=== PATIENT | female | born 1940 | race Caucasian/White ===

== ENCOUNTER 2020-01-05 00:37 | Day surgery (SDC) | payer MEDICARE, SELFPAY ==
[2020-01-02 14:39] VITALS: BMI 21.7
--- NOTE | 2020-01-05 10:19 | PM.HPGS ---
History of Present Illness History of Present Illness Consent: Risks, benefits, and alternatives have been discussed and questions answered. Patient agrees to proceed with procedure. Chief complaint: dysphagia, vomiting Narrative: Kylee Melendez is a 79 year old female who, for the past several weeks and almost and , would develop severe abdominal cramping followed by vomiting of undigested food. After few hours of this she tends to have a loose stool. Her gallbladder has been removed. Initially she had noted some difficulty with swallowing but this was not persistent. She did have an esophageal stricture that I dilated about 4 years ago. She is taking omeprazole 20 mg per day [facility] Family History Family History Father Family history of tuberculosis Mother Family history of liver disease Sibling Family history of emphysema Other Diabetes mellitus Family history of chronic obstructive pulmonary disease Family history of glaucoma Family history of hepatitis Family history of kidney disease Family history of lung disease Family history of malignant neoplasm of cervix Family history of osteoporosis Social History Social History Smoking status: Never smoker Smoking end date: 11/23/95 Alcohol intake: never Meds Home Medications and Allergies Home Medications Medication Instructions Recorded Confirmed Type albuterol sulfate 2.5 mg INHALATION DAILY 01/02/20 01/02/20 History amlodipine 5 mg PO DAILY 01/02/20 01/02/20 History hydrochlorothiazide 12.5 mg PO DAILY 01/02/20 01/02/20 History levothyroxine 50 mcg PO DAILY 01/02/20 01/02/20 History omeprazole 20 mg PO DAILY 01/02/20 01/02/20 History prednisolone acetate 1 drp OPHTHALMIC (EYE) DAILY 01/02/20 01/02/20 History rosuvastatin 20 mg PO DAILY 01/02/20 01/02/20 History sertraline 25 mg PO DAILY 01/02/20 01/02/20 History timolol maleate 1 drp OPHTHALMIC (EYE) DAILY 01/02/20 01/02/20 History umeclidinium-vilanterol [Anoro 1 inh INHALATION DAILY 01/02/20 01/02/20 History Ellipta] Allergies Allergy/AdvReac Type Severity Reaction Status Date / Time No Known Allergies Allergy Unknown Unverified 01/02/20 14:31 Exam Const: General: alert Orientation/consciousness: patient oriented x3 Resp: Auscultation: clear to auscultation bilaterally Cardio: Rhythm: regular rhythm GI: GI Palp: Yes Soft to palpation and No Tenderness to palpation present (GI) Neuro: General: patient oriented x3 Assessment and Plan Assessment and plan (1) Vomiting: Code(s): R11.10 - Vomiting, unspecified Status: Acute Assessment and Plan: EGD with possible biopsy or dilatation or cautery.
[2020-01-05] MEDS: LACTATED RINGERS 1,000 ML 150 ML IV CONT (10:27)
[2020-01-05 10:28] VITALS: BP 151/69; PULSE 66; RESP 14; TEMP 36.6; O2SAT 100; BMI 21.7
--- NOTE | 2020-01-05 10:34 | WPDANESEPPF ---
Anes - Initial Pre Proc Eval Procedure: Operation Date: 01/05/20 10:30 Proposed Procedures p Esophagogastroduodenoscopy - Janes Grey MD Date/Time: 01/05/20 10:34 Surgeon: Janes Grey MD Pre Op Diagnosis: dysphagia, vomiting Patient Data Age: 79 Gender: F Height: 4 ft 9 in Weight: 45.4 kg Last Vital Signs Temp 97.8 F 01/05/20 10:28 Pulse 66 01/05/20 10:28 Resp 14 01/05/20 10:28 BP 151/69 H 01/05/20 10:28 Pulse Ox 100 01/05/20 10:28 Allergies Allergy/AdvReac Type Severity Reaction Status Date / Time No Known Allergies Allergy Unknown Unverified 01/05/20 10:28 Home Medications Medication Instructions Recorded Confirmed Type albuterol sulfate 2.5 mg INHALATION DAILY 01/02/20 01/02/20 History amlodipine 5 mg PO DAILY 01/02/20 01/02/20 History hydrochlorothiazide 12.5 mg PO DAILY 01/02/20 01/02/20 History levothyroxine 50 mcg PO DAILY 01/02/20 01/02/20 History omeprazole 20 mg PO DAILY 01/02/20 01/02/20 History prednisolone acetate 1 drp OPHTHALMIC (EYE) DAILY 01/02/20 01/02/20 History rosuvastatin 20 mg PO DAILY 01/02/20 01/02/20 History sertraline 25 mg PO DAILY 01/02/20 01/02/20 History timolol maleate 1 drp OPHTHALMIC (EYE) DAILY 01/02/20 01/02/20 History umeclidinium-vilanterol [Anoro 1 inh INHALATION DAILY 01/02/20 01/02/20 History Ellipta] Patient hx anesthesia problems: none Family hx anesthesia problems: none PMFSH Past Medical History Medical History (Updated 01/05/20 @ 10:34 by Xander Barraza MD) COPD (chronic obstructive pulmonary disease) Depression Hyperlipidemia Hypertension Hypothyroid Family History Family History Father Family history of tuberculosis Mother Family history of liver disease Sibling Family history of emphysema Other Diabetes mellitus Family history of chronic obstructive pulmonary disease Family history of glaucoma Family history of hepatitis Family history of kidney disease Family history of lung disease Family history of malignant neoplasm of cervix Family history of osteoporosis Social History Social History Smoking status: Never smoker Smoking end date: 11/23/95 Alcohol intake: never Anes - Eval Final PreProcedure Day of Procedure 01/05/20 10:34 Patient weight: normal Heart: regular rate and rhythm Lungs: clear to auscultation Airway: Mallampati scale class II Neurological: alert and oriented Last oral intake: >/= 8 hours ASA classification: III Emergent: no Anesthetic plan: proceed Anesthesia type and monitoring: general GIVS and standard monitoring Informed Consent: The patient's anesthetic plan and its attendant risks and benefits were discussed with the patient/family/POA. Questions were solicited and answers provided to the satisfaction of the patient/family/POA.
[2020-01-05 10:51] VITALS: BP 100/51; PULSE 71; RESP 22; O2SAT 98
[2020-01-05 11:01] VITALS: BP 107/71; PULSE 67; RESP 18; O2SAT 100
[2020-01-05 11:11] VITALS: BP 126/57; PULSE 68; RESP 14; O2SAT 100
== END 2020-01-05 11:26 | disposition home or self-care (01) ==
PROVIDERS: PCP Internal Medicine; Visit Provider Internal Medicine Gastroenterology
PROC: 0DJ08ZZ Inspection of Upper Intestinal Tract, Via Natural or Artificial Opening Endoscopic (ICD-10-PCS; CPT 43235; principal; 2020-01-05 10:30)
DX: K22.2 Esophageal obstruction (principal); K29.70 Gastritis, unspecified, without bleeding; K25.9 Gastric ulcer, unspecified as acute or chronic, without hemorrhage or perforation; I10 Essential (primary) hypertension; E78.5 Hyperlipidemia, unspecified; E03.9 Hypothyroidism, unspecified; J44.9 Chronic obstructive pulmonary disease, unspecified; F32.9 Major depressive disorder, single episode, unspecified
CPT/HCPCS: 43239; 43249; 87081; C1726; J2704; J7120

== ENCOUNTER 2020-04-26 15:34 | Outpatient (CLI) | payer MEDICARE, SELFPAY ==
[2020-04-26 16:03] LABS: Hematocrit 39.4 % (37.0-47.0); Hemoglobin 12.3 g/dL (12.0-15.0); Immature Granulocyte Percent A 0.2 % (0-0.5); Mean Corpuscular HGB Conc 31.2 g/dl (32-36); Mean Corpuscular Hemoglobin 24.3 pg (26-34); Mean Corpuscular Volume 77.9 fl (80-100); Mean Platelet Volume 9.3 fl (7.4-10.4); Neutrophils Percent Auto 53.8 % (45.5-73.1); Platelet Count Result 222 k/mm3 (150-375); Red Blood Count 5.06 M/mm3 (4.2-5.4); Red Cell Distribution Width 18.4 % (11.5-14.5); White Blood Count 4.7 K/mm3 (4.5-10.0)
[2020-04-26 16:04] LABS: Basophils Percent Auto 0.6 % (0.2-1.2); Eosinophils Absolute Auto 0.2 K/mm3 (0-0.3); Eosinophils Percent Auto 3.6 % (0-4.4); Immature Granulocyte Absolute 0.01 K/mm3 (0.00-0.031); Lymphocytes Absolute Auto 1.53 K/mm3 (0.9-3.2); Lymphocytes Percent Auto 32.6 % (18.3-44.2); Monocytes Absolute Auto 0.4 K/mm3 (0.1-0.6); Monocytes Percent Auto 9.2 % (2.6-8.5); Neutrophils Absolute Auto 2.5 K/mm3 (1.3-6.7)
[2020-04-26 16:05] LABS: Immature Reticulocyte Fraction 18.6 % (3.0-15.9); Reticulocyte Hemoglobin Conten 28.2 pg (28.2-35.7); Reticulocyte Percent 1.66 % (0.7-4.3); Reticulocytes Absolute 0.08 B/L (32.2-175.7)
[2020-04-26 16:41] LABS: Iron 58 ug/dL (37-170)
[2020-04-26 16:44] LABS: Blood Urea Nitrogen 12 mg/dL (7-17); Calcium 9.5 mg/dL (8.4-10.2); Carbon Dioxide 31 mmol/L (22-30); Chloride 101 mmol/L (98-107); Estimated Glomerular Filt Rate 60; Glucose 80 mg/dL (65-105); Potassium 3.6 mmol/L (3.4-5.0); Sodium 137 mmol/L (137-145)
[2020-04-26 16:50] LABS: Percent Iron Saturation 15 % (20-50)
== END 2020-04-26 15:35 | disposition home or self-care (01) ==
PROVIDERS: PCP Internal Medicine; Visit Provider Internal Medicine Hematology & Oncology
DX: D64.9 Anemia, unspecified (principal)
CPT/HCPCS: 36415; 80048; 80500; 81257; 82728; 83021; 83540; 83550; 85014; 85018; 85025; 85041; 85046

== ENCOUNTER 2020-08-09 11:32 | Outpatient (CLI) | payer MEDICARE, SELFPAY ==
[2020-08-09 12:07] LABS: Basophils Percent Auto 0.7 % (0.2-1.2); Eosinophils Absolute Auto 0.2 K/mm3 (0-0.3); Eosinophils Percent Auto 3.5 % (0-4.4); Hematocrit 40.7 % (37.0-47.0); Hemoglobin 12.7 g/dL (12.0-15.0); Immature Granulocyte Absolute 0.02 K/mm3 (0.00-0.031); Immature Granulocyte Percent A 0.3 % (0-0.5); Lymphocytes Absolute Auto 2.01 K/mm3 (0.9-3.2); Lymphocytes Percent Auto 33.9 % (18.3-44.2); Mean Corpuscular HGB Conc 31.2 g/dl (32-36); Mean Corpuscular Hemoglobin 24.3 pg (26-34); Mean Corpuscular Volume 77.8 fl (80-100); Mean Platelet Volume 9.5 fl (7.4-10.4); Monocytes Absolute Auto 0.5 K/mm3 (0.1-0.6); Monocytes Percent Auto 8.8 % (2.6-8.5); Neutrophils Absolute Auto 3.1 K/mm3 (1.3-6.7); Neutrophils Percent Auto 52.8 % (45.5-73.1); Platelet Count Result 215 k/mm3 (150-375); Red Blood Count 5.23 M/mm3 (4.2-5.4); Red Cell Distribution Width 16.6 % (11.5-14.5); White Blood Count 5.9 K/mm3 (4.5-10.0)
[2020-08-09 15:13] LABS: Iron 66 ug/dL (37-170)
[2020-08-09 15:23] LABS: Percent Iron Saturation 18 % (20-50)
== END 2020-08-09 11:33 | disposition home or self-care (01) ==
PROVIDERS: PCP Internal Medicine; Visit Provider Internal Medicine Hematology & Oncology
DX: D64.9 Anemia, unspecified (principal)
CPT/HCPCS: 36415; 82728; 83540; 83550; 85025

== ENCOUNTER → 2020-09-13 16:07 | Outpatient (CLI) | payer MEDICARE, SELFPAY ==
--- NOTE | ~2020-09-13 | MR_ITS ---
EXAMINATION: MR lumbar spine wo con EXAM DATE: 09/13/2020 17:25 INDICATION: Cervalgia, Low Back Pain . TECHNIQUE: Multi-sequential, multiplanar MR images of the lumbar spine were obtained without contrast . Sagittal T1, T2, T2 fat saturation images. Axial T2 weighted images. There is no prior study for comparison. FINDINGS: Posterior and interbody fusion L5-S1 in the grade 1 anterolisthesis position, and laminecto mies. There is mild to moderate disc disease L1-L4. The conus medullaris terminates at the L1/2 level and has normal signal intensity and morphology. There are no suspicious marrow signal abnormalities . Paraspinal soft tissue is unremarkable. Patient has probably had right-sided nephrectomy. No eviden ce of retroperitoneal lymphadenopathy. Level by level evaluation: T12-L1: There is a minimal diffuse disc bulge. Facet arthropathy: None. Neural foraminal stenosis: No stenosis. Central canal stenosis: No stenosis. L1-L2: There is a mild diffuse disc bulge. Facet arthropathy: None. Neural foraminal stenosis: No stenosis. Central canal stenosis: No stenosis. L2-L3: There is a minimal diffuse disc bulge. Facet arthropathy: Mild. Neural foraminal stenosis: No stenosis. Central canal stenosis: No stenosis. L3-L4: There is a mild diffuse disc bulge. Facet arthropathy: Mild to moderate. Neural foraminal stenosis: Minimal right. Central canal stenosis: Minimal. L4-L5: There is a mild diffuse disc bulge. Facet arthropathy: Moderate synovial cyst projecting internally from left facet joint. Neural foraminal stenosis: Probably moderate bilateral. Central canal stenosis: Mild to moderate. L5-S1: This level is fused. Facet arthropathy: Poorly visualized. Neural foraminal stenosis: Mild to moderate right, no left. Central canal stenosis: Posterior decompression. IMPRESSION: 1. L5-S1 fusion, laminectomies. 2. Moderate bilateral L4-5 neural foraminal stenosis. 3. Lesser spondylosis above. Reviewed, dictated and finalized at location A.
--- NOTE | ~2020-09-13 | MR_ITS ---
EXAMINATION: MR cervical spine wo con EXAM DATE: 09/13/2020 17:49 INDICATION: Cervalgia, Low Back Pain. TECHNIQUE: Multi-sequential, multiplanar MR images of the cervical spine were obtained without contra st. Axial T2, axial T2 MERGE sequence. Sagittal T1, T2, T2 fat saturation images also obtained. Th ere is no prior study for comparison. FINDINGS: There is moderate disc disease at C3-4 and C5-6 and C6-7, mild to moderate at C4-5. There is 2 mm anterolisthesis C6 on C7. The spinal cord signal intensity and intrinsic morphology is normal . Cervicomedullary junction is normal in appearance. There are no suspicious marrow signal abnormalit ies. Paraspinal soft tissue is unremarkable. There is evidence of at least moderate mucoperiosteal th ickening within sinuses. Level by level evaluation: Study is limited due to patient motion. C2-C3: Disc does not extend beyond the endplate margin. Uncovertebral joint arthropathy: None. Facet joint arthropathy: Moderate to severe left. Neural foraminal stenosis: Moderate left. Central canal stenosis: No stenosis. C3-C4: There is a mild to moderate diffuse disc bulge. Uncovertebral joint arthropathy: Moderate bilateral. Facet joint arthropathy: Severe right, moderate left. Neural foraminal stenosis: Moderate to severe right, moderate left. Central canal stenosis: Mild to moderate. C4-C5: There is a mild diffuse disc bulge. Uncovertebral joint arthropathy: Moderate left, mild to moderate right. Facet joint arthropathy: Moderate bilateral. Neural foraminal stenosis: Moderate to severe left, mild to moderate right. Central canal stenosis: Mild. C5-C6: There is a mild to moderate diffuse disc bulge. Uncovertebral joint arthropathy: Moderate bilateral. Facet joint arthropathy: Moderate bilateral. Neural foraminal stenosis: Severe left, moderate to severe right. Central canal stenosis: Mild to moderate. C6-C7: There is a mild diffuse disc bulge. Uncovertebral joint arthropathy: Moderate left, mild to moderate right. Facet joint arthropathy: Moderate left, mild right. Neural foraminal stenosis: Moderate left. Central canal stenosis: Mild. C7-T1: Disc does not extend beyond the endplate margin. Uncovertebral joint arthropathy: Mild to moderate left. Facet joint arthropathy: Mild to moderate bilateral. Neural foraminal stenosis: Mild left. Central canal stenosis: No stenosis. IMPRESSION: 1. Advanced cervical spondylosis with the left C5-6 neural foramina severely narrowed. Reviewed, dictated and finalized at location A. IMPRESSION: 1. Advanced cervical spondylosis with the left C5-6 neural foramina severely n arrowed.
== END ==
PROVIDERS: Visit Provider Nurse Practitioner Family
DX: M54.5 Low back pain (principal); Z98.1 Arthrodesis status; M47.892 Other spondylosis, cervical region
CPT/HCPCS: 72141; 72148

== ENCOUNTER 2020-10-29 11:31 | Outpatient (CLI) | payer MEDICARE, SELFPAY ==
[2020-10-29 11:44] LABS: Basophils Percent Auto 0.6 % (0.2-1.2); Eosinophils Absolute Auto 0.2 K/mm3 (0-0.3); Eosinophils Percent Auto 2.8 % (0-4.4); Hematocrit 39.6 % (37.0-47.0); Hemoglobin 12.3 g/dL (12.0-15.0); Immature Granulocyte Absolute 0.03 K/mm3 (0.00-0.031); Immature Granulocyte Percent A 0.4 % (0-0.5); Lymphocytes Absolute Auto 1.63 K/mm3 (0.9-3.2); Lymphocytes Percent Auto 24.1 % (18.3-44.2); Mean Corpuscular HGB Conc 31.1 g/dl (32-36); Mean Corpuscular Hemoglobin 24.4 pg (26-34); Mean Corpuscular Volume 78.4 fl (80-100); Monocytes Absolute Auto 0.7 K/mm3 (0.1-0.6); Monocytes Percent Auto 9.6 % (2.6-8.5); Neutrophils Absolute Auto 4.2 K/mm3 (1.3-6.7); Neutrophils Percent Auto 62.5 % (45.5-73.1); Platelet Count Result 288 k/mm3 (150-375); Red Blood Count 5.05 M/mm3 (4.2-5.4); Red Cell Distribution Width 16.7 % (11.5-14.5); White Blood Count 6.8 K/mm3 (4.5-10.0)
[2020-10-29 16:49] LABS: Alanine Aminotransferase 20 U/L (4-35); Albumin Level 3.5 g/dL (3.5-5.1); Alkaline Phosphatase 112 U/L (38-126); Anion Gap 8 mmol/L (8-16); Aspartate Amino Transferase 25 U/L (14-36); Bilirubin,Total 0.4 mg/dL (0.2-1.3); Blood Urea Nitrogen 15 mg/dL (7-17); Calcium 8.6 mg/dL (8.4-10.2); Carbon Dioxide 29 mmol/L (22-30); Chloride 103 mmol/L (98-107); Estimated Glomerular Filt Rate 60; Glucose 96 mg/dL (65-105); Potassium 3.7 mmol/L (3.4-5.0); Sodium 140 mmol/L (137-145)
[2020-10-29 17:51] LABS: Iron 49 ug/dL (37-170)
[2020-10-29 18:00] LABS: Percent Iron Saturation 15 % (20-50)
== END 2020-10-29 11:32 | disposition home or self-care (01) ==
LOC: ANHLAB 11:32
PROVIDERS: PCP Internal Medicine; Visit Provider Internal Medicine Hematology & Oncology
DX: D56.0 Alpha thalassemia (principal); D50.9 Iron deficiency anemia, unspecified
CPT/HCPCS: 36415; 80053; 82728; 83540; 83550; 85025

== ENCOUNTER 2021-01-23 13:23 | Outpatient (CLI) | payer MEDICARE, SELFPAY ==
[2021-01-23 13:40] LABS: Basophils Percent Auto 0.4 % (0.2-1.2); Eosinophils Absolute Auto 0.2 K/mm3 (0-0.3); Eosinophils Percent Auto 3.2 % (0-4.4); Hematocrit 41.3 % (37.0-47.0); Hemoglobin 12.9 g/dL (12.0-15.0); Immature Granulocyte Absolute 0.02 K/mm3 (0.00-0.031); Immature Granulocyte Percent A 0.4 % (0-0.5); Lymphocytes Absolute Auto 1.74 K/mm3 (0.9-3.2); Lymphocytes Percent Auto 31.2 % (18.3-44.2); Mean Corpuscular HGB Conc 31.2 g/dl (32-36); Mean Corpuscular Volume 76.9 fl (80-100); Mean Platelet Volume 9.4 fl (7.4-10.4); Monocytes Absolute Auto 0.5 K/mm3 (0.1-0.6); Monocytes Percent Auto 8.4 % (2.6-8.5); Neutrophils Absolute Auto 3.2 K/mm3 (1.3-6.7); Neutrophils Percent Auto 56.4 % (45.5-73.1); Platelet Count Result 232 k/mm3 (150-375); Red Blood Count 5.37 M/mm3 (4.2-5.4); Red Cell Distribution Width 16.4 % (11.5-14.5); White Blood Count 5.6 K/mm3 (4.5-10.0)
[2021-01-23 16:04] LABS: Iron 64 ug/dL (37-170)
[2021-01-23 16:05] LABS: Alanine Aminotransferase 22 U/L (4-35); Albumin Level 4.1 g/dL (3.5-5.1); Alkaline Phosphatase 90 U/L (38-126); Anion Gap 6 mmol/L (8-16); Aspartate Amino Transferase 29 U/L (14-36); Bilirubin,Total 0.6 mg/dL (0.2-1.3); Blood Urea Nitrogen 21 mg/dL (7-17); Calcium 9.5 mg/dL (8.4-10.2); Carbon Dioxide 33 mmol/L (22-30); Chloride 99 mmol/L (98-107); Estimated Glomerular Filt Rate 53; Glucose 97 mg/dL (65-105); Potassium 3.7 mmol/L (3.4-5.0); Sodium 138 mmol/L (137-145)
[2021-01-23 16:13] LABS: Percent Iron Saturation 16 % (20-50)
== END 2021-01-23 13:24 | disposition home or self-care (01) ==
LOC: ANHLAB 13:25
PROVIDERS: PCP Internal Medicine; Visit Provider Internal Medicine Hematology & Oncology
DX: D50.9 Iron deficiency anemia, unspecified (principal); D56.3 Thalassemia minor
CPT/HCPCS: 36415; 80053; 82728; 83540; 83550; 85025

== ENCOUNTER → 2021-02-16 02:37 | Outpatient (CLI) | payer MEDICARE, SELFPAY ==
[2021-02-16 20:22] LABS: SARS-CoV-2 RNA PCR Negative
== END ==
PROVIDERS: PCP Internal Medicine; Visit Provider Internal Medicine Gastroenterology
DX: Z01.812 Encounter for preprocedural laboratory examination (principal); Z20.822 Contact with and (suspected) exposure to COVID-19
CPT/HCPCS: C9803; U0003; U0005

== ENCOUNTER 2021-02-20 00:54 | Day surgery (SDC) | payer MEDICARE, SELFPAY ==
[2021-02-07 10:38] VITALS: BMI 22.8
[2021-02-20 08:23] VITALS: BP 158/71; PULSE 80; RESP 18; TEMP 36.6; O2SAT 99; BMI 22.1
[2021-02-20] MEDS: LACTATED RINGERS 1,000 ML 150 ML IV CONT (08:34)
--- NOTE | 2021-02-20 09:07 | WPDANESEPPF ---
Anes - Initial Pre Proc Eval Procedure: Operation Date: 02/20/21 09:30 Proposed Procedures p Esophagogastroduodenoscopy With Dilatation - Janes Grey MD Date/Time: 02/20/21 09:07 Surgeon: Janes Grey MD Pre Op Diagnosis: Dysphagia Patient Data Age: 80 Gender: F Height: 4 ft 9 in Weight: 46.3 kg Last Vital Signs Temp 98 F 02/20/21 08:23 Pulse 80 02/20/21 08:23 Resp 18 02/20/21 08:23 BP 158/71 H 02/20/21 08:23 Pulse Ox 99 02/20/21 08:23 Allergies Allergy/AdvReac Type Severity Reaction Status Date / Time codeine Allergy Itching Verified 02/20/21 08:21 Home Medications Medication Instructions Recorded Confirmed Type Anoro Ellipta 1 inh INHALATION DAILY 01/02/20 02/20/21 History albuterol sulfate 2.5 mg INHALATION DAILY 01/02/20 02/20/21 History amlodipine 5 mg PO DAILY 01/02/20 02/20/21 History hydrochlorothiazide 12.5 mg PO DAILY 01/02/20 02/20/21 History levothyroxine 50 mcg PO DAILY 01/02/20 02/20/21 History omeprazole 20 mg PO DAILY 01/02/20 02/20/21 History prednisolone acetate 1 drp OPHTHALMIC (EYE) DAILY 01/02/20 02/20/21 History rosuvastatin 20 mg PO DAILY 01/02/20 02/20/21 History sertraline 25 mg PO DAILY 01/02/20 02/20/21 History timolol maleate 1 drp OPHTHALMIC (EYE) DAILY 01/02/20 02/20/21 History cholecalciferol (vitamin D3) 25 25 mcg PO DAILY 07/16/20 02/20/21 History mcg (1,000 unit) capsule denosumab 60 mg/mL subcutaneous 60 mg SUB-Q [id number] 07/16/20 02/20/21 History syringe multivitamin 1 cap PO DAILY 07/16/20 02/20/21 History vitamin B12 500 mcg-folic acid 400 1 tablet PO DAILY 07/16/20 02/20/21 History mcg tablet Patient hx anesthesia problems: none Family hx anesthesia problems: none PMFSH Past Medical History Medical History COPD (chronic obstructive pulmonary disease) Depression Dupuytrens contracture Epidermoid carcinoma Cervix Glaucoma Hyperlipidemia Hypertension Hypothyroid Surgical History Surgical History History of cholecystectomy 1972 History of eye surgery bilateral History of hip replacement L-2017 R-2016 History of kidney removal R 2014 History of spinal fusion 2013, Lumbar Family History Family History Father Family history of tuberculosis Mother Family history of liver disease Sibling Family history of emphysema Other Diabetes mellitus Family history of chronic obstructive pulmonary disease Family history of glaucoma Family history of hepatitis Family history of kidney disease Family history of lung disease Family history of malignant neoplasm of cervix Family history of osteoporosis Social History Social History Smoking packs per day: 0.5 Smoking cigarettes per day: 10.0 Years smoked: 40 Smoking pack-years: 20.00 Smoking status: Former smoker Tobacco type: cigarettes Smoking end date: 11/23/95 Alcohol intake: never Substance use: never Living arrangements: alone Gender identity (if verbalized by the patient): Female Spiritual care concerns: No Anes - Eval Final PreProcedure Day of Procedure 02/20/21 09:07 Patient weight: normal Heart: regular rate and rhythm Lungs: clear to auscultation Airway: Mallampati scale class II Neurological: alert and oriented Last oral intake: >/= 8 hours ASA classification: III Emergent: no Anesthetic plan: proceed Anesthesia type and monitoring: general GIVS and standard monitoring Informed Consent: The patient's anesthetic plan and its attendant risks and benefits were discussed with the patient/family/POA. Questions were solicited and answers provided to the satisfaction of the patient/family/POA.
--- NOTE | 2021-02-20 09:12 | PM.HPGS ---
History of Present Illness History of Present Illness Consent: Risks, benefits, and alternatives have been discussed and questions answered. Patient agrees to proceed with procedure. Chief complaint: Dysphagia Narrative: Kylee Melendez is a 80 year old female With dysphagia for solid food. She has done well since her last esophageal dilatation a year ago until just the last couple of weeks. Review of Systems Review of Systems: All systems reviewed & are unremarkable except as noted in HPI and below PMFSH Past Medical History Medical History COPD (chronic obstructive pulmonary disease) Depression Dupuytrens contracture Epidermoid carcinoma Cervix Glaucoma Hyperlipidemia Hypertension Hypothyroid Surgical History Surgical History History of cholecystectomy 1971 History of eye surgery bilateral History of hip replacement L-2016 R-2016 History of kidney removal R 2014 History of spinal fusion 2013, Lumbar Family History Family History Father Family history of tuberculosis Mother Family history of liver disease Sibling Family history of emphysema Other Diabetes mellitus Family history of chronic obstructive pulmonary disease Family history of glaucoma Family history of hepatitis Family history of kidney disease Family history of lung disease Family history of malignant neoplasm of cervix Family history of osteoporosis Social History Social History Smoking packs per day: 0.5 Smoking cigarettes per day: 10.0 Years smoked: 40 Smoking pack-years: 20.00 Smoking status: Former smoker Tobacco type: cigarettes Smoking end date: 11/23/95 Alcohol intake: never Substance use: never Living arrangements: alone Gender identity (if verbalized by the patient): Female Spiritual care concerns: No Meds Home Medications and Allergies Home Medications Medication Instructions Recorded Confirmed Type Anoro Ellipta 1 inh INHALATION DAILY 01/02/20 02/20/21 History albuterol sulfate 2.5 mg INHALATION DAILY 01/02/20 02/20/21 History amlodipine 5 mg PO DAILY 01/02/20 02/20/21 History hydrochlorothiazide 12.5 mg PO DAILY 01/02/20 02/20/21 History levothyroxine 50 mcg PO DAILY 01/02/20 02/20/21 History omeprazole 20 mg PO DAILY 01/02/20 02/20/21 History prednisolone acetate 1 drp OPHTHALMIC (EYE) DAILY 01/02/20 02/20/21 History rosuvastatin 20 mg PO DAILY 01/02/20 02/20/21 History sertraline 25 mg PO DAILY 01/02/20 02/20/21 History timolol maleate 1 drp OPHTHALMIC (EYE) DAILY 01/02/20 02/20/21 History cholecalciferol (vitamin D3) 25 25 mcg PO DAILY 07/16/20 02/20/21 History mcg (1,000 unit) capsule denosumab 60 mg/mL subcutaneous 60 mg SUB-Q [id number] 07/16/20 02/20/21 History syringe multivitamin 1 cap PO DAILY 07/16/20 02/20/21 History vitamin B12 500 mcg-folic acid 400 1 tablet PO DAILY 07/16/20 02/20/21 History mcg tablet Allergies Allergy/AdvReac Type Severity Reaction Status Date / Time codeine Allergy Itching Verified 02/20/21 08:21 Vital Signs Vital Signs - 24 hr 02/20/21 08:23 Temperature 36.6 C Pulse Rate 80 Respiratory Rate 18 Blood Pressure 158/71 H Pulse Oximetry 99 Exam Const: General: alert Orientation/consciousness: patient oriented x3 Resp: Auscultation: clear to auscultation bilaterally Cardio: Rhythm: regular rhythm GI: GI Palp: Yes Soft to palpation and No Tenderness to palpation present (GI) Neuro: General: patient oriented x3 Assessment and Plan Assessment and plan (1) Dysphagia: Code(s): R13.10 - Dysphagia, unspecified Status: Acute Assessment and Plan: EGD with possible biopsy or dilatation or cautery
[2021-02-20] MEDS: BENZOCAINE (*SP) 60 ML SPRAY CAN (HURRICAINE) 1 SPRAY MUCOUS MEM (09:22)
[2021-02-20 09:36] VITALS: BP 101/50; PULSE 71; RESP 26; O2SAT 96
[2021-02-20 09:46] VITALS: BP 104/51; PULSE 71; RESP 20; O2SAT 95
[2021-02-20 09:56] VITALS: BP 122/68; PULSE 74; RESP 19; O2SAT 98
== END 2021-02-20 10:11 | disposition home or self-care (01) ==
PROVIDERS: PCP Internal Medicine; Visit Provider Internal Medicine Gastroenterology
PROC: 0DJ08ZZ Inspection of Upper Intestinal Tract, Via Natural or Artificial Opening Endoscopic (ICD-10-PCS; CPT 43235; principal; 2021-02-20 09:30)
DX: K22.2 Esophageal obstruction (principal); J44.9 Chronic obstructive pulmonary disease, unspecified; I10 Essential (primary) hypertension; E78.5 Hyperlipidemia, unspecified; E03.9 Hypothyroidism, unspecified; H40.9 Unspecified glaucoma; F32.9 Major depressive disorder, single episode, unspecified; Z79.51 Long term (current) use of inhaled steroids; Z98.1 Arthrodesis status; Z87.891 Personal history of nicotine dependence
CPT/HCPCS: 43249; C1726; J2704; J7120

== ENCOUNTER 2021-03-18 13:22 | Inpatient (IN) | payer MEDICARE, SELFPAY ==
[2021-03-18] VITALS (9 sets, daily range): BP systolic 110–145; BP diastolic 52–70; PULSE 73–93; RESP 15–20; TEMP 36.2–37.3; O2SAT 95–100; BMI 22.2
--- NOTE | ~2021-03-18 | XR_ITS ---
XR abdomen obstructive series 03/21/2021 08:57 Indication: Small bowel obstruction Procedure: Upright and supine views of the abdomen Comparison: 03/18/2021 Findings: Bowel gas pattern is nonobstructive. There is residual contrast in the distal colon. There are spinal fusion changes at L5-S1. There are bilateral hip arthroplasties. Lung bases unremarkable. There are cholecystectomy clips. Impression: 1: Nonobstructive bowel gas pattern. Reviewed, dictated and finalized at location B. Impression: 1: Nonobstructive bowel gas pattern.
--- NOTE | ~2021-03-18 | XR_ITS ---
EXAMINATION: XR abdomen NG/feed tube insert DATE: 03/18/2021 17:08 INDICATION: Nasogastric tube placement TECHNIQUE: A supine view of the abdomen and lower chest was obtained for evaluation of feeding tube placement. COMPARISON: CT dated 03/18/2021 FINDINGS: Nasogastric tube tip in proximal side port in the body of the stomach. Calcified nodules in the left and right lungs consistent with old granulomatous disease. No pleural effusion or pneumothorax. Cardi omediastinal silhouette is normal. Right paraspinal surgical clips in the abdomen corresponding to ch anges of prior right nephrectomy. Gas-filled but not frankly dilated loops of small bowel in the cent ral abdomen which could represent an ileus or partial small bowel obstruction. Partially visualized b ilateral vertical gina and pedicle screw fixation for and L5-S1 posterior spinal fusion. IMPRESSION: 1. Nasogastric tube in the stomach. 2. Gas-filled but not frankly dilated loops of small bowel in the abdomen which could represent an il eus or partial small bowel obstruction. Reviewed, dictated and finalized at location A. IMPRESSION: 1. Nasogastric tube in the stomach. 2. Gas-filled but not frankly dilated loops of small bowel in the abdomen which could represent an ileus or partial small bowel obstruction.
--- NOTE | ~2021-03-18 | CT_ITS ---
EXAMINATION: CT abdomen pelvis w con EXAM DATE: 03/18/2021 14:59 INDICATION: Generalized abdominal pain . TECHNIQUE: Spiral CT of the abdomen and pelvis was performed following intravenous injection of 100 m L Omnipaque 350. Axial, coronal and sagittal images of the abdomen and pelvis were reviewed. The do se-length product (DLP) for this examination was 212.56 mGy-cm. The exposure was tailored according to patient size (auto mA exposure control), and iterative reconstruction (ASIR) was used as additiona l dose reduction technique. Comparison is made to prior examination from 02/01/2016. FINDINGS: There is moderate to severely distended jejunum, diameter up to 3.5 cm, with diameter of th e small bowel tapering to the terminal ileum which is suspected to have mild edema, probably terminal ileitis. Mild edema within the mesentery. There are approximately 10 filling defects within the lum en of the ileum just proximal to the terminal ileum, relatively uniform size and appearance at about 11 x 7 mm, could be something ingested (peripherally very low density, not typical appearance for [place] d. Gallstones? Plastic?). Uncertain whether or not these are having difficulty passing the terminal i leum due to its edematous wall, and possibly contributing to dilation. The liver, spleen, adrenal glands and pancreas are unremarkable. There are cholecystectomy clips. 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 No left-sided hydronephrosis. There is a 1.5 cm left renal cyst. The uterus is unremarkable. The bladder is undistended, and po tung visualized due to dense metallic artifact from bilateral hip replacements. There is no retroper itoneal or pelvic lymphadenopathy. There is moderate scattered arteriosclerotic disease. There are no findings to suggest appendicitis. There is small sliding gastroesophageal hiatal hernia . Colonic fluid, and relatively collapsed colon and mild sigmoid diverticulosis without adjacent inf lammation. No free intraperitoneal gas. The heart is normal in size. There are no pericardial or pleural effusions. The lung bases are unremarkable. There are no osteoblastic or osteolytic lesion s identified. IMPRESSION: Moderate to severe jejunal distention with tapering to an abnormal appearing terminal ile um, could be terminal ileitis and resultant ileus or partial obstruction. Intraluminal objects windup just proximal to terminal ileum, could be ingested foreign bodies, no gallbladder to indicate gallst one ileus. Uncertain whether or not these are incidental or contributing to small bowel dilation. Reviewed, dictated and finalized at location A. IMPRESSION: Moderate to severe jejunal distention with tapering to an abnormal appearing terminal ileum, could be terminal ileitis and resultant ileus or part ial obstruction. Intraluminal objects windup just proximal to terminal ileum, c ould be ingested foreign bodies, no gallbladder to indicate gallstone ileus. Un certain whether or not these are incidental or contributing to small bowel dila tion.
--- NOTE | ~2021-03-18 | XR_ITS ---
EXAMINATION: XR sm bowel follow through WS EXAM DATE: 03/19/2021 14:25 INDICATION: Small bowel obstruction, terminal ileum stricture? Distal terminal ileal filling defects. TECHNIQUE: Turret Press Operator radiograph was acquired. Omnipaque water soluble solution small bowel exam was perfo rmed with by radiologist John Pisano M.D. Spot images of the terminal ileum were acquired. Pulsed dose reduction fluoroscopy was used with fluoroscopic time of 0.3. The DAP for this procedure was 27 Gycm2. A total of 56 images obtained for the exam. Correlation is made to CT abdomen pelvis 03/18/20. FINDINGS: Turret Press Operator image confirms adequate position of nasogastric tube. Cholecystectomy clips, lumbar f usion hardware and bilateral hip replacements. Moderately distended jejunum with more normal calibered ileum, progressive opacification during 1.5 h ours of imaging. Contrast was confirmed in the colon on the 1.5 hour post administration, within norm al limits. Could not specifically visualized the terminal ileum well on spot imaging at that time. Di d not identify any filling defects within the small bowel on this examination. I discussed these resu lts with Moraima Lehman. IMPRESSION: 1. Moderately dilated jejunum, normal transit time 1-1.5 hours. Ileus or partial obstruction. 2. Terminal ileum poorly visualized. 3. Please see addendum to CT abdomen pelvis from yesterday. Reviewed, dictated and finalized at location A. IMPRESSION: 1. Moderately dilated jejunum, normal transit time 1-1.5 hours. Ileus or partia l obstruction. 2. Terminal ileum poorly visualized. 3. Please see addendum to CT abdomen pelvis from yesterday.
[2021-03-18 13:54] LABS: Basophils Percent Auto 0.3 % (0.2-1.2); Eosinophils Percent Auto 0.6 % (0-4.4); Hematocrit 40.8 % (37.0-47.0); Immature Granulocyte Absolute 0.01 K/mm3 (0.00-0.031); Immature Granulocyte Percent A 0.2 % (0-0.5); Lymphocytes Absolute Auto 1.33 K/mm3 (0.9-3.2); Lymphocytes Percent Auto 20.8 % (18.3-44.2); Mean Corpuscular HGB Conc 31.9 g/dl (32-36); Mean Corpuscular Volume 75.4 fl (80-100); Mean Platelet Volume 9.2 fl (7.4-10.4); Monocytes Absolute Auto 0.8 K/mm3 (0.1-0.6); Monocytes Percent Auto 12.5 % (2.6-8.5); Neutrophils Absolute Auto 4.2 K/mm3 (1.3-6.7); Neutrophils Percent Auto 65.6 % (45.5-73.1); Platelet Count Result 206 k/mm3 (150-375); Red Blood Count 5.41 M/mm3 (4.2-5.4); Red Cell Distribution Width 16.3 % (11.5-14.5); White Blood Count 6.4 K/mm3 (4.5-10.0)
[2021-03-18 14:05] LABS: Alanine Aminotransferase 23 U/L (4-35); Albumin Level 3.9 g/dL (3.5-5.1); Alkaline Phosphatase 58 U/L (38-126); Anion Gap 8 mmol/L (8-16); Aspartate Amino Transferase 30 U/L (14-36); Bilirubin,Total 0.7 mg/dL (0.2-1.3); Blood Urea Nitrogen 16 mg/dL (7-17); Calcium 9.7 mg/dL (8.4-10.2); Carbon Dioxide 30 mmol/L (22-30); Chloride 97 mmol/L (98-107); Estimated Glomerular Filt Rate 60; Glucose 114 mg/dL (65-105); Lipase 34 U/L (23-300); Potassium 3.6 mmol/L (3.4-5.0); Sodium 135 mmol/L (137-145)
--- NOTE | 2021-03-18 14:22 | PC.NURSE ---
Pt attempted to give urine sample, states she accidentally spilled the sample while in bathroom. Will attempt another sample at a later time.
--- NOTE | 2021-03-18 14:38 | ED.NAVMDI ---
HPI - Nausea/Vomiting/Diarrhea General Chief complaint: Nausea/Vomiting/Diarrhea Stated complaint: abd pain/v/d Time Seen by Provider: 03/18/21 14:06 History of Present Illness HPI Narrative: nausea, vomiting, diarrhea for the past week. Associated with occasional dark stools, increasing abdominal pain for the past few days. The pain is now severe. It feels like cramps. She has never had this pain before. She did recently have an esophageal dilation done. Related Data Home Medications Medication Instructions Recorded Confirmed Anoro Ellipta 1 inh INHALATION DAILY 01/02/20 02/20/21 albuterol sulfate 2.5 mg INHALATION DAILY 01/02/20 02/20/21 amlodipine 5 mg PO DAILY 01/02/20 02/20/21 hydrochlorothiazide 12.5 mg PO DAILY 01/02/20 02/20/21 levothyroxine 50 mcg PO DAILY 01/02/20 02/20/21 omeprazole 20 mg PO DAILY 01/02/20 02/20/21 prednisolone acetate 1 drp OPHTHALMIC (EYE) DAILY 01/02/20 02/20/21 rosuvastatin 20 mg PO DAILY 01/02/20 02/20/21 sertraline 25 mg PO DAILY 01/02/20 02/20/21 timolol maleate 1 drp OPHTHALMIC (EYE) DAILY 01/02/20 02/20/21 cholecalciferol (vitamin D3) 25 25 mcg PO DAILY 07/16/20 02/20/21 mcg (1,000 unit) capsule denosumab 60 mg/mL subcutaneous 60 mg SUB-Q [id number] 07/16/20 02/20/21 syringe multivitamin 1 cap PO DAILY 07/16/20 02/20/21 vitamin B12 500 mcg-folic acid 400 1 tablet PO DAILY 07/16/20 02/20/21 mcg tablet Allergies Allergy/AdvReac Type Severity Reaction Status Date / Time codeine Allergy Itching Verified 03/18/21 14:21 Review of Systems Review of Systems: All systems reviewed & are unremarkable except as noted in HPI and below Constitutional: Constitutional: Reports fatigue, Denies fever(s) and Reports weakness ENT: Reports system reviewed and no additional complaints, except as documented Cardiovascular: Cardiovascular: Denies chest pain Respiratory: Respiratory: Denies dyspnea Gastrointestinal: Gastrointestinal: Reports abdominal pain, Reports diarrhea, Reports nausea and Reports vomiting Genitourinary: Genitourinary: Reports no additional female genitourinary complaints Musculoskeletal: Musculoskeletal: Denies back pain Neurologic: Denies confusion, Reports dizziness, Denies syncope and Reports weakness [facility] Past Medical History Medical History COPD (chronic obstructive pulmonary disease) Depression Dupuytrens contracture Epidermoid carcinoma Cervix Glaucoma Hyperlipidemia Hypertension Hypothyroid Surgical History Surgical History History of cholecystectomy 1972 History of eye surgery bilateral History of hip replacement L-2017 R-2016 History of kidney removal R 2014 History of spinal fusion 2013, Lumbar Family History Family History Father Family history of tuberculosis Mother Family history of liver disease Sibling Family history of emphysema Other Diabetes mellitus Family history of chronic obstructive pulmonary disease Family history of glaucoma Family history of hepatitis Family history of kidney disease Family history of lung disease Family history of malignant neoplasm of cervix Family history of osteoporosis Social History Social History Smoking packs per day: 0.5 Smoking cigarettes per day: 10.0 Years smoked: 40 Smoking pack-years: 20.00 Smoking status: Former smoker Tobacco type: cigarettes Smoking end date: 11/23/95 Alcohol intake: never Substance use: never Gender identity (if verbalized by the patient): Female Spiritual care concerns: No Exam Const: General: healthy appearing, no acute distress and alert Orientation/consciousness: patient oriented x3 HENMT: Head: normal to inspection Resp: Effort & Inspection: normal respiratory effort Auscultation:
[2021-03-18] MEDS: SODIUM CHLORIDE 0.9% IV 500 ML 999 ML IV CONT (15:33)
[2021-03-18] MEDS: fentaNYL CITRATE INJ (*CRX) 100 MCG/2 ML VIAL 50 MCG IV PUSH ×3 (15:33→21:11)
[2021-03-18] MEDS: ONDANSETRON INJ 4 MG/2 ML VIAL IV PUSH (15:33)
[2021-03-18 15:34] LABS: Lactic Acid Reflex 1.9 mmol/L (0.7-2.1)
[2021-03-18 15:46] LABS: Add Urine Microscopic? YES; Appearance Urine Clear (Clear); Bilirubin Urine Negative (Negative); Blood Urine Negative (Negative); Color Urine Yellow (Yellow); Glucose Urine UA Negative (Negative); Ketones Urine Negative (Negative); Leukocyte Esterase Ur Trace LEU/UL (Negative); Mucus Urine Rare /lpf; Nitrate Urine Negative (Negative); Protein Urine Negative (Negative); RBC Urine 0-2 /hpf (0-2); Squamous Epithelial Cell Urine Moderate /hpf (Few); Urobilinogen Urine Negative mg/dL (<2.0); WBC Urine 0-3 /hpf
[2021-03-18 15:57] LABS: Specific Grav Ur 1.035 (1.001-1.035)
[2021-03-18] MEDS: LORazepam INJ (*CRX) 2 MG/ML VIAL 0.5 MG IV PUSH (16:59)
--- NOTE | 2021-03-18 18:31 | ADMGEN ---
This patient, Kylee Melendez, was admitted to 3 Med Surg Room 317-01. Patient/family oriented to hospital policies and general routines including ID bracelet, bed and alarms, visiting hours, pain management, procedures, bathroom and other care routines, personal items, smoking policy, room service/diet, and visiting hours. Information on how to activate the Rapid Response Team has been discussed. Patient/Family are encouraged to report perceived risks to care and to ask questions if they do not understand what they are told or what they should do.
[2021-03-18] MEDS: LACTATED RINGERS 1,000 ML 75 ML IV CONT (18:36)
--- NOTE | 2021-03-18 20:46 | WPDGICN ---
Assessment and Plan Assessment and plan (1) Vomiting: Code(s): R11.10 - Vomiting, unspecified Status: Acute Assessment and Plan: Per CT imaging, it appears she has a narrowed terminal ileum, which clinically I would suspect is rergional enteritis, though unusual to present at her age. (2) Abnormal CT of the abdomen: Code(s): R93.5 - Abnormal findings on diagnostic imaging of other abdominal regions, including retroperitoneum Status: Acute Assessment and Plan: See above--narrowed T.I. impliies ileitis, either IBD or an infectious process,but she recalls having been told by Dr. Milian that there was narrowing about 6 years ago based on a SBS which I cannot find at this institution. I will obtain markers for IBD. Hopefully her ileum wlll open up after decompression. wiill begin steroids as well (3) Dysphagia: Code(s): R13.10 - Dysphagia, unspecified Status: Acute Assessment and Plan: Sha has been swallowing better since haing Dilitation 4 weeks ago. GI Consult Note Consult date/time: 03/18/21 20:46 HPI: Kylee Melendez is a 80 year old female who presents to the ED with a 7 daay story of nausea, vomiting, and diarrhea. She has had lower abdominal pain. No feer or chills. Recently, I dilated her esophageal stricture. Seeral years ago she states her previous doctor did an upper GI showing abnormality of the small bowel. I cannot find that study, but do recollect a conversation about Crohn's, and possibly obtained markers for it, which she states were neg. Now she has an NG in place draining light brown material, non bloody. Her CT scan show dilated proximal small bowel and inflamed (narrowed) erminal leum, roximal to which are filling defects that I suspect are time release wax matrix type tablets, likely potassium. Review of Systems Review of Systems: All systems reviewed & are unremarkable except as noted in HPI and below PMFSH Past Medical History Medical History COPD (chronic obstructive pulmonary disease) Depression Dupuytrens contracture Epidermoid carcinoma Cervix Glaucoma Hyperlipidemia Hypertension Hypothyroid Surgical History Surgical History History of cholecystectomy 1972 History of eye surgery bilateral History of hip replacement L-2017 R-2017 History of kidney removal R 2014 History of spinal fusion 2013, Lumbar Family History Family History Father Family history of tuberculosis Mother Family history of liver disease Sibling Family history of emphysema Daughter Diabetes mellitus Social History Social History Smoking packs per day: 0.5 Smoking cigarettes per day: 10.0 Years smoked: 40 Smoking pack-years: 20.00 Smoking status: Former smoker Tobacco type: cigarettes Smoking end date: 11/23/95 Alcohol intake: never Substance use: never Gender identity (if verbalized by the patient): Female Sexual Orientation (if Verbalized by the Patient): Straight or Heterosexual Spiritual care concerns: No Meds Home Medications and Allergies Home Medications Medication Instructions Recorded Confirmed Type Anoro Ellipta 1 inh INHALATION DAILY 01/02/20 03/18/21 History albuterol sulfate 2.5 mg INHALATION DAILY 01/02/20 03/18/21 History amlodipine 5 mg PO DAILY 01/02/20 03/18/21 History hydrochlorothiazide 12.5 mg PO DAILY 01/02/20 03/18/21 History levothyroxine 50 mcg PO DAILY 01/02/20 03/18/21 History omeprazole 20 mg PO DAILY 01/02/20 03/18/21 History prednisolone acetate 1 drp RIGHT EYE DAILY 01/02/20 03/18/21 History rosuvastatin 40 mg PO DAILY 01/02/20 03/18/21 History sertraline 25 mg PO DAILY 01/02/20 03/18/21 History timolol maleate 1 drp OPHTHALMIC (EYE) BID 01/02/20 03/18/21 History cholecalcife
[2021-03-18] MEDS: methylPREDNISolone SOD SUCC 40 MG VIAL IV PUSH (23:25)
[2021-03-19] MEDS: methylPREDNISolone SOD SUCC 40 MG VIAL IV PUSH ×3 (05:13→17:30)
[2021-03-19 06:00] VITALS: BP 120/56; PULSE 82; RESP 16; TEMP 36.2; O2SAT 95
--- NOTE | 2021-03-19 07:13 | PM.IMHP ---
H&P: HPI History of Present Illness Date/Time: 03/19/21 07:13 Chief Complaint: Abdominal pain Narrative: Patient is an 80-year-old female with a past medical history of COPD, hypertension, hyperlipidemia, torturous colon, and GERD who presented emergency room due to severe abdominal pain. Patient states that this all started about 5 years ago and happens about every 3 months. She states that she usually starts to get abdominal pain which is followed by vomiting and then diarrhea which usually last 24 hours and then goes away. She has never been hospitalized or gone to the ER for this because it usually just goes away on its own. Eight days ago, the patient developed the abdominal pain and vomiting but the vomiting and diarrhea continued past the normal 24 hours. She has been having vomiting every day and has been vomiting up liquids and solids. She has not been able to keep anything down and continued to have dark diarrhea. She says her abdomen was bloated and looked big enough that it looked like she was 9 months . She is unable to have a colonoscopy because apparently a doctor told her in the past that she has a kink in her colon and she would be high risk. She has not tried a pill capsule study. Since being admitted to the hospital she has had mild pain but no more vomiting or diarrhea. Her abdominal distention has resolved. She denies fevers, chest pain, shortness of breath, rashes or wounds. She has slight headache when she was throwing up but is feeling much better. 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 No other sick contacts, no abx, no travel outside the [place]. She completed the covid vaccine in january. Review of Systems Review of Systems: All systems reviewed & are unremarkable except as noted in HPI and below PMFSH Past Medical History Medical History COPD (chronic obstructive pulmonary disease) Depression Dupuytrens contracture Epidermoid carcinoma Cervix Glaucoma Hyperlipidemia Hypertension Hypothyroid Surgical History Surgical History History of cholecystectomy 1972 History of eye surgery bilateral History of hip replacement L-2016 R-2016 History of kidney removal R 2014 History of spinal fusion 2013, Lumbar Family History Family History Father Family history of tuberculosis Mother Family history of liver disease Sibling Family history of emphysema Daughter Diabetes mellitus Social History Social History (Updated 03/19/21 @ 11:14 by Tara Foss PA-C) Social History: Patient is a former smoker but quit 24 years ago. She does not drink alcohol or do drugs. 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 She would like to be a full code and her daughter Camille to be the surrogate decision maker if needed Smoking packs per day: 0.5 Smoking cigarettes per day: 10.0 Years smoked: 40 Smoking pack-years: 20.00 Smoking status: Former smoker Tobacco type: cigarettes Smoking end date: 11/23/95 Alcohol intake: never Substance use: never Gender identity (if verbalized by the patient): Female Sexual Orientation (if Verbalized by the Patient): Straight or Heterosexual Spiritual care concerns: No Meds Home Medications and Allergies Home Medications Medication Instructions Recorded Confirmed Type Anoro Ellipta 1 inh INHALATION DAILY 01/02/20 03/18/21 History albuterol sulfate 2.5 mg INHALATION DAILY 01/02/20 03/18/21 History amlodipine 5 mg PO DAILY 01/02/20 03/18/21 History hydrochlorothiazide 12.5 mg PO DAILY 01/02/20 03/18/21 History levothyroxine 50 mcg PO DAILY 01/02/20 03/18/21 History omeprazole 20 mg PO DAILY 01/02/20 03/18/21 History prednisolone acetate 1 drp RIGHT EYE DAILY 01/02/20 03/18/21 History rosuvastatin 40 mg PO DAILY 01/02/20
[2021-03-19] MEDS: PANTOPRAZOLE SODIUM IV 40 MG VIAL IV PUSH (09:07)
[2021-03-19] MEDS: LEVOTHYROXINE SODIUM INJ 100 MCG/5 ML VIAL 25 MCG IV PUSH (09:08)
[2021-03-19] MEDS: LACTATED RINGERS 1,000 ML 75 ML IV CONT ×2 (09:09→23:48)
[2021-03-19 10:06] VITALS: O2SAT 93
--- NOTE | 2021-03-19 12:03 | PM.CNGS ---
Assessment and Plan Assessment and plan (1) Small bowel obstruction: Code(s): K56.609 - Unspecified intestinal obstruction, unspecified as to partial versus complete obstruction Status: Acute Assessment and Plan: CT scan of the abdomen and pelvis reviewed and discussed with the patient and her daughter. There is evidence of terminal ileitis with a possible partial small bowel obstruction. Findings are concerning for IBD. GI has been consulted and the patient is on IV steroids and antibiotics. NG tube is in place and she is NPO. There is also mention of intraluminal objects just proximal to the terminal ileum, which could be ingested foreign bodies. After thorough questioning, the patient has been taking oral potassium pills twice daily over the past week, with her last dose 2 days ago. They are unsure if these were enteric coated or what type of potassium supplementation she was taking. Nonetheless, you would expect this to dissolve prior to getting to the terminal ileum. The patient cannot recall ingesting anything else that would account for these objects. I reviewed the CT scan with the Radiologist, who felt the appearance of these objects could potentially be partially dissolved potassium tablets based on their appearance. He is unable to decipher if the possible obstruction is caused from the foreign objects or if they were an incidental finding with the cause being the terminal ileitis. If these objects are undissolved tablets, then you would expect that they would eventually dissolve or pass. She is already showing signs of bowel function and overall clinical improvement. I have ordered a Gastrografin small bowel follow through today to further assess the obstruction. This may also help see if there are any filling defects or narrowing in the terminal ileum when contrast reaches that area. Also agree with continuing treatment for the terminal ileitis per GI as mentioned below. We will continue to follow along with you. Thank you for allowing us to see the patient in consultation. (2) Terminal ileitis: Qualifiers: Digestive disease complication type: with intestinal obstruction Qualified Code(s): K50.012 - Crohn's disease of small intestine with intestinal obstruction Code(s): K50.00 - Crohn's disease of small intestine without complications Status: Acute Assessment and Plan: Continue IV steroids and antibiotics per GI recommendations, which they are treating as inflammatory bowel disease. IBD panel ordered and they are in the process of trying to obtain records from previous testing. I was able to find an upper GI with small bowel series at [facility] from July of 2016, which showed a normal small bowel series with no significant stricture or narrowing of the terminal ileum at that time. See plan above. (3) Diarrhea: Code(s): R19.7 - Diarrhea, unspecified Status: Acute Assessment and Plan: Chronic issues with diarrhea. Currently being worked up and treated for IBD. (4) COPD (chronic obstructive pulmonary disease): Code(s): J44.9 - Chronic obstructive pulmonary disease, unspecified Status: Acute (5) Dysphagia: Code(s): R13.10 - Dysphagia, unspecified Status: Acute Assessment and Plan: Esophageal stricture with dysphagia requiring dilation about 4 weeks ago, which has improved since. GI following. Additional Plan I have discussed the patient's case and plan of care with Dr. Nunez. History of Present Illness Consult details Consult date: 03/19/21 Reason for consult: other (Terminal ileitis causing partial small bowel obstruction) Requesting physician: Quintin Lindsey MD Narrative: This is an 80-year-old female with a history of COPD and hypertension, who was evaluated in the ER for complaints of abdominal pain and vomiting. The patient reports having issues over the past 5 years of intermittent cramping abdominal pain and vomiting that
[2021-03-19 12:16] VITALS: BMI 22.2
--- NOTE | 2021-03-19 12:18 | WPDGIPROGNO ---
Progress Note: A&P Assessment and Plan (1) Terminal ileitis: Qualifiers: Digestive disease complication type: with intestinal obstruction Qualified Code(s): K50.012 - Crohn's disease of small intestine with intestinal obstruction Code(s): K50.00 - Crohn's disease of small intestine without complications Status: Acute Assessment and Plan: a compared her current CT to previous studies. There was no abnormality of the terminal ileum on prior exam. She told me last night that she had what sounds like a small bowel series done by her physician several years ago which was when she states I had investigated her for possible Crohn's disease. Radiology does not have a record of a small bowel series. I think she may have been referring to a gastric emptying study . Hoping that this might be inflammatory bowel disease I have started her on IV steroids. (2) Small bowel obstruction: Code(s): K56.609 - Unspecified intestinal obstruction, unspecified as to partial versus complete obstruction Status: Acute Assessment and Plan: NG aspirate volume is decreasing. The hope would be that we could obtain a small-bowel series per NG tube tomorrow. Subjective Date/time seen: 03/19/21 12:18 she denies complaints of pain at the present time. She was having some lower abdominal pain and discomfort earlier. She slept well. She has had a few small bowel movements but does not recall passing any gas yet Exam GI: Inspection: normal to inspection GI Palp: Yes abdominal tenderness ( slightly tender in right lower quadrant), Yes Soft to palpation and Yes No hepatosplenomegaly present Auscultation: normal bowel sounds Objective Data Vital Signs Vital Signs: Vital Signs - 24 hr 03/18/21 13:33 03/18/21 15:33 03/18/21 15:39 Temperature 36.2 C L Pulse Rate 83 74 73 Respiratory Rate 20 17 Blood Pressure 145/70 H 130/64 124/53 L Pulse Oximetry 97 100 03/18/21 15:40 03/18/21 15:41 03/18/21 17:00 Temperature Pulse Rate 75 79 93 Respiratory Rate 15 Blood Pressure 120/58 L 127/59 L 133/58 L Pulse Oximetry 95 03/18/21 18:22 03/18/21 18:25 03/18/21 21:36 Temperature 37.3 C 37.1 C Pulse Rate 77 76 83 Respiratory Rate 16 18 18 Blood Pressure 110/52 L 125/58 L 143/62 H Pulse Oximetry 98 95 97 03/19/21 06:00 03/19/21 10:06 Temperature 36.2 C L Pulse Rate 82 Respiratory Rate 16 Blood Pressure 120/56 L Pulse Oximetry 95 93 Intake/Output Intake/Output: Intake & Output 03/16/21 03/17/21 03/18/21 03/19/21 23:59 23:59 23:59 23:59 Intake Total 600 1150 Output Total 200 700 Balance 400 450 Meds/Results Medications: Active Medications Generic Name Dose Route Start Last Admin Trade Name Freq PRN Reason Stop Dose Admin Fentanyl Citrate 50 mcg 03/18/21 16:35 03/18/21 21:11 Fentanyl Citrate Inj (*Crx) 100 Mcg/2 Ml Vial IV PUSH 50 mcg Q2H PRN Administration Pain Rated 7-10 Hydralazine HCl 10 mg 03/19/21 07:18 Hydralazine Hcl 20 Mg/Ml Vial IV PUSH Q8H PRN systolic >170 Piperacillin Sod/Tazobactam Sod 2.25 gm in 50 mls @ 100 mls/hr 03/19/21 00:00 03/19/21 11:39 Zosyn 2.25 Gm/D5w 50 Ml IVPB 100 mls/hr Q6HR LAURA Administration Lactated Ringer's 1,000 mls @ 75 mls/hr 03/18/21 16:35 03/19/21 09:09 Lr - Lactated Ringers Iv IV CONT 75 mls/hr .[id number] LAURA Administration Acetaminophen 1,000 mg in 100 mls @ 400 mls/hr 03/19/21 07:21 03/19/21 09:47 Ofirmev 1,000 Mg Ivpb IVPB 03/20/21 07:22 Infused Q6H PRN Infusion Pain Rated 1-6 while NPO Levothyroxine Sodium 25 mcg 03/19/21 06:30 03/19/21 09:08 Levothyroxine Sodium Inj 100 Mcg/5 Ml Vial IV PUSH 25 mcg DAILY@0630 LAURA Administration Methylprednisolone Sodium Succinate 40 mg 03/19/21 00:00 03/19/21 11:51 Methylprednisolone Sod Succ 40 Mg Vial IV PUSH 40 mg Q6HR LAURA Administration Ondansetron HCl 4 mg 03/18/21 16:35 Ondansetron
--- NOTE | 2021-03-19 13:11 | PCOTNOTE ---
Attempted OT evaluation, unable to complete as patient is in testing. Will continue to attempt.
[2021-03-19 14:00] VITALS: BP 125/63; PULSE 80; RESP 16; TEMP 36.6; O2SAT 94
[2021-03-19] MEDS: SERTRALINE HCL 25 MG TABLET PO (17:29)
[2021-03-19] MEDS: ONDANSETRON INJ 4 MG/2 ML VIAL IV PUSH (21:31)
[2021-03-19 21:44] VITALS: BP 144/60; PULSE 88; RESP 16; TEMP 36.1; O2SAT 99
[2021-03-19] MEDS: TIMOLOL MALEATE 0.5% OP SOLN 5 ML BOTTLE 1 DROP EACH EYE (23:51)
[2021-03-20] MEDS: methylPREDNISolone SOD SUCC 40 MG VIAL IV PUSH ×4 (00:17→18:18)
[2021-03-20 06:00] VITALS: BP 131/56; PULSE 99; RESP 18; TEMP 35.8; O2SAT 71
[2021-03-20 06:35] LABS: Hematocrit 33.1 % (37.0-47.0); Hemoglobin 10.7 g/dL (12.0-15.0); Mean Corpuscular HGB Conc 32.3 g/dl (32-36); Mean Corpuscular Hemoglobin 24.3 pg (26-34); Mean Corpuscular Volume 75.1 fl (80-100); Mean Platelet Volume 9.5 fl (7.4-10.4); Platelet Count Result 193 k/mm3 (150-375); Red Blood Count 4.41 M/mm3 (4.2-5.4); Red Cell Distribution Width 15.9 % (11.5-14.5); White Blood Count 5.6 K/mm3 (4.5-10.0)
[2021-03-20] MEDS: LEVOTHYROXINE SODIUM INJ 100 MCG/5 ML VIAL 25 MCG IV PUSH (06:43)
[2021-03-20 06:47] LABS: Alanine Aminotransferase 19 U/L (4-35); Albumin Level 3.3 g/dL (3.5-5.1); Alkaline Phosphatase 41 U/L (38-126); Anion Gap 4 mmol/L (8-16); Aspartate Amino Transferase 22 U/L (14-36); Bilirubin,Total 0.3 mg/dL (0.2-1.3); Blood Urea Nitrogen 16 mg/dL (7-17); Calcium 8.3 mg/dL (8.4-10.2); Carbon Dioxide 33 mmol/L (22-30); Chloride 101 mmol/L (98-107); Estimated Glomerular Filt Rate 60; Glucose 154 mg/dL (65-105); Magnesium 1.3 mg/dL (1.6-2.3); Phosphorus 4.2 mg/dL (2.5-4.5); Potassium 2.8 mmol/L (3.4-5.0); Sodium 138 mmol/L (137-145)
[2021-03-20 07:53] LABS: Thyroid Stimulating Hormone Reflex 0.401 uIU/mL (0.465-4.68)
[2021-03-20] MEDS: PANTOPRAZOLE SODIUM IV 40 MG VIAL IV PUSH (08:26)
[2021-03-20] MEDS: TIMOLOL MALEATE 0.5% OP SOLN 5 ML BOTTLE 1 DROP EACH EYE ×2 (08:27→20:49)
[2021-03-20] MEDS: SERTRALINE HCL 25 MG TABLET PO (08:27)
--- NOTE | 2021-03-20 10:04 | PM.PNGS ---
Progress Note: A&P Assessment and Plan (1) Small bowel obstruction: Code(s): K56.609 - Unspecified intestinal obstruction, unspecified as to partial versus complete obstruction Status: Acute Assessment and Plan: Gastrografin SBFT yesterday showed a normal transit time of 1-1.5 hours for contrast to reach the colon. No filling defects noted in the terminal ileum, although this was poorly visualized. She is moving her bowels and clinically improving. Advance to full liquids today. Continue steroids and abx per GI. Encouraged her to increase activity and walk the halls. (2) Terminal ileitis: Qualifiers: Digestive disease complication type: with intestinal obstruction Qualified Code(s): K50.012 - Crohn's disease of small intestine with intestinal obstruction Code(s): K50.00 - Crohn's disease of small intestine without complications Status: Acute Assessment and Plan: IBD panel ordered. Continue IV steroids per GI. Additional Plan I have discussed the plan of care with Dr. Nunez. Subjective Subjective Date/Time Seen: 03/20/21 09:10 Patient reports: no new complaints, feels better, pain is less, tolerating liquids well, flatus, bowel movement and afebrile Interval history: Patient sitting in bed this morning prior to having breakfast. She tolerated clear liquids yesterday evening and is feeling well today. She denies any abdominal pain, nausea, or vomiting. She feels her bloating has improved. She has had multiple bowel movements following the gastrografin study yesterday, with her last BM around 5:00 am. Review of Systems Review of Systems: All systems reviewed & are unremarkable except as noted in HPI and below Exam Const: General: no acute distress, alert and awake GI: Inspection: non-distended GI Palp: Yes Soft to palpation, Yes Tenderness to palpation present (GI) (mild diffuse tenderness, but improved), No Guarding due to palpation present (GI) and No Rebound tenderness present Auscultation: normal bowel sounds Neuro: General: moves all extremities and no focal motor deficits Extrem: General: no clubbing, cyanosis or edema Psych: Mental Status: mental status grossly normal Insight: Good insight present (Psych) Objective Data Vital Signs Vital Signs: Vital Signs - 24 hr 03/19/21 10:06 03/19/21 14:00 03/19/21 21:44 Temperature 97.8 F 96.9 F L Pulse Rate 80 88 Respiratory Rate 16 16 Blood Pressure 125/63 144/60 H Pulse Oximetry 93 94 99 03/20/21 06:00 Temperature 96.5 F L Pulse Rate 99 Respiratory Rate 18 Blood Pressure 131/56 L Pulse Oximetry 71 L Intake/Output Intake/Output: Intake & Output 03/17/21 03/18/21 03/19/21 03/20/21 23:59 23:59 23:59 23:59 Intake Total 600 2690 400 Output Total 200 1100 Balance 400 1590 400 Meds/Results Medications: Active Medications Generic Name Dose Route Start Last Admin Trade Name Freq PRN Reason Stop Dose Admin Fentanyl Citrate 50 mcg 03/18/21 16:35 03/18/21 21:11 Fentanyl Citrate Inj (*Crx) 100 Mcg/2 Ml Vial IV PUSH 50 mcg Q2H PRN Administration Pain Rated 7-10 Hydralazine HCl 10 mg 03/19/21 07:18 Hydralazine Hcl 20 Mg/Ml Vial IV PUSH Q8H PRN systolic >170 Piperacillin Sod/Tazobactam Sod 2.25 gm in 50 mls @ 100 mls/hr 03/19/21 00:00 03/20/21 06:22 Zosyn 2.25 Gm/D5w 50 Ml IVPB 100 mls/hr Q6HR LAURA Administration Lactated Ringer's 1,000 mls @ 50 mls/hr 03/18/21 16:35 03/19/21 23:48 Lr - Lactated Ringers Iv IV CONT 75 mls/hr .Q20H LAURA Administration Potassium Chloride 500 mls @ 125 mls/hr 03/20/21 07:30 03/20/21 08:25 Kcl 40 Meq/D5w 500 Ml Peripheral IVPB 03/20/21 11:29 125 mls/hr ONCE ONE Administration Levothyroxine Sodium 25 mcg 03/19/21 06:30 03/20/21 06:43 Levothyroxine Sodium Inj 100 Mcg/5 Ml Vial IV PUSH 25 mcg DAILY@0630 LAURA Administration Methylprednisolone Sodium Succinate 40 mg 03/19/21 00:00 04
[2021-03-20 10:16] LABS: Free T4 Free Thyroxine Reflex 1.45 ng/dL (0.78-2.19)
--- NOTE | 2021-03-20 10:58 | PM.IMPN ---
Progress Note: A&P Assessment and Plan (1) Hypokalemia: Code(s): E87.6 - Hypokalemia Status: Acute Assessment and Plan: Low this morning 2.8 with a low magnesium 1.3 -supplement with 40 mEq IV and 2g of magnesium now -repeat potassium after the infusion is complete and may need to supplement with liquid potassium thereafter. Will try to avoid oral potassium due to CT findings -per patient, she has a history of chronic hypokalemia which was likely worsened due to NPO status with NG tube -likely d/c tomorrow (2) Terminal ileitis: Qualifiers: Digestive disease complication type: with intestinal obstruction Qualified Code(s): K50.012 - Crohn's disease of small intestine with intestinal obstruction Code(s): K50.00 - Crohn's disease of small intestine without complications Status: Acute Assessment and Plan: CT and symptoms consistent with terminal ileitis with possible partial obstruction -Pain has improved and NG tube is out -continue to advance diet as tolerated -continue steroids and Protonix -IBD panel ordered -patient has been having this every 3 months for the last 5 years. Could be due to adhesions secondary to cholecystectomy and history of radiation. She will need a colonoscopy but has been told in the past she is not able to do so due to torturous colon. Consider capsule study? Consider abdomen MRI. Will see what GI and surgery recommend -would recommend liquid potassium at discharge due to CT findings (3) Hypertension: Code(s): I10 - Essential (primary) hypertension Status: Acute Assessment and Plan: Last bp 131/56 -will continue home amlodipine but hold HCTZ due to hypokalemia (4) Hypothyroid: Code(s): E03.9 - Hypothyroidism, unspecified Status: Acute Assessment and Plan: TSH slightly low, but T4 is normal - Continue with levothyroxine (5) Hyperlipidemia: Code(s): E78.5 - Hyperlipidemia, unspecified Status: Acute Assessment and Plan: Continue atorvastatin at discharge Time Spent With Patient Time with patient: 25 - 35 minutes Subjective Date/time seen: 03/20/21 10:58 Interval history: Pt is a 78-year-old female here for possible partial small-bowel obstruction who was seen today. Patient states she is feeling much better and tolerating a liquid diet. She still has occasional abdominal pain but mostly just on palpation. She has been having many bowel movements and no nausea or vomiting. She denies chest pain, fevers, shortness of breath, leg swelling or headache. Review of Systems Review of Systems: All systems reviewed & are unremarkable except as noted in HPI and below Exam Narrative: Exam Narrative: General:Well developed well nourished patient HEENT: Normocephalic, atraumatic, PERRL, Sclerae anicteric, oral mucosa moist. Neck: Supple Resp: CTA Heart: RRR with no murmurs Abd: Soft, nondistended. Pain to palpation throughout her abdomen. Positive bowel sounds Skin: Warm and dry Extremities: No swelling, erythema or pain to palpation Neuro: Alert and Oriented x4 . CN 2-12 intact. No focal neurological deficits. Objective Data Vital Signs Vital Signs: Vital Signs - 24 hr 03/19/21 14:00 03/19/21 21:44 03/20/21 06:00 Temperature 97.8 F 96.9 F L 96.5 F L Pulse Rate 80 88 99 Respiratory Rate 16 16 18 Blood Pressure 125/63 144/60 H 131/56 L Pulse Oximetry 94 99 71 L Intake/Output Intake/Output: Intake & Output 03/17/21 03/18/21 03/19/21 03/20/21 23:59 23:59 23:59 23:59 Intake Total 600 2690 400 Output Total 200 1100 Balance 400 1590 400 Meds/Results Medications: Active Medications Generic Name Dose Route Start Last Admin Trade Name Freq PRN Reason Stop Dose Admin Fentanyl Citrate 50 mcg 03/18/21 16:35 03/18/21 21:11 Fentanyl Citrate Inj (*Crx) 100 Mcg/2 Ml Vial IV PUSH 50 mcg Q2H PRN Administration Pain Rated 7
[2021-03-20 11:12] LABS: Total Triiodothyronine (T3) 0.65 NG/ML (0.97-1.69)
[2021-03-20] MEDS: amLODIPine BESYLATE 5 MG TABLET PO (12:57)
[2021-03-20] MEDS: MAGNESIUM SULF 2 GM/WATER 50ML 2 GM/50 ML BAG IVPB (13:50)
[2021-03-20 14:00] VITALS: BP 137/56; PULSE 73; RESP 16; TEMP 36.7; O2SAT 98
[2021-03-20 18:54] LABS: Potassium 3.8 mmol/L (3.4-5.0)
[2021-03-20] MEDS: LACTATED RINGERS 1,000 ML 75 ML IV CONT (20:47)
[2021-03-20 22:00] VITALS: BP 139/57; PULSE 67; RESP 18; TEMP 36.2; O2SAT 98
[2021-03-20] MEDS: MELATONIN 5 MG TABLET PO (22:02)
[2021-03-20 23:43] VITALS: O2SAT 94
[2021-03-21] MEDS: methylPREDNISolone SOD SUCC 40 MG VIAL IV PUSH ×2 (01:45→05:46)
[2021-03-21] MEDS: LEVOTHYROXINE SODIUM INJ 100 MCG/5 ML VIAL 25 MCG IV PUSH (05:46)
[2021-03-21 05:51] LABS: Hematocrit 33.8 % (37.0-47.0); Hemoglobin 10.5 g/dL (12.0-15.0)
[2021-03-21 06:00] VITALS: BP 134/53; PULSE 49; RESP 16; TEMP 36.3; O2SAT 100
[2021-03-21 06:16] LABS: Anion Gap 3 mmol/L (8-16); Blood Urea Nitrogen 14 mg/dL (7-17); Calcium 8.3 mg/dL (8.4-10.2); Carbon Dioxide 32 mmol/L (22-30); Chloride 105 mmol/L (98-107); Estimated Glomerular Filt Rate > 60; Glucose 130 mg/dL (65-105); Magnesium 2.1 mg/dL (1.6-2.3); Potassium 3.3 mmol/L (3.4-5.0); Sodium 140 mmol/L (137-145)
--- NOTE | 2021-03-21 10:25 | PM.DS ---
DS: Admitting Diagnosis Admitting Diagnosis Admitting Diagnosis: sbo DS: Discharge Diagnosis Discharge Diagnosis (1) Hypokalemia: Code(s): E87.6 - Hypokalemia Status: Acute Assessment and Plan: Improving, 3.3 at discharge -will order 5 days of liquid potassium and have the patient follow-up with her primary care physician to get a repeat potassium. They have already been monitoring her potassium outpatient prior to this hospitalization (2) Terminal ileitis: Qualifiers: Digestive disease complication type: with intestinal obstruction Qualified Code(s): K50.012 - Crohn's disease of small intestine with intestinal obstruction Code(s): K50.00 - Crohn's disease of small intestine without complications Status: Acute Assessment and Plan: CT and symptoms consistent with terminal ileitis with possible partial obstruction -Pain has improved and is tolerating a regular low-fiber diet -budesonide was started by GI -IBD panel ordered and is pending, follow-up with Dr. Grey for results -patient has been having this every 3 months for the last 5 years. Could be due to adhesions secondary to cholecystectomy and history of radiation. She will need a colonoscopy but has been told in the past she is not able to do so due to torturous colon. Consider capsule study? Plan for outpatient MRI at [facility] (3) Hypertension: Code(s): I10 - Essential (primary) hypertension Status: Acute Assessment and Plan: Last bp 134/53 -continue amlodipine and hydrochlorothiazide (4) Hypothyroid: Code(s): E03.9 - Hypothyroidism, unspecified Status: Acute Assessment and Plan: TSH slightly low, but T4 is normal - Continue with levothyroxine (5) Hyperlipidemia: Code(s): E78.5 - Hyperlipidemia, unspecified Status: Acute Assessment and Plan: Continue atorvastatin at discharge DS: Summary Hospital Course Hospital Course: Patient is an 80-year-old female with a history of radiation due to cervical cancer and cholecystectomy who presented emergency room for abdominal pain, bloating, nausea and vomiting. Temperature 36.2? C, pulse 83, respiratory rate 20, blood pressure 145/70, pulse ox 97 room air. Initial CBC within normal limits. BMP relatively normal. Lactic acid 1.9. UA negative for evidence of infection. CT of the abdomen pelvis showed moderate to severe jejunal distention with tapering with an abnormal appearing terminal ileum could be terminal ileitis with partial obstruction. There also looks like there was intraluminal objects just proximal to the terminal ileum which could be ingested foreign bodies or on digested potassium pills from earlier that day. NG tube was placed and the patient was admitted to hospitalist service. She improved with conservative measures and underwent a small-bowel follow-through. The NG tube was removed and the patient was tolerating a regular diet on discharge. As for the terminal ileitis, GI was consulted and started budesonide and ordered an IBD panel. Unfortunately the patient is unable to have a traditional colonoscopy due to torturous colon. She has a history of surgeries and radiation which could be causing the partial obstruction or IBD could be causing the ileitis causing the obstruction. Nevertheless, the patient states that this happens every 3 months for the last 5 years but she has not been hospitalized for this. The day of discharge she was eating and drinking well without any issue. She is going to follow-up with the GI doctor for her results and continue the budesonide. Is she is also planning to have an MRI of her colon/small[facility]bowel at [facility] for further evaluation. I spoke with the daughter about the plan of care as well. The patient was educated about the worrisome signs and symptoms come back to emergency room for was discharged stable condition. She is going to fo
[2021-03-21] MEDS: BUDESONIDE 3 MG CAP.SR.24H 9 MG PO (10:27)
[2021-03-21] MEDS: TIMOLOL MALEATE 0.5% OP SOLN 5 ML BOTTLE 1 DROP EACH EYE (10:27)
--- NOTE | 2021-03-21 10:27 | PM.PNGS ---
Progress Note: A&P Assessment and Plan (1) Small bowel obstruction: Code(s): K56.609 - Unspecified intestinal obstruction, unspecified as to partial versus complete obstruction Status: Acute Assessment and Plan: Continues to improve with treatment of the ileitis. Tolerating liquids and bowels continue to move. Advance to low fiber diet. Okay from a surgical standpoint to discharge the patient when okay with other services. Follow-up as needed. (2) Terminal ileitis: Qualifiers: Digestive disease complication type: with intestinal obstruction Qualified Code(s): K50.012 - Crohn's disease of small intestine with intestinal obstruction Code(s): K50.00 - Crohn's disease of small intestine without complications Status: Acute Assessment and Plan: Continue steroids and follow-up per GI. Additional Plan I have discussed the plan of care with Dr. Nunez. Subjective Subjective Date/Time Seen: 03/21/21 10:27 Patient reports: no new complaints, tolerating liquids well, flatus, bowel movement and afebrile Interval history: Patient doing well this morning. Tolerating full liquids. Reports BM this morning. No abdominal pain, nausea, or vomiting. Review of Systems Review of Systems: All systems reviewed & are unremarkable except as noted in HPI and below Exam Const: General: comfortable, no acute distress and alert GI: Inspection: non-distended GI Palp: Yes Soft to palpation, Yes Tenderness to palpation present (GI) (diffusely tender, continues to improve), No Guarding due to palpation present (GI) and No Rebound tenderness present Auscultation: normal bowel sounds Extrem: General: no clubbing, cyanosis or edema Psych: Insight: Good insight present (Psych) Judgement: Good judgement present (Psych) Objective Data Vital Signs Vital Signs: Vital Signs - 24 hr 03/20/21 14:00 03/20/21 22:00 03/20/21 23:43 Temperature 98.0 F 97.1 F L Pulse Rate 73 67 Respiratory Rate 16 18 Blood Pressure 137/56 L 139/57 L Pulse Oximetry 98 98 94 03/21/21 06:00 Temperature 97.3 F L Pulse Rate 49 L Respiratory Rate 16 Blood Pressure 134/53 L Pulse Oximetry 100 Intake/Output Intake/Output: Intake & Output 03/18/21 03/19/21 03/20/21 03/21/21 23:59 23:59 23:59 23:59 Intake Total 600 2690 2210 350 Output Total 200 1100 Balance 400 1590 2210 350 Meds/Results Medications: Active Medications Generic Name Dose Route Start Last Admin Trade Name Freq PRN Reason Stop Dose Admin Amlodipine Besylate 5 mg 03/20/21 11:10 03/20/21 12:57 Amlodipine Besylate 5 Mg Tablet PO 5 mg QAM LAURA Administration Budesonide 9 mg 03/21/21 09:00 Budesonide 3 Mg Cap.Sr.24h PO QAM LAURA Fentanyl Citrate 50 mcg 03/18/21 16:35 03/18/21 21:11 Fentanyl Citrate Inj (*Crx) 100 Mcg/2 Ml Vial IV PUSH 50 mcg Q2H PRN Administration Pain Rated 7-10 Hydralazine HCl 10 mg 03/19/21 07:18 Hydralazine Hcl 20 Mg/Ml Vial IV PUSH Q8H PRN systolic >170 Lactated Ringer's 1,000 mls @ 50 mls/hr 03/18/21 16:35 03/20/21 20:47 Lr - Lactated Ringers Iv IV CONT 75 mls/hr .Q20H LAURA Administration Levothyroxine Sodium 25 mcg 03/19/21 06:30 03/21/21 05:46 Levothyroxine Sodium Inj 100 Mcg/5 Ml Vial IV PUSH 25 mcg DAILY@0630 LAURA Administration Melatonin 5 mg 03/20/21 21:00 03/20/21 22:02 Melatonin 5 Mg Tablet PO 5 mg HS LAURA Administration Ondansetron HCl 4 mg 03/18/21 16:35 03/19/21 21:31 Ondansetron Inj 4 Mg/2 Ml Vial IV PUSH 4 mg Q4H PRN Administration Nausea Pantoprazole Sodium 40 mg 03/19/21 09:00 03/20/21 08:26 Pantoprazole Sodium Iv 40 Mg Vial IV PUSH 40 mg QAM LAURA Administration Prednisolone Acetate 1 drop 03/20/21 09:00 03/20/21 08:26 Prednisolone Acetate 1% Op 1 Drop Drop RIGHT EYE 1 drop DAILY LAURA Administration Sertraline HCl 25 mg 03/19/21 17:00 03/20/21 08:27 Sertraline Hcl 25
[2021-03-21] MEDS: PANTOPRAZOLE SODIUM IV 40 MG VIAL IV PUSH (10:28)
[2021-03-21] MEDS: SERTRALINE HCL 25 MG TABLET PO (10:28)
[2021-03-21] MEDS: POTASSIUM CHLORIDE 20 MEQ PACKET (FOR LIQUID) 40 MEQ PO (10:28)
[2021-03-21] MEDS: amLODIPine BESYLATE 5 MG TABLET PO (10:29)
--- NOTE | 2021-03-21 11:00 | PCNFU ---
Nutrition Follow-Up Complete: Altered GI function as related to SBO vs Ileus as evidenced by NPO Goal: Meet estimated nutritional needs Progressing towards goal. We will continue current goal. Pt current nutrition is Low fiber. Last recorded weight is 46.7 kg,no new weight to report. Bowel Motility:+BM reported 03/21 Labs Reviewed: Na 135,Glu 114 Meds Noted: Melatonin,LR,Zofran,Protonix, Zoloft. Additional Notes: Nutrition follow up. Patient seen today, tolerated full liquid. She has advanced to a low fiber diet. She states to being hungry. Plans for discharge today. Monitoring: Will monitor every 7 days.
--- NOTE | 2021-03-21 11:19 | WPDGIPROGNO ---
Progress Note: A&P Assessment and Plan (1) Small bowel obstruction: Code(s): K56.609 - Unspecified intestinal obstruction, unspecified as to partial versus complete obstruction Status: Acute Assessment and Plan: we discussed the fact that the ileitis may be a form of Crohn's disease. It could be all inflammatory in which case it would respond to steroids. On the other hand some of this might be fibrotic, stenotic in which case it is possible surgery may be necessary at some point. . I explained that she would need be on low residue diet, avoiding raw or stiff fruits and vegetables. For now. Read or liquid fruits and vegetables are okay. (2) Terminal ileitis: Qualifiers: Digestive disease complication type: with intestinal obstruction Qualified Code(s): K50.012 - Crohn's disease of small intestine with intestinal obstruction Code(s): K50.00 - Crohn's disease of small intestine without complications Status: Acute Assessment and Plan: We are going to send her home on Enticort 9 mg per day for what I am presuming is inflammatory bowel disease. Will arrange for MR enteroscopy in [place] in the near future. She will see me in the office in a few weeks. Additional Plan Discussed with hospitalist. Time Spent With Patient Time with patient: 25 - 35 minutes Subjective Date/time seen: 03/21/21 11:19 she felt uncomfortable after eating last night but denies vomiting. She has had several bowel movements and is passing gas. Review of Systems Cardiovascular: Cardiovascular: Reports no additional cardiovascular complaints Respiratory: Respiratory: Denies dyspnea Gastrointestinal: Gastrointestinal: Reports no additional gastrointestinal complaints and Reports abdominal pain Comments: Some mild and diffuse pain persists. Exam Const: General: healthy appearing and alert Nutritional Appearance: average body habitus Resp: Effort & Inspection: normal respiratory effort Auscultation: clear to auscultation bilaterally Cardio: Rate: regular rate GI: GI Palp: Yes Soft to palpation, Yes Tenderness to palpation present (GI) ( Mild, diffuse), No Guarding due to palpation present (GI) and Yes No hepatosplenomegaly present Auscultation: normal bowel sounds Objective Data Vital Signs Vital Signs: Vital Signs - 24 hr 03/20/21 14:00 03/20/21 22:00 03/20/21 23:43 Temperature 36.7 C 36.2 C L Pulse Rate 73 67 Respiratory Rate 16 18 Blood Pressure 137/56 L 139/57 L Pulse Oximetry 98 98 94 03/21/21 06:00 Temperature 36.3 C L Pulse Rate 49 L Respiratory Rate 16 Blood Pressure 134/53 L Pulse Oximetry 100 Intake/Output Intake/Output: Intake & Output 03/18/21 03/19/21 03/20/21 03/21/21 23:59 23:59 23:59 23:59 Intake Total 600 2690 2210 470 Output Total 200 1100 Balance 400 1590 2210 470 Meds/Results Medications: Active Medications Generic Name Dose Route Start Last Admin Trade Name Freq PRN Reason Stop Dose Admin Amlodipine Besylate 5 mg 03/20/21 11:10 03/21/21 10:29 Amlodipine Besylate 5 Mg Tablet PO 5 mg QAM LAURA Administration Budesonide 9 mg 03/21/21 09:00 03/21/21 10:27 Budesonide 3 Mg Cap.Sr.24h PO 9 mg QAM LAURA Administration Fentanyl Citrate 50 mcg 03/18/21 16:35 03/18/21 21:11 Fentanyl Citrate Inj (*Crx) 100 Mcg/2 Ml Vial IV PUSH 50 mcg Q2H PRN Administration Pain Rated 7-10 Hydralazine HCl 10 mg 03/19/21 07:18 Hydralazine Hcl 20 Mg/Ml Vial IV PUSH Q8H PRN systolic >170 Lactated Ringer's 1,000 mls @ 50 mls/hr 03/18/21 16:35 03/20/21 20:47 Lr - Lactated Ringers Iv IV CONT 75 mls/hr .Q20H LAURA Administration Levothyroxine Sodium 25 mcg 03/19/21 06:30 03/21/21 05:46 Levothyroxine Sodium Inj 100 Mcg/5 Ml Vial IV PUSH 25 mcg DAILY@0630 LAURA Administration Melatonin 5 mg 03/20/21 21:00 03/20/21 22:02 Melatonin 5 Mg Tablet PO 5 mg HS LAURA Administration Ondanse
[2021-03-29 09:22] LABS: ANCA Screen Negative (Negative); Myeloperoxidase Ab <1.0 AI (<1.0); Proteinase-3 Ab <1.0 AI (<1.0); S cerevisiae Ab (IgA) 3.6 U (<=20.0); S cerevisiae Ab (IgG) 2.5 U (<=20.0)
--- NOTE | 2021-04-01 14:00 | PC.NURSE ---
S, Cerevisial Ab are WNL.
== END 2021-03-21 14:15 | disposition home or self-care (01) | DRG 387 ==
LOC: ANHED 17:22 → ANH3MEDSUR 03-19 00:23
PROVIDERS: Family Medicine; Internal Medicine Gastroenterology; Admitting Provider Family Medicine; Emergency Provider Emergency Medicine; PCP Internal Medicine; Referring Provider Internal Medicine Hematology & Oncology; Visit Provider Physician Assistant
DX: K50.012 Crohn's disease of small intestine with intestinal obstruction (principal); T50.8X5A Adverse effect of diagnostic agents, initial encounter; J44.9 Chronic obstructive pulmonary disease, unspecified; F32.9 Major depressive disorder, single episode, unspecified; H40.9 Unspecified glaucoma; E78.5 Hyperlipidemia, unspecified; I10 Essential (primary) hypertension; E87.6 Hypokalemia; E03.9 Hypothyroidism, unspecified; K21.9 Gastro-esophageal reflux disease without esophagitis; R13.10 Dysphagia, unspecified; Z96.642 Presence of left artificial hip joint; Z87.891 Personal history of nicotine dependence; Z85.41 Personal history of malignant neoplasm of cervix uteri; Z98.1 Arthrodesis status; Z90.5 Acquired absence of kidney; Z90.49 Acquired absence of other specified parts of digestive tract
CPT/HCPCS: 36415; 74019; 74177; 74250; 80048; 80053; 80076; 81001; 83605; 83690; 83735; 84100; 84132; 84439; 84443; 84480; 85014; 85018; 85025; 85027; 86021; 86671; 96361; 96365; 96375; 97116; 97161; 97165; 97535; 99285; A9270; C9113; J0131; J2060; J2405; J2543; J2920; J3010; J3475; J3480; J7040; J7120; Q9967

== ENCOUNTER → 2021-04-27 08:00 | Outpatient (CLI) | payer MEDICARE, SELFPAY ==
--- NOTE | ~2021-04-27 | US_ITS ---
EXAMINATION: US abdomen limited EXAM DATE: 04/27/2021 08:27 INDICATION: Abnormal liver function tests. TECHNIQUE: Multiple grayscale and Doppler images of the abdomen right upper quadrant were obtained (b y a technologist who performed the scan) and subsequently reviewed. There is no prior study for danny mott. FINDINGS: The pancreatic head and body are normal in appearance. The pancreatic tail is not visualized. There is echogenic liver parenchyma, hepatic steatosis. There are no focal liver lesions identified. Th ere is no evidence of intrahepatic biliary duct dilation. Portal venous flow was seen in the hepatop edal, normal direction and has normal Doppler waveform. No right-sided hydronephrosis. Common bile duct measures 9 mm, which is normal. The gallbladder fossa is unremarkable. IMPRESSION: 1. Hepatic steatosis. Reviewed, dictated and finalized at location A. IMPRESSION: 1. Hepatic steatosis.
== END ==
PROVIDERS: PCP Internal Medicine; Visit Provider Internal Medicine
DX: R94.5 Abnormal results of liver function studies (principal); K76.0 Fatty (change of) liver, not elsewhere classified
CPT/HCPCS: 76705

== ENCOUNTER 2021-04-30 11:41 | Outpatient (CLI) | payer MEDICARE, SELFPAY ==
[2021-04-30 11:56] LABS: Basophils Percent Auto 0.2 % (0.2-1.2); Eosinophils Absolute Auto 0.1 K/mm3 (0-0.3); Eosinophils Percent Auto 0.8 % (0-4.4); Hematocrit 42.2 % (37.0-47.0); Hemoglobin 13.2 g/dL (12.0-15.0); Immature Granulocyte Absolute 0.06 K/mm3 (0.00-0.031); Immature Granulocyte Percent A 0.7 % (0-0.5); Lymphocytes Absolute Auto 1.31 K/mm3 (0.9-3.2); Lymphocytes Percent Auto 14.2 % (18.3-44.2); Mean Corpuscular HGB Conc 31.3 g/dl (32-36); Mean Corpuscular Hemoglobin 24.7 pg (26-34); Mean Platelet Volume 8.9 fl (7.4-10.4); Monocytes Absolute Auto 0.7 K/mm3 (0.1-0.6); Neutrophils Percent Auto 76.1 % (45.5-73.1); Platelet Count Result 181 k/mm3 (150-375); Red Blood Count 5.34 M/mm3 (4.2-5.4); Red Cell Distribution Width 19.9 % (11.5-14.5); White Blood Count 9.2 K/mm3 (4.5-10.0)
[2021-04-30 16:59] LABS: Iron 75 ug/dL (37-170)
[2021-04-30 17:08] LABS: Anion Gap 6 mmol/L (8-16); Blood Urea Nitrogen 18 mg/dL (7-17); Carbon Dioxide 32 mmol/L (22-30); Chloride 100 mmol/L (98-107); Estimated Glomerular Filt Rate > 60; Glucose 152 mg/dL (65-105); Potassium 3.1 mmol/L (3.4-5.0); Sodium 138 mmol/L (137-145)
[2021-04-30 17:09] LABS: Percent Iron Saturation 19 % (20-50)
== END 2021-04-30 11:42 | disposition home or self-care (01) ==
LOC: ANHLAB 11:46
PROVIDERS: PCP Internal Medicine; Visit Provider Internal Medicine Hematology & Oncology
DX: D50.9 Iron deficiency anemia, unspecified (principal)
CPT/HCPCS: 36415; 80048; 82728; 83540; 83550; 85025

== ENCOUNTER 2021-06-18 13:35 | Outpatient (CLI) | payer MEDICARE, SELFPAY ==
--- NOTE | ~2021-06-18 | US_ITS ---
EXAMINATION: US venous doppler [facility] DATE: 06/18/2021 14:13 INDICATION: Left lower limb pain TECHNIQUE: Grayscale ultrasound images without and with compression and Doppler ultrasound images of the left lower extremity veins were obtained. COMPARISON: 01/26/2017 FINDINGS: The visualized portions of left common femoral vein, profunda (deep) femoral vein, femoral vein, popl iteal vein, peroneal veins, posterior tibial veins, gastrocnemius vein and greater saphenous vein out flow remain patent. IMPRESSION: 1. No deep venous thrombosis in the left lower limb. Reviewed, dictated and finalized at location A.
== END 2021-06-18 13:36 | disposition home or self-care (01) ==
PROVIDERS: PCP Internal Medicine; Visit Provider Internal Medicine
DX: M79.662 Pain in left lower leg (principal)
CPT/HCPCS: 93971

== ENCOUNTER 2021-11-18 11:12 | Outpatient (CLI) | payer MEDICARE, SELFPAY ==
[2021-11-18 11:36] LABS: Basophils Percent Auto 0.4 % (0.2-1.2); Eosinophils Absolute Auto 0.1 K/mm3 (0-0.3); Eosinophils Percent Auto 1.6 % (0-4.4); Hematocrit 40.4 % (37.0-47.0); Hemoglobin 12.1 g/dL (12.0-15.0); Immature Granulocyte Absolute 0.02 K/mm3 (0.00-0.031); Immature Granulocyte Percent A 0.4 % (0-0.5); Lymphocytes Absolute Auto 1.74 K/mm3 (0.9-3.2); Lymphocytes Percent Auto 31.2 % (18.3-44.2); Mean Corpuscular Hemoglobin 24.4 pg (26-34); Mean Corpuscular Volume 81.6 fl (80-100); Mean Platelet Volume 9.5 fl (7.4-10.4); Monocytes Absolute Auto 0.5 K/mm3 (0.1-0.6); Neutrophils Absolute Auto 3.2 K/mm3 (1.3-6.7); Neutrophils Percent Auto 57.4 % (45.5-73.1); Platelet Count Result 196 k/mm3 (150-375); Red Blood Count 4.95 M/mm3 (4.2-5.4); Red Cell Distribution Width 16.8 % (11.5-14.5); White Blood Count 5.6 K/mm3 (4.5-10.0)
[2021-11-18 12:42] LABS: Alanine Aminotransferase 28 U/L (4-35); Albumin Level 3.9 g/dL (3.5-5.1); Alkaline Phosphatase 79 U/L (38-126); Anion Gap 5 mmol/L (8-16); Aspartate Amino Transferase 30 U/L (14-36); Bilirubin,Total 0.3 mg/dL (0.2-1.3); Blood Urea Nitrogen 12 mg/dL (7-17); Calcium 9.1 mg/dL (8.4-10.2); Carbon Dioxide 31 mmol/L (22-30); Chloride 101 mmol/L (98-107); Estimated Glomerular Filt Rate > 60; Glucose 102 mg/dL (65-110); Lactate Dehydrogenase 489 U/L (313-618); Potassium 3.7 mmol/L (3.4-5.0); Sodium 137 mmol/L (137-145)
== END 2021-11-18 11:13 | disposition home or self-care (01) ==
LOC: ANHLAB 11:14
PROVIDERS: PCP Internal Medicine; Visit Provider Internal Medicine Hematology & Oncology
DX: D50.9 Iron deficiency anemia, unspecified (principal)
CPT/HCPCS: 36415; 80053; 82728; 83615; 85025

== ENCOUNTER 2022-09-25 13:29 | Outpatient (CLI) | payer OTHER, SELFPAY ==
--- NOTE | ~2022-09-25 | DEXA_ITS ---
Bone Density Report Name: KHADRA VO Age: 82 Sex: Female Ethnicity: White Date of : 1940 Indication: osteopenia; monitoring treatment; inflammatory bowel disease; rheumatoid arthritis; postmenopausal Referring Provider: GEORGI, JOSE Study: Bone densitometry was performed. Exam Date: September 25, 2022 Accession number: [id number] Bone Density: Region BMD T-score Z-score Classification AP Spine(L1, L2, L3) 0.888 -1.2 1.6 Osteopenia World Health Organization criteria for BMD impression classify patients as: Normal (T-score at or above -1.0), Osteopenia (T-score between -1.0 and -2.5), or Osteoporosis (T-score at or below -2.5). Previous Exams: Region Exam Age BMD T-score BMD Change BMD Change Date g/cm2 vs Baseline vs Previous AP Spine (L1-L3) 09/25/2022 82 0.888 -1.2 0.181 (25.6%)* 0.077 (9.5%)# 03/02/2017 76 0.811 -1.9 0.104 (14.7%)# 0.104 (14.7%)# 01/02/2014 73 0.707 -2.8 *Denotes significance at 95% confidence level, LSC for AP Spine = 0.022 g/cm2 # Denotes dissimilar scan types or analysis methods Clinical Information Provided by Patient: Has rheumatoid arthritis Is being treated for osteoporosis Has used the following medications: Prolia (i.e. denosumab), Vitamin D Has the following medical conditions: Inflammatory bowel diseases Patient maximum height was 57 Menopause Age: 25 No regular weight bearing exercise Drinks caffeinated beverages Onset of menses at age 7 Number of children 5 Impression: The patient has low bone mass, based on the Total Spine T-score. No significant bone loss was observed. Discussion: PATIENT UNDER TREATMENT WITH NO SIGNIFICANT BMD LOSS SINCE LAST EXAM. In an untreated patient, BMD typically declines with age. A lack of decline or gain is usually a sign that treatment is efficacious and fracture risk is reduced. It is important to ask patients whether they are taking their medications and to encourage continued and appropriate compliance with their osteoporosis therapies to reduce fracture risk. It is also important to review their risk factors and encourage appropriate calcium and vitamin D intakes, exercise, fall prevention and other lifestyle measures. Follow-Up: Consider a repeat BMD and Vertebral Fracture Assessment (VFA) exam in 2 years or sooner if medically necessary, to reassess this patient's status. Reported by: PAULINA on 09/26/2022 1:29:00 PM. Reviewed, dictated and finalized at location AMarcel ROJAS
== END 2022-09-25 13:30 | disposition home or self-care (01) ==
PROVIDERS: PCP Student in an Organized Health Care Education/Training Program; Visit Provider Student in an Organized Health Care Education/Training Program
DX: M81.0 Age-related osteoporosis without current pathological fracture (principal); M85.88 Other specified disorders of bone density and structure, other site
CPT/HCPCS: 77080

== ENCOUNTER 2022-11-18 12:26 | Outpatient (CLI) | payer OTHER, SELFPAY ==
[2022-11-18 12:46] LABS: Hematocrit 35.9 % (37.0-47.0); Mean Corpuscular HGB Conc 30.6 g/dl (32-36); Mean Corpuscular Hemoglobin 23.9 pg (26-34); Mean Platelet Volume 9.3 fl (7.4-10.4); Platelet Count Result 203 k/mm3 (150-375); Red Cell Distribution Width 17.7 % (11.5-14.5); White Blood Count 6.2 K/mm3 (4.5-10.0)
[2022-11-18 13:13] LABS: Alanine Aminotransferase 28 U/L (6-35); Albumin Level 3.8 g/dL (3.5-5.1); Alkaline Phosphatase 63 U/L (38-126); Anion Gap 3 mmol/L (8-16); Aspartate Amino Transferase 30 U/L (14-36); Bilirubin,Total 0.4 mg/dL (0.2-1.3); Blood Urea Nitrogen 15 mg/dL (7-17); Calcium 8.7 mg/dL (8.4-10.2); Carbon Dioxide 33 mmol/L (22-30); Chloride 102 mmol/L (98-107); Estimated Glomerular Filt Rate 60; Glucose 102 mg/dL (65-110); Potassium 3.4 mmol/L (3.4-5.0); Sodium 138 mmol/L (137-145)
[2022-11-18 16:20] LABS: Iron 29 ug/dL (37-170)
[2022-11-18 16:29] LABS: Percent Iron Saturation 9 % (20-50)
== END 2022-11-18 12:27 | disposition home or self-care (01) ==
LOC: ANHLAB 12:28
PROVIDERS: PCP Student in an Organized Health Care Education/Training Program; Visit Provider Internal Medicine Hematology & Oncology
DX: D50.9 Iron deficiency anemia, unspecified (principal)
CPT/HCPCS: 36415; 80053; 82728; 83540; 83550; 85027

== ENCOUNTER → 2023-05-10 13:43 | Outpatient (CLI) | payer OTHER, SELFPAY ==
--- NOTE | ~2023-05-10 | XR_ITS ---
EXAMINATION: XR abdomen obstructive series DATE: 05/10/2023 14:27 INDICATION: Right-sided abdominal pain TECHNIQUE: Supine and upright views of the abdomen. FINDINGS: 03/21/2021 The visualized lung parenchyma is normal.. Moderate colonic fecal loading. There is a nonobstructive bowel gas pattern. Gas and stool are seen throughout the colon to the level of the rectum. There is no free air. There are cholecystectomy clips. There is surgical spinal fusion changes at L5-S1. There are bilateral total hip arthroplasties. Moderate lumbar spondylosis with levoscoliosis. IMPRESSION: 1. No acute abdominal abnormality. Reviewed, dictated and finalized at location A.
--- NOTE | ~2023-05-10 | XR_ITS ---
XR chest 1V 05/10/2023 14:27 Indication: Abdominal cramping Procedure: AP portable chest Comparison: 05/27/2017 Findings: Heart size normal. There are calcified granulomas in the upper thorax bilaterally. No focal air space disease, pulmonary edema, pleural effusion or suspected pneumothorax. No acute osseous abn ormality. Impression: 1: No acute cardiopulmonary disease. Reviewed, dictated and finalized at location A. Impression: 1: No acute cardiopulmonary disease.
== END ==
PROVIDERS: PCP Student in an Organized Health Care Education/Training Program
DX: R11.10 Vomiting, unspecified (principal); R10.9 Unspecified abdominal pain; Z87.19 Personal history of other diseases of the digestive system
CPT/HCPCS: 71045; 74019

== ENCOUNTER 2023-10-14 12:05 | Emergency (ER) | payer OTHER, SELFPAY ==
[2023-10-14 12:11] VITALS: BP 156/59; PULSE 74; RESP 15; TEMP 36.6; O2SAT 98
--- NOTE | 2023-10-14 13:38 | ED.GENADULT ---
HPI - General Adult General Chief complaint: Wound/Laceration Stated complaint: laceration Time Seen by Provider: 10/14/23 13:03 History of Present Illness HPI narrative: 83-year-old female presented to the ED for evaluation of a laceration to her right hand. Patient states she cut her hand on a roasting del rosario this morning. Patient denies any other pain or injury. Patient reports her tetanus is up-to-date. Related Data Home Medications Medication Instructions Recorded Confirmed albuterol sulfate 2.5 mg/3 mL 2.5 mg inhalation DAILY 01/02/20 04/12/21 (0.083 %) solution for nebulization amlodipine 5 mg tablet 5 mg PO DAILY 01/02/20 04/12/21 hydrochlorothiazide 12.5 mg capsule 12.5 mg PO DAILY 01/02/20 04/12/21 levothyroxine 50 mcg tablet 50 mcg PO DAILY 01/02/20 04/12/21 omeprazole 20 mg capsule,delayed 20 mg PO DAILY 01/02/20 04/12/21 release prednisolone acetate 1 % eye 1 drp RIGHT EYE DAILY 01/02/20 04/12/21 drops,suspension rosuvastatin 20 mg tablet 40 mg PO DAILY 01/02/20 04/12/21 sertraline 25 mg tablet 25 mg PO DAILY 01/02/20 04/12/21 timolol maleate 0.5 % eye drops 1 drp ophthalmic (eye) BID 01/02/20 04/12/21 umeclidinium 62.5 mcg-vilanterol 1 inh inhalation DAILY 01/02/20 04/12/21 25 mcg/actuation powdr for inhalation (Anoro Ellipta) cholecalciferol (vitamin D3) 25 25 mcg PO DAILY 07/16/20 04/12/21 mcg (1,000 unit) capsule denosumab 60 mg/mL subcutaneous 60 mg subcut [id number] 07/16/20 04/12/21 syringe (Prolia) vitamin B12 500 mcg-folic acid 400 1 tablet PO DAILY 07/16/20 04/12/21 mcg tablet multivitamin with iron 1 tablet PO DAILY 03/18/21 04/12/21 Allergies Allergy/AdvReac Type Severity Reaction Status Date / Time No Known Allergies Allergy Verified 10/14/23 12:13 Review of Systems Review of Systems: All systems reviewed & are unremarkable except as noted in HPI and below PMFSH Past Medical History Medical History Benign esophageal stricture Requiring endoscopic dilatation at least three times in the past with the most recent about 1 month ago. COPD (chronic obstructive pulmonary disease) Depression Dupuytrens contracture Epidermoid carcinoma Cervix. Treated with Radiation in the s. 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 History of spinal fusion 2012, Lumbar Family History Family History Father Family history of tuberculosis Mother Family history of liver disease Sibling Family history of emphysema Daughter Diabetes mellitus Social History Social History Social History: Patient is a former smoker but quit 24 years ago. She does not drink alcohol or do drugs. 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 She would like to be a full code and her daughter Camille to be the surrogate decision maker if needed Smoking packs per day: 0.5 Smoking cigarettes per day: 10.0 Years smoked: 40 Smoking pack-years: 20.00 Smoking status: Former smoker Tobacco type: cigarettes Smoking end date: 11/23/95 Alcohol intake: never Substance use: never Living arrangements: alone Gender identity (if verbalized by the patient): Female Sexual Orientation (if Verbalized by the Patient): Straight or Heterosexual Spiritual care concerns: No Exam Narrative: APPEARANCE: Well appearing, no pain, no distress, well-nourished. HEAD: normocephalic, atraumatic. EYES: PERRLA/EOMI, conjunctivae clear. NOSE: Normal no drainage EAR
== END 2023-10-14 14:23 | disposition home or self-care (01) ==
PROVIDERS: Emergency Provider Emergency Medicine; PCP Student in an Organized Health Care Education/Training Program
DX: S61.411A Laceration without foreign body of right hand, initial encounter (principal); J44.9 Chronic obstructive pulmonary disease, unspecified; H40.9 Unspecified glaucoma; E78.5 Hyperlipidemia, unspecified; I10 Essential (primary) hypertension; E03.9 Hypothyroidism, unspecified; Z85.41 Personal history of malignant neoplasm of cervix uteri; Z92.3 Personal history of irradiation; Z87.891 Personal history of nicotine dependence; W26.8XXA Contact with other sharp object(s), not elsewhere classified, initial encounter
CPT/HCPCS: 12002; 99282

== ENCOUNTER 2023-11-12 10:06 | Outpatient (CLI) | payer OTHER, SELFPAY ==
[2023-11-12 10:24] LABS: Basophils Percent Auto 0.8 % (0.2-1.2); Eosinophils Absolute Auto 0.3 K/mm3 (0-0.3); Eosinophils Percent Auto 5.7 % (0-4.4); Hematocrit 40.8 % (37.0-47.0); Hemoglobin 12.3 g/dL (12.0-15.0); Immature Granulocyte Absolute 0.01 K/mm3 (0.00-0.031); Immature Granulocyte Percent A 0.2 % (0-0.5); Lymphocytes Absolute Auto 1.62 K/mm3 (0.9-3.2); Lymphocytes Percent Auto 30.7 % (18.3-44.2); Mean Corpuscular HGB Conc 30.1 g/dl (32-36); Mean Corpuscular Volume 79.5 fl (80-100); Mean Platelet Volume 9.8 fl (7.4-10.4); Monocytes Absolute Auto 0.6 K/mm3 (0.1-0.6); Monocytes Percent Auto 10.8 % (2.6-8.5); Neutrophils Absolute Auto 2.7 K/mm3 (1.3-6.7); Neutrophils Percent Auto 51.8 % (45.5-73.1); Platelet Count Result 239 k/mm3 (150-375); Red Blood Count 5.13 M/mm3 (4.2-5.4); Red Cell Distribution Width 18.3 % (11.5-14.5); White Blood Count 5.3 K/mm3 (4.5-10.0)
[2023-11-12 10:28] LABS: Platelet Estimate Adequate (Adequate); Schistocytes None Seen (NORMAL)
[2023-11-12 10:29] LABS: Anisocytosis 1+ (NORMAL); Ovalocytes 1+ (NORMAL); Poikilocytosis 1+ (NORMAL)
[2023-11-12 11:52] LABS: Alanine Aminotransferase 21 U/L (6-35); Albumin Level 3.7 g/dL (3.5-5.1); Alkaline Phosphatase 98 U/L (38-126); Anion Gap 6 mmol/L (8-16); Aspartate Amino Transferase 34 U/L (14-36); Bilirubin,Total 0.5 mg/dL (0.2-1.3); Blood Urea Nitrogen 14 mg/dL (7-17); Calcium 9.2 mg/dL (8.4-10.2); Carbon Dioxide 29 mmol/L (22-30); Chloride 104 mmol/L (98-107); Estimated Glomerular Filt Rate > 60; Glucose 90 mg/dL (65-110); Potassium 3.8 mmol/L (3.4-5.0); Sodium 139 mmol/L (137-145)
[2023-11-12 11:53] LABS: Iron 50 ug/dL (37-170)
[2023-11-12 12:02] LABS: Percent Iron Saturation 15 % (20-50)
== END 2023-11-12 10:07 | disposition home or self-care (01) ==
LOC: ANHLAB 10:08
PROVIDERS: PCP Student in an Organized Health Care Education/Training Program; Visit Provider Internal Medicine Hematology & Oncology
DX: D50.9 Iron deficiency anemia, unspecified (principal)
CPT/HCPCS: 36415; 80053; 82607; 82728; 83540; 83550; 85025

== ENCOUNTER 2024-11-14 13:15 | Outpatient (CLI) | payer OTHER, SELFPAY ==
[2024-11-14 13:32] LABS: Basophils Percent Auto 0.6 % (0.2-1.2); Eosinophils Absolute Auto 0.2 K/mm3 (0-0.3); Eosinophils Percent Auto 3.1 % (0-4.4); Hematocrit 34.8 % (37.0-47.0); Hemoglobin 10.1 g/dL (12.0-15.0); Immature Granulocyte Absolute 0.01 K/mm3 (0.00-0.031); Immature Granulocyte Percent A 0.2 % (0-0.5); Lymphocytes Absolute Auto 1.41 K/mm3 (0.9-3.2); Lymphocytes Percent Auto 29.3 % (18.3-44.2); Mean Corpuscular Hemoglobin 23.8 pg (26-34); Mean Corpuscular Volume 82.1 fl (80-100); Mean Platelet Volume 10.1 fl (7.4-10.4); Monocytes Absolute Auto 0.3 K/mm3 (0.1-0.6); Monocytes Percent Auto 7.1 % (2.6-8.5); Neutrophils Absolute Auto 2.9 K/mm3 (1.3-6.7); Neutrophils Percent Auto 59.7 % (45.5-73.1); Platelet Count Result 194 k/mm3 (150-375); Red Blood Count 4.24 M/mm3 (4.2-5.4); Red Cell Distribution Width 22.2 % (11.5-14.5); White Blood Count 4.8 K/mm3 (4.5-10.0)
[2024-11-14 13:37] LABS: Hypochromasia 1+; Ovalocytes 1+; Platelet Estimate Adequate (Adequate); Poikilocytosis 1+; Schistocytes None Seen
[2024-11-14 14:23] LABS: Iron 68 ug/dL (37-170)
[2024-11-14 14:35] LABS: Percent Iron Saturation 17 % (20-50)
== END 2024-11-14 13:16 | disposition home or self-care (01) ==
LOC: ANHLAB 13:16
PROVIDERS: PCP Student in an Organized Health Care Education/Training Program; Visit Provider Internal Medicine Hematology & Oncology
DX: D50.9 Iron deficiency anemia, unspecified (principal)
CPT/HCPCS: 36415; 82607; 82728; 83540; 83550; 85025

== ENCOUNTER 2025-01-30 15:31 | Outpatient (CLI) | payer OTHER, SELFPAY ==
[2025-01-30 15:49] LABS: Hematocrit 37.3 % (37.0-47.0); Hemoglobin 11.1 g/dL (12.0-15.0); Mean Corpuscular HGB Conc 29.8 g/dl (32-36); Mean Corpuscular Hemoglobin 23.7 pg (26-34); Mean Corpuscular Volume 79.7 fl (80-100); Mean Platelet Volume 8.6 fl (7.4-10.4); Platelet Count Result 243 k/mm3 (150-375); Red Blood Count 4.68 M/mm3 (4.2-5.4); Red Cell Distribution Width 18.4 % (11.5-14.5); White Blood Count 8.1 K/mm3 (4.5-10.0)
[2025-01-30 16:41] LABS: Iron 85 ug/dL (37-170)
[2025-01-30 16:49] LABS: Anion Gap 9 mmol/L (4-12); Blood Urea Nitrogen 27 mg/dL (7-17); Calcium 9.6 mg/dL (8.4-10.2); Carbon Dioxide 24 mmol/L (22-30); Chloride 105 mmol/L (98-107); Estimated Glomerular Filt Rate 53; Glucose 122 mg/dL (65-110); Potassium 4.4 mmol/L (3.4-5.0); Sodium 138 mmol/L (137-145)
[2025-01-30 16:51] LABS: Percent Iron Saturation 21 % (20-50)
[2025-01-30 17:59] LABS: Folic Acid > 20.0 ng/mL (2.76->20)
--- OUTSIDE RECORDS SUMMARY | 2025-01-30 18:12 | XMS_ITS | Continuity of Care Document ---
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 Name Role Phone Dangelo Fuchs PA-C Unavailable Unavailable Allergies, Adverse Reactions, Alerts Substance Reaction Status Criticality NSAIDS (Non-Steroidal Anti-Inflammatory Drug) Active No Information HYDROCODONE BITARTRATE Active No In formation acetaminophen Active No Information Medications Medication Instructions Dosage Effective Dates (start - stop) Status Comments Zocor 80 mg tablet - Active Anoro Ellipta 62.5 mcg-25 mcg/actuation powder for inhalation inhale 1 puff by inhalation route every day at the same time each day 1.00 puff - Active simvastatin 20 mg tablet take 1 tablet by oral route every day in the evening 20 MG - Active omeprazole 10 mg capsule,delayed release take 2 capsule by oral route every day before a meal 20 MG - Active Prolia 60 mg/mL subcutaneous syringe inject 1 milliliter by subcutaneous route every 6 months in the upper arm, upper thigh or abdomen 60 MG - Active COSOPT (unknown strength) Not Available - Active NORVASC (unknown strength) Not Available - Active Cobb 5 mg-325 mg tablet take1 to 2 tablets by oral route every 6 hours as needed for pain - No Longer Active Procedures Procedure Date POSTOP FOLLOW-UP VISIT POSTOP FOLLOW-UP VISIT POSTOP FOLLOW-UP VISIT REPAIR WRIST JOINTS OFFICE/OUTPATIENT VISIT NEW OFFICE/OUTPATIENT VISIT EST POSTOP FOLLOW-UP VISIT POSTOP FOLLOW-UP VISIT OFFICE/OUTPATIENT VISIT EST POSTOP FOLLOW-UP VISIT POSTOP FOLLOW-UP VISIT OFFICE/OUTPATIENT VISIT EST OFFICE/OUTPATIENT VISIT EST POSTOP FOLLOW-UP VISIT POSTOP FOLLOW-UP VISIT OFFICE/OUTPATIENT VISIT EST OFFICE/OUTPATIENT VISIT EST OFFICE/OUTPATIENT VISIT EST OFFICE/OUTPATIENT VISIT NEW Rx certified EHR POSTOP FOLLOW-UP VISIT POSTOP FOLLOW-UP VISIT POSTOP FOLLOW-UP VISIT POSTOP FOLLOW-UP VISIT POSTOP FOLLOW-UP VISIT POSTOP FOLLOW-UP VISIT Advance Directives Directive Yes / No Effective Date File Name No Information Encounters Encounter Description Practice Location Reason(s) For Visit Diagnoses Date Provider Providers Copied on Encounter [facility], [address] [place] [address], [facility], tel:[phone] [facility] 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, [place], [place], [id number], [place]. 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 [address], [place], [place], [id number], [place]. 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, [place], [place], [id number], [place]. tel:[phone] [facility], [address] [place] [address], [place], [address], [place] tel:[phone] [facility] [address] [facility] arthritisTri gger ring finger of left handEncounte r for preprocedura l cardiovascul ar examinationP rimary osteoarthrit is of first carpometacar pal joint of left hand Apr- 9 Jef Pierson. [address], [place], [place], [id number], [place]. tel:[phone] [facility], [address] [place] [address], [address], [place] tel:[phone] [facility] No Information 9 Winter Wren. [address] [place], [place], [id number]. tel:[phone] OFFICE/OUTPA TIENT VISIT [facility], [address] [place] [address], [address], [place] tel:[phone] [facility] Trigger ring finger of left hand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 [address], [place], [place], [id number], [place]. tel:[phone] OFFICE/OUTPA TIENT VISIT [facility], [address] [place] [address], [address], [place] tel:[phone] [facility] History of total right hip arthroplasty Aftercare following bilateral ankle joint replacement surgery 8 Winter Wren. [address] [place], [place], [id number]. tel:[phone] Referring Provider: Edna Beltran, [address], [place], [address]. tel:[phone] [facility], [address] [place] [address], [address], [place] tel:[phone] [facility] Follow Up of REMOVAL HARDWARE LEFT HIP 3\19\18 (chief complaint) Pain due to internal orthopedic prosthetic devices, implants and grafts, subsequent encounter Feb- 8 Winter Wren. [address] [place], [place], [id number]. tel:[phone] Referring Provider: Edna Beltran, [address], [place], [address]. tel:[phone] [facility], [address] [place] [address], [address], [place] tel:[phone] [facility] Follow Up of PO REMOVAL LEFT TROCH CLIP AND BURSECTOMY (chief complaint) Pain due to internal orthopedic prosthetic devices, implants and grafts, subsequent encounter 8 Winter Wren. [address] [place], [place], [id number]. tel:[phone] [facility], [address] [place] [address], [address], [place] tel:[phone] [facility] Painful orthopaedic hardware Dec- 8 Winter Wren. [address] [place] [address], [id number]. tel:[phone] OFFICE/OUTPA TIENT VISIT EST [facility], [address] [place] [address], [place] tel:[phone] [facility] Painful orthopaedic hardwareLumb ago with sciatica, left side Dec- 8 Winter Wren. [address] [place] [address], [id number]. tel:[phone] Referring Provider: Edna Beltran, [address], [place], [address]. tel:[phone] [facility], [address] [place] [address], [address], [place] tel:[phone] [facility] Follow Up of S/P RT TAZ 10/22/17 (chief complaint) History of total right hip arthroplasty Lumbago with sciatica, left sidePainful orthopaedic hardware 8 Winter Wren. [address] [place], [place], [id number]. tel:[phone] [facility], [address], [address], [place] tel:[phone] [facility] Follow Up of R TAZ 10/22/17 (chief complaint) History of total right hip arthroplasty 7 Tianna Del Rosario. [address], [place], [place], [id number]. tel:[phone] [facility], [address] [place] [address], [address], [place] tel:[phone] [facility] [address] Primary osteoarthrit is of right hip 7 Winter Wren. [address] [place], [place], [id number]. tel:[phone] OFFICE/OUTPA TIENT VISIT EST [facility], [address], [address], [place] tel:[phone] [facility] Primary osteoarthrit is of right hipPresence of left artificial hip joint 7 Winter Wren. [address] [place], [place], [id number]. tel:[phone] OFFICE/OUTPA TIENT VISIT [facility], [address] [place] [address], [address], [place] tel:[phone] [facility] Follow Up of LEFT TAZ (chief complaint)R T HIP PAIN (chief complaint) Primary osteoarthrit is of right hipPresence of left artificial hip joint 7 Winter Wren. [address] [place] [address], [id number]. tel:[phone] [facility], [address] [place] [address], [address], [place] tel:[phone] [facility] Follow Up of Left hip (chief complaint) Presence of left artificial hip joint Sep-0 7 Shoe Carin. [address] [facility] [facility] [address], [place], [place], [id number]. tel:[phone] [facility], [address] [address], [place], [address], [place] tel:[phone] [facility] Follow Up of Lt hip (chief complaint) Presence of left artificial hip joint 7 Winter Wren. [address] [place], [place], [id number]. 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 [address] [facility] [address], [place], [place], [id number]. tel:[phone] OFFICE/OUTPA TIENT VISIT [facility], [address] [place] [address], [place], [address], [place] tel:[phone] 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 [address] [place], [place], [id number]. tel:[phone] Referring Provider: Pavel Apple, [address] [place], [address]. tel:[phone] OFFICE/OUTPA TIENT VISIT [facility], [address] [place] [address], [address], [place] tel:[phone] [facility] Lumbago with sciatica, left side 2 7 Gregg Zhao. [address] [place] [address], [id number]. tel:[phone] Referring Provider: Pavel Apple, [address] [facility] [facility], [place], [address]. tel:[phone] OFFICE/OUTPA TIENT VISIT [facility], [address] [place] [address], [place], [address], [place] tel:[phone] [facility] Lumbar post-laminec efren syndromeLumb ago with sciatica, left side May-0 2201 7 Gregg Zhao. [address] [place] [address], [place], [place], [id number]. tel:[phone] Referring Provider: Mary Lucio, [address], [place], [address]. tel:[phone] [facility], [address] [place] [address], [place], [address], [place] tel:[phone] [facility] Hallux rigidus Apr-2 4-201 4 Juno Chambers. [address], [place], [place], [id number]. tel:[phone] [facility], [address] [place] [address], [place], [address], [place] tel:[phone] [facility] Hallux rigidus Mar-2 1-201 4 Lefty Peter. [address] [place] [address], [place], [place], [id number]. tel:[phone] [facility], [address] [place] [address] 200, [place], [address], [place] tel:[phone] [facility] Hallux rigidus Feb-2 8-201 4 Juno Chambers. [address] [facility] [address], [place], [place], [id number]. tel:[phone] [facility], [address] [place] [address], [place], [address], [place] tel:[phone] [facility] Hallux rigidus Feb-0 6-201 4 Lefty Peter. [address] [place] [address], [id number]. tel:[phone] Referring Provider: Pavel Davis, [address] [place] [address], [address]. tel:[phone] [facility], [address] [place] [address], [address], [place] tel:[phone] [facility] Spinal stenosis of lumbar region Dec-1 0-201 3 Curylo Pavel. [address] [place], [place], [id number]. tel:[phone] [facility], [address] [place] [address], [address], [place] tel:[phone] [facility] Kyphosis, postlaminect omySciaticaS nasrin stenosis of lumbar region Oct-0 8-201 3 Curylo Pavel. [address] [place], [place], [id number]. tel:[phone] [facility], [address] [place] [address], [address], [place] tel:[phone] [facility] Acquired spondylolist hesisSpinal stenosis of lumbar regionPain, Low BackSciatica Kyphosis, postlaminect zuleyma Sep-1 0-201 3 Curylo Pavel. [address] [place], [place], [id number]. tel:[phone] [facility], [address] [place] [address], [address], [place] tel:[phone] [facility] No Information Sep-0 6-201 3 Curylo Pavel. [address] [place], [place], [id number]. tel:[phone] [facility], [address] [place] [address], [address], [place] tel:[phone] [facility] Acquired spondylolist hesis 9-201 3 Gregg Zhao. [address] [facility], [place], [place], [address]. tel:[phone] Family History Family Member Type Diagnosis Age At Onset Mother Problem (finding) malignant neop lasm of liver (Cause Of ) Daughter Problem (finding) Alive and well Mother Problem (finding) Brother Problem (finding) Alive and well Immunizations Vaccine Date Status Comments Pneumo (2 yrs or older)(PPV) administered Source: Other Provider Pneumo (2 yrs or older)(PPV) administered Source: Other Provider Payers Payer name Insurance type Covered libertarian ID Authorzariaa timelba(s) Medicare E2 OT [id number] Blue Access PPO E2 OT [id number] Social History Type Description Quantity Date Captured Comments Alcohol Use Details Unknown Caffeine Use Details Unknown Tobacco Use Status No Information Smoking Status Former smoker Sex Female Chief Complaint And Reason For Visit No Information Reason For Referral Reason For Referral No Information Plan Of Treatment Date Type Action Status Referral Ordered: ELECTROCARDIOGRAM COMPLETE ordered Referral Ordered: X-RAY EXAM HIP UNI W PELVIS 2-3 VIEWS RT ordered Referral Ordered: X-RAY EXAM HIP UNI W PELVIS 2-3 VIEWS ordered Referral Ordered: X-RAY EXAM HIP UNI W PELVIS 2-3 VIEWS LT ordered Referral Ordered: MRI SPI CANAL&CNTS LMBR C-MATRL spine, lumbar Appointment date/timeframe: 04/06/2017 ordered Referral Ordered: RADEX SPI LUMBOSAC MINIMUM 4 VIEWS ordered Referral Ordered: RADEX FOOT COMPL MINIMUM 3 VIEWS RT ordered Referral Ordered: RADEX SPI LUMBOSAC 2/3 VIEWS ordered History Of Present Illness Encounter Date Complaint History Of Prese nt Illness Follow Up of REMOVAL HARDWARE LEFT HIP 3\19\18 Follow Up of PO JEAN PAUL SINCERE LEFT TROCH CLIP AND BURSECTOMY Follow Up of S/P RT TAZ 10/22/17 Follow Up of R TAZ 10/22/17 Follow Up of LEFT TAZ 8\7\17 RT HIP PAIN Follow Up of Left hip Follow Up of Lt hip Follow Up of oa left hip LEFT HIP PAIN Functional Status Date Functional Assessmen t No Information Instructions Date Instruction Additional Infor alexandrea Activity as tolerated Related to History of total right hip arthroplasty Watch for signs of infection. Re lated to History of total right hip arthroplasty Ice or heat for comfort Related to Pain due to internal orthopedic prosthetic devices, implants and grafts, subsequent encounter Activity as tolerated. Related t o Pain due to internal orthopedic prosthetic devices, implants and grafts, subsequent encounter Take medication as directed. Rel ated to Pain due to internal orthopedic prosthetic devices, implants and grafts, subsequent encounter Activity as tolerated. Related t o Pain due to internal orthopedic prosthetic devices, implants and grafts, subsequent encounter Avoid prolonged bed rest Related to Pain due to internal orthopedic prosthetic devices, implants and grafts, subsequent encounter Activity as tolerated. Related t o Lumbago with sciatica, left side Avoid prolonged bed rest. Relate d to Lumbago with sciatica, left side Take antibiotics as directed for dental work. Related to History of total right hip arthroplasty Activity as tolerated Related to History of total right hip arthroplasty Take medications as ordered Rela moris to History of total right hip arthroplasty Activity as tolerated. Related t o Lumbago with sciatica, left side Avoid prolonged bed rest. Relate d to Lumbago with sciatica, left side Activity as tolerated Related to History of total right hip arthroplasty Take medications as ordered Rela moris to History of total right hip arthroplasty activity as tolerated Related to Primary osteoarthritis of right hip apply heating pad or ice as tolerated Related to Primary osteoarthritis of right hip activity as tolerated Related to Primary osteoarthritis of right hip apply heating pad or ice as tolerated Related to Primary osteoarthritis of right hip Activity as tolerated Related to Presence of left artificial hip joint Take medications as ordered Rela moris to Presence of left artificial hip joint Activity as tolerated Related to Presence of left artificial hip joint Take medications as ordered Rela moris to Presence of left artificial hip joint Take antibiotics as directed for dental work. Related to Presence of left artificial hip joint activity as tolerated Related to Primary osteoarthritis of left hip apply heating pad or ice as tolerated Related to Primary osteoarthritis of left hip activity as tolerated Related to Primary osteoarthritis of left hip apply heating pad or ice as tolerated Related to Primary osteoarthritis of left hip apply heating pad or ice as tolerated Related to Primary osteoarthritis of left hip activity as tolerated Related to Primary osteoarthritis of left hip Activity as tolerated. Related t o Lumbago with sciatica, left side Avoid prolonged bed rest. Relate d to Lumbago with sciatica, left side Fall risk home exerc ise program handout provided Activity as tolerated. Related t o Lumbar post-laminectomy syndrome Avoid prolonged bed rest. Relate d to Lumbar post-laminectomy syndrome Activity as tolerated. Related t o Lumbago with sciatica, left side Avoid prolonged bed rest. Relate d to Lumbago with sciatica, left side Take medication as prescribed. R elated to Lumbago with sciatica, left side Take medication as prescribed. R elated to Lumbar post-laminectomy syndrome Activity as tolerated Weight bearing statu s: full weight bearing Protective activity Weight bearing statu s: weight bear as tolerated Elevate limb above level of hear t Activity as tolerated Activity as tolerated Protective activity Assessments Type Assessment Date assessment Primary osteoarthritis of left h and Patient Care Teams Name Effective Dates (start - stop) Status Members No Information
--- OUTSIDE RECORDS SUMMARY | 2025-01-30 18:12 | XMS_ITS | Clinical Summary ---
Author Organization [facility] Address [address] [place] [address] Care Team Providers Care Utility Clerk Name Role Phone Jose Laureano Primary Care Provider + Ana Echavarria RN Unavailable Allergies Active Allergy Reactions Criticality Noted Date Comments Hydrocodone Hives High 07/29/2013 Hydrocodone-Acetaminophen Itching Medium 05/05/2012 Lisinopril Cough Low 07/13/2013 Nsaids Hives High 01/15/2018 Other reaction(s): Hives Medications prednisoLONE acetate 1 % ophthalmic suspensionIndicati ons:Glaucoma Place 1 drop into the right eye daily. Indications: Glaucoma 06/04/20 21 Active timolol 0.5 % ophthalmic solutionIndication s:Glaucoma Place 1 drop into both eyes 2 (two) times daily. Indications: Glaucoma 01/02/20 21 Active dorzolamide 2 % ophthalmic solutionIndication s:Glaucoma Place 1 drop into both eyes 2 (two) times a day. Indications: Glaucoma 02/15/20 22 Active denosumab (PROLIA) 60 MG/ML injectionIndicatio ns:Age-related osteoporosis without current pathological fracture Inject 1 mL (60 mg total) into the skin every 6 (six) months. 1.8 mL 4 04/15/20 23 Active magnesium oxide (MAG-OX) 400 MG tabletIndications: Hypomagnesemia Take 1 tablet (400 mg total) by mouth 2 (two) times daily. 60 tablet 2 07/18/20 24 Active vitamin D2, ergocalciferol, (DRISDOL) 1.25 mg capsule Take 1 capsule (1.25 mg total) by mouth every 7 days. Active Albuterol Sulfate (PROAIR RESPICLICK) 108 (90 Base) MCG/ACT AEROSOL POWDER, BREATH ACTIVATEDIndicatio ns:Shortness of breath Inhale 2 puffs into the lungs every 6 (six) hours as needed (SOB). Indications: Shortness of breath 1 each 2 09/16/20 24 Active traMADol (ULTRAM) 50 MG tabletIndications: Acute Pain < 7 Day Supply Take 1-2 tablets (50-100 mg total) by mouth every 12 (twelve) hours. Indications: Acute Pain < 7 Day Supply 28 tablet 09/16/20 24 Active sertraline (ZOLOFT) 25 MG tabletIndications: Depression TAKE 1 TABLET (25 MG TOTAL) BY MOUTH DAILY. 90 tablet 1 09/27/20 24 Active hydrocortisone 2.5 % creamIndications:D iarrhea, unspecified type,Dermatitis APPLY TOPICALLY TWICE A DAY 453.6 g 3 09/27/20 24 Active opium 10 mg/mL Tincture Take 0.6 mLs (6 mg total) by mouth 4 (four) times daily. 10/13/20 24 Active levothyroxine (SYNTHROID) 75 MCG tablet Take 1 tablet (75 mcg total) by mouth. Active ondansetron (ZOFRAN) 4 MG tablet Take 1 tablet (4 mg total) by mouth every 8 (eight) hours as needed. 02/19/20 24 Active NEBULIZER DEVICE, DME,Indications:Ch ronic bronchitis, unspecified chronic bronchitis type (CMS/HCC HHS/HCC) Take 1 Device by nebulization every 6 (six) hours as needed (Wheezing/SOB). 1 Device 11/04/20 24 Active NEBULIZER/ADULT MASK KIT, DME,Indications:Ch ronic bronchitis, unspecified chronic bronchitis type (CMS/HCC HHS/HCC) Apply 1 kit topically every 6 (six) hours as needed (Wheezing/SOB). 1 kit 11/04/20 24 Active ipratropium-albute rol (DUONEB) 0.5-2.5 (3) MG/3ML SolutionIndication s:Other pulmonary embolism without acute cor pulmonale, unspecified chronicity ([facility]) Take 3 mLs by nebulization every 4 (four) hours as needed (Wheezing or SOB). 360 mL 2 11/24/19 25 Active apixaban (ELIQUIS) 5 MG tablet Take 1 tablet (5 mg total) by mouth 2 (two) times daily. 12/05/19 25 Active BREZTRI AEROSPHERE 160-9-4.8 MCG/ACT inhaler TAKE 2 PUFFS BY INHALATION 2 TIMES DAILY. 12/08/19 25 Active omeprazole (PRILOSEC) 40 MG capsuleIndications :Nonerosive Gastroesophagel Reflux Disease Take 1 capsule (40 mg total) by mouth daily as needed (heartburn). Indications: Nonerosive Gastroesophagel Reflux Disease 90 capsule 1 12/13/19 25 Active amLODIPine (NORVASC) 5 MG tabletIndications: Essential hypertension Take 1 tablet (5 mg total) by mouth daily. 90 tablet 1 12/13/19 25 Active sulfamethoxazole-t rimethoprim (BACTRIM DS) 800-160 MG tabletIndications: Urinary frequency Take 1 tablet by mouth 2 (two) times daily for 10 days. 20 tablet 01/26/20 25 2024 Active levoFLOXacin (LEVAQUIN) 750 MG tabletIndications: Infection, Pseudomonas Take 1 tablet (750 mg total) by mouth daily for 7 days. 7 tablet 01/31/20 25 2024 Active Active Problems Problem Noted Date Diagnosed Date Acute pulmonary embolism ([facility]) 10/24 Mild protein-calorie malnutrition ([facility]) 07/0 11/2023 CARINA (acute kidney injury) 04/14/2024 Colitis 04/14/2024 Care Management 03/25/2024 SBO (small bowel obstruction) ([facility]) 02/03/2024 Dupuytrens contracture 10/22/2023 Calcification of abdominal aorta 09/16/2023 Age-related osteoporosis wit hout current pathological fracture 12/04/2021 Esophageal stenosis 12/04/2021 Gastroesophageal reflux dise ase, unspecified whether esophagitis present 12/04/2021 Hypothyroidism, unspecified type 12/04/2021 Current mild episode of bobbi r depressive disorder without prior episode 12/04/2021 Alpha thalassemia trait 08/10/2020 Hx of cervical cancer 10/22/2017 Overview (07/22/2021): S/p radiation therapy, 1960's COPD (chronic obstructive pu lmonary disease) ([facility]) 06/29/2017 Hyperlipidemia 04/08/2014 Overview (07/22/2021): Hyperlipemia Essential hypertension SOB (shortness of breath) Fatigue Resolved Problems Problem Noted Date Diagnosed Date Resolved Date Small bowel obstruction ([facility]) 10/22/2023 10/22/2023 Terminal ileitis ([facility]) 10/22/2023 10/22/2023 Benign hypertension with sta ge 3a chronic kidney disease 09/03/2022 01/25/2025 Stage 3a chronic kidney disease (CKD) 12/04/2021 01/25/2025 Benign hypertension with chr onic kidney disease, stage III 07/01/2017 01/25/2025 Malignant neoplasm of cervix ([facility]) 04/08/2014 09/16/2024 Overview (09/16/2024): Cervical cancer Encounters Date Type Department Care Team Description 01/30/2025 Telephone [facility] Family [facility] Internal Medicine [address] [phone] Jose Laureano, DO Results 01/25/2025 1:40 PM REAL ESTATE LISTING CONSULTANT Office Visit [facility] Family & Internal [address] [phone] Jose Laureano DO Hypertension (6 month follow up. ) 01/25/2025 - 01/25/2025 11:59 PM REAL ESTATE LISTING CONSULTANT Hospital Encounter [facility] [address] [place] [address] Jose Laureano, DO Discharge Disposition: Home or Self Care (Routine Discharge) 01/25/2025 Travel 01/24/2025 Orders Only [facility] Internal [address] [place] [place] [address] Jose Laureano, DO 01/24/2025 Telephone [facility] [address] [phone] Jose Laureano P, DO Other 01/16/2025 Scan [facility] Scanned, [facility] Lab (SCAN) 01/11/2025 Orders Only [facility] [address] [phone] Jose Laureano, DO 01/11/[address] [phone] Jose Laureano P, DO Referral 01/09/2025 Scan [facility] INFO SRVCS Scanned, [facility] (SCAN) 01/03/2025 Scan [facility] INFO SRVCS Scanned, [facility] (SCAN) 12/29/2024 Patient Outreach [address] [phone] Ana Echavarria, RN Care Management (CCM) 12/26/2024 Scan [facility] INFO SRVCS Scanned, Doc Med Group 12/21/2024 3:00 PM REAL ESTATE LISTING CONSULTANT Treatment [facility] [place] [address] [place] [address] Jose Laureano, DO 12/21/2024 1:51 PM REAL ESTATE LISTING CONSULTANT - 12/21/2024 11:59 PM REAL ESTATE LISTING CONSULTANT Hospital Encounter [facility] [place] [address] Jose Laureano, DO Discharge Disposition: Home or Self Care (Routine Discharge) 12/21/2024 Travel 12/19/2024 Scan [facility] INFO SRVCS Scanned, [facility] (SCAN) 12/13/2024 11:40 AM REAL ESTATE LISTING CONSULTANT Office Visit [facility] [address] [phone] Jose Laureano, DO Hypertension 12/13/2024 Orders Only [facility] [address] [facility] [place] [address] Jose Laureano, DO 12/13/2024 Travel 12/12/2024 Scan [facility] INFO SRVCS Scanned, [facility] (SCAN) 12/07/2024 Telephone [facility] [address] [phone] Jose Laureano, DO Prior Authorization (enoxaparin (LOVENOX) 40 MG/0.4ML Solution Prefilled Syringe) 12/05/2024 Scan [facility] SRVCS Scanned, [facility] (SCAN) 12/05/2024 Telephone [facility] [address] [phone] Jose Laureano, DO Referral 12/05/2024 Patient Outreach [address] [phone] Ana Echavarria, RN Care Management (CCM) 11/30/2024 Scan [facility] INFO SRVCS Scanned, [facility] (SCAN) 11/25/2024 Telephone [facility] [address] [phone] Jose Laureano, DO Referral 11/24/2024 Patient Outreach [address] [phone] Ana Echavarria, RN Care Management (CCM) 11/22/2024 Telephone [facility] [address] [phone] Jose Laureano, DO Advice 11/14/2024 Scan HEALTH INFO SRVCS Scanned, [facility] (SCAN) 11/14/2024 Patient Outreach [address] [phone] Ana Echavarria, RN Care Management (CCM) 11/10/2024 Scan [facility] HE[facility] INFO SRVCS Scanned, Doc Med Group 11/10/[address] [phone] Jose Laureano, DO Referral 11/09/[address] [phone] Jose Laureano, DO Medication Request 11/08/2024 2:37 PM REAL ESTATE LISTING CONSULTANT - 11/08/2024 11:59 PM REAL ESTATE LISTING CONSULTANT Hospital Encounter [facility] [place] [address] [place] [address] Jose Laureano, DO Discharge Disposition: Home or Self Care (Routine Discharge) 11/08/2024 Travel 11/08/2024 Patient Outreach [address] [phone] Ana Echavarria, RN Hospital Follow Up (Week #2); Care Management (CCM) 11/04/2024 10:40 AM REAL ESTATE LISTING CONSULTANT Office Visit [address] [phone] Jose Laureano, DO TCM (The patient went to [facility] for PE. ) 11/04/2024 Scan [facility] HEALTH INFO SRVCS Scanned, Doc Med Group 11/04/2024 Travel 11/01/2024 Patient Outreach [address] [phone] Ana Echavarria, RN Hospital Follow Up (Week #1); Care Management (CCM) from Last 3 Months Immunizations Name Administration Dates Next Due Arexvy Respiratory Syncytial Virus (RSV, adjuvanted) 0.5 mL, PF 09/23/2023 COVID-19 Vaccine (Generic) 01/27/2021,01/06/2021 Fluad influenza vaccine, Luis drivalent (aIIV4), Inactivated, adjuvanted, preservative free, 0.5 mL,IM use 08/12/2019 Fluzone High Dose (IIV, triv alent, 0.5mL) 08/30/2024 Fluzone High Dose - >Age 65 (Prefilled Syringe) 09/16/2023,08/26/2022,08/11/2018,2016,07/31/2016,08/05/2014 Influenza (Generic) 08/23/2018, 8,09/12/2017,2016,08/23/2016,09/23/2013,07/24/2012,1 Influenza Adult (Generic) 08/26/2022,,08/09/2020,2019,08/12/2018,08/19/2015,09/08/2013 PFIZER COVID-19 (ORIGINAL FORMULATION, PURPLE CAP) mRNA, LNP-S, PF, 30 MCG/0.3 ML DOSE 08/21/2021,01/27/2021,01/06/2021 PFIZER COVID-19 BIVALENT (12 +) mRNA, LNP-S, PF, 30 MCG/0.3 ML DOSE 08/26/2022 Pneumococcal (Pneumovax 23) 08/12/2019, 7 Pneumococcal (Prevnar 13) 10/05/2015,09/23/2015 Shingrix 02/03/2019,12/09/2018 Tdap (Adacel) 10/22/2023 Tdap (Generic) 07/12/2018,06/23/2018 Family History Medical History Relation Comments Cancer Brother 1 Cancer Brother 2 Tuberculosis Father Liver Disease Mother Relation Status Comments Brother 1 Brother 2 Father Mother Social History Tobacco Use Types Packs/Day Years Used Date Smoking Tobacco: Former Cigarettes 0.5 20 0 11/23/1976 - 11/23/1996 Passive Smoke Exposure: Never Smokeless Tobacco: Never Tobacco Cessation:Counseling Given: Yes Alcohol Use Standard Drinks/Week Comments Not Currently 0 (1 standard drink = 0.6 oz pur e alcohol) OASIS D0700: Social Isolation Answer Da te Recorded Frequency of experiencing loneliness or isolatio n Rarely 05/24/2024 OASIS A1250: Transportation Answer Date Recorded Lack of Transportation (Medical) No 05/24/2024 Lack of Transportation (Non-Medical) No 05/24/2024 Patient Unable or Declines to Respond No 05/24/2024 OASIS B1300: Health Literacy Answer Jackson e Recorded Frequency of needing help to read materials from doctor or pharmacy Rarely 05/24/2024 B1300 Health Literacy Answer Date Recor ded How often do you need to hav e someone help you when you read instructions, pamphlets, or other written material from your doctor or pharmacy? Never 04/15/2024 [facility] Utilities Answer Date Recorded In the past 12 months has [facility] [employer], oil, or water [employer] threatened to shut off services in your home? No 10/24/2024 Humiliation, Afraid, Rape, and Kick questionnair e Answer Date Recorded Within the last year, have y ou been afraid of your partner or ex-partner? No 10/24/2024 Within the last year, have y ou been humiliated or emotionally abused in other ways by your partner or ex-partner? No Within the last year, have y ou been kicked, hit, slapped, or otherwise physically hurt by your partner or ex-partner? No 10/24/2024 Within the last year, have y ou been raped or forced to have any kind of sexual activity by your partner or ex-partner? No 10/24/2024 Social Connection and Isolat ion Panel [NHANES] Answer Date Recorded In a typical week, how many times do you talk on the phone with family, friends, or neighbors? More than three times a week 04/15/2024 How often do you get togethe r with friends or relatives? More than three times a week 04/15/2024 How often do you attend [facility] or sikh services? Never 04/15/2024 Do you belong to any clubs o r organizations such as nondenominational groups, unions, fraternal or athletic groups, or school groups? No 04/15/2024 How often do you attend meet ings of the clubs or organizations you belong to? Never 04/15/2024 Are you , , di vorced, , never , or living with a partner? 04/15/2024 AUDIT-C Answer Date Recorded Q1: How often do you have a drink containing alcohol? Never 04/15/2024 Q2: How many drinks containi ng alcohol do you have on a typical day when you are drinking? Patient does not drink Q3: How often do you have si x or more drinks on one occasion? Never 04/15/2024 Overall Financial Resource Strain (CARDIA) Answe r Date Recorded How hard is it for you to pa y for the very basics like food, housing, medical care, and heating? Not hard at all 10/24/2024 PHQ-2 Answer Date Recorded Patient Health Questionnaire-2 Score 0 12/13/2024 [facility] - Occupational Stress Questionnaire Answer Date Recorded Do you feel stress - tense, restless, nervous, or anxious, or unable to sleep at night because your mind is troubled all the time - these days? Not at all 04/15/2024 Exercise Vital Sign Answer Date Recorde d On average, how many days pe r week do you engage in moderate to strenuous exercise (like a brisk walk)? 0 days 02/09/2024 On average, how many minutes do you engage in exercise at this level? 0 min 02/09/2024 Hunger Vital Sign Answer Date Recorded Within the past 12 months, y ou worried that your food would run out before you got the money to buy more. Never true 10/24/20 24 Within the past 12 months, t he food you bought just didn't last and you didn't have money to get more. Never true 10/24/2024 PRAPARE - Transportation Answer Date Re corded In the past 12 months, has l ack of transportation kept you from medical appointments or from getting medications? No 12/2023 In the past 12 months, has l ack of transportation kept you from meetings, work, or from getting things needed for daily living? No 10/24/2024 Housing Stability Vital Sign Answer Jackson e Recorded In the last 12 months, was t here a time when you were not able to pay the mortgage or rent on time? No 02/09/2024 In the last 12 months, how many places have you lived? 1 02/09/2024 In the last 12 months, was t here a time when you did not have a steady place to sleep or slept in a intermediate (including now)? No 02/09/2024 Housing Stability Vital Sign Answer Jackson e Recorded In the last 12 months, was t here a time when you were not able to pay the mortgage or rent on time? No 10/24/2024 In the past 12 months, how m any times have you moved where you were living? 1 10/24/2024 At any time in the past 12 m [facility], were you homeless or living in a intermediate (including now)? No 10/24/2024 Comments No Sex and Gender Information Value Date Recorded Sex Assigned at Female 06/24/2024 8:15 PM CDT Legal Sex Female 1:59 PM CDT Gender Identity Female 06/24/2024 8:15 PM CDT Sexual Orientation Straight 06/24/2024 8: 15 PM CDT Last Filed Vital Signs Vital Sign Reading Time Taken Comments Blood Pressure 132/74 01/25/2025 1:54 PM REAL ESTATE LISTING CONSULTANT Pulse 83 01/25/2025 1:54 PM REAL ESTATE LISTING CONSULTANT Temperature 36.9 C (98.4 F) 01/25/2025 1:54 PM REAL ESTATE LISTING CONSULTANT Respiratory Rate 16 01/25/2025 1:54 PM REAL ESTATE LISTING CONSULTANT Oxygen Saturation 97% 01/25/2025 1:54 PM REAL ESTATE LISTING CONSULTANT Inhaled Oxygen Concentration - - Weight 43.7 kg (96 lb 6.4 oz) 01/25/2025 1:54 PM REAL ESTATE LISTING CONSULTANT Height 144.8 cm (4' 9 ) 01/25/2025 1:54 PM REAL ESTATE LISTING CONSULTANT Body Mass Index 20.86 01/25/2025 1:54 PM REAL ESTATE LISTING CONSULTANT Plan of Treatment Upcoming Encounters Date Type Department Care Team (Late st Contact Info) Description 02/02/2025 1:[address] [facility] [place] [address] Dean De La Fuente MD [address] [facility] [address] [place] [address] 05/02/2025 1:20 PM CDT Office Visit [facility] - [place] [id number] [place] [address] Jose Laureano, DO [address] [place] [address] 06/21/2025 2:00 PM CDT Treatment [facility] [place] [address] Jose Laureano, DO [address] [place] [address] Health Maintenance Due Date Last Done Comments Annual Medicare Wellness Visit 03/15/2025 03/14/2024 COVID-19 Vaccine ( season) 2025 09/23/2023, 08/26/2022, 08/21/2021, Additional history exists Postponed from 07/24/2024 (Going to Outside Clinic) DTaP, Tdap and Td Vaccines (4 - Td or Tdap) 10/22/2033 10/22/2023, 07/12/2018, 06/23/2018 Zoster Vaccines Completed 02/03/2019, 12/09/2018 Pneumococcal Vaccine: 65+ Years Completed 08/12/2019, 06/30/2017, 10/05/2015, Additional history exists RSV Immunization or 60+ Years Completed 09/23/2023 Influenza Adult Completed 08/30/2024, 08/24, 08/26/2022, Additional history exists PHQ-2 (Physician [place]) Completed 12/13/2024 Meningococcal B Vaccine Aged Out No l onger eligible based on patient's age to complete this topic Meningococcal Vaccine Aged Out No billie jazlyn eligible based on patient's age to complete this topic RSV Immunizations Under 20 Months Aged Out No longer eligible based on patient's age to complete this topic Goals Goal Patient Goal Type Associated Problems Recent Progress Patient-Stated? Author Monitor - wound Lifestyle On track(2024 12:38 PM REAL ESTATE LISTING CONSULTANT) No Ana Echavarria RN Note: Patient to monitor open area to buttock Keep area clean and dry, apply OTC zinc and barrier cream frequently or hydrocortisone cream. Establish Plan for Symptom Monitoring HTN Lifestyle On track(2024 12:38 PM REAL ESTATE LISTING CONSULTANT) No Ana Echavarria RN Note: Hypertension: Patient will recognize symptoms of hypertension and report to provider. Notify your physician for symptoms of: Severe headache Shortness of breath Nosebleed Severe anxiety Feeling of pulsations in the neck or head Take your medications as prescribed. Follow up with your provider as scheduled. Take your blood pressure at least several times a week if able. Don't stop any medications before speaking to your provider. Interventions for HTN include: 1) Patient will recognize symptoms of HTN to report to physician including: headache, sob, nosebleed, severe anxiety, vision changes, feelings of pulsations in neck or head 2) Patient will monitor blood pressure as directed by physician 3) Patient will follow diet low in salt 4) Blood pressure goal of <140/90 5) Patient will take all medications as prescribed Establish Plan for Symptom Monitoring COPD Lifestyle On track(2024 12:38 PM REAL ESTATE LISTING CONSULTANT) No Ana Echavarria RN Note: COPD: Patient will recognize symptoms of COPD exacerbation and report to the physician. If severe, patient will seek emergent treatment at [facility] or ER. Notify your provider if you have any of the following symptoms: Worsening shortness of breath at rest or with activity Frequent coughing, productive or nonproductive Wheezing Noisy breathing Tightness in the chest Tiredness Weight loss. Follow up with your provider as scheduled Take your medications as prescribed Do not stop any of your medications without notifying provider Medical Devices Implanted Type Area Concrete Swimming Pool Installer Device Identifier Shelf Expiration Date Model / Serial / Lot Barrier Seprafilm 3 X 5, Procedure Pack - [id number] Implanted:Qty : 1 on 04/17/2024 by Amarjit David MD at [facility] [place] Barrier N/A: Abdomen [employer] [facility] [employer] [id number] / / Procedures Procedure Name Priority Date/Time Associated Diagnosis Comments URINE BACTERIA CULTURE Routine 01/25/2025 2:41 PM REAL ESTATE LISTING CONSULTANT Urinary frequency URINALYSIS AUTO DIP Routine 01/25/2025 Urinary frequency OUTSIDE LAB (SCAN ORDER) 01/16/2025 OUTSIDE LAB (SCAN ORDER) 01/16/2025 OUTSIDE LAB (SCAN ORDER) 01/09/2025 OUTSIDE LAB (SCAN ORDER) 01/03/2025 COMPREHENSIVE METABOLIC PANEL Routine 12/26/2024 12:00 AM REAL ESTATE LISTING CONSULTANT Hypothyroidism, unspecified type Stage 3a chronic kidney disease (CKD) (CMS/HCC) BONE DENSITY/DEXA Routine 12/21/2024 2:3 2 PM REAL ESTATE LISTING CONSULTANT Age-related osteoporosis without current pathological fracture OUTSIDE LAB (SCAN ORDER) 12/19/2024 OUTSIDE LAB (SCAN ORDER) 12/12/2024 OUTSIDE LAB (SCAN ORDER) 12/05/2024 OUTSIDE LAB (SCAN ORDER) 11/30/2024 OUTSIDE LAB (SCAN ORDER) 11/14/2024 OUTSIDE LAB (SCAN ORDER) 11/14/2024 USV SAMIA DUPLEX LOW EXT LT STAT 11/08/2024 3:10 PM REAL ESTATE LISTING CONSULTANT Swelling of left lower extremity from Last 3 Months Results * URINE BACTERIA CULTURE (01/25/2025 2:41 PM REAL ESTATE LISTING CONSULTANT) SPEC DESCRIPTION URINE CLEAN CATCH 01/25/2025 2:41 PM REAL ESTATE LISTING CONSULTANT [facility] SPECIAL REQUESTS NO SPECIAL REQUEST 01/25/2025 2:41 PM REAL ESTATE LISTING CONSULTANT [facility] CULTURE RESULT >50,000 TO 99,999 CFU/mL PSEUDOMONAS AERUGINOSA 01/28/2025 7:08 AM REAL ESTATE LISTING CONSULTANT [facility] URINE SPECIMEN OBTAINED BY CLEAN CATCH PROCEDURE / Unknown 01/25/2025 2:41 PM REAL ESTATE LISTING CONSULTANT 01/25/2025 8:55 PM REAL ESTATE LISTING CONSULTANT Narrative Organism Antibiotic Method Susceptibility Pseudomonas aeruginosa MEROPENEM YVES (KB) Resistant Pseudomonas aeruginosa AMIKACIN YVES (KB) Sensitive Pseudomonas aeruginosa AZTREONAM YVES (KB) Sensitive Pseudomonas aeruginosa CEFEPIME YVES (KB) Sensitive Pseudomonas aeruginosa CEFTAZIDIME YVES (KB) Sensitive Pseudomonas aeruginosa CIPROFLOXACIN YVES (KB) Sensitive Pseudomonas aeruginosa LEVOFLOXACIN YVES (KB) Sensitive Pseudomonas aeruginosa PIPRACIL/TAZO YVES (KB) Sensitive Pseudomonas aeruginosa TOBRAMYCIN YVES (KB) Sensitive Jose Laureano DO MICROBIOLOGY - GENERAL O RDERABLES Final Result Performing Organization Address [facility]/ZIP Co de Phone Number [facility] [address] [place] [address], [place] [phone] * (ABNORMAL) URINALYSIS AUTO DIP (01/25/2025) COLOR (U) YELLOW YELLOW [facility] TRANSPARENCY CLEAR CLEAR [facility] GLUCOSE (U) NEGATIVE NEGATIVE MG/DL [facility] BILIRUBIN (U) NEGATIVE NEGATIVE [facility] [place] MG/DL (U) NEGATIVE NEGATIVE MG/DL [facility] SPECIFIC GRAVITY (U) 1.015 1.001 - 1.035 [facility] BLOOD (U) NEGATIVE NEGATIVE [facility] U PH 5.5 5.0 - 9.0 [facility] PROTEIN (U) 1+ (30)(A) NEGATIVE mg/dL [facility] UROBILINOGEN 0.2 0.2 - 1.0 EU/dL = mg/dL [facility] NITRITES NEGATIVE NEGATIVE MG/DL [facility] LEUKOCYTES (U) NEGATIVE NEGATIVE [facility] URINE SPECIMEN OBTAINED BY CLEAN CATCH PROCEDURE / Unknown 01/25/2025 Jose Laureano DO URINE ORDERABLES Final R esult Performing Organization Address [facility]/ZIP Co de Phone Number [facility] [address] [place] [address], [place] * OUTSIDE LAB (SCAN ORDER) (01/16/2025) Only the most recent of10 resultswithin the time period is included. 01/16/2025 [facility] Scanned SCANNING Final Resu lt * COMPREHENSIVE METABOLIC PANEL (12/26/2024 12:00 AM REAL ESTATE LISTING CONSULTANT) 12/26/2024 Jose Laureano DO LABORATORY Final Re sult [facility] ON[facility] * BONE DENSITY/DEXA (12/21/2024 2:32 PM REAL ESTATE LISTING CONSULTANT) Anatomical Region Laterality Modality Bone Mammography 12/21/2024 2:45 PM REAL ESTATE LISTING CONSULTANT Impressions 12/21/2024 2:46 PM REAL ESTATE LISTING CONSULTANT IMPRESSION: WHO Classification: Osteoporosis. RECOMMENDATIONS: All patients should ensure an adequate intake of dietary calcium and vitamin D. The NOF recommend adults under the age of 50 need 1000 mg of calcium and 400-800 IU of vitamin D daily. Effective therapy for the prevention and treatment of osteoporosis include bisphosphonates. FOLLOW-UP: People with diagnosed cases of osteoporosis or at high risk for fracture should have regular bone mineral density test. For patients eligible for Medicare, routine testing is allowed once every 2 years. Testing frequency can be increased to one year for patients who have rapidly progressing disease, those who are receiving or discontinuing medical therapy to restore bone mass, or have additional risk factors. Ordered By: JOSE LAUREANO Interpreted By: Scotty Lozano, 12/21/2024 2:45 PM Narrative 12/21/2024 2:46 PM REAL ESTATE LISTING CONSULTANT [facility] [address] [place] [address] EXAMINATION: BONE DENSITY/DEXA INDICATIONS: Age-related osteoporosis without current pathological fracture COMPARISON: None TECHNIQUE: DEXA bone mineral density evaluation was performed in the AP projection over the left forearm and both hips utilizing standard imaging techniques. FINDINGS: L4-L5 fusion hardware. The BMD measured at the AP spine L1-L3 is 0.867 g/cm? with a T-score of -1.4. The BMD measured at the left forearm is 0.509 g/cm? with a T-score of -3.1. Procedure Note Scotty Lozano MD - 12/21/2024 [facility] [address] [place] [address] EXAMINATION: BONE DENSITY/DEXA INDICATIONS: Age-related osteoporosis without current pathologicalfracture COMPARISON: None TECHNIQUE: DEXA bone mineral density evaluation was performed in the APprojection over the left forearm and both hips utilizing standard imagingtechniques. FINDINGS: L4-L5 fusion hardware. The BMD measured at the AP spine L1-L3 is 0.867 g/cm? with a T-score of-1.4. The BMD measured at the left forearm is 0.509 g/cm? with a T-score of-3.1. IMPRESSION: WHO Classification: Osteoporosis. RECOMMENDATIONS: All patients should ensure an adequate intake of dietary calcium andvitamin D. The NOF recommend adults under the age of 50 need 1000 mg ofcalcium and 400-800 IU of vitamin D daily. Effective therapy for theprevention and treatment of osteoporosis include bisphosphonates. FOLLOW-UP: People with diagnosed cases of osteoporosis or at high risk for fractureshould have regular bone mineral density test. For patients eligible forMedicare, routine testing is allowed once every 2 years. Testing frequencycan be increased to one year for patients who have rapidly progressingdisease, those who are receiving or discontinuing medical therapy torestore bone mass, or have additional risk factors. Ordered By: JOSE LAUREANO Interpreted By: Scotty Lozano, 12/21/2024 2:45 PM us Jose Laureano DO DEXA Final Re sult * USV SAMIA DUPLEX LOW EXT LT (11/08/2024 3:10 PM REAL ESTATE LISTING CONSULTANT) Anatomical Region Laterality Modality Vascular Ultraso und 11/08/2024 2:44 PM REAL ESTATE LISTING CONSULTANT Narrative 11/08/2024 11:09 PM REAL ESTATE LISTING CONSULTANT VENOUS DUPLEX IMAGING BILATERAL LOWER EXTREMITY VASCULAR LAB Pat.Name: Kylee Melendez Pat.ID: [id number] St.Date: 11/08/2024 Exam Time: 2:44:00 PM Study Type:UMA VS Venous Duplex Legs NANETTE Height: 57 in Age: 7 1940,84Y Sex: F Sonogrphr: Vanessa Banks T Pat. Stat.:Outpatient History / Clinical:Left leg swelling and pain worsening Prior exam 10/19/24 + left gastroc. Procedures: Rosenthal scale, Color Doppler imaging, Doppler Spectral Analysis Race: W ++++++++++++++++++++++++++++++++++++ SUMMARY: ++++++++++++++++++++++++++++++++++++ Right leg: There are NO apparent, deep or superficial vein, ACUTE character venous filling defects visualized in the femoral, popliteal, deep calf or proximal saphenous veins. Resting venous flow is normal phasic proximally. Left leg: There are chronic defects in the left gastrocnemius veins, no acute venous filling defects visualized in the femoral, popliteal, deep calf or proximal saphenous veins. Resting venous flow is normal phasic proximally. Pulsatile flow noted bilaterally. No significant change from previous exam 10/19/24. Preliminary findings reported to Dr. Laureano . 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 <Electronic Signature> 11/08/2024 11:09 PM Errol Tai M.D. Procedure Note Errol Tai MD - 11/08/2024 VENOUS DUPLEX IMAGING BILATERAL LOWER EXTREMITY VASCULAR LAB Pat.Name: Kylee Melendez Pat.ID: [id number] .Date: 11/08/2024 Exam Time: 2:44:00 PM Study Type:UMA VS Venous Duplex Legs NANETTE Height: 57 in Age: 7 1940,84Y Sex: F Sonogrphr: Vanessa Banks T Pat. Stat.:Outpatient History / Clinical:Left leg swelling and pain worsening Prior exam 10/19/24 + left gastroc. Procedures: Rosenthal scale, Color Doppler imaging, Doppler Spectral Analysis Race: W ++++++++++++++++++++++++++++++++++++ SUMMARY: ++++++++++++++++++++++++++++++++++++ Right leg: There are NO apparent, deep or superficial vein, ACUTE character venous filling defects visualized in the femoral, popliteal, deep calf or proximal saphenous veins. Resting venous flow is normal phasic proximally. Left leg: There are chronic defects in the left gastrocnemius veins, no acute venous filling defects visualized in the femoral, popliteal, deep calf or proximal saphenous veins. Resting venous flow is normal phasic proximally. Pulsatile flow noted bilaterally. No significant change from previous exam 10/19/24. Preliminary findings reported to Dr. Laureano . 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 <Electronic Signature> 11/08/2024 11:09 PM Errol Tai M.D. us Jose Laureano DO US VASC Final Re sult from Last 3 Months Insurance [facility] Advance Directives Documents on File Type Date Recorded Patient Data Center Consultant Expl anation Advance Directives and Living Will 02/17/2024 3:18 PM Advance Directives and Living Will 02/17/2024 3:18 PM Advance Directive (Activated) 02/11/2024 9:06 AM copy in [facility] Power of Presiding Judge 07/04/2024 6:18 AM POA H [facility] * POLST (Latest Code Status on File) Date Activated Date Inactivated Comments 10/25/2024 12:29 AM 10/27/2024 1:15 PM Question Answer Comments Cardiopulmonary Resuscitatio n (CPR) If patient has no pulse and is not breathing: DO NOT Attempt Resuscitation CPR Medical Interventions when N OT in Cardiopulmonary Arrest (If patient is found with a pulse and/or is breathing): Selective Treatment - Do NOT Intubate Artificially administered nu trition - Offer food by mouth, if feasible and desired: Trial - Defined Trial Period * Full Code Date Activated Date Inactivated Comments 10/24/2024 2:10 PM 10/25/2024 12:29 AM * DNR Date Activated Date Inactivated Comments 06/24/2024 6:52 PM 06/27/2024 1:29 PM * POLST Date Activated Date Inactivated Comments 05/23/2024 11:44 AM 06/24/2024 12:43 PM No CPR: Do N ot Attempt Resuscitation. Comfort-Focused Treatment: Primary goal is maximizing comfort through symptom management. Allow natural . Use medication by any route as needed. Use oxygen, suctioning and manual treatment of airway obstruction. Do not use treatmens listed in Full and Selective treatment unless consistentwith comfort goal. Transfer to hospital only if comfort cannot be achieved in current setting. * POLST Date Activated Date Inactivated Comments 05/06/2024 10:23 AM 05/13/2024 1:29 PM No CPR: Do Not Attempt Resuscitation. Comfort-Focused Treatment: Primary goal is maximizing comfort through symptom management. Allow natural . Use medication by any route as needed. Use oxygen, suctioning and manual treatment of airway obstruction. Do not use treatmens listed in Full and Selective treatment unless consistentwith comfort goal. Transfer to hospital only if comfort cannot be achieved in current setting. Care Teams Utility Clerk Relationship Specialty Start Date End Date Jose Laureano DO [address] [place] [address] PCP - General FAMILY PRACTICE 12/04/21 Ana Echavarria RN [address] [place], [place] [address] Land Survey Technician (Ambulatory) REGISTERED NURSE 02/04/24
--- OUTSIDE RECORDS SUMMARY | 2025-01-30 18:12 | XMS_ITS | Encounter Summary ---
Author Organization [facility] Address [facility] [place] [address] Care Team Providers Care Digital Operations Analyst Name Role Phone Jeferson Umanzor DO Primary Care Provider + Ana Echavarria RN Unavailable Encounter Details Date Type Department Care Team (Late st Contact Info) Description 08/12/2022 MyChart Message Enc [facility] Medical Group Family & Internal Medicine [facility] [address] [place] [address] Jeferson Umanzor DO [address] [place] [address] Referral request Social History Tobacco Use Types Packs/Day Years Used Date Smoking Tobacco: Former Cigarettes 0.5 20 1 977 - 1997 Smokeless Tobacco: Never Alcohol Use Standard Drinks/Week Comments Not Currently 0 (1 standard drink = 0.6 oz pur e alcohol) PHQ-2 Answer Date Recorded PHQ-2 Score - If the patient scores above 3, please move on to questions 3-9 0 12/04/2021 Comments No Sex and Gender Information Value Date Recorded Sex Assigned at Female 06/24/2024 8:15 PM CDT Legal Sex Female 1:59 PM CDT Gender Identity Female 06/24/2024 8:15 PM CDT Sexual Orientation Straight 06/24/2024 8: 15 PM CDT documented as of this encounter Plan of Treatment Upcoming Encounters Date Type Department Care Team (Late st Contact Info) Description 02/02/2025 1:00 PM CDT Appointment [facility] [place] [address] Dean De La Fuente MD [address] [facility] [address] [place] [phone] 05/02/2025 1:20 PM CDT Office Visit [facility] Medical Group Family & Internal Medicine - [place] [address] [place] [address] Jefersno Umanzor DO [address] [place] [address] 06/21/2025 2:00 PM CDT Treatment [facility] [place] [address] [place] [address] Jeferson Umanzor DO [address] [place] [address] documented as of this encounter Visit Diagnoses Not on filedocumented in this encounter Additional Health Concerns Assessment Noted Time PHQ-9 Depression Total Score: 0 12/04/19 1:16 PM SURVEILLANCE SUPERVISOR documented as of this encounter Care Teams Digital Operations Analyst Relationship Specialty Start Date End Date Jeferson Umanzor DO [address] [place] [address] PCP - General FAMILY PRACTICE 12/04/21 Ana Echavarria, RN [address] [place], [place] [address] Can Closing Machine Tender (Ambulatory) REGISTERED NURSE 02/04/24 documented as of this encounter
--- OUTSIDE RECORDS SUMMARY | 2025-01-30 18:12 | XMS_ITS | Encounter Summary ---
Author Organization [facility] Address [facility] [place] [address] Care Team Providers Care Dye Room Helper Name Role Phone Jeferson Umanzor Primary Care Provider + Ana Echavarria RN Unavailable Encounter Details Date Type Department Care Team (Late st Contact Info) Description 04/16/2023 Therapy Plan [facility] [place] [address] Sakina Moser RN Social History Tobacco Use Types Packs/Day Years Used Date Smoking Tobacco: Former Cigarettes 0.5 20 0 11/23/1976 - 11/23/1996 Passive Smoke Exposure: Never Smokeless Tobacco: Never Alcohol Use Standard Drinks/Week Comments Not Currently 0 (1 standard drink = 0.6 oz pur e alcohol) PHQ-2 Answer Date Recorded Patient Health Questionnaire-2 Score 0 03/17/2023 Comments No Sex and Gender Information Value Date Recorded Sex Assigned at Female 06/24/2024 8:15 PM CDT Legal Sex Female 1:59 PM CDT Gender Identity Female 06/24/2024 8:15 PM CDT Sexual Orientation Straight 06/24/2024 8: 15 PM CDT COVID-19 Exposure Response Date Recorded In the last 10 days, have yo u been in contact with someone who was confirmed or suspected to have Coronavirus/COVID-19? No / Unsure 03/17/2023 12:55 PM CDT documented as of this encounter Plan of Treatment Upcoming Encounters Date Type Department Care Team (Late st Contact Info) Description 02/02/2025 1:00 PM CDT Appointment [facility] Vascular [place] [address] Dean De La Fuente MD [address] [facility] [address] [place] [phone] 05/02/2025 1:20 PM CDT Office Visit [facility] Medical Group Family & Internal Medicine - [place] [address] [place] [address] Jeferson Umanzor DO [address] [place] [address] 06/21/2025 2:00 PM CDT Treatment [facility] [place] [address] Jeferson Umanzor, [address] [place] [address] documented as of this encounter Visit Diagnoses Diagnosis Age-related osteoporosis without current pathological fracture- Primary Senile osteoporosis documented in this encounter Additional Health Concerns Assessment Noted Time PHQ-9 Depression Total Score: 0 09/03/20 1:40 PM CDT documented as of this encounter Care Teams Dye Room Helper Relationship Specialty Start Date End Date Jeferson Umanzor DO [address] [place] [address] PCP - General FAMILY PRACTICE 12/04/21 Ana Echavarria, RN [address] [place] [address] Homeworker (Ambulatory) REGISTERED NURSE 02/04/24 documented as of this encounter
--- OUTSIDE RECORDS SUMMARY | 2025-01-30 18:12 | XMS_ITS | Clinical Summary ---
Author Organization [facility] Address [address] [place] [address] Care Team Providers Care Development Mgr Name Role Phone Unavailable Primary Care Provider Unavailabl e Social History Tobacco Use Types Packs/Day Years Used Date Smoking Tobacco: Never Assessed Comments Unknown Sex and Gender Information Value Date Recorded Sex Assigned at Not on file Legal Sex Female 3:17 PM COMMUNICATIONS MARKETING INTERN Gender Identity Not on file Sexual Orientation Not on file Plan of Treatment Health Maintenance Due Date Last Done Comments DEXA Bone Density 1940 Hepatitis C Virus (HCV) Screening 1940 Respiratory Syncytial Virus (RSV) Immunization (Adult) (1 - 1-dose 75+ series) 2013 Zoster Immunization (2 of 2) 02/03/2019 12/09/2018 Influenza Immunization (#1) 07/24/202407/24, 08/09/2020, 08/12/2019, Additional history exists SARS-COV-2 Immunization ( season) 2024 08/21/2021, 01/27/2021, 01/06/2021 DTaP/Tdap/Td Immunization Discontinued 07/12/2018, 11/2017 TdaP Immunization Completed 07/12/2018, 06/23/2018 Pneumococcal Immunization (50+ years) Completed 08/12/2019, 07/02/2017, 10/05/2015 Pneumococcal Immunization Combined Discontinued 08/12/2019, 07/02/2017, 10/05/2015 Hepatitis B Immunization Aged Out No longer eligible based on patient's age to complete this topic Meningococcal Immunization (ACWY) Aged Out No longer eligible based on patient's age to complete this topic Rotavirus Immunization Aged Out No lo nger eligible based on patient's age to complete this topic
--- OUTSIDE RECORDS SUMMARY | 2025-01-30 18:12 | XMS_ITS | Continuity of Care Document ---
Author Name Auto Generated, Auto Generated Organization [facility] Support Name Relationship Address Phone Graham Melendez Son Unknown Camille Conroy Daughter Unknown Unavailable Ana Lilia Aguero Daughter Unknown [phone] Kylee Melendez Financial Responsible [employer] [address] [place] [address] Kylee Melendez Self [address] [place] [address] Summary Purpose Consult/Referral Allergies, Adverse Reactions, Alerts Type Description/Agent Code Date Allergy Active Date Allergy Inactivated Date of Last Reaction Adverse Reactions Severity Status Comments Source of Information FDB Medic ation Ingre dient lisinopril Active Patien t History FDB Medic ation Name Vicodin Active Patient History Medications No Known Medications Conditions/Problems Problem/Diagnosis Awareness of Diagnosis Code (ICD-10) Onset Date (Start Date) Resolution Date (End Date) Status Source Comments AFTERCARE FOLLOWING JOINT REPLACEMENT SURGERY Z47.1 07/01/20 17 Active MD Anderson Balderas 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 07/01/20 17 Active MD Anderson Balderas CHRONIC OBSTRUCTIVE PULMONARY DISEASE, UNSPECIFIED J44.9 07/01/20 17 Active MD Anderson Balderas ESSENTIAL (PRIMARY) HYPERTENSION I10 07/01/20 17 Active MD Anderson Balderas UNSPECIFIED GLAUCOMA H40.9 07/01/20 17 Active MD Anderson Balderas GASTRO-ESOPHAGEAL REFLUX DISEASE WITHOUT ESOPHAGITIS K21.9 07/01/20 17 Active MD Anderson Balderas MIXED HYPERLIPIDEMIA E78.2 07/01/20 17 Active MD Anderson Balderas CHRONIC KIDNEY DISEASE, STAGE 2 (MILD) N18.2 07/01/20 17 Active MD Anderson Balderas HYPERTENSIVE CHRONIC KIDNEY DISEASE WITH STAGE 1 THROUGH STAGE 4 CHRONIC KIDNEY DISEASE, OR UNSPECIFIED CHRONIC KIDNEY DISEASE I12.9 07/01/20 17 Active MD Anderson Balderas 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
--- OUTSIDE RECORDS SUMMARY | 2025-01-30 18:12 | XMS_ITS | Encounter Summary ---
Author Organization [facility] Address [facility] [place] [address] Care Team Providers Care Heavy Truck Driver Name Role Phone Jeferson Umanzor DO Primary Care Provider + Ana Echavarria RN Unavailable Encounter Details Date Type Department Care Team (Late st Contact Info) Description 08/12/2022 MyChart Message Enc [facility] Medical Group Family & Internal Medicine [facility] [address] [place] [address] Jeferson Umanzor DO [address] [place] [address] Referral Request Social History Tobacco Use Types Packs/Day Years [...] Info) Description 02/02/2025 1:00 PM CDT Appointment [facility] [place] [address] Dean De La Fuente MD [address] [facility] [address] [place] [phone] 05/02/2025 1:20 PM CDT Office Visit [facility] Medical Group Family & Internal Medicine - [place] [address] [place] [address] Jeferson Umanzor DO [address] [place] [address] 06/21/2025 2:00 PM CDT Treatment [facility] [place] [address] Jeferson Umanzor DO [address] [place] [address] documented as of this encounter Visit Diagnoses Not on filedocumented in this encounter Additional Health Concerns Assessment Noted Time PHQ-9 Depression Total Score: 0 12/04/19 1:16 PM TOP LIFT TRIMMER documented as of this encounter Care Teams Heavy Truck Driver Relationship Specialty Start Date End Date Jeferson Umanzor DO [address] [place] [address] PCP - General FAMILY PRACTICE 12/04/21 Ana Echavarria, RN [address] [place], [place] [phone] Asphalt Paving Supervisor (Ambulatory) REGISTERED NURSE 02/04/24 documented as of this encounter
--- OUTSIDE RECORDS SUMMARY | 2025-01-30 18:12 | XMS_ITS | Encounter Summary ---
Author Organization [facility] Address [facility] [place] [address] Care Team Providers Care Patrol Police Sergeant Name Role Phone Jeferson Umanzor DO Primary Care Provider + Ana Echavarria RN Unavailable Encounter Details Date Type Department Care Team (Late st Contact Info) Description 08/12/2022 MyChart Message Enc [facility] Medical Group Family & Internal Medicine [facility] [address] [place] [address] Jeferson Umanzor DO [address] [place] [address] Referral request Social History Tobacco [...] Info) Description 02/02/2025 1:00 PM CDT Appointment [facility] [place] [address] Dean De La Fuente MD [address] [facility] [address] [place] [phone] 05/02/2025 1:20 PM CDT Office Visit [facility] Medical Group Family & Internal Medicine - [place] [address] [place] [address] Jeferson Umanzor DO [address] [place] [address] 06/21/2025 2:00 PM CDT Treatment [facility] [place] [address] Jeferson Umanzor DO [address] [place] [address] documented as of this encounter Visit Diagnoses Not on filedocumented in this encounter Additional Health Concerns Assessment Noted Time PHQ-9 Depression Total Score: 0 12/04/19 1:16 PM FACULTY MEMBER documented as of this encounter Care Teams Patrol Police Sergeant Relationship Specialty Start Date End Date Jeferson Umanzor DO [address] [place] [address] PCP - General FAMILY PRACTICE 12/04/21 Ana Echavarria, RN [address] [place], [place] [address] Applications Consultant (Ambulatory) REGISTERED NURSE 02/04/24 documented as of this encounter
--- OUTSIDE RECORDS SUMMARY | 2025-01-30 18:12 | XMS_ITS ---
Author Organization [facility] Address [facility] [place] [address] Care Team Providers Care Airline Radio Operator Name Role Phone Jeferson Umanzor Jay COLVIN Primary Care Provider + Ana Echavarria RN Unavailable Active Problems Problem Noted Date Diagnosed Date Acute pulmonary embolism ([facility]) 10/24 Mild protein-calorie malnutrition ([facility]) 07/0 11/2023 CARINA (acute kidney injury) 04/14/2024 Colitis 04/14/2024 Care Management 03/25/2024 SBO (small bowel obstruction) ([facility]) 02/03/2024 Dupuytrens contracture 10/22/2023 Calcification of abdominal [...] 1960's COPD (chronic obstructive pu lmonary disease) ([facility]) 06/29/2017 Hyperlipidemia 04/08/2014 Overview (07/22/2021): Hyperlipemia Essential hypertension SOB (shortness of breath) Fatigue Current Oncology Plans No current plan information found. Other Current Plans denosumab (PROLIA) every 6 months* Plan Start Date:12/13/2024 Plan Provider:Jeferson Umanzor DO Linked Problems Age-related osteoporosis wit hout current pathological fracture Treatment Medications Current Day (Day 1, Cycle 2 - Planned for 06/11/2025) No medications scheduled. No medications schedul ed. Past Plans Radiation Treatments * No radiation treatments are documented for this patient in [facility]. Treatments may have been administered in another system. 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
--- OUTSIDE RECORDS SUMMARY | 2025-01-30 18:12 | XMS_ITS | Encounter Summary ---
Author Organization [facility] Address [facility] [place] [address] Care Team Providers Care Front Office Supervisor Name Role Phone Jeferson Umanzor DO Primary Care Provider + Ana Echavarria RN Unavailable Encounter Details Date Type Department Care Team (Late st Contact Info) Description 09/29/2022 MyChart Message Enc [facility] Family & Internal Medicine [facility] [address] [place] [address] Jeferson Umanzor DO [address] [place] [address] Blood work order Social History Tobacco Use Types Packs/Day Years Used Date Smoking Tobacco: Former Cigarettes 0.5 20 1 977 - 1997 Smokeless Tobacco: Never Alcohol Use Standard Drinks/Week Comments Not Currently 0 (1 standard drink = 0.6 oz pur e alcohol) PHQ-2 Answer Date Recorded PHQ-2 Score - If the patient scores above 3, please move on to questions 3-9 0 09/03/2022 Comments No Sex and Gender Information Value [...] suspected to have Coronavirus/COVID-19? No / Unsure 09/03/2022 1:27 PM CDT documented as of this encounter Plan of Treatment Upcoming Encounters Date Type Department Care Team (Late st Contact Info) Description 02/02/2025 1:00 PM CDT Appointment [facility] [place] [address] Dean De La Fuente MD [address] [facility] [address] [place] [phone] 05/02/2025 1:20 PM CDT Office Visit [facility] Family & Internal Medicine [facility] [address] [place] [phone] Jeferson Umanzor DO [address] [place] [address] 06/21/2025 2:00 PM CDT Treatment [facility] [place] [address] Jeferson Umanzor DO [address] [place] [address] documented as of this encounter Visit Diagnoses Not on filedocumented in this encounter Additional Health Concerns Assessment Noted Time PHQ-9 Depression Total Score: 0 09/03/20 1:40 PM CDT documented as of this encounter Care Teams Front Office Supervisor Relationship Specialty Start Date End Date Jeferson Umanzor DO [address] [place] [address] PCP - General FAMILY PRACTICE 12/04/21 Ana Echavarria RN [address] [place] [address] Natural Fabricator (Ambulatory) REGISTERED NURSE 02/04/24 documented as of this encounter
--- OUTSIDE RECORDS SUMMARY | 2025-01-30 18:13 | XMS_ITS | Encounter Summary ---
Author Organization [facility] Address [address] [place] [address] Care Team Providers Care Open Hearth Furnace Operator Name Role Phone NoéJeferson Jay COLVIN Primary Care Provider + Encounter Details Date Type Department Care Team (Late st Contact Info) Description 07/06/2017 Lab Requisition [facility] General Laboratory Services [address] [place] [address] Anderson Balderas MD [address] [place] [address] Mixed hyperlipidemia; Acquired absence of kidney; Chronic kidney disease, stage II (mild); Glaucoma; Essential (primary) hypertension; Aftercare following joint replacement surgery; Gastro-esophageal reflux disease without esophagitis; Presence of left artificial hip joint; Hypertensive chronic kidney disease with stage 1 through stage 4 chronic kidney disease, or unspecified chronic kidney disease Social History Tobacco Use Types Packs/Day Years Used Date Smoking Tobacco: Former Cigarettes Q uit: 11/23/1992 Smokeless Tobacco: Never Alcohol Use Standard Drinks/Week Comments No 0 (1 standard drink = 0.6 oz pur e alcohol) Comments No Sex and Gender Information Value Date Recorded Sex Assigned at Not on file 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 Gender Identity Not on file Sexual Orientation Not on file Occupation Industry Job Start Date Job End Date Not on file Not on file Not on file Not on file documented as of this encounter Plan of Treatment Upcoming Encounters Date Type Department Care Team (Late st Contact Info) Description 02/03/2025 12:45 PM CDT Office Visit [facility] Oncology and Hematology - [place] [address] [facility] [address] [place] [address] Dean De La Fuente MD [address] [facility] [address] [place] [address] 03/16/2025 2:30 PM CDT Office Visit [facility] Pulmonology [facility] [address] [place] [address] Bhanu Haque MD [address] [place] [address] 05/29/2025 1:30 PM CDT Office Visit [facility] Urology at the [facility] Medicine [address] [place] [phone] Xander Franco MD [address] [facility] [address] [place], [place] [phone] documented as of this encounter Procedures Procedure Name Priority Date/Time Associated Diagnosis Comments D-DIMER Stat 07/06/2017 3:47 PM CDT Aftercare following joint replacement surgery Presence of left artificial hip joint Hypertensive chronic kidney disease with stage 1 through stage 4 chronic kidney disease, or unspecified chronic kidney disease Acquired absence of kidney Glaucoma Gastro-esophageal reflux disease without esophagitis Mixed hyperlipidemia Chronic kidney disease, stage II (mild) Essential (primary) hypertension documented in this encounter Results * (ABNORMAL) D-DIMER (07/06/2017 3:47 PM CDT) D-DIMER QUANT 2.66(H) <0.42 ug/mL FEU 07/06/2017 7:08 PM CDT [facility] Comment: The DIC reference range is not clearly established in uncomplicated pregnancies. Values above the upper limit of the reference range are common from the 31st to 40th week of . High negative predictive values for DVT have been reported with the current methodology, as part of a comprehensive medical examination, including risk stratification. Various clinical studies utilizing this method have shown that a result of <0.5 mcg/ml FEU excludes deep vein thrombosis and pulmonary embolism with high sensitivity when used in conjunction with a non-high clinical pre-test probability assessment. Blood Venipuncture / Unknown 07/06/2017 3:47 PM CDT 07/06/2017 6:33 PM CDT us Anderson Balderas MD HEMATOLOGY ORDERABLES Final Result Performing Organization Address City/State/[facility] Co de Phone Number [facility]# [id number] [address] [facility] [place] [address] documented in this encounter Visit Diagnoses Diagnosis Mixed hyperlipidemia Acquired absence of kidney Chronic kidney disease, stage II (mild) Chronic kidney disease, Stage II (mild) Glaucoma Unspecified glaucoma Essential (primary) hypertension Unspecified essential hypertension Aftercare following joint replacement surgery Aftercare following joint replacement Gastro-esophageal reflux disease without esophagitis Esophageal reflux Presence of left artificial hip joint Hip joint replacement by other means Hypertensive chronic kidney disease with stage 1 through stage 4 chronic kidney disease, or unspecified chronic kidney disease documented in this encounter Care Teams Open Hearth Furnace Operator Relationship Specialty Start Date End Date Jeferson Umanzor DO [address] [place] [phone] PCP - General Family Practice 05/15/22 documented as of this encounter
--- OUTSIDE RECORDS SUMMARY | 2025-01-30 18:13 | XMS_ITS | Encounter Summary ---
Author Organization [facility] Address [address] [place] [address] Care Team Providers Care Senior Living Sales Counselor Name Role Phone NoéJeferson Jay COLVIN Primary Care Provider + Encounter Details Date Type Department Care Team (Late st Contact Info) Description 07/07/2017 Lab Requisition [facility] General Laboratory Services [address] [place] [address] Anderson Balderas MD [address] [place] [address] Mixed hyperlipidemia; Acquired absence of kidney; Chronic kidney disease, stage II (mild); Chronic obstructive pulmonary disease (CMS/HCC); Glaucoma; Essential (primary) hypertension; Aftercare following joint [...] on file Legal Sex Female 4:39 AM [employer] Gender Identity Not on file Sexual Orientation Not on file Occupation Industry Job Start Date Job End Date Not on file Not on file Not on file Not on file documented as of this encounter Plan of Treatment Upcoming Encounters Date Type Department Care Team (Late st Contact Info) Description 02/03/2025 12:45 PM CDT Office Visit [facility] Oncology and Hematology - [address] [facility] [address] [place] [address] Dean De La Fuenet MD [address] [place] [address] 03/16/2025 2:30 PM CDT Office Visit [facility] Pulmonology [facility] [address] [place] [address] Bhanu Haque MD [address] [place] [address] 05/29/2025 1:30 PM CDT Office Visit [facility] Urology at the [facility] Medicine [address] [place] [id number] Xander Franco MD [address] [facility] [facility] [address] [place], [place] [id number] documented as of this encounter Procedures Procedure Name Priority Date/Time Associated Diagnosis Comments CBC WITH DIFFERENTIAL Routine 07/07/2017 6:00 AM CDT Essential (primary) hypertension Aftercare following joint replacement surgery Presence of left artificial hip joint Chronic obstructive pulmonary disease Hypertensive chronic kidney disease with stage 1 through stage 4 chronic kidney disease, or unspecified chronic kidney disease Acquired absence of kidney Glaucoma Gastro-esophageal reflux disease without esophagitis Mixed hyperlipidemia Chronic kidney disease, stage II (mild) TSH Routine 07/07/2017 6:00 AM CDT Essential (primary) hypertension Aftercare following joint replacement surgery Presence of left artificial hip joint Chronic obstructive pulmonary disease Hypertensive chronic kidney disease with stage 1 through stage 4 chronic kidney disease, or unspecified chronic kidney disease Acquired absence of kidney Glaucoma Gastro-esophageal reflux disease without esophagitis Mixed hyperlipidemia Chronic kidney disease, stage II (mild) T4 FREE Routine 07/07/2017 6:00 AM CDT Essential (primary) hypertension Aftercare following joint replacement surgery Presence of left artificial hip joint Chronic obstructive pulmonary disease Hypertensive chronic kidney disease with stage 1 through stage 4 chronic kidney disease, or unspecified chronic kidney disease Acquired absence of kidney Glaucoma Gastro-esophageal reflux disease without esophagitis Mixed hyperlipidemia Chronic kidney disease, stage II (mild) BRAIN NATRIURETIC PEPTIDE, BNP OR PROBNP Routine 07/07/2017 6:00 AM CDT Essential (primary) hypertension Aftercare following joint replacement surgery Presence of left artificial hip joint Chronic obstructive pulmonary disease Hypertensive chronic kidney disease with stage 1 through stage 4 chronic kidney disease, or unspecified chronic kidney disease Acquired absence of kidney Glaucoma Gastro-esophageal reflux disease without esophagitis Mixed hyperlipidemia Chronic kidney disease, stage II (mild) LIPID PANEL Routine 07/07/2017 6:00 AM CDT Essential (primary) hypertension Aftercare following joint replacement surgery Presence of left artificial hip joint Chronic obstructive pulmonary disease Hypertensive chronic kidney disease with stage 1 through stage 4 chronic kidney disease, or unspecified chronic kidney disease Acquired absence of kidney Glaucoma Gastro-esophageal reflux disease without esophagitis Mixed hyperlipidemia Chronic kidney disease, stage II (mild) COMPREHENSIVE METABOLIC PANEL Routine 07/07/2017 6:00 AM CDT Essential (primary) hypertension Aftercare following joint replacement surgery Presence of left artificial hip joint Chronic obstructive pulmonary disease Hypertensive chronic kidney disease with stage 1 through stage 4 chronic kidney disease, or unspecified chronic kidney disease Acquired absence of kidney Glaucoma Gastro-esophageal reflux disease without esophagitis Mixed hyperlipidemia Chronic kidney disease, stage II (mild) documented in this encounter Results * T4 FREE (07/07/2017 6:00 AM CDT) T4 FREE 1.54 0.90 - 1.70 ng/dL 07/07/2017 7:19 PM CDT [facility] LABORATORY SERVICES [facility] Blood Venipuncture / Unknown 07/07/2017 6:00 AM CDT 07/07/2017 11:48 AM CDT Anderson Balderas MD CHEMISTRY ORDERABLES Final R esult [facility]# [id number] [address] [place] [address] * TSH (07/07/2017 6:00 AM CDT) Pathologist [facility] TSH 3.27 0.27 - 4.20 uIU/mL 07/07/2017 7:19 PM CDT [facility] LABORATORY [facility] Blood Venipuncture / Unknown 07/07/2017 6:00 AM CDT 07/07/2017 11:48 AM CDT Anderson Balderas MD CHEMISTRY ORDERABLES Final R esult Performing Organization Address City/[facility] Co de Phone Number [facility] [id number] [address] [place] [address] * (ABNORMAL) LIPID PANEL (07/07/2017 6:00 AM CDT) [facility] CHOLESTEROL 104 <200 mg/dL 07/07/2017 7:04 PM CDT [facility] LABORATORY [facility] TRIGLYCERIDE 120 <150 mg/dL 07/07/2017 7:04 PM T [facility] HDL 39(L) 40 - 59 mg/dL 07/07/2017 7:04 PM CDT [facility] LDL CALCULATED 41 <100 mg/dL 07/07/2017 7:04 PM CDT [facility] NON-HDL CHOLESTEROL 65 <130 mg/dL 07/07/2017 7:04 PM T [facility] LABORATORY [facility] Blood Venipuncture / Unknown 07/07/2017 6:00 AM CDT 07/07/2017 11:48 AM CDT Narrative [facility] LABORATORY SERVICES [facility] - 07/07/2017 7:04 PM CDT TOTAL CHOLESTEROL mg/dL Desirable <200 Borderline high 200-239 High >=240 TRIGLYCERIDES mg/dL Normal <150 Borderline high 150-199 High 200-499 Very high >=500 HDL CHOLESTEROL mg/dL Low <40 Normal 40-59 Desirable >=60 NON HDL CHOLESTEROL mg/dL Optimal <130 Near Optimal 130-159 Borderline High 160-189 Very High >=190 Calculated LDL mg/dL Optimal <100 Near Optimal 100-129 Borderline High 130-159 High 160-189 Very High >=190 ATPIII Guidelines Reference Ranges for Lipid Panels (NCEP/AMA) Anderson Balderas MD CHEMISTRY ORDERABLES Final R esult [facility] SERVICES - [facility]# [id number] [address] [facility] [place] [address] * (ABNORMAL) COMPREHENSIVE METABOLIC PANEL (07/07/2017 6:00 AM CDT) SODIUM 145 136 - 145 mmol/L 07/07/2017 7:04 PM T [facility] LABORATORY SERVICES - . [facility] POTASSIUM 3.6 3.5 - 5.0 mmol/L 07/07/2017 7:04 PM T [facility]ORY [facility] - . [place] CHLORIDE 106 98 - 107 mmol/L 07/07/2017 7:04 PM T [facility] CO2 24 22 - 29 mmol/L 07/07/2017 7:04 PM T [facility] CALCIUM 9.1 8.6 - 10.2 mg/dL 07/07/2017 7:04 PM T [facility] BUN 15 8 - 23 mg/dL 07/07/2017 7:04 PM T [facility] CREATININE 0.87 0.51 - 0.95 mg/dL 07/07/2017 7:04 PM T [facility] - . [place] Comment: The GFR result is not clinically significant on patients <18 or >70 years of age. GLUCOSE 88 74 - 99 mg/dL 07/07/2017 7:04 PM T [facility] LABORATORY SERVICES - . [facility] TOTAL PROTEIN 5.3(L) 6.7 - 8.6 g/dL 07/07/2017 7:04 PM T [facility]ORY [facility] - . [place] ALBUMIN 3.0(L) 3.5 - 5.2 g/dL 07/07/2017 7:04 PM [facility] BILIRUBIN TOTAL 0.4 0.2 - 1.1 mg/dL 07/07/2017 7:04 PM [facility] ALKALINE PHOSPHATASE 44 35 - 104 U/L 07/07/2017 7:04 PM [facility] AST 41(H) <33 U/L 07/07/2017 7:04 PM [facility] ALT 41(H) <34 U/L 07/07/2017 7:04 PM [facility] GFR >60 mL/min/1.7 3 sq meter 07/07/2017 7:04 PM [facility] Comment: eGFR has not been validated for use in the elderly (> 70 years of age), women, patients with serious co-morbid conditions, or persons with extremes of body size or muscle mass and should also be interpreted with caution in patients with acute kidney failure, dialysis dependent patients, patients reporting exceptional dietary intake (e.g. vegetarian diet, high protein diets, creatine supplementation), and patients with severe liver disease. Based on National Kidney Disease Education Program If patient is , please refer to the GFR result. GFR, >60 mL/min/1.7 3 sq meter 07/07/2017 7:04 PM [facility] ANION GAP 15 8 - 16 mmol/L 07/07/2017 7:04 PM [facility] Blood Venipuncture / Unknown 07/07/2017 6:00 AM CDT 07/07/2017 11:48 AM [facility] Narrative [facility] - 07/07/2017 7:04 PM [facility] Samples containing indocyanine green cause interferences on Total and/or Direct Bilirubin and must not be measured. us Anderson Balderas MD CHEMISTRY ORDERABLES Final R esult [id number] [address] [facility] [address] [place] [address] * (ABNORMAL) CBC WITH DIFFERENTIAL (07/07/2017 6:00 AM CDT) [facility] WBC 4.8 4.0 - 9.8 K/uL 07/07/2017 10:33 AM CDT [facility] RBC 3.64(L) 3.90 - 4.90 M/uL 07/07/2017 10:33 AM CDT [facility] HEMOGLOBIN 8.8(L) 11.8 - 14.8 g/dL 07/07/2017 10:33 AM CDT [facility] HEMATOCRIT 28.9(L) 35.5 - 44.0 % 07/07/2017 10:33 AM CDT [facility] MCV 79.4(L) 82.0 - 99.0 fL 07/07/2017 10:33 AM CDT [facility] MCH 24.2(L) 27.2 - 32.6 pg 07/07/2017 10:33 AM CDT [facility] MCHC 30.4(L) 31.5 - 35.5 g/dL 07/07/2017 10:33 AM CDT [facility] RDW 15.8(H) 11.5 - 14.5 % 07/07/2017 10:33 AM CDT [facility] RDW-STDEV 45.2 37.1 - 48.7 fL 07/07/2017 10:33 AM CDT [facility] PLATELETS 339 140 - 350 K/uL 07/07/2017 10:33 AM CDT [facility] MPV 10.0 9.3 - 12.4 fL 07/07/2017 10:33 AM CDT [facility] NEUTROPHILS 62 % 07/07/2017 10:33 AM CDT [facility] LYMPHOCYTES 24 % 07/07/2017 10:33 AM CDT [facility] MONOCYTES 10 % 07/07/2017 10:33 AM CDT [facility] EOSINOPHILS 2 % 07/07/2017 10:33 AM T [facility] LABORATORY [facility] BASOPHILS 1 % 07/07/2017 10:33 AM T [facility] IMMATURE GRANULOCYTES 2 % 07/07/2017 10:33 AM [facility] Comment:IG (Immature Granulo cyte) count includes Metamyelocytes, Myelocytes, and Promyelocytes NEUTROPHIL ABSOLUTE 2.95 1.90 - 7.00 K/uL 07/07/2017 10:33 AM T [facility] LYMPHOCYTE ABSOLUTE 1.13 0.70 - 4.50 K/uL 07/07/2017 10:33 AM T [facility] - . [facility] MONOCYTE ABSOLUTE 0.49 0.10 - 1.30 K/uL 07/07/2017 10:33 AM [facility] - . [facility] EOSINOPHIL ABSOLUTE 0.10 0.00 - 0.70 K/uL 07/07/2017 10:33 AM [facility] - . [facility] BASOPHILS ABSOLUTE 0.03 0.00 - 0.20 K/uL 07/07/2017 10:33 AM [facility] IMMATURE GRANULOCYTES ABSOLUTE 0.07(H) 0.00 - 0.03 K/uL 07/07/2017 10:33 AM [facility] Blood Venipuncture / Unknown 07/07/2017 6:00 AM CDT 07/07/2017 9:15 AM CDT Anderson Balderas MD HEMATOLOGY ORDERABLES Final Result [facility]# [id number] [address] [facility] [place] [address] * BRAIN NATRIURETIC PEPTIDE, BNP OR PROBNP (07/07/2017 6:00 AM CDT) PROBNP, N TERMINAL 320 <449 pg/mL 2016 5:47 PM CDT [facility] Comment: Reference values for screening purposes based on salesperson yard goods's recommendation: Patients less than 75 years: <125 pg/mL Patients 75 years and older: <450 pg/mL Reference values for determination of acute congestive heart failure in dyspneic patients based on PRIDE study (Am J Cardiol 2005;95:948): Patients less than 50 years: <450 pg/mL (Negative predictive value= 99%) Patients 50 years and older: <900 pg/mL (Negative predictive value= 92%) Rule out cutpoint, all ages: <300 pg/mL (Negative predictive value= 99%) Blood Venipuncture / Unknown 07/07/2017 6:00 AM CDT 07/07/2017 11:48 AM CDT us Anderson Balderas MD CHEMISTRY ORDERABLES Final R esult Performing Organization Address City/State/[facility] Co de Phone Number [facility] LABORATORY SERVICES [facility]# [id number] [address] [facility] [place] [address] documented in this encounter Visit Diagnoses Diagnosis Mixed hyperlipidemia Acquired absence of kidney Chronic kidney disease, stage II (mild) Chronic kidney disease, Stage II (mild) Chronic obstructive pulmonary disease (CMS/HCC) Chronic airway obstruction, not elsewhere classified Glaucoma Unspecified glaucoma Essential (primary) hypertension Unspecified essential hypertension Aftercare following joint replacement surgery Aftercare following joint replacement Gastro-esophageal reflux disease without esophagitis Esophageal reflux Presence of left artificial hip joint Hip joint replacement by other means Hypertensive chronic kidney disease with stage 1 through stage 4 chronic kidney disease, or unspecified chronic kidney disease documented in this encounter Care Teams Senior Living Sales Counselor Relationship Specialty Start Date End Date Jeferson Umanzor DO [address] [place] [phone] PCP - General Family Practice 05/15/22 documented as of this encounter
--- OUTSIDE RECORDS SUMMARY | 2025-01-30 18:13 | XMS_ITS | Continuity of Care Document ---
Author Organization [facility] [place] Address [id number] [place] [address] Dr Cabello [address] [place] [id number] Phone Care Team Providers Care Field Auditor Name Role Phone Luis West Unavailable Unavailable Procedures Procedure Date Eye Exam Established Pt Optic Nerve Topography Eye Exam & Treatment Optic Nerve Head Eval IPO Reduced 15% Ophthalmoscopy, Subsequent Optic Nerve Topography Injection Eye Drug Kenalog/Triamcinolone Acetonide Inj Eye Exam Established Pt Optic Nerve Head Eval IPO Reduced 15% Optic Nerve Topography Eye Exam & Treatment Ophthalmoscopy, Subsequent Injection Eye Drug Kenalog/Triamcinolone Acetonide Inj Optic Nerve Head Eval IPO Reduced 15% Eye Exam & Treatment Injection Eye Drug Kenalog/Triamcinolone Acetonide Inj Ophthalmoscopy, Subsequent Optic Nerve Topography Eye Exam & Treatment Ophthalmoscopy, Subsequent Optic Nerve Topography Eye Exam Established Pt Ophthalmoscopy, Subsequent Eye Exam & Treatment Injection Eye Drug Kenalog/Triamcinolone Acetonide Inj Ophthalmoscopy, Subsequent Optic Nerve Topography Eye Exam Established Pt Ophthalmoscopy, Subsequent Eye Exam & Treatment Ophthalmoscopy, Subsequent Eye Exam & Treatment Optic Nerve Head Eval IPO Reduced 15% Ophthalmoscopy, Subsequent Optic Nerve Topography Eye Exam & Treatment Injection Eye Drug Kenalog/Triamcinolone Acetonide Inj Ophthalmoscopy, Subsequent Optic Nerve Topography Eye Exam & Treatment Ophthalmoscopy, Subsequent Optic Nerve Topography Eye Exam & Treatment Optic Nerve Head Eval IPO Reduced 15% Ophthalmoscopy, Subsequent Optic Nerve Topography Injection Eye Drug Kenalog/Triamcinolone Acetonide Inj Eye Exam Established Pt Ophthalmoscopy, Subsequent Eye Exam Established Pt Optic Nerve Head Eval IPO Reduced 15% Eye Exam Established Pt Optic Nerve Head Eval IPO Reduced 15% Optic Nerve Topography Eye Exam Established Pt Optic Nerve Head Eval IPO Reduced 15% Ophthalmoscopy, Subsequent Optic Nerve Topography Eye Exam & Treatment Optic Nerve Head Eval IPO Reduced 15% Ophthalmoscopy, Subsequent Optic Nerve Topography Injection Eye Drug Bevacizumab (Avastin) Eye Exam & Treatment Ophthalmoscopy, Subsequent Optic Nerve Topography Eye Exam & Treatment Injection Eye Drug Kenalog/Triamcinolone Acetonide Inj Ophthalmoscopy, Subsequent Eye Exam Established Pt Optic Nerve Head Eval IOP Red Less Than 15% W Plan Of Care Jan Eye Exam & Treatment Ophthalmoscopy, Subsequent Optic Nerve Topography Eye Exam & Treatment Optic Nerve Head Eval Injection Eye Drug Kenalog/Triamcinolone Acetonide Inj Ophthalmoscopy, Subsequent Optic Nerve Topography IOP Red Less Than 15% W Plan Of Care Dec Eye Exam & Treatment Optic Nerve Head Eval Ophthalmoscopy, Subsequent Optic Nerve Topography Eye Exam Established Pt Optic Nerve Head Eval Ophthalmoscopy, Subsequent Optic Nerve Topography Eye Exam & Treatment Optic Nerve Head Eval Injection Eye Drug Kenalog/Triamcinolone Acetonide Inj Ophthalmoscopy, Subsequent Optic Nerve Topography Post-op Follow-up Visit Post-op Follow-up Visit Post-op Follow-up Visit Post-op Follow-up Visit Post-op Follow-up Visit Implant Eye Shunt Ahmed Valve 8 Reinforce/graft Eye Wall Office/outpatient Visit, Est Optic Nerve Head Eval Fundus Photography W/ Report Eye Exam Established Pt Special Eye Evaluation Optic Nerve Head Eval Eye Exam Established Pt Eye Exam Established Pt Ophthalmoscopy, Subsequent Optic Nerve Topography Office/outpatient Visit, Est Optic Nerve Head Eval Optic Nerve Topography Injection Eye Drug Kenalog/Triamcinolone Acetonide Inj Eye Exam Established Pt Optic Nerve Head Eval Ophthalmoscopy, Subsequent Eye Exam Established Pt Optic Nerve Head Eval Eye Exam Established Pt Ophthalmoscopy, Subsequent Post-op Follow-up Visit Laser Surgery Of Eye Office/outpatient Visit, Est Eye Exam Established Pt Ophthalmoscopy, Subsequent Eye Exam Established Pt Ophthalmoscopy, Subsequent Eye Exam Established Pt Ophthalmoscopy, Subsequent Eye Exam Established Pt Ophthalmoscopy, Subsequent Injection Eye Drug Kenalog/Triamcinolone Acetonide Inj Office/outpatient Visit, Est Optic Nerve Head Eval Eye Exam Established Pt Optic Nerve Head Eval Visual Field Examination-Professional Ct Visual Field Examination(s) Office/outpatient Visit, Est Optic Nerve Head Eval Eye Exam Established Pt Optic Nerve Head Eval Office/outpatient Visit, Est Optic Nerve Head Eval Eye Exam Established Pt Ophthalmoscopy, Subsequent Optic Nerve Head Eval Eye Exam Established Pt Ophthalmoscopy, Subsequent Injection Eye Drug Kenalog/Triamcinolone Acetonide Inj Office/outpatient Visit, Est Fundus Photography W/ Report Eye Exam Established Pt Optic Nerve Head Eval Office/outpatient Visit, Est Optic Nerve Head Eval Eye Exam Established Pt Ophthalmoscopy, Subsequent Eye Exam Established Pt Ophthalmoscopy, Subsequent Injection Eye Drug Kenalog/Triamcinolone Acetonide Inj Optic Nerve Head Eval Eye Exam Established Pt Ophthalmoscopy, Subsequent Ophthalmoscopy, Subsequent Office/outpatient Visit, Est Office/outpatient Visit, Est Ophthalmoscopy, Subsequent Fluorescein Angiography Fundus Photography W/ Report Injection Eye Drug Kenalog/Triamcinolone Acetonide Inj Office/outpatient Visit, Est Ophthalmoscopy, Subsequent Post-op Follow-up Visit Post-op Follow-up Visit Ophthalmoscopy, Subsequent Post-op Follow-up Visit Ophthalmoscopy, Subsequent Fluorescein Angiography Fundus Photography W/ Report Injection Eye Drug Kenalog/Triamcinolone Acetonide Inj Post-op Follow-up Visit Post-op Follow-up Visit Ophthalmoscopy, Subsequent Fluorescein Angiography Fundus Photography W/ Report Injection Eye Drug Kenalog/Triamcinolone Acetonide Inj Advance Directives Directive Yes / No Effective Date File Name No Information Encounters Encounter Description Practice Location Reason(s) For Visit Diagnoses Date Provider Providers Copied on Encounter [facility], [address] [place], [place] [address] [address], [place], [place], [address], [place] tel:[phone] [facility] No Information Oct-1 8-201 0 Jenna Smith. [address] [place], [address], [place]. tel:[phone] Referring Provider: Luis Jacome, [address] [place], [address]. tel:[phone] [facility], [address] [facility] [address], [place], [place], [address], [place] tel:[phone] [facility] No Information Sep-2 0-201 0 Jenna Smith. [address] [place], [address], [place]. tel:[phone] Referring Provider: Luis Jacome, [address] [place], [address]. tel:[phone] [facility], [address] [place], [place], [place], [address], [place] tel:[phone] [facility] No Information Aug-2 3-201 0 Jenna Smith. [address] [place], [address], [place]. tel:[phone] [facility], [address] [place] [place] [address], [place], [place], [address], [place] tel:[phone] [facility] No Information David-2 6-201 0 Jenna Smith. [address] [place], [address], [place]. tel:[phone] Referring Provider: Luis Jacome, [address] [place], [address]. tel:[phone] [facility], [address], [place], [place], [address], [place] tel:[phone] [facility] No Information David-1 2-201 0 West Luis. [address] [place], [address], [place]. tel:[phone] Referring Provider: Luis Jacome, [address] [place], [address]. tel:[phone] [facility], [address], [place], [place], [address], [place] tel:[phone] [facility] No Information Ta-2 1-201 0 Jenna Smith. [address] [place], [address], [place]. tel:[phone] Referring Provider: Luis Jacome, [address] [place], [address]. tel:[phone] [facility], [address] [place] [address], [place], [place], [address], [place] tel:[phone] [facility] No Information 4-201 0 Jenna Smith. [address] [place], [address], [place]. tel:[phone] Referring Provider: Luis Jacome, [address] [place], [address]. tel:[phone] [facility], [address] [address], [place], [place], [address], [place] tel:[phone] [facility] No Information 6-201 0 Jenna Smith. [address] [place], [address], [place]. tel:[phone] Referring Provider: Luis Jacome, [address] [place], [address]. tel:[phone] [facility], [address] [place] [address], [place], [place], [address], [place] tel:[phone] [facility] No Information 2-201 0 Jenna Smith. [address] [place], [address], [place]. tel:[phone] Referring Provider: Luis Jacome, [address] [place], [address]. tel:[phone] [facility], [address] [place] [address], [place], [place], [address], [place] tel:[phone] [facility] No Information 5-201 0 Jenna Smith. [address] [place], [address], [place]. tel:[phone] Referring Provider: Luis Jacome, [address] [place], [address]. tel:[phone] [facility], [address] [place] [address], [place], [place], [address], [place] tel:[phone] [facility] No Information 0 Jenna Smith. [address] [place], [address], [place]. tel:[phone] Referring Provider: Luis Jacome, [address] [place], [address]. tel:[phone] [facility], [address] [place] [address] [address], [place], [place], [address], [place] tel:[phone] [facility] No Information 0 Jenna Smith. [address] [place], [address], [place]. tel:[phone] Referring Provider: Luis Jacome, [address] [place], [address]. tel:[phone] [facility], [address] [place] [address] [address], [place], [place], [address], [place] tel:[phone] [facility] No Information 0 Jenna Smith. [address] [place], [address], [place]. tel:[phone] Referring Provider: Luis Jacome, [address] [place], [address]. tel:[phone] [facility], [address] [place] [address], [place], [place], [address], [place] tel:[phone] [facility] No Information Oct-0 7-200 9 Jenna Smith. [address] [place], [address], [place]. tel:[phone] Referring Provider: Luis Jacmoe, [address] [place], [address]. tel:[phone] [facility], [address] [place] [address] [address], [place], [place], [address], [place] tel:[phone] [facility] No Information 3200 9 Jenna Smith. [address] [place], [address], [place]. tel:[phone] Referring Provider: Luis Jacome, [address] [place], [address]. tel:[phone] [facility], [address] [place] [address], [place], [place], [address], [place] tel:[phone] [facility] No Information Aug- 6-200 9 Jenna Smith. [address] [place], [address], [place]. tel:[phone] Referring Provider: Luis Jacome, [address] [place], [address]. tel:[phone] [facility], [address] [place] [address], [place], [place], [address], [place] tel:[phone] [facility] No Information Jul-2 1200 9 Jenna Smith. [address] [place], [address], [place]. tel:[phone] Referring Provider: Luis Jacome, [address] [place], [address]. tel:[phone] [facility], [address] [place] [address], [place], [place], [address], [place] tel:[phone] [facility] No Information 7200 9 Jenna Smith. [address] [place], [address], [place]. tel:[phone] Referring Provider: Luis Jacome, [address] [place], [address]. tel:[phone] [facility], [address] [place] [address], [place], [place], [address], [place] tel:[phone] [facility] No Information 2 7-200 9 Jenna Smith. [address] [place], [address], [place]. tel:[phone] Referring Provider: Luis Jacome, [address] [place], [address]. tel:[phone] [facility], [address] [place] [address], [place], [place], [address], [place] tel:[phone] [facility] No Information May-1 3-200 9 Jenna Smith. [address] [place], [address], [place]. tel:[phone] Referring Provider: Luis Jacome, [address] [place], [address]. tel:[phone] [facility], [address] [place] [address], [place], [place], [address], [place] tel:[phone] [facility] No Information 1-200 9 Jenna Smith. [address] [place], [address], [place]. tel:[phone] Referring Provider: Luis Jacome, [address] [place], [address]. tel:[phone] [facility], [address] [place] [address], [place], [place], [address], [place] tel:[phone] [facility] No Information 7200 9 Jenna Smith. [address] [place], [address], [place]. tel:[phone] [facility], [address] [place] [address], [place], [place], [address], [place] tel:[phone] [facility] No Information Jan-3 0-200 9 Jenna Smith. [address] [place], [address], [place]. tel:[phone] [facility], [address] [place] [address], [place], [place], [address], [place] tel:[phone] [facility] No Information 3200 9 Jenna Smith. [address] [place], [address], [place]. tel:[phone] Referring Provider: Luis Jacome, [address] [place], [address]. tel:[phone] [facility], [address] [place] [address] [address], [place], [place], [address], [place] tel:[phone] [facility] No Information 0 9-200 9 Jenna Smith. [address] [place], [address], [place]. tel:[phone] Referring Provider: Luis Jacome, [address] [place], [address]. tel:[phone] [facility], [address] [place] [address] [address], [address], [place] tel:[phone] [facility] No Information 9 Jenna Smith. [address] [place], [address], [place]. tel:[phone] Referring Provider: Luis Jacome, [address] [place], [address]. tel:[phone] [facility], [address] [place] [address] [address], [place], [place], [address], [place] tel:[phone] [facility] No Information 2200 8 Jenna Smith. [address] [place], [address], [place]. tel:[phone] Referring Provider: Luis Jacome, [address] [place], [address]. tel:[phone] [facility], [address] [place] [address], [place], [place], [address], [place] tel:[phone] [facility] No Information Dec-1 1-200 8 Jenna Smith. 12 [facility] [place], [facility], [place]. tel:[phone] Referring Provider: Javi Lucio, [facility] [address], [place], [place], [facility]. tel:[phone] [facility], [address] [place] [address] [address], [place], [place], [address], [place] tel:[phone] [facility] No Information Dec-0 8-200 8 Guillermina Caldwell. [facility] , [address], [place], [facility], [place]. tel:[phone] [facility], [address] [place] [address], [place], [place], [address], [place] tel:[phone] [facility] No Information Oct-2 7-200 8 Guillermina Caldwell. [facility] , [address], [place], [facility], [place]. tel:[phone] [facility], [address] [place] [address] [address], [place], [place], [address], [place] tel:[phone] [facility] No Information Oct-1 3-200 8 Guillermina Caldwell. [address] [place], [place] [address] [address] , [address], [place], [facility], [place]. tel:[phone] [facility], [address] [place] [address], [place], [place], [address], [place] tel:[phone] [facility] [place] No Information Sep-2 4-200 8 Kervin Al. [address], [address], [place], [place], [address], [place]. tel:[phone] Referring Provider: Javi Lucio, [facility] [address], [place], [facility]. tel:[phone] [facility], [address] [place] [address], [place], [place], [address], [place] tel:[phone] [facility] [place] No Information Sep-1 7-200 8 Kervin Servando. [address], [address], [place], [place], [address], [place]. tel:[phone] Referring Provider: Amina Dasilva [address], [place], [address]. tel:[phone] [facility], [address] [place] [address], [place], [place], [address], [place] tel:[phone] [facility] No Information Sep-1 6-200 8 Franklin Servando. [address], [address], [place], [place], [address], [place]. tel:[phone] Referring Provider: Amina Dasilva [address], [place], [address]. tel:[phone] Office/outpat ient Visit, Est [facility], [address] [place] [address], [place], [place], [address], [place] tel:[phone] [facility] [place] [facility] Smith No Information Sep-0 9-200 8 Franklin Servando. [address] [facility], [address], [place], [place], [address], [place]. tel:[phone] Referring Provider: Amina Dasil[address], [place], [address]. tel:[phone] [facility], [address] [place] [address], [place], [place], [address], [place] tel:[phone] [facility] No Information Sep-0 5-200 8 Guillermina Caldwell. [address] , [address], [place], [address], [place]. tel:[phone] Referring Provider: Javi Lucio, [address], [place], [address]. tel:[phone] [facility], [address] [place] [address], [place], [place], [address], [place] tel:[phone] [facility] No Information Sep-0 4-200 8 Jenna Smith. [address] [place], [address], [place]. tel:[phone] [facility], [address] [place] [address], [place], [place], [address], [place] tel:[phone] [facility] No Information May-2 4-200 8 Jenna Smith. [address] [place], [facility], [place]. tel:[phone] Referring Provider: Luis Jacome, [address] [place], [facility]. tel:[phone] Office/outpat ient Visit, Est [facility], [address] [place] [address], [place], [place], [address], [place] tel:[phone] [facility] No Information May-2 3-200 8 Guillermina Caldwell. [address] , [address], [place], [address], [place]. tel:[phone] [facility], [address] [place] [address], [place], [place], [address], [place] tel:[phone] [facility] No Information May-1 0-200 8 Jenna Smith. [address] [place], [address], [place]. tel:[phone] Referring Provider: Javi Lucio, [address], [place], [address]. tel:[phone] [facility], [address] [place] [address], [place], [place], [address], [place] tel:[phone] [facility] No Information David-0 7-200 8 Westjeffrey Smith. [address] [place], [address], [place]. tel:[phone] [facility], [address] [place] [address], [place], [place], [address], [place] tel:[phone] [facility] No Information David-0 2-200 8 Doisy Edward. [address] , [address], [place], [facility], [place]. tel:[phone] [facility], [address] [place] [address] [address], [place], [place], [address], [place] tel:[phone] [facility] No Information Ta-2 3-200 8 Jenna Smith. [address] [place], [address], [place]. tel:[phone] [facility], [address] [place] [address] [address], [place], [place], [address], [place] tel:[phone] [facility] No Information Ta-1 8-200 8 Doisy Edward. [address] , [address], [place], [address], [place]. tel:[phone] [facility], [address] [place] [address] [address], [place], [place], [address], [place] tel:[phone] [facility] No Information Ta-1 0-200 8 Doisy Edward. [address] , [address], [place], [address], [place]. tel:[phone] Office/outpat ient Visit, Est [facility], [address] [place] [address], [place], [place], [address], [place] tel:[phone] [facility] No Information March-2 8-200 8 Doisy Edward. [address] , [address], [place], [address], [place]. tel:[phone] Referring Provider: Javi Lucio, [address], [place], [facility]. tel:[phone] [facility], [address] [place] [address], [place], [place], [address], [place] tel:[phone] [facility] No Information May-1 2-200 8 West Luis. [address] [place], [address], [place]. tel:[phone] [facility], [address] [place] [address], [place], [place], [address], [place] tel:[phone] [facility] No Information Apr-1 4-200 8 West Luis. [address] [place], [facility], [place]. tel:[phone] [facility], [address] [place] [address], [place], [place], [address], [place] tel:[phone] [facility] No Information Apr-0 7-200 8 West Luis. [address] [place], [address], [place]. tel:[phone] [facility], [address] [place] [address], [place], [place], [address], [place] tel:[phone] [facility] No Information Apr-0 3-200 [address] [place], [place], [facility], [place]. tel:[phone] Referring Provider: Cornelio rick, [address] [facility] [address], [place], [address]. tel:[phone] Office/outpat ient Visit, [facility], [address], [place], [place], [id number], [place] tel:[phone] [facility] No Information Apr-0 1-200 8 Krishnasamy Cornelio. [address] [facility] [address], [place], [address], [place]. tel:[phone] [facility], [address], [place], [place], [id number], [place] tel:[phone] [facility] [place] No Information Mar-2 5-200 8 Krishnasamy Cornelio. [address] [facility] [address], [place], [address], [place]. tel:[phone] Referring Provider: Javi Lucio, [address] [place], [place] [address]ate [place] [address], [place], [place], [facility]. tel:[phone] [facility], [address], [place], [place], [id number], [place] tel:[phone] [facility] [place] No Information Mar-2 0-200 8 Guillermina Caldwell. [address] [place] [address] , [address], [place], [facility], [place]. tel:[phone] Referring Provider: Javi Lucio, [address] [place], [place] [address]ate [place] [address], [place], [facility]. tel:[phone] Office/outpat ient Visit, [facility], [address], [place], [place], [id number], [place] tel:[phone] [facility] [place] No Information Dec-2 1-200 7 Guillermina Caldwell. [address] [place], [place] [address]ate [place] , [address], [place], [facility], [place]. tel:[phone] [facility], [address], [place], [place], [id number], [place] tel:[phone] [facility] No Information Nov-2 9-200 7 Jenna Smith. [address] [place], [facility], [place]. tel:[phone] Office[facility]outpat ient Visit, [facility], [address], [place], [place], [address], [place] tel:[phone] [facility] [place] No Information Nov-1 6-200 7 Guillermina Caldwell. [address] , [address], [place], [facility], [place]. tel:[phone] [facility], [address] [place] [address] [address], [place], [place], [id number], [place] tel:[phone] [facility] No Information Nov-0 1-200 7 Jenna Smith. [address] [place], [facility], [place]. tel:[phone] [facility], [address] [place] [address] [address], [place], [place], [id number], [place] tel:[phone] [facility] No Information Oct-1 5-200 7 Jenna Smith. [address] [place], [facility], [place]. tel:[phone] Office/outpat ient Visit, [facility], [address] [place] [address] [address], [place], [place], [id number], [place] tel:[phone] [facility] [place] No Information Oct-1 2-200 7 Guillermina Caldwell. [address] [facility] , [address], [place], [facility], [place]. tel:[phone] Referring Provider: Javi Lucio, [address], [place], [facility]. tel:[phone] [facility], [address] [place] [address] [address], [place], [place], [id number], [place] tel:[phone] [facility] No Information Sep-1 0-200 7 Jenna Smith. [address] [place], [address], [place]. tel:[phone] Office/outpat ient Visit, [facility], [address], [place], [place], [address], [place] tel:[phone] [facility] No Information Jun-2 0-200 7 Doisy Edward. [address] , [address], [place], [address], [place]. tel:[phone] [facility], [address], [place], [place], [id number], [place] tel:[phone] [facility] No Information Jun-1 3-200 [address] [place], [facility], [place]. tel:[phone] [facility], [address], [place], [place], [address], [place] tel:[phone] [facility] No Information May-2 6-200 [address] [place], [address], [place]. tel:[phone] [facility], [address], [place], [place], [address], [place] tel:[phone] [facility] No Information Ta-2 8-200 7 Jenna Smith. [address] [place], [address], [place]. tel:[phone] [facility]pat ient [facility], [facility], [address] [place] [address] [address], [place], [place], [address], [place] tel:[phone] [facility] [place] No Information Ta-2 2-200 7 Walls OD Froy. [address] , [address], [place], [address], [place]. tel:[phone] Office/outpat ient Visit, [facility], [address], [place], [place], [address], [place] tel:[phone] [facility] No Information March-3 1-200 7 Jenna Smith. [address] [place], [address], [place]. tel:[phone] [facility], [address], [place], [place], [address], [place] tel:[phone] [facility] No Information May-1 4-200 [address] [place], [address], [place]. tel:[phone] Referring Provider: Luis Jacome, [address] [place], [facility]. tel:[phone] Office/outpat ient Visit, [facility], [address], [place], [place], [id number], [place] tel:[phone] [facility] No Information Mar-1 9-200 7 Jenna Smith. [address] [place], [address], [place]. tel:[phone] [facility], [address], [place], [place], [address], [place] tel:[phone] [facility] No Information Mar-0 5-200 7 Jenna Smith. [address] [place], [address], [place]. tel:[phone] [facility], [address], [place], [place], [id number], [place] tel:[phone] [facility] No Information Feb-2 6-200 7 Jenna Smith. [address] [place], [address], [place]. tel:[phone] Referring Provider: Luis Jacome, [address] [place], [address]. tel:[phone] [facility], [address], [place], [place], [address], [place] tel:[phone] [facility] No Information 200 7 Jenna Smith. [address] [place], [facility], [place]. tel:[phone] Referring Provider: Luis Jacome, [address] [place], [facility]. tel:[phone] [facility], [address], [place], [place], [address], [place] tel:[phone] [facility] No Information 7 Jenna Smith. [address] [place], [facility], [place]. tel:[phone] [facility], [address] [address], [place], [place], [address], [place] tel:[phone] [facility] No Information 7 Jenna Smith. [address] [place], [facility], [place]. tel:[phone] Referring Provider: Luis Jacome, [address] [place], [address]. tel:[phone] Family History Family Member Type Diagnosis Age At Onset No Information Payers Payer name Insurance type Covered constitution party ID Authoriza tion(s) Medicare [facility] [id number] [facility] Commercial [id number] Social History Type Description Quantity Date Captured Comments Sex Female Smoking Status No Information Chief Complaint And Reason For Visit No Information Reason For Referral Reason For Referral No Information History Of Present Illness Encounter Date Complaint History Of Prese nt Illness No Information Functional Status Date Functional Assessmen t No Information Instructions Date Instruction Additional Infor mation No Information Assessments Type Assessment Date No Information Patient Care Teams Name Effective Dates (start - stop) Status Members No Information
--- OUTSIDE RECORDS SUMMARY | 2025-01-30 18:13 | XMS_ITS ---
Author Organization [facility] Address [address] [place] [address] Care Team Providers Care Drop Count Associate Name Role Phone Noé Jeferson Graham COLVIN Primary Care Provide r Active Problems Problem Noted Date Diagnosed Date Severe malnutrition 08/26/2024 Hypothyroid 08/25/2024 Assessment & Plan (08/26/2024 2:21 PM CDT): TSH 2.58 - Continue home synthroid Fall 08/25/2024 Assessment & Plan (08/26/2024 2:20 PM CDT): Reported recent fall with subsequent L hip pain - XR hip negative as above - PT Diarrhea, unspecified type 08/24/2024 Assessment & Plan (09/09/2024 8:30 AM CDT): Reports many-year history of diarrhea c/b hypomagnesemia with workup in the past notable for negative celiac screening, positive for fructose intolerance, and which has not responded to trials of empiric treatment of SIBO. Diagnostic evaluation complicated by significant stricturing of the bowel (?radiation related) but rectal biopsies with histiocytes but otherwise normal without evidence of IBD. Outpatient GI has favored intermittent obstruction episodes. Underwent hemicolectomy and adhesion lysis earlier this year, but feels significantly worsened in diarrheal frequency and urgency since. Notably has had pneumatosis noted on CT in 06/2024 without intervention. - CT A/P with pancolonic pneumatosis as above, lactate 2.4 -> 1.9 -> 1.1 - CT A/P with arterial phase: grossly patent arterial supply, but increasing ascites - CT A/P 08/29 ordered in the setting of worsening abdominal pain, c/w severe gastric and duodenal dilation and pneumatosis - GI consulted and evaluated by surgery, likely benign pneumatosis and no intervention at this time from surgery perspective - OK to resume diet from ACCS perspective - C diff, cryptosporidium, and giardia negative - Denies NSAID use. Is on chronic PPI, but amenable to trial of holding and transitioning to famotidine for now. - EGD with no obstruction and normal small bowel, started on mechanical soft diet - for GI, this is likely overflow diarrhea versus SIBO. Started on rifaximin and scheduled MiraLax. Holding antidiarrheals. - 09/06: Now s/p line placement for TPN for bowel rest - 09/07: TPN has started, will advance to goal; monitor lytes - medically stable for discharge 09/09; we are coordinating. TPN will be given indefinitely - stable for discharge today 09/09 ; TPN supplies will be delivered today at 2pm Gastric outlet obstruction 08/24/2024 Anemia due to vitamin B12 deficiency 12/16/2022 Diarrhea 12/10/2022 Overview (12/10/2022): Added automatically from request for surgery [id number] Back pain 04/02/2020 COPD (chronic obstructive pulmonary disease) 09/2020 Overview (08/26/2024): Continue home Anoro ellipta, and albuterol PRN Assessment & Plan (08/26/2024 2:29 PM CDT): Continue home Anoro ellipta, and albuterol PRN Ureteral stricture 04/02/2020 Hiatus hernia syndrome 04/02/2020 Primary osteoarthritis of right hip 04/02/2020 Primary osteoarthritis of left hip 04/02/2020 Recurrent urinary tract infection 04/02/2020 History of spinal surgery 04/08/2014 Overview (02/25/2017): History of back surgery Hypertension 04/08/2014 Overview (02/25/2017): Hypertension Assessment & Plan (09/01/2024 8:22 AM CDT): - Continue amlodipine, lisinopril and hctz 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 Past Treatment and Therapy Plans No past plan information found. 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 - Renally dose medications
--- OUTSIDE RECORDS SUMMARY | 2025-01-30 18:13 | XMS_ITS | Encounter Summary ---
Author Organization [facility] Address [facility] [place] [address] Care Team Providers Care [employer] P[employer] Supervisor Name Role Phone Jeferson Umanzor DO Primary Care Provider + Ana Echavarria RN Unavailable Reason for Visit * Reason Onset Date Comments Results 01/30/2025 Encounter Details Date Type Department Care Team (Late st Contact Info) Description 01/30/2025 Telephone [facility] Family & Internal Medicine [address] [id number] Jeferson Umanzor DO [address] [place] [address] Results Social History Tobacco Use Types Packs/Day Years [...] from your doctor or pharmacy? Never 04/15/2024 [facility] Utilities Answer Date Recorded In the past 12 months has e [employer], gas, oil, or water [employer] threatened to shut off services in your [...] week 04/15/2024 How often do you attend [facility] or adventist services? Never 04/15/2024 Do you belong to any clubs o r organizations such as presybeterian groups, unions, fraternal or athletic groups, or [...] Recorded Patient Health Questionnaire-2 Score 0 12/13/2024 [facility] - Occupational Stress Questionnaire Answer Date Recorded [...] place to sleep or slept in a snf (including now)? No 02/09/2024 Housing Stability Vital Sign Answer Jackson e Recorded In the last 12 months, was t here a time when you were not able to pay the mortgage or rent on time? No 10/24/2024 In the past 12 months, how m any times have you moved where you were living? 1 10/24/2024 At any time in the past 12 m [facility], were you homeless or living in a snf (including now)? No 10/24/2024 Comments No Sex and Gender Information Value Date Recorded Sex Assigned at Female 06/24/2024 8:15 PM CDT Legal Sex Female 1:59 PM CDT Gender Identity Female 06/24/2024 8:15 PM CDT Sexual Orientation Straight 06/24/2024 8: 15 PM CDT documented as of this encounter Functional Status * Are you deaf or do you have serious difficulty hearing Answer Date of Assessment Author Status No 10/24/2024 2:20 PM Mary Richards RN Active * Are you blind or do you have serious difficulty seeing, even when wearing glasses? Answer Date of Assessment Author Status No 10/24/2024 2:20 PM Mary Richards RN Active * Do you have serious difficulty walking or climbing stairs? Answer Date of Assessment Author Status No 10/24/2024 2:20 PM Mary Richards RN Active * Do you have difficulty dressing or bathing? Answer Date of Assessment Author Status No 10/24/2024 2:20 PM Mary Richards RN Active * Because of a physical, mental, or emotional condition, do you have difficulty doing errands alone such as visiting a doctor's office or shopping? Answer Date of Assessment Author Status No 10/24/2024 2:20 PM Mary Richards RN Active documented as of this encounter Mental Status * Because of a physical, mental, or emotional condition, do you have serious difficulty concentrating, remembering, or making decisions? Answer Entry Date Author Status No 10/24/2024 2:20 PM Mary Richards RN Active documented in this encounter Progress Notes * Joleen Mock MA - 01/30/2025 9:34 AM CDT Spoke with patient and informed her of results and medication changes. Patient v/u and medication sent. Patient will pick medication up when ready and start today. * Joleen Mock MA - 01/30/2025 9:30 AM CDT ----- Message from Dr. Jeferson Umanzor sent at 01/27/2025 10:02 AM POWER LINE LINEMAN ----- Pt appears to have pseudomonas on her urine. While we are waiting for susceptibilities, her antibiotic she is taking would not cover this regardless. Pt needs to stop Bactrim and start Levaquin 750 mg daily for 7 days. Please send back to myself so I can send this out to preferred pharmacy. documented in this encounter Plan of Treatment Upcoming Encounters Date Type Department Care Team (Late st Contact Info) Description 02/02/2025 1:00 PM CDT Appointment [facility] [place] [address] [place] [address] [place] [address] [place] [phone] 05/02/2025 1:20 PM CDT Office Visit [facility] Family & Internal Medicine - [place] [address] [place] [phone] Jeferson Umanzor DO [address] [place] [address] 06/21/2025 2:00 PM CDT Treatment [facility] [place] [address] Jeferson Umanzor DO [address] [place] [address] documented as of this encounter Goals Goal Patient Goal Type Associated Problems Recent Progress Patient-Stated? Author Monitor - wound Lifestyle On track(2024 12:38 PM POWER LINE LINEMAN) No Ana Echavarria, RN Note: Patient to monitor open area to buttock Keep area clean and dry, apply OTC zinc and barrier cream frequently or hydrocortisone cream. Establish Plan for Symptom Monitoring HTN Lifestyle On track(2024 12:38 PM POWER LINE LINEMAN) No Ana Echavarria, RN Note: Hypertension: Patient will recognize symptoms [...] Monitoring COPD Lifestyle On track(2024 12:38 PM POWER LINE LINEMAN) No Ana Echavarria, RN Note: COPD: Patient will recognize symptoms [...] any of your medications without notifying provider documented as of this encounter Visit Diagnoses Diagnosis Infection, Pseudomonas- Primary Pseudomonas infection in conditions classified elsewhere and of unspecified site documented in this encounter Additional Health Concerns Assessment Noted Time PHQ-9 Depression Total Score: 1 03/14/20 24 1:35 PM CDT documented as of this encounter Care Teams Gas Pumping Station Supervisor Relationship Specialty Start Date End Date Jeferson Umanzor DO [address] [place] [id number] PCP - General FAMILY PRACTICE 12/04/21 Ana Echavarria RN [address] [place] [address] Statistical Analyst (Ambulatory) REGISTERED NURSE 02/04/24 documented as of this encounter
--- OUTSIDE RECORDS SUMMARY | 2025-01-30 18:13 | XMS_ITS | Clinical Summary ---
Author Organization [facility], formerly [facility] Address [address] [place] [address] Phone Care Team Providers Care Qa Lead Name Role Phone Jeferson Umanzor DO Primary Care Provider + Allergies Active Allergy Reactions Criticality Noted Date Comments Acetaminophen Fever Low 07/29/2013 Hydrocodone Bitartrate Hives High 07/29/2013 Hydrocodone-Acetaminophen Itching Medium 05/05/2012 Lisinopril Cough Low 07/13/2013 Nsaids (Non-Steroidal Anti-I nflammatory Drug) Hives High 01/15/2018 Medications simvastatin (ZOCOR) 40 mg Oral tablet Take 20 mg by mouth late in the day . Active DENOSUMAB (PROLIA SUBCUT) Inject by subcutaneous injection. Active prednisoLONE acetate (PRED FORTE) 1 % suspension Administer 1 Drop in right eye 3 times daily. Active cephALEXin (KEFLEX) 500 mg capsule Take 1 Capsule (500 mg) by mouth 3 times daily. 6 Capsule 02/09/20 18 Active acetaminophen-co deine (TYLENOL-CODEINE #3) 300-30 mg tablet Take 1 Tablet by mouth every 4 hours as needed for Pain, Moderate. 30 Tablet 02/09/20 18 Active Vitamin H45-Xxcvl Acid 0.5-1 mg Tablet Vitamin B12 1 tab daily 1000 mcg Active rosuvastatin (CRESTOR) 20 mg tablet TK 1 T PO QD 02/22/20 20 Active omeprazole (PriLOSEC) 20 mg Capsule, Delayed Release(E.C.) omeprazole 20 mg capsule,delayed release Active levothyroxine 50 mcg tablet TK 1 T PO QD 03/16/20 20 Active timolol maleate (TIMOPTIC) 0.5% solution INSTILL 1 DROP INTO OU BID 03/06/20 20 Active sertraline (ZOLOFT) 25 mg tablet 04/25/20 20 Active denosumab (Prolia) 60 mg/mL Syringe Prolia Every 6 months Active multivitamin (DAILY-LEVI) tablet Take 1 Tablet by mouth daily. Active ascorbic acid (vitamin C) 100 mg tablet Vitamin C TK 1T PO QD Active budesonide (ENTOCORT EC) 3 mg Enteric Coated 24 hour capsule Take 3 mg by mouth daily. Active losartan (COZAAR) 50 mg tablet every 24 hours. Acti ve potassium chloride (KLOR-CON) 10 mEq Extended Release tablet potassium chloride ER 10 mEq tablet,extended release TAKE 2 TABLETS BY MOUTH DAILY FOR 5 DAYS Active dorzolamide (TRUSOPT) 2 % solution dorzolamide 2 % eye drops Active calcitRIOL (ROCALTROL) 0.5 mcg capsule calcitriol 0.5 mcg capsule Active glycopyrrolate (ROBINUL) 1 mg tablet glycopyrrolate 1 mg tablet TAKE 1 TABLET BY MOUTH EVERY DAY Active predniSONE (DELTASONE) 10 mg tablet Take 4 pills daily for 3 days, take 3 pills daily for 3 days, take 2 pills daily for 3 days, take 1 pills daily for 3 days 30 Tablet 05/15/20 22 Active folic acid (FOLVITE) 1 mg tabletIndication s:Alpha thalassemia Take 1 Tablet (1 mg) by mouth daily. 90 Tablet 2 11/25/19 23 Active Ciclopirox 8 % Solution PAINT ON /UNDER NAIL DAILY, WIPE OFF WEEKLY WITH ALCOHOL WIPE 05/08/20 23 Active dicyclomine (BENTYL) 20 mg tablet Take 1 Tablet by mouth every 6 hours as needed. 02/21/20 23 Active loperamide (IMODIUM) 2 mg capsule TAKE 1 CAPSULE BY MOUTH 4 TIMES A DAY NEEDED FOR DIARRHEA. 12/10/19 23 Active albuterol (PROVENTIL,PANCHO VICKI) 2.5 mg /3 mL (0.083 %) Solution for Nebulization Take 3 mL (2.5 mg) by inhalation 3 times daily. 240 mL 11 05/20/20 23 Active albuterol sulfate (ProAir RespiClick) 90 mcg/actuation metered powder inhaler Take 2 Puffs by inhalation every 6 hours as needed for Shortness of Breath. 1 Each 4 05/20/20 23 Active amLODIPine (NORVASC) 2.5 mg tablet Take 2.5 mg by mouth daily. 11/04/20 24 Active apixaban (ELIQUIS) 5 mg tablet Take 1 Tablet (5 mg) by mouth 2 times daily. 60 Tablet 2 12/05/19 25 Active Breztri Aerosphere 160 mcg-9mcg-4.8mcg/ actuation HFA aerosol inhalerIndicatio ns:RODRIGUEZ (dyspnea on exertion) Take 2 Puffs by inhalation 2 times daily. 10.7 Gram 11 12/08/19 25 Active Active Problems Patient Care Coordination No te Formatting of this note migh t be different from the original. Building Equipment Inspector Oren Jose MD. (MIKE) Problem Noted Date Diagnosed Date Alpha thalassemia trait 08/10/2020 Iron deficiency anemia 08/10/2020 Recurrent UTI 05/04/2018 Painful orthopaedic hardware 02/06/2018 Stage 3 chronic kidney disease 10/22/2017 Hx of cervical cancer 10/22/2017 Overview (10/22/2017): S/p radiation therapy, 1960's Primary osteoarthritis of right hip 10/21/2017 COPD (chronic obstructive pulmonary disease) 05/2017 Primary osteoarthritis of left hip 06/26/2017 Hiatal hernia 03/03/2016 Ureteral stricture 01/26/2014 UTI (urinary tract infection) 07/14/2013 Back pain 07/14/2013 Hydronephrosis, left 03/16/2013 Overview (03/16/2013): Stone r kidney. Retrieval with stent. H/o pelvic xrt for cervical ca HTN (hypertension) Hyperlipidemia Encounters Date Type Department Care Team Description 12/13/2024 External Device Data STL ABSTRACTION Provider, Abstract 12/09/2024 Results Follow-Up [facility] Pulmonology [facility] [address] [place] [id number] Bhanu Haque MD BRAIN NATRIURETIC PEPTIDE, BNP OR PROBNP, CBC WITH DIFFERENTIAL, COMPREHENSIVE METABOLIC PANEL 12/08/2024 3:05 PM APPLICATIONS TRAINER - 12/08/2024 11:59 PM APPLICATIONS TRAINER Hospital Encounter [facility] [place] [facility] [address] [place] [address] Bhanu Haque MD Discharge Disposition: Home or Self Care 12/08/2024 2:30 PM APPLICATIONS TRAINER Office Visit [facility] Pulmonology [address] [place] [address] Bhanu Haque MD RODRIGUEZ (dyspnea on exertion) (Primary Dx); Chronic obstructive pulmonary disease, unspecified COPD type ([facility]/HCC); Other pulmonary embolism without acute cor pulmonale, unspecified chronicity ([facility]/HCC) 12/08/2024 Abstract [facility] Pulmonology [address] [place] [address] Bhanu Haque MD 12/06/2024 External Device Data STL ABSTRACTION Provider, Abstract 12/05/2024 10:00 AM APPLICATIONS TRAINER Office Visit [facility] Oncology and Hematology - [address] [place] [address] Dean De La Fuente MD Acute deep vein thrombosis (DVT) of proximal vein of left lower extremity ([facility]) (Primary Dx); Anemia, chronic disease 11/18/2024 Orders Only [facility] Hematology - [place] [address] [place] [address] Dean De La Fuente MD from Last 3 Months Immunizations Immunization Administration Dates Next Due (PNEUMOVAX 23)(50 YRS UP) PN EUMOCOCCAL POLYSACCHARIDE (PPV23) 0.5 ML, IM 06/30/2017 Influenza Seasonal Unspecifi ed Formulation IM 08/23/2018,09/12/2017,08/23/2016,07/24 PREVNAR (PCV13) pneumococcal 13-valent conjugate Vaccine 09/23/2015 Family History Medical History Relation Name Comments Emphysema Brother Diabetes Daughter 1 Hypertension Daughter 1 Asthma Daughter 2 Diabetes Daughter 2 Emphysema Daughter 2 Hypertension Daughter 2 Other Father Cancer Mother Liver Disease Mother Bronchitis Neg Hx Heart Failure Neg Hx Lung Cancer Neg Hx Mesothelioma Neg Hx Relation Name Status Comments Brother Daughter 1 Daughter 2 Father Mother Social History Tobacco Use Types Packs/Day Years Used Date Smoking Tobacco: Former Cigarettes 1 35 0 11/23/1957 - 11/23/1992 Smokeless Tobacco: Never Tobacco Cessation:Counseling Given: Not Answered Alcohol Use Standard Drinks/Week Comments No 0 (1 standard drink = 0.6 oz pur e alcohol) Comments No Sex and Gender Information Value Date Recorded Sex Assigned at Not on file Legal Sex Female 4:39 AM APPLICATIONS TRAINER Gender Identity Not on file Sexual Orientation Not on file Occupation Industry Job Start Date Job End Date Not on file Not on file Not on file Not on file Last Filed Vital Signs Vital Sign Reading Time Taken Comments Blood Pressure 148/90 12/08/2024 2:28 PM APPLICATIONS TRAINER Pulse 89 12/08/2024 2:28 PM APPLICATIONS TRAINER Temperature 36.9 C (98.4 F) 12/05/2024 10:03 AM APPLICATIONS TRAINER Respiratory Rate 15 12/05/2024 10:03 AM APPLICATIONS TRAINER Oxygen Saturation 96% 12/08/2024 2:28 PM APPLICATIONS TRAINER Inhaled Oxygen Concentration - - Weight 43.1 kg (95 lb) 12/08/2024 2:28 PM APPLICATIONS TRAINER Height 144.8 cm (4' 9 ) 12/08/2024 2:28 PM APPLICATIONS TRAINER Body Mass Index 20.56 12/08/2024 2:28 PM APPLICATIONS TRAINER Plan of Treatment Upcoming Encounters Date Type Department Care Team (Late st Contact Info) Description 02/03/2025 12:45 PM CDT Office Visit [facility] On[facility] and Hematology - [place] [address] [facility] [address] [place] [address] Dean De La Fuente MD [address] [facility] [address] [place] [address] 03/16/2025 2:30 PM CDT Office Visit [facility] Pulmonology [address] [place] [address] Bhanu Haque MD [address] [place] [address] [address] [place] [address] 05/29/2025 1:30 PM CDT Office Visit [facility] Urology at the [facility] Medicine [address] [place] [address] Xander Franco MD [address] [place] [address] Health Maintenance Due Date Last Done Comments RSV VACCINE (60+ or ) (1 - 1-dose 75+ series) 2013 COVID-19 Vaccine (2023-2 5 season) 2024 08/26/2022, 08/21/2021, 01/27/2021, Additional history exists Medicare Advantage ([place]) Preventative Visit/Annual Wellness Visit 11/23/2024 DTAP/TDAP/TD VACCINES (4 - T d or Tdap) 10/22/2033 10/22/2023, 07/12/2018, 06/23/2018 ZOSTER VACCINE Completed 02/03/2019, 12/09/2018 PNEUMOCOCCAL VACCINE 50+ YEARS Completed 0 08/12/2019, 06/30/2017, 10/05/2015, Additional history exists OSTEOPOROSIS SCREENING Completed , 12/16/2019, 03/02/2017, Additional history exists INFLUENZA VACCINE Completed 08/30/2024, , 08/26/2022, Additional history exists Medical Devices Implanted Type Area Loader Magazine Grinder Device Identifier Shelf Expiration Date Model / Serial / Lot Infuse Protein Kit [id number] - [id number] Implanted:Q ty: 1 on 07/13/2013 by Pavel Escobedo MD at [facility] Biological N/A: Spine Lumbar MED[employer]- SOFAMOR DANEK 06/23/2015 [id number] / / [id number] Allgrft Spcr Lmnry T-Plif 8mm 423223 - [id number] Implanted:Q ty: 1 on 07/13/2013 by Pavel Escobedo MD at [facility] Bone N/A: Spine Lumbar MUSCULOSKELETAL TRANSPLANT FOU 01/19/2016 [id number] / [id number] / Bone Chips Canc 30ml [id number] - [id number] Implanted:Q ty: 1 on 07/13/2013 by Pavel Escobedo MD at [facility] Bone N/A: Spine Lumbar ALLOSOURCE 12/23/2017 [id number] / [id number] / Slv Cable Troch [id number] 288928 - [id number] Implanted:Q ty: 2 on 06/29/2017 by Holger Max MD at [facility] Cable Left: Hip BIOMET INC 08/22/2024 [id number] / / [id number] Description:REQUISITION # 72 31300 Liner Arcomxl Rnglc Sz22 Xl-351174 - [id number] Implanted:Q ty: 1 on 06/29/2017 by Holger Max MD at [facility] Hip Left: Hip BIOMET INC [id number] 06/15/2020 XL-181336 / / [id number] Shell Rnglc+ Pc 46mm 16-661295 - [id number] Implanted:Q ty: 1 on 06/29/2017 by Holger Max MD at [facility] Hip Left: Hip BI[employer]ET INC [id number] 05/23/2023 [id number] / / [id number] Head Fem Mod Cocr 28mm -3mm 729958 - [id number] Implanted:Q ty: 1 on 06/29/2017 by Holger Max MD at [facility] Hip Left: Hip BI[employer] INC [id number] 03/14/2027 [id number] / / [id number] Stem Fem Echo Bmtrc [place] 856307 - [id number] Implanted:Q ty: 1 on 06/29/2017 by Holger Max MD at [facility] Hip Left: Hip BI[employer] INC [id number] 12/10/2026 391946 / / [id number] Shell Rnglc+ Pc 48mm 16-857060 - [id number] Implanted:Q ty: 1 on 10/22/2017 by Holger Max MD at [facility] Hip Right: Acetabulum BOB BIOMET [id number] 07/30/2026 [id number] / / [id number] Liner Arcomxl Rnglc Sz22 Xl-962360 - [id number] Implanted:Q ty: 1 on 10/22/2017 by Holger Max MD at [facility] Hip Right: Acetabulum BOB BIOMET [id number] 02/12/2022 XL-577826 / / [id number] Stem Fem Echo Bmtr[place] 481652 - [id number] Implanted:Q ty: 1 on 10/22/2017 by Holger Max MD at [facility] Hip Right: Acetabulum BOB BIOMET [id number] 12/04/2026 833373 / / [id number] Head Fem Mod Cocr 28mm -6mm 073852 - [id number] Implanted:Q ty: 1 on 10/22/2017 by Holger Max MD at [facility] Hip Right: Acetabulum BOB BIOMET [id number] 03/21/2027 609076 / / [id number] Expedium Iain Implanted:Q ty: 2 on 07/13/2013 by Pavel Escobedo MD at [facility] Iain N/A: Spine Lumbar J&J- DEPUY SPINE INC 179-0 40 / / Description:autoclave #9 daylin d # [id number] Screw Set Inner 179-22-000 - [id number] Implanted:Q ty: 4 on 07/13/2013 at [facility] Screw N/A: Spine Lumbar J&J- DEPUY SPINE INC 00 / / Description:Autoclave # 9 lo ad # [id number] Screw Xpdm Fa 7.0x40mm -740 - [id number] Implanted:Q ty: 2 on 07/13/2013 at [facility] Screw N/A: Spine Lumbar J&J- DEPUY SPINE INC -7 40 / / Description:Autoclave # 9 lo ad # [id number] Screw Xpdm Fa 7.0x45mm 99-745 - [id number] Implanted:Q ty: 2 on 07/13/2013 at [facility] Screw N/A: Spine Lumbar J&J- DEPUY SPINE INC 1797-99-7 45 / / Description:Autoclave # 9 lo ad # [id number] Screw Canc Lp 6.5x30mm 631163 - [id number] Implanted:Q ty: 1 on 10/22/2017 by Holger Max MD at [facility] Screw Right: Acetabulum BOB BIOMET [id number] 04/28/2027 769742 / / [id number] Sealant Floseal W/ Adptr 10ml 3334013 - [id number] Implanted:Q ty: 2 on 07/13/2013 by Pavel Escobedo MD at [facility] Sealant N/A: Spine Lumbar VELAZCO- BIOSCIENCE 09/22/2014 [id number] / / [id number] Sealant Floseal W/ Apdtr 5ml [id number] - [id number] Implanted:Q ty: 1 on 03/08/2015 by Gui Moreno MD at [facility] Sealant Right: Kidney VELAZCO- BIOSCIENCE 02/21/2016 [id number] / / [id number] Stent Prcflx Plus [id number] 175-261 - [id number] Implanted:Q ty: 1 on 10/11/2013 by Gui Moreno MD at [facility] Stent Right: Ureter [employer] UROLOGY/TRAVELING NURSE 06/22/2016 175-261 / / [id number] Stent Prcflx Plus 4.3dc01rr 175252 - [id number] Implanted:Q ty: 1 on 04/13/2014 by Gui Moreno MD at [facility] Stent Right: Ureter [employer]- UROLOGY/TRAVELING NURSE 01/14/2016 175-252 / / [id number] Eye Valve Right(Almhe d) Explanted Type Area Loader Magazine Grinder Device Identifier Shelf Expiration Date Model / Serial / Lot Slv [facility] [id number] - [id number] Implanted:Qty: 1 on 06/29/2017 by Holger Max MD at [facility] Explanted:Qty: 1 on 02/08/2018 by Holger Max MD at [facility] Hip Left: Hip BIOMET INC 08/22/2020 [id number] / / [id number] Description:REQUISITION # 72 34963. Log [id number] - Stents Urological - 1 - Stent Contour [id number] 180-221 Implanted:Qty: 1 on 03/29/2013 at [facility] Explanted:Qty: 1 on 08/29/2014 by Gui Moreno MD at [facility] Stent Right: Ureter [employer] UROLOGY/TRAVELING NURSE 01/21/2016 180-221 / / [id number] Stent Contour [id number] 180-221 - [id number] Explanted:Qty: 1 on 08/29/2014 at [facility] Stent Right: Ureter [employer] UROLOGY/TRAVELING NURSE 02/17/2017 180-221 / / [id number] Description:curled inside, s tricture noted per MD Stent Cntr Vl 4.2cy07-51ar 180-155 - [id number] Implanted:Qty: 1 on 08/29/2014 by Gui Moreno MD at [facility] Explanted:Qty: 1 on 12/19/2014 by Gui Morneo MD at [facility] Stent Right: Ureter [employer] UROLOGY/TRAVELING NURSE 04/21/2017 [id number] / / [id number] Procedures Procedure Name Priority Date/Time Associated Diagnosis Comments COMPREHENSIVE METABOLIC PANEL Routine 12/08/2024 3:27 PM APPLICATIONS TRAINER RODRIGUEZ (dyspnea on exertion) CBC WITH DIFFERENTIAL Routine 12/08/2024 3:27 PM APPLICATIONS TRAINER RODRIGUEZ (dyspnea on exertion) BRAIN NATRIURETIC PEPTIDE, BNP OR PROBNP Routine 12/08/2024 3:27 PM APPLICATIONS TRAINER RODRIGUEZ (dyspnea on exertion) XR CHEST PA AND LATERAL 2 VW Routine 12/08/2024 3:12 PM APPLICATIONS TRAINER RODRIGUEZ (dyspnea on exertion) IRON LEVEL Routine 11/14/2024 11:18 AM APPLICATIONS TRAINER IRON PANEL Routine 11/14/2024 11:11 AM APPLICATIONS TRAINER from Last 3 Months Results * (ABNORMAL) CBC WITH DIFFERENTIAL (12/08/2024 3:27 PM APPLICATIONS TRAINER) WBC 5.2 3.8 - 10.8 Thousand/ uL [facility] RBC 4.42 3.80 - 5.10 Million/u L [facility] HEMOGLOBIN 10.6(L) 11.7 - 15.5 g/dL [facility] HEMATOCRIT 36.0 35.0 - 45.0 % [facility] MCV 81.4 80.0 - 100.0 fL [facility] MCH 24.0(L) 27.0 - 33.0 pg [facility] MCHC 29.4(L) 32.0 - 36.0 g/dL [facility] Comment: For adults, a slight decrease in the calculated MCHC value (in the range of 30 to 32 g/dL) is most likely not clinically significant; however, it should be interpreted with caution in correlation with other red cell parameters and the patient's clinical condition. RDW 18.5(H) 11.0 - 15.0 % [facility] PLATELETS 200 140 - 400 Thousand/ uL [facility] MPV 11.7 7.5 - 12.5 fL [facility] NEUTROPHIL ABSOLUTE 3,006 1,500 - 7,800 cells/uL [facility] LYMPHOCYTE ABSOLUTE 1,638 850 - 3,900 cells/uL [facility] MONOCYTE ABSOLUTE 447 200 - 950 cells/uL [facility] EOSINOPHIL ABSOLUTE 88 15 - 500 cells/uL [facility] BASOPHILS ABSOLUTE 21 0 - 200 cells/uL [facility] NEUTROPHIL 57.8 % [facility] LYMPHOCYTES 31.5 % [facility] MONOCYTE 8.6 % [facility] EOSINOPHILS 1.7 % [facility] BASOPHILS 0.4 % [facility] Comment: Test Performed at: [facility] [address] [place] [address] Mamadou Oh Blood 12/08/2024 3:27 PM APPLICATIONS TRAINER 12/08/2024 3:28 PM APPLICATIONS TRAINER us Bhanu Haque MD HEMATOLOGY ORDERABLES Final Res ult [facility] [phone] [facility] [address] [place] [address] * (ABNORMAL) BRAIN NATRIURETIC PEPTIDE, BNP OR PROBNP (12/08/2024 3:27 PM APPLICATIONS TRAINER) PROBNP, N TERMINAL 802(H) <450 pg/mL [facility] Comment: Test Performed at: [facility] [address] [place] [address] Mamadou Oh MD Blood 12/08/2024 3:27 PM APPLICATIONS TRAINER 12/08/2024 3:28 PM APPLICATIONS TRAINER us Bhanu Haque MD CHEMISTRY ORDERABLES Final Resu lt [facility] [phone] [facility] [id number] [place] [address] * (ABNORMAL) COMPREHENSIVE METABOLIC PANEL (12/08/2024 3:27 PM APPLICATIONS TRAINER) Pathologist [facility] GLUCOSE 84 65 - 99 mg/dL [facility] Comment: Fasting reference interval BUN 32(H) 7 - 25 mg/dL [facility] CREATININE 0.76 0.60 - 0.95 mg/dL [facility] GFR 76 > OR = 60 mL/min/1. 73m2 [facility] BUN/CREAT RATIO 42(H) 6 - 22 (calc) [facility] SODIUM 138 135 - 146 mmol/L [facility] POTASSIUM 4.4 3.5 - 5.3 mmol/L [facility] CHLORIDE 103 98 - 110 mmol/L [facility] CO2 29 20 - 32 mmol/L [facility] CALCIUM 10.9(H) 8.6 - 10.4 mg/dL [facility] TOTAL PROTEIN 6.1 6.1 - 8.1 g/dL [facility] ALBUMIN 3.9 3.6 - 5.1 g/dL [facility] GLOBULIN 2.2 1.9 - 3.7 g/dL (calc) [facility] ALBUMIN/GLOBULIN RATIO 1.8 1.0 - 2.5 (calc) [facility] BILIRUBIN TOTAL 0.5 0.2 - 1.2 mg/dL [facility] ALKALINE PHOSPHATASE 56 37 - 153 U/L [facility] AST 22 10 - 35 U/L [facility] ALT 22 6 - 29 U/L [facility] Comment: Test Performed at: [place] [address] [address] Jennifer-Annabel Guzman Vo Blood 12/08/2024 3:27 PM APPLICATIONS TRAINER 12/08/2024 3:28 PM APPLICATIONS TRAINER us Bhanu Haque MD CHEMISTRY ORDERABLES Final Resu lt [facility] [phone] [place] [address] [address] * XR CHEST PA AND LATERAL 2 VW (12/08/2024 3:12 PM APPLICATIONS TRAINER) Anatomical Region Laterality Modality Chest Computed Radiogr aphy 12/08/2024 3:12 PM APPLICATIONS TRAINER Impressions 12/10/2024 11:43 AM APPLICATIONS TRAINER IMPRESSION: No active disease. DICTATION LOCATION: Location 1 - [facility] Narrative 12/10/2024 11:43 AM APPLICATIONS TRAINER XR CHEST PA AND LATERAL 2 VW DATE: 12/08/2024 3:12 PM HISTORY: See Diagnosis. RODRIGUEZ (dyspnea on exertion) COMPARISON: 09/23/2016 FINDINGS: There are calcified pulmonary nodules in both upper lobes. There is no consolidation congestion effusion or pneumothorax. The heart and mediastinal silhouette are unremarkable. Central venous catheters noted in the area the superior vena cava. Bony structures are intact. There is no change from the prior study. INCIDENTAL FINDINGS: None. Procedure Note Terence John MD - 12/10/2024 XR CHEST PA AND LATERAL 2 VW DATE: 12/08/2024 3:12 PM HISTORY: See Diagnosis. RODRIGUEZ (dyspnea on exertion) COMPARISON: 09/23/2016 FINDINGS: There are calcified pulmonary nodules in both upper lobes. There is no consolidation congestion effusion or pneumothorax. The heart and mediastinal silhouette are unremarkable. Central venous catheters noted in the area the superior vena cava. Bony structures are intact. There is no change from the prior study. INCIDENTAL FINDINGS: None. IMPRESSION: No active disease. DICTATION LOCATION: Location 1 [facility] Bhanu Haque MD DIAGNOSTIC IMAGING ORDERABLES F inal Result * IRON LEVEL (11/14/2024 11:18 AM APPLICATIONS TRAINER) Blood Dean De La Fuente MD CHEMISTRY ORDERABLES Final Resu lt * IRON PANEL (11/14/2024 11:11 AM APPLICATIONS TRAINER) Blood Dean De La Fuente MD CHEMISTRY ORDERABLES Final Resu lt from Last 3 Months Insurance RX [employer] RX Member Subscriber Plan / Payer (Ef fective 2010-Present) Name:Kylee Melendez Relation to Subscriber:Self Name:Kylee Melendez Payer ID:Not on file Group ID:[id number] Type:RX Medicare Part D Address: [address] [facility] HMO MCR [facility] M[facility] Advance Directives For more information, please contact: [phone] * Full Code (Latest Code Status on File) Date Activated Date Inactivated Comments 02/08/2018 8:36 AM 02/08/2018 5:35 PM * Full Code Date Activated Date Inactivated Comments 02/08/2018 8:28 AM 02/08/2018 8:36 AM * Full Code Date Activated Date Inactivated Comments 10/22/2017 9:46 AM 10/24/2017 12:28 PM * Full Code Date Activated Date Inactivated Comments 10/22/2017 6:48 AM 10/22/2017 9:46 AM * Full Code Date Activated Date Inactivated Comments 10/22/2017 5:18 AM 10/22/2017 6:48 AM Care Teams Qa Lead Relationship Specialty Start Date End Date Jeferson Umanzor DO [address] [place] [id number] PCP - General Family Practice 05/15/22
--- OUTSIDE RECORDS SUMMARY | 2025-01-30 18:13 | XMS_ITS | Referral Summary ---
Author Organization [facility] Address [address] [place] [address] Care Team Providers Care Electrophysiologist Name Role Phone Jeferson Umanzor Primary Care Provide r Encounters Date Type Department Care Team Description 01/24/2025 Orders Only [facility] Scanning, Provider 01/16/2025 Orders Only [facility] Scanning, Provider 01/09/2025 Orders Only [facility] Scanning, Provider 01/04/2025 Telephone [facility] [address] [place] [address] [address] [place] [address] Shefali Cotton, COATING MIXER SUPERVISOR [employer] 01/03/2025 Orders Only [facility] Scanning, Provider 12/30/2024 Telephone [facility] [address] [place] [address] Office [address] [place] [address] Shefali Cotton, COATING MIXER SUPERVISOR Update 12/27/2024 Telephone [facility] [address] [place] [address] Office [address] [place] [address] Shefali Cotton, COATING MIXER SUPERVISOR Med Management 12/26/2024 Orders Only [facility] Scanning, Provider 12/19/2024 Orders Only [facility] Scanning, Provider 12/12/2024 Orders Only [facility] Scanning, Provider 12/07/2024 Documentation [facility] [address] [facility] 12th [place] [address] [place] [address] Gayla Muro MD 12/05/2024 Orders Only [facility] Scanning, Provider 12/02/2024 Telephone [facility] [address] [place] [address] Medical Office Building [address] [place] [phone] Shefali Cotton, COATING MIXER SUPERVISOR Med Refill 11/21/2024 Orders Only [facility] Scanning, Provider 11/21/2024 Telephone [facility] [address] [place] [address] Medical Office Building [address] [place] [phone] Shefali Cotton, COATING MIXER SUPERVISOR 11/14/2024 Orders Only [facility] Scanning, Provider 11/07/2024 Orders Only [facility] Scanning, Provider 11/01/2024 Telephone [facility] [address] [place] [address] 12th [place] [address] [place] [address] Imani Cummings, COATING MIXER SUPERVISOR Med Management (Venofer) 11/01/2024 10:30 AM GEOCHEMIST Office Visit [facility] [address] [place] [address] Medical Office Building [address] [place] [phone] Gayla Muro MD Diarrhea, unspecified type (Primary Dx); Moderate protein malnutrition; History of small bowel obstruction; Abnormal weight loss; Iron deficiency anemia due to chronic blood loss; Rectal bleeding from Last 3 Months Allergies Active Allergy Reactions Criticality Noted Date Comments Hydrocodone-Acetaminophen Itching Medium 05/05/2012 Lisinopril Cough Low 07/13/2013 Nsaids (Non-Steroidal Anti-I nflammatory Drug) Hives High 01/15/2018 Medications umeclidinium-vi lanterol (ANORO ELLIPTA) 62.5-25 mcg/actuation blister with device inhale 1 puff by inhalation route every day at the same time each day 0 Blister 0 7 Active albuterol sulfate (PROAIR RESPICLICK) 90 mcg/actuation aerosol powdr breath activated inhale 2 puff by inhalation route every 4 - 6 hours as needed 0 Inhaler 0 7 Active dorzolamide-chandler olol (COSOPT) 22.3-6.8 mg/mL ophthalmic solution instill 1 drop by ophthalmic route 2 times every day into affected eye(s) 0 2 Active sertraline (ZOLOFT) 25 mg tabletIndicatio ns:Anxiety with Depression Take 1 tablet (25 mg total) by mouth daily 0 Active levothyroxine (SYNTHROID) 75 mcg tablet Take 1 tablet (75 mcg total) by mouth Thursday, Thursday, Thursday and take 2 75mg tablet Thursday, Thursday and Thursday take 1 75mg tablet Active timoloL (BETIMOL) 0.5 % ophthalmic solution 1 drop 2 (two) times a day Active albuterol 0.63 mg/3 mL nebulizer solution Take 3 mL (0.63 mg total) by nebulization every 6 (six) hours as needed for wheezing Active denosumab (PROLIA) 60 mg/mL syringe Inject under the skin every 6 (six) months Active omeprazole (PriLOSEC) 40 mg capsule Take 1 capsule (40 mg total) by mouth daily 90 capsule 3 3 Active opium 10 mg/mL (morphine equiv) tinctureIndicat ions: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 - Renally dose medications Immunizations Immunization Administration Dates Next Due Influenza, Trivalent, High D ose, Split, Preservative Free, Intramuscular 08/30/2024 Influenza, Trivalent, IM (MDV) 09/23/2013,2010 Social History Tobacco Use Types Packs/Day Years Used Date Smoking Tobacco: Former Cigarettes 1 25 1 972 - 1996 Smokeless Tobacco: Never Tobacco Cessation:Counseling Given: Not Answered Alcohol Use Standard Drinks/Week Comments No 0 (1 standard drink = 0.6 oz pur e alcohol) Social Connection and Isolat ion Panel [NHANES] Answer Date Recorded In a typical week, how many times do you talk on the phone with family, friends, or neighbors? More than three times a week 08/26/2024 How often do you get togethe r with friends or relatives? More than three times a week 08/26/2024 How often do you attend [facility] or congregational services? Never 08/26/2024 Do you belong to any clubs o r organizations such as nondenominational groups, unions, fraternal or athletic groups, or school groups? No 08/26/2024 How often do you attend meet ings of the clubs or organizations you belong to? Never 08/26/2024 Are you , , di vorced, , never , or living with a partner? 08/26/2024 AUDIT-C Answer Date Recorded Q1: How often do you have a drink containing alcohol? Never 09/27/2024 Q2: How many drinks containi ng alcohol do you have on a typical day when you are drinking? Patient does not drink Q3: How often do you have si x or more drinks on one occasion? Never 09/27/2024 Overall Financial Resource Strain (CARDIA) Answe r Date Recorded How hard is it for you to pa y for the very basics like food, housing, medical care, and heating? Not very hard 08/26/2024 PHQ-2 Answer Date Recorded PHQ-2 Total Score 0 08/26/2024 Hunger Vital Sign Answer Date Recorded Within the past 12 months, y ou worried that your food would run out before you got the money to buy more. Never true 08/26/20 24 Within the past 12 months, t he food you bought just didn't last and you didn't have money to get more. Never true 08/26/2024 PRAPARE - Transportation Answer Date Re corded In the past 12 months, has l ack of transportation kept you from medical appointments or from getting medications? No 02/2024 In the past 12 months, has l ack of transportation kept you from meetings, work, or from getting things needed for daily living? No 08/26/2024 Housing Stability Vital Sign Answer Jackson e Recorded In the last 12 months, was t here a time when you were not able to pay the mortgage or rent on time? No 08/26/2024 In the past 12 months, how m any times have you moved where you were living? 0 08/26/2024 At any time in the past 12 m [facility], were you homeless or living in a senior living (including now)? No 08/26/2024 Personal Safety Answer Date Recorded Have you ever been in or are you currently in a harmful physical or emotional relationship or is someone making you feel afraid or unsafe? Denies 08/24/2024 Comments No Sex and Gender Information Value Date Recorded Sex Assigned at Not on file Legal Sex Female 10:24 AM GEOCHEMIST Gender Identity Not on file Sexual Orientation Not on file Last Filed Vital Signs Vital Sign Reading Time Taken Comments Blood Pressure 179/63 11/01/2024 10:37 AM GEOCHEMIST Pulse 93 11/01/2024 10:37 AM GEOCHEMIST Temperature 37.2 C (99 F) 11/01/2024 10:35 AM GEOCHEMIST Respiratory Rate 17 09/09/2024 6:05 AM CDT Oxygen Saturation 98% 11/01/2024 10:35 AM GEOCHEMIST Inhaled Oxygen Concentration - - Weight 41.7 kg (92 lb) 11/01/2024 10:35 AM GEOCHEMIST Height 144.8 cm (4' 9 ) 11/01/2024 10:35 AM GEOCHEMIST Body Mass Index 19.91 11/01/2024 10:35 AM GEOCHEMIST Plan of Treatment Not on file Medical Devices Implanted Type Area Custom Wood Stair Builder Device Identifier Shelf Expiration Date Model / Serial / Lot Hardware N/A: Back Ahmed Shunt-08/08/2008 Implanted:08/08 (Quantity not on file) Right: 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 Implanted:07/01 (Quantity not on file) Left: Hip Rt Hip Replacement- Implanted:09/21 (Quantity not on file) Right: Hip Procedures Procedure Name Priority Date/Time Associated Diagnosis Comments SCAN - LABS 01/24/2025 SCAN - LABS 01/16/2025 SCAN - LABS 01/09/2025 SCAN - LABS 01/03/2025 SCAN - LABS 12/26/2024 SCAN - LABS 12/19/2024 SCAN - LABS 12/12/2024 SCAN - LABS 12/05/2024 SCAN - LABS 11/21/2024 SCAN - LABS 11/14/2024 SCAN - LABS 11/07/2024 from Last 3 Months Results * SCAN - LABS (01/24/2025) us Provider Scanning Edited Result - Final * SCAN - LABS (01/16/2025) us Provider Scanning Edited Result - Final * SCAN - LABS (01/09/2025) us Provider Scanning Edited Result - Final * SCAN - LABS (01/03/2025) us Provider Scanning Edited Result - Final * SCAN - LABS (12/26/2024) us Provider Scanning Final Result * SCAN - LABS (12/19/2024) us Provider Scanning Edited Result - Final * SCAN - LABS (12/12/2024) us Provider Scanning Edited Result - Final * SCAN - LABS (12/05/2024) us Provider Scanning Edited Result - Final * SCAN - LABS (11/21/2024) us Provider Scanning Final Result * SCAN - LABS (11/14/2024) us Provider Scanning Edited Result - Final * SCAN - LABS (11/07/2024) us Provider Scanning Edited Result - Final from Last 3 Months 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 08/25/2024 Insurance [facility] [place] [address] Advance Directives For more information, please contact: [phone] * Full Code (Latest Code Status on File) Date Activated Date Inactivated Comments 08/25/2024 7:27 PM 09/09/2024 4:32 PM * Full Code Date Activated Date Inactivated Comments 01/01/2023 10:41 AM 01/01/2023 5:13 PM Care Teams Electrophysiologist Relationship Specialty Start Date End Date Jeferson Umanzor DO [address] [place] [address] PCP - General Family Medicine 07/30/22
--- OUTSIDE RECORDS SUMMARY | 2025-01-30 18:13 | XMS_ITS | Encounter Summary ---
Author Organization [facility] Address [facility] [address] [place] [address] Care Team Providers Care Dietitian Assistant Name Role Phone Jeferson Umanzor DO Primary Care Provider + Ana Echavarria RN Unavailable Encounter Details Date Type Department Care Team (Late st Contact Info) Description 05/16/2024 MyChart Message Enc [facility] Medical Group Family & Internal Medicine [facility] [address] [place] [address] Jeferson Umanzor DO [address] [place] [address] referral to see urologist Social History Tobacco Use Types Packs/Day Years Used Date Smoking Tobacco: Former Cigarettes 0.5 20 0 11/23/1976 - 11/23/1996 Passive Smoke Exposure: Never Smokeless Tobacco: Never Alcohol Use Standard Drinks/Week Comments Not Currently 0 (1 standard drink = 0.6 oz pur e alcohol) OASIS D0700: Social Isolation Answer Da te Recorded Frequency of experiencing loneliness or isolatio n Rarely 05/06/2024 OASIS A1250: Transportation Answer Date Recorded Lack of Transportation (Medical) No 05/06/2024 Lack of Transportation (Non-Medical) No 05/06/2024 Patient Unable or Declines to Respond No 05/06/2024 OASIS B1300: Health Literacy Answer Jackson e Recorded Frequency of needing help to read materials from doctor or pharmacy Rarely 05/06/2024 B1300 Health Literacy Answer Date Recor ded How often do you need to hav e someone help you when you read instructions, pamphlets, or other written material from your doctor or pharmacy? Never 04/15/2024 [facility] Utilities Answer Date Recorded In the past 12 months has th e [employer], gas, oil, or water company threatened to shut off services in your home? No 04/15/2024 Humiliation, Afraid, Rape, and Kick questionnair e Answer Date Recorded Within the last year, have y ou been afraid of your partner or ex-partner? No 04/15/2024 Within the last year, have y ou been humiliated or emotionally abused in other ways by your partner or ex-partner? No Within the last year, have y ou been kicked, hit, slapped, or otherwise physically hurt by your partner or ex-partner? No 04/15/2024 Within the last year, have y ou been raped or forced to have any kind of sexual activity by your partner or ex-partner? No 04/15/2024 Social Connection and Isolat ion Panel [NHANES] Answer Date Recorded In a typical week, how many times do you talk on the phone with family, friends, or neighbors? More than three times a week 04/15/2024 How often do you get togethe r with friends or relatives? More than three times a week 04/15/2024 How often do you attend [facility] or mormonism services? Never 04/15/2024 Do you belong to [...] care, and heating? Not hard at all 04/15/2024 PHQ-2 Answer Date Recorded Patient Health Questionnaire-2 Score 0 03/14/2024 [facility] - Occupational Stress Questionnaire Answer Date [...] the money to buy more. Never true 04/15/20 Within the past 12 months, t he food you bought just didn't last and you didn't have money to get more. Never true 04/15/2024 PRAPARE - Transportation Answer Date Re corded In the past 12 months, has l ack of transportation kept you from medical appointments or from getting medications? No 03/24 In the past 12 months, has l ack of transportation kept you from meetings, work, or from getting things needed for daily living? No 04/15/2024 Housing Stability Vital Sign Answer Jackson e [...] place to sleep or slept in a half-way (including now)? No 02/09/2024 Housing Stability Vital Sign Answer Jackson e Recorded In the last 12 months, was t here a time when you were not able to pay the mortgage or rent on time? No 04/15/2024 In the past 12 months, how m any times have you moved where you were living? 1 04/15/2024 At any time in the past 12 m [facility], were you homeless or living in a half-way (including now)? No 04/15/2024 Comments No Sex and Gender Information Value Date Recorded Sex Assigned at Female 06/24/2024 8:15 PM CDT Legal Sex Female 1:59 PM CDT Gender Identity Female 06/24/2024 8:15 PM CDT Sexual Orientation Straight 06/24/2024 8: 15 PM CDT documented as of this encounter Functional Status * Are you deaf or do you have serious difficulty hearing Answer Date of Assessment Author Status No 04/15/2024 2:00 PM CDT Kristin Mendosa RN Active * Are you blind or do you have serious difficulty seeing, even when wearing glasses? Answer Date of Assessment Author Status No 04/15/2024 2:00 PM CDT Kristin Mendosa RN Active * Do you have serious difficulty walking or climbing stairs? Answer Date of Assessment Author Status No 04/15/2024 2:00 PM CDT Kristin Mendosa RN Active * Do you have difficulty dressing or bathing? Answer Date of Assessment Author Status No 04/15/2024 2:00 PM CDT Kristin Mendosa RN Active * Because of a physical, mental, or emotional condition, do you have difficulty doing errands alone such as visiting a doctor's office or shopping? Answer Date of Assessment Author Status No 04/15/2024 2:00 PM CDT Kristin Mendosa RN Active documented as of this encounter Mental Status * Because of a physical, mental, or emotional condition, do you have serious difficulty concentrating, remembering, or making decisions? Answer Entry Date Author Status No 04/15/2024 2:00 PM JOHNNYT Kristin Mendosa RN Active documented in this encounter Plan of Treatment Upcoming Encounters Date Type Department Care Team (Late st Contact Info) Description 02/02/2025 1:[address] [facility] [place] [address] Dean De La Fuente MD [address] [facility] [address] [place] [address] 05/02/2025 1:20 PM CDT Office Visit [facility] Medical Group Family & Internal Medicine - [place] [address] [place] [address] Jeferson Umanzor, DO [address] [place] [address] 06/21/2025 2:00 PM CDT Treatment [facility] [place] [address] Jeferson Umanzor, DO [address] [place] [address] documented as of this encounter Goals Goal Patient Goal Type Associated Problems Recent Progress Patient-Stated? Author Monitor - wound Lifestyle On track(2024 12:38 PM PAINT STRIPPER) No Ana Echavarria, RN Note: Patient to monitor open area to buttock Keep area clean and dry, apply OTC zinc and barrier cream frequently or hydrocortisone cream. Establish Plan for Symptom Monitoring HTN Lifestyle On track(2024 12:38 PM PAINT STRIPPER) No Ana Echavarria, RN Note: Hypertension: Patient [...] Monitoring COPD Lifestyle On track(2024 12:38 PM PAINT STRIPPER) No Ana Echavarria, RN Note: COPD: Patient [...] documented as of this encounter Care Teams Dietitian Assistant Relationship Specialty Start Date End Date Jeferson Umanzor DO [address] [place] [address] PCP - General FAMILY PRACTICE 12/04/21 Ana Echavarria, RN [address] [place] [address] Promotions Executive (Ambulatory) REGISTERED NURSE 02/04/24 documented as of this encounter
--- OUTSIDE RECORDS SUMMARY | 2025-01-30 18:13 | XMS_ITS | CONTINUITY OF CARE DOCUMENT ---
Author Name shakeel beckford Address Unknown Organization [facility] Address [address] [place] [address] Phone [phone] Care Team Providers Care Lead Care Manager Name Role Phone Pj SIFUENTES, Mag Unavailable SHALA OCHOA MD Unavailable SHALA OCHOA MD Unavailable ENCOUNTERS Date Type Provider Location Encounter Diagnosis - In-person encounter Office Visit [facility] - In-person encounter Office Visit [facility] INSURANCE PROVIDERS Payer name Policy type / Coverage type Clarissa red green party ID [facility] [id number] [place] [employer] Medicare [id number]
--- OUTSIDE RECORDS SUMMARY | 2025-01-30 18:13 | XMS_ITS | Encounter Summary ---
Author Organization [facility] Address [address] [place] [address] Care Team Providers Care Overhead Crane Operator Name Role Phone Jeferson Umanzor Jay COLVIN Primary Care Provider + Encounter Details Date Type Department Care Team (Late Contact Info) Description 07/07/2017 Lab Requisition [facility] General Laboratory Services [address] [place] [address] [place] [address] Anderson Balderas MD [address] [place] [address] Essential (primary) hypertension Social History Tobacco Use Types Packs/Day Years Used Date Smoking Tobacco: Former Cigarettes Q uit: 11/23/1992 Smokeless Tobacco: Never Alcohol Use Standard Drinks/Week Comments No 0 (1 standard drink = 0.6 oz pur e alcohol) Comments No Sex and Gender Information Value Date Recorded Sex Assigned at Not on file Legal Sex Female 4:39 AM PLAN REP Gender Identity Not on file Sexual Orientation Not on file Occupation Industry Job Start Date Job End Date Not on file Not on file Not on file Not on file documented as of this encounter Plan of Treatment Upcoming Encounters Date Type Department Care Team (Late st Contact Info) Description 02/03/2025 12:45 PM CDT Office Visit [facility] Oncology and Hematology - [place] [address] [phone] Dean De La Fuente MD [address] [facility] [address] [place] [address] 03/16/2025 2:30 PM CDT Office Visit [facility] Pulmonology [facility] [address] [place] [address] Bhanu Haque MD [address] [place] [address] 05/29/2025 1:30 PM CDT Office Visit [facility] Urology at the [facility] [address] [place] [address] Xander Franco MD [address] [facility] [address] [place], [place] [phone] documented as of this encounter Visit Diagnoses Diagnosis Essential (primary) hypertension Unspecified essential hypertension documented in this encounter Care Teams Overhead Crane Operator Relationship Specialty Start Date End Date Jeferson Umanzor DO [facility] [place] [address] PCP - General Family Practice 05/15/22 documented as of this encounter
--- OUTSIDE RECORDS SUMMARY | 2025-01-30 18:13 | XMS_ITS | Encounter Summary ---
Author Organization [facility] Address [address] [place] [address] Phone Care Team Providers Care Diamond Sander Name Role Phone Jeferson Umanzor DO Primary Care Provide r Encounter Details Date Type Department Care Team (Late st Contact Info) Description 08/08/2022 Orders Only [facility] Scanning, Provider Social History Tobacco Use Types Packs/Day Years Used Date Smoking Tobacco: Former Cigarettes 1 1 972 - 1996 Smokeless Tobacco: Never Alcohol Use Standard Drinks/Week Comments No 0 (1 standard drink = 0.6 oz pur e alcohol) AUDIT-C Answer Date Recorded Q1: How often do you have a drink containing alcohol? Never 08/08/2022 Q2: How many drinks containi ng alcohol do you have on a typical day when you are drinking? Patient does not drink Q3: How often do you have si x or more drinks on one occasion? 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 Never 08/08/2022 1:34 PM JOHNNYT Tracey Meng RN Q2: How many drinks containing alcohol do you have on a typical day when you are drinking? Patient does not drink 08/08/2022 1:34 PM JOHNNYT Tracey Meng RN Q3: How often do you have six or more drinks on one occasion? 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
--- OUTSIDE RECORDS SUMMARY | 2025-01-30 18:13 | XMS_ITS | Clinical Summary ---
Author Organization [facility] Address [address] [place] [address] Care Team Providers Care Bakery Worker Name Role Phone Jeferson Umanzor Primary Care Provide r Allergies Active Allergy Reactions Criticality Noted Date [...] (12/10/2022): Added automatically from request for surgery [id number] Back pain 04/02/2020 COPD (chronic obstructive pulmonary [...] s/p fluid resuscitation. - Renally dose medications Encounters Date Type Department Care Team Description 01/24/2025 Orders Only [facility] Scanning, Provider 01/16/2025 Orders Only [facility] Scanning, Provider 01/09/2025 Orders Only [facility] Scanning, Provider 01/04/2025 Telephone [facility] [address] [facility] Medical Office Building [address] [place] [address] Shefali Cotton, INJURY/SAFETY HAZARD ASSESSMENT [employer] 01/03/2025 Orders Only [facility] Scanning, Provider 12/30/2024 Telephone [facility] [address] [place] [address] Medical Office Building [address] [place] [address] Shefali Cotton, INJURY/SAFETY HAZARD ASSESSMENT Update 12/27/2024 Telephone [facility] [address] [place] [address] Medical Office Building [address] [place] [address] Shefali Cotton, INJURY/SAFETY HAZARD ASSESSMENT Med Management 12/26/2024 Orders Only [facility] Scanning, Provider 12/19/2024 Orders Only [facility] Scanning, Provider 12/12/2024 Orders Only [facility] Scanning, Provider 12/07/2024 Documentation [facility] [address] [place] [address] [address] [place] [address] [place] [phone] Gayla Muro MD 12/05/2024 Orders Only [facility] Scanning, Provider 12/02/2024 Telephone [facility] [address] [place] [address] Medical Office Building [address] [place] [address] Shefali Cotton, INJURY/SAFETY HAZARD ASSESSMENT Med Refill 11/21/2024 Orders Only [facility] Scanning, Provider 11/21/2024 Telephone [facility] [address] [place] [address] Medical Office Building [address] [place] [phone] Shefali Cotton, INJURY/SAFETY HAZARD ASSESSMENT 11/14/2024 Orders Only [facility] Scanning, Provider 11/07/2024 Orders Only [facility] Scanning, Provider 11/01/2024 10:30 AM [facility] Office Visit [facility] [address] [place] [address] Office [address] [place] [phone] Gayla Muro MD Diarrhea, unspecified type (Primary Dx); Moderate protein malnutrition; History of small bowel obstruction; Abnormal weight loss; Iron deficiency anemia due to chronic blood loss; Rectal bleeding 11/01/2024 Telephone [facility] [address] [place] [address] [address] [place] [address] [place] [address] Imani Cummings LPN Med Management ([facility]) from Last 3 Months Immunizations Immunization Administration Dates Next Due Influenza, Trivalent, High D ose, Split, Preservative Free, Intramuscular 08/30/2024 Influenza, Trivalent, IM (MDV) 09/23/2013,2010 Surgical History Surgery Date Site/Laterality Comments SHOULDER ARTHROSCOPY x3 Dr. [place] NEPHRECTOMY RADICAL 11/23/2014 - 11/22/2015 Right [facility] FIXATION SURGERY lumbar CHOLECYSTECTOMY CATARACT EXTRACTION TOTAL HIP ARTHROPLASTY 06/29/2017 [facility] 10/22/2017 Right [facility] COLONOSCOPY APPENDECTOMY TUNNELED LINE PLACEMENT > 5 YEARS 09/06/2024 N/A Medical History Medical History Date Comments Osteoporosis osteoporosis Calculus of kidney Cervical cancer (HCC) Chronic renal insufficiency Dyspnea on exertion Gastroesophageal reflux disease Glaucoma Hiatus hernia syndrome Horseshoe kidney Hypertension Hyperlipidemia Low back pain Urinary tract infection COPD (chronic obstructive pu lmonary disease) (HCC) Hypothyroidism Melena Nausea & vomiting Depression Encounter for antineoplastic radiation therapy in the 60s r/t to cervical cancer Family History Medical History Relation Name Comments Emphysema Brother Diabetes Daughter 1 Hypertension Daughter 1 Osteoporosis Daughter 1 osteoporosis; Asthma Daughter 2 Diabetes Daughter 2 Emphysema Daughter 2 Hypertension Daughter 2 Cancer Mother Liver disease Mother Relation Name Status Comments Brother Daughter 1 Daughter 2 Mother Social History Tobacco Use Types Packs/Day [...] week 08/26/2024 How often do you attend chur ch or tenriism services? Never 08/26/2024 Do you belong to any clubs o r organizations such as sikh groups, unions, fraternal or athletic groups, or [...] any time in the past 12 m [facility], were you homeless or living in a senior care (including now)? No 08/26/2024 Personal Safety Answer Date Recorded Have you ever been in or are you currently in a harmful physical or emotional relationship or is someone making you feel afraid or unsafe? Denies 08/24/2024 Comments No Sex and Gender Information Value Date Recorded Sex Assigned at Not on file Legal Sex Female 10:24 AM [facility] Gender Identity Not on file Sexual Orientation Not on file Obstetrics History Last Filed Vital Signs Vital Sign Reading Time Taken Comments Blood Pressure 179/63 11/01/2024 10:37 AM [facility] Pulse 93 11/01/2024 10:37 AM [facility] Temperature 37.2 C (99 F) 11/01/2024 10:35 AM [facility] Respiratory Rate 17 09/09/2024 6:05 AM CDT Oxygen Saturation 98% 11/01/2024 10:35 AM [facility] Inhaled Oxygen Concentration - - Weight 41.7 kg (92 lb) 11/01/2024 10:35 AM [facility] Height 144.8 cm (4' 9 ) 11/01/2024 10:35 AM [facility] Body Mass Index 19.91 11/01/2024 10:35 AM [facility] Plan of Treatment Health Maintenance Due Date Last Done Comments Hepatitis B Screening 1958 Well Visit 65+ 2003 Covid-19 Vaccine (4 - 2023-2 5 season) 2024 08/21/2021, 01/27/2021, 01/06/2021 Depression Screening 08/24/2025 08/24/2024 Fall Risk Assessment 09/09/2025 09/09/2024 DTaP/Tdap/Td Vaccine (4 - Td or Tdap) 10/22/2033 10/22/2023, 07/12/2018, 06/23/2018 Zoster Vaccine Completed 02/03/2019, 12/09/2018 Pneumococcal vaccine 65+ Completed 019, 06/30/2017, 10/05/2015, Additional history exists Influenza Vaccine Completed 08/30/2024, , 08/07/2021, Additional history exists Medical Devices Implanted Type Area Liquid Flavor Compounder Device Identifier Shelf Expiration Date Model / [...] Date Last Indicated VRE 08/25/2024 08/25/2024 Insurance [facility] Member Subscriber Plan / Payer (Ef fective 2021-Present) Name:Kylee Melendez Relation to Subscriber:Self Name:Kylee Melendez Payer ID:[id number] (NAIC) Type:MEDICARE RISK OTHER Address: [place] [id number] [facility] Advance Directives For more information, please contact: [phone] * Full Code (Latest Code Status on File) Date Activated Date Inactivated Comments 08/25/2024 7:27 PM 09/09/2024 4:32 PM * Full Code Date Activated Date Inactivated Comments 01/01/2023 10:41 AM 01/01/2023 5:13 PM Care Teams Bakery Worker Relationship Specialty Start Date End Date Jeferson Umanzor DO [address] [place] [address] [phone] PCP - General Family Medicine 07/30/22
== END 2025-01-30 15:32 | disposition home or self-care (01) ==
LOC: ANHLAB 15:32
PROVIDERS: PCP Student in an Organized Health Care Education/Training Program; Visit Provider Internal Medicine Hematology & Oncology
DX: D50.9 Iron deficiency anemia, unspecified (principal); D63.8 Anemia in other chronic diseases classified elsewhere
CPT/HCPCS: 36415; 80048; 82607; 82728; 82746; 83540; 83550; 85027

== ENCOUNTER 2025-05-08 11:49 | Outpatient (CLI) | payer OTHER, SELFPAY ==
[2025-05-08 12:05] LABS: Hematocrit 41.9 % (37.0-47.0); Hemoglobin 12.6 g/dL (12.0-15.0); Mean Corpuscular HGB Conc 30.1 g/dl (32-36); Mean Corpuscular Hemoglobin 24.1 pg (26-34); Mean Corpuscular Volume 80.1 fl (80-100); Mean Platelet Volume 9.7 fl (7.4-10.4); Platelet Count Result 171 k/mm3 (150-375); Red Blood Count 5.23 M/mm3 (4.2-5.4); Red Cell Distribution Width 16.2 % (11.5-14.5); White Blood Count 4.9 K/mm3 (4.5-10.0)
--- OUTSIDE RECORDS SUMMARY | 2025-05-08 13:00 | XMS_ITS ---
Author Name Auto Generated, Auto Generated Organization [facility] ice Address [address] [place] [address] Phone [phone] Care Team Providers Care Bioinformatics Research Technician Name Role Phone Anderson Balderas Functional Status Mental Status Allergies and Intolerances Medications Problems Reason for Referral Past Medical History
--- OUTSIDE RECORDS SUMMARY | 2025-05-08 13:00 | XMS_ITS | Clinical Summary ---
Author Organization 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
--- OUTSIDE RECORDS SUMMARY | 2025-05-08 13:00 | XMS_ITS | Clinical Summary ---
Author Organization [facility] Address [address] [place] [address] Care Team Providers Care Air Director Name Role Phone Jeferson Umanzor Primary Care Provider + Ana Echavarria RN Unavailable Allergies Active Allergy Reactions Criticality Noted Date Comments Hydrocodone Hives High 07/29/2013 Hydrocodone-Acetaminophen Itching Medium 05/05/2012 Lisinopril Cough Low 07/13/2013 Nsaids Hives High 01/15/2018 Other reaction(s): Hives Medications prednisoLONE acetate 1 % ophthalmic suspensionIndicati ons:Glaucoma Place 1 drop into the right eye daily. Indications: Glaucoma 021 Active timolol 0.5 % ophthalmic solutionIndication s:Glaucoma Place 1 drop into both eyes 2 (two) times daily. Indications: Glaucoma 021 Active dorzolamide 2 % ophthalmic solutionIndication s:Glaucoma Place 1 drop into both eyes 2 (two) times a day. Indications: Glaucoma 022 Active denosumab (PROLIA) 60 MG/ML injectionIndicatio ns:Age-related osteoporosis without current pathological fracture Inject 1 mL (60 mg total) into the skin every 6 (six) months. 1.8 mL 4 023 Active magnesium oxide (MAG-OX) 400 MG tabletIndications: Hypomagnesemia Take 1 tablet (400 mg total) by mouth 2 (two) times daily. 60 tablet 2 024 Active vitamin D2, ergocalciferol, (DRISDOL) 1.25 mg capsule Take 1 capsule (1.25 mg total) by mouth every 7 days. Active Albuterol Sulfate (PROAIR RESPICLICK) 108 (90 Base) MCG/ACT AEROSOL POWDER, BREATH ACTIVATEDIndicatio ns:Shortness of breath Inhale 2 puffs into the lungs every 6 (six) hours as needed (SOB). Indications: Shortness of breath 1 each 2 024 Active traMADol (ULTRAM) 50 MG tabletIndications: Acute Pain < 7 Day Supply Take 1-2 tablets (50-100 mg total) by mouth every 12 (twelve) hours. Indications: Acute Pain < 7 Day Supply 28 tablet 024 Active hydrocortisone 2.5 % creamIndications:D iarrhea, unspecified type,Dermatitis APPLY TOPICALLY TWICE A DAY 453.6 g 3 024 Active opium 10 mg/mL Tincture Take 0.6 mLs (6 mg total) by mouth 4 (four) times daily. 024 Active levothyroxine (SYNTHROID) 75 MCG tablet Take 1 tablet (75 mcg total) by mouth. Active ondansetron (ZOFRAN) 4 MG tablet Take 1 tablet (4 mg total) by mouth every 8 (eight) hours as needed. 024 Active NEBULIZER DEVICE, DME,Indications:Ch ronic bronchitis, unspecified chronic bronchitis type (CMS/HCC HHS/HCC) Take 1 Device by nebulization every 6 (six) hours as needed (Wheezing/SOB). 1 Device 024 Active NEBULIZER/ADULT MASK KIT, DME,Indications:Ch ronic bronchitis, unspecified chronic bronchitis type (CMS/HCC HHS/HCC) Apply 1 kit topically every 6 (six) hours as needed (Wheezing/SOB). 1 kit 024 Active ipratropium-albute rol (DUONEB) 0.5-2.5 (3) MG/3ML SolutionIndication s:Other pulmonary embolism without acute cor pulmonale, unspecified chronicity (CMS/HCC HHS/HCC) Take 3 mLs by nebulization every 4 (four) hours as needed (Wheezing or SOB). 360 mL 2 025 Active apixaban (ELIQUIS) 5 MG tablet Take 1 tablet (5 mg total) by mouth 2 (two) times daily. 025 Active BREZTRI AEROSPHERE 160-9-4.8 MCG/ACT inhaler TAKE 2 PUFFS BY INHALATION 2 TIMES DAILY. 025 Active amLODIPine (NORVASC) 5 MG tabletIndications: Essential hypertension Take 1 tablet (5 mg total) by mouth daily. 90 tablet 1 025 Active sertraline (ZOLOFT) 25 MG tabletIndications: Depression TAKE 1 TABLET (25 MG TOTAL) BY MOUTH DAILY. 90 tablet 025 Active furosemide (LASIX) 20 MG tablet Take 1 tablet (20 mg total) by mouth daily as needed. 025 Active omeprazole (PRILOSEC) 40 MG capsuleIndications :Nonerosive Gastroesophagel Reflux Disease Indications: Nonerosive Gastroesophagel Reflux Disease Take 1 capsule twice daily for 6 weeks, then decrease to 1 capsule daily 180 capsule 1 025 Active omeprazole (PRILOSEC) 40 MG capsuleIndications :Nonerosive Gastroesophagel Reflux Disease Take 1 capsule (40 mg total) by mouth daily as needed (heartburn). Indications: Nonerosive Gastroesophagel Reflux Disease 90 capsule 1 025 2024 Discontin ued(Reord er) doxycycline hyclate (VIBRAMYCIN) 100 MG capsuleIndications :Cellulitis of abdominal wall Take 1 capsule (100 mg total) by mouth 2 (two) times daily for 10 days. 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) use of opiate analgesic 05/2024 Spinal stenosis, site unspecified 10/29/2024 Spondylosis without myelopat hy or radiculopathy, lumbar region 10/29/2024 Acute pulmonary embolism (CMS/[facility] HHS/[facility]) 10/24 Acquired absence of kidney 09/09/2024 Anemia in chronic kidney disease (CODE) 09/09/20 Calculus of kidney 09/09/2024 Depression, unspecified 09/09/2024 Diaphragmatic hernia without obstruction or gang ayala 09/09/2024 Dysphagia, unspecified 09/09/2024 Encounter for adjustment and management of vascular access device 09/09/2024 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 History of falling 09/09/2024 Lobulated, fused and horseshoe kidney 09/09/2024 jail (current) use of antibiotics Other extermination supervisor (current) drug therapy Patient's noncompliance with other medical treatment and regimen due to unspecified reason 09/09/2024 Personal history of nicotine dependence 09/09/20 Personal history of urinary (tract) infections 1 Presence of artificial hip joint, bilateral 08/23 Unspecified glaucoma 09/09/2024 Hypertensive chronic kidney disease with stage 1 through stage 4 chronic kidney disease, or unspecified chronic kidney disease 09/09/2024 Chronic kidney disease, unspecified 09/09/2024 Chronic obstructive pulmonar y disease, unspecified ([facility]) 09/09/2024 Gastro-esophageal reflux disease without esophag itis 09/09/2024 Hyperlipidemia, unspecified 09/09/2024 Hypothyroidism, unspecified 09/09/2024 Unspecified severe protein-calorie malnutrition ([facility]) 09/09/2024 Other intestinal obstruction unspecified as to partial versus complete obstruction ([facility]) 09/09/2024 Other specified diseases of intestine 09/09/2024 Adult hypertrophic pyloric stenosis ([facility]) Mild protein-calorie malnutrition ([facility]) 07/0 11/2023 CARINA (acute kidney injury) 04/14/2024 Colitis 04/14/2024 Care Management 03/25/2024 SBO (small bowel obstruction) ([facility]) 02/03/2024 Dupuytrens contracture 10/22/2023 Calcification of abdominal [...] 1960's COPD (chronic obstructive pu lmonary disease) ([facility]) 06/29/2017 Hyperlipidemia 04/08/2014 Overview (07/22/2021): Hyperlipemia Essential hypertension SOB (shortness of breath) Fatigue Resolved Problems Problem Noted Date Diagnosed Date Resolved Date Malignant neoplasm of cervix uteri, unspecified ([facility]) 09/09/2024 04/25/2025 Small bowel obstruction ([facility]) 10/22/2023 10/22/2023 Terminal ileitis ([facility]) 10/22/2023 10/22/2023 Benign hypertension with sta ge 3a chronic kidney disease 09/03/2022 01/25/2025 Stage 3a chronic kidney disease (CKD) 12/04/2021 01/25/2025 Benign hypertension with chr onic kidney disease, stage III 07/01/2017 01/25/2025 Malignant neoplasm of cervix ([facility]) 04/08/2014 09/16/2024 Overview (09/16/2024): Cervical cancer Encounters Date Type Department Care Team Description 05/04/2025 Telephone [facility] Family & Internal Medicine [address] [phone] Jeferson Umanzor, Referral 04/25/2025 12:00 PM CDT Office Visit [facility] Family & Internal Medicine [address] [phone] Luchtefeld, Jeferson P, DO Wound (Patient here today to f/u after an UC visit at [facility] for a surgical site having discharge.) 04/25/2025 Travel 04/24/2025 Scan [facility] SR[facility] Scanned, Doc [facility] Lab (SCAN) 04/18/2025 Results Follow-Up [facility] Internal [facility] [address] [place] [address] Alva Mills, PA CULTURE, WOUND, W/GRAM STAIN 04/13/2025 4:45 PM CDT - 04/13/2025 11:59 PM CDT Hospital Encounter [facility] [address] [place] [address] Alva Mills, PA Discharge Disposition: Home or Self Care (Routine Discharge) 04/13/2025 3:20 PM CDT Office Visit [facility] Internal [facility] [address] [place] [address] Alva Mills, PA Other (Had colon surgery last year and noticed whitish discharge 3 days ago) 04/13/2025 Travel 04/13/2025 Telephone [facility] Internal [address] [phone] Jeferson Umanzor P, DO Abdominal Pain 04/11/2025 Patient Outreach [facility] Internal [address] [phone] Ana Echavarria, RN Care Management (CCM) 04/07/2025 Telephone [facility] Internal [address] [phone] Jeferson Umanzor P, DO Referral 04/03/2025 Scan [facility] INFO SRVCS Scanned, [facility] Lab (SCAN) 03/28/2025 Scan [facility] INFO SRVCS Scanned, [facility] Lab (SCAN) 03/15/2025 Patient Outreach [facility] Internal [address] [address] Ana Echavarria, RN Care Management (CCM) 03/08/2025 Scan [facility] INFO SRVCS Scanned, Doc Med Group 03/07/2025 Scan [facility] SRVCS Scanned, Doc Med Group 03/06/2025 Scan [facility] INFO SRVCS Scanned, [facility] Lab (SCAN) 02/27/2025 Scan [facility] INFO SRVCS Scanned, Doc [facility] Lab (SCAN) 02/21/2025 Patient Outreach [facility] Internal [address] [phone] Ana Echavarria RN Care Management (CCM) 02/16/2025 Patient Outreach [address] [phone] Ana Echavarria RN Care Management (CCM) 02/15/2025 Patient Outreach [address] [phone] Ana Echavarria, RN Care Management (CCM) 02/13/2025 Scan HEALTH INFO SRVCS Scanned, Doc [facility] Lab (SCAN) from Last 3 Months Immunizations Immunization Administration Dates Next Due Arexvy Respiratory Syncytial [...] from your doctor or pharmacy? Never 04/15/2024 C Utilities Answer Date Recorded In the past 12 months has e [employer] gas, oil, or water [employer] threatened to shut off services in your [...] week 04/15/2024 How often do you attend chur or orthodoxy services? Never 04/15/2024 Do you belong to any clubs o r organizations such as latter day groups, unions, fraternal or athletic groups, or [...] Date Recorded Patient Health Questionnaire-2 Score 0 04/13/2025 [facility] of Occupat ional Health - Occupational Stress [...] place to sleep or slept in a correction (including now)? No 02/09/2024 Housing Stability Vital [...] in the past [address] [facility], were you homeless or living in a correction (including now)? No 10/24/2024 Comments No Sex and Gender Information Value Date Recorded Sex Assigned at Female 06/24/2024 8:15 PM CDT Legal Sex Female 1:59 PM CDT Gender Identity Female 06/24/2024 8:15 PM CDT Sexual Orientation Not on file Last Filed Vital Signs Vital Sign Reading Time Taken Comments Blood Pressure 145/70 04/25/2025 12:39 PM CDT Pulse 75 04/25/2025 12:12 PM CDT Temperature 37.1 C (98.8 F) 04/25/2025 12:12 PM CDT Respiratory Rate 16 04/25/2025 12:12 PM CDT Oxygen Saturation 98% 04/25/2025 12:12 PM CDT Inhaled Oxygen Concentration - - Weight 44.2 kg (97 lb 8 oz) 04/25/2025 12:12 PM CDT Height 144.8 cm (4' 9) 04/25/2025 12:12 PM CDT Body Mass Index 21.1 04/25/2025 12:12 PM CDT Plan of Treatment Upcoming Encounters Date Type Department Care Team (Late st Contact Info) Description 05/08/2025 2:00 PM CDT Appointment [facility] [place] [address] Dean De La Fuente MD [address] [facility] [address] [place] [phone] 06/21/2025 2:00 PM CDT Treatment [facility] [place] [address] Jeferson Umanzor DO [address] [place] [address] 08/02/2025 1:00 PM CDT Office Visit [facility] Group Family & Internal Medicine - [address] [phone] Jeferson Umanzor DO [address] [place] [address] Health Maintenance Due Date Last Done Comments ASCVD Statin 1938 Annual Medicare Wellness Visit 03/15/2025 03/14/2024 COVID-19 Vaccine ( season) 2025 09/23/2023, 08/26/2022, 08/21/2021, Additional history exists Postponed from 07/24/2024 (Going to Outside Clinic) DTaP, Tdap and Td Vaccines (4 - Td or Tdap) 10/22/2033 10/22/2023, 07/12/2018, 06/23/2018 Zoster Vaccines Completed 02/03/2019, 12/09/2018 Pneumococcal Vaccine: 50+ Years Completed 08/12/2019, 06/30/2017, 10/05/2015, Additional history exists RSV Immunization or 60+ Years Completed 09/23/2023 PHQ-2 (Physician [place]) Completed 04/13/2025 Meningococcal B Vaccine Aged Out No l onger eligible based on patient's age to complete this topic Meningococcal Vaccine Aged Out No billie jazlyn eligible based on patient's age to complete this topic RSV Immunizations Under 20 Months Aged Out No longer eligible based on patient's age to complete this topic Goals Goal Patient Goal Type Associated Problems Recent Progress Patient-Stated? Author Establish Plan for Symptom Monitoring HTN Lifestyle On track(2024 11:09 AM CDT) Ana Vazquez, RN Note: Hypertension: Patient will recognize symptoms [...] for Symptom Monitoring COPD Lifestyle On track(2024 11:09 AM CDT) Ana Vazquez RN Note: COPD: Patient will recognize symptoms [...] notifying provider Medical Devices Implanted Type Area Fabric Coating Supervisor Device Identifier Shelf Expiration Date Model / Serial / Lot Barrier Seprafilm 3 X 5, Procedure Pack - [id number] Implanted:Qty : 1 on 04/17/2024 by Amarjit David MD at [facility] Barrier N/A: Abdomen [employer] - [employer]ENCE [id number] / / Procedures Procedure Name Priority Date/Time Associated Diagnosis Comments OUTSIDE LAB (SCAN ORDER) 04/24/2025 OUTSIDE LAB (SCAN ORDER) 04/24/2025 CULTURE, WOUND, W/GRAM STAIN Routine 04/13/2025 3:39 PM CDT Cellulitis of abdominal wall OUTSIDE LAB (SCAN ORDER) 04/03/2025 OUTSIDE LAB (SCAN ORDER) 03/28/2025 OUTSIDE LAB (SCAN ORDER) 03/06/2025 OUTSIDE LAB (SCAN ORDER) 02/27/2025 OUTSIDE LAB (SCAN ORDER) 02/13/2025 OUTSIDE LAB (SCAN ORDER) 02/13/2025 from Last 3 Months Results * OUTSIDE LAB (SCAN ORDER) (04/24/2025) Only the most recent of8 resultswithin the time period is included. 04/24/2025 us [facility] Scanned SCANNING Final Resu lt * (ABNORMAL) CULTURE, WOUND, W/GRAM STAIN (04/13/2025 3:39 PM CDT) SPEC DESCRIPTION ABDOMEN 04/13/2025 4:45 PM CDT [facility] SPECIAL REQUESTS NO SPECIAL REQUEST 04/13/2025 4:45 PM CDT [facility] () [facility] GRAM STAIN RESULT NO WHITE BLOOD CELLS SEEN 04/14/2025 11:33 AM CDT [facility] GRAM STAIN RESULT NO ORGANISMS SEEN 04/14/2025 11:33 AM CDT [facility] CULTURE RESULT LIGHT GROWTH OF ENTEROCOCCUS SPECIES IF PATIENT IS PENICILLIN ALLERGIC, CONTACT THE MICROBIOLOGY DEPARTMENT FOR READILY AVAILABLE VANCOMYCIN SUSCEPTIBILITY. (A) 04/16/2025 9:04 AM CDT [facility] CULTURE RESULT SPARSE GROWTH OF KLEBSIELLA PNEUMONIAE (A) 04/16/2025 9:04 AM CDT [facility] CULTURE RESULT LIGHT GROWTH OF STAPH. SPECIES NOT STAPH. AUREUS ORGANISM IS CONSISTENT WITH NORMAL SKIN ELSIE. SUSCEPTIBILITIES NOT ROUTINELY PERFORMED. (A) 04/16/2025 9:04 AM T [facility] SWAB FROM ABDOMEN / Unknown 04/13/2025 3:39 PM CDT 04/13/2025 4:56 PM CDT Narrative Organism Antibiotic Method Susceptibility Enterococcus species AMPICILLIN YVES (VITEK) <=2: Sensitive Enterococcus species GENT. SYNERGY SCREEN YVES (VITEK) Sensitive Enterococcus species PENICILLIN G YVES (VITEK) 8: Sensitive Klebsiella pneumoniae AMPICILLIN YVES (VITEK) 16: Resistant Klebsiella pneumoniae AMPICILLIN/SULBACTAM YVES (VITEK) <=2: Sensitive Klebsiella pneumoniae CEFTRIAXONE YVES (VITEK) <=1: Sensitive Klebsiella pneumoniae CEFTAZIDIME YVES (VITEK) <=1: Sensitive Klebsiella pneumoniae CEFAZOLIN YVES (VITEK) <=4: Sensitive Klebsiella pneumoniae ESBL YVES (VITEK) NEG: Sensitive Klebsiella pneumoniae GENTAMICIN YVES (VITEK) <=1: Sensitive Klebsiella pneumoniae LEVOFLOXACIN YVES (VITEK) <=0.12: Sensitive Klebsiella pneumoniae PIPRACIL/TAZO YVES (VITEK) <=4: Sensitive Klebsiella pneumoniae TRIMETH-SULFAMETH. YVES (VITEK) <=20: Sensitive us Alva DOOLEY MICROBIOLOGY - GENERAL ORDER YASMINE Final Result [facility] [address] [facility] [place] [address], [place] [phone] [facility] [address] [place] [address], [place] [phone] from Last 3 Months Insurance E[employer]ENCE Advance Directives Documents on File Type Date Recorded Patient Paper Cone Maker Expl anation Advance Directives and Living Will 02/17/2024 3:18 PM Advance Directives and Living Will 02/17/2024 3:18 PM Advance Directive (Activated) 02/11/2024 9:06 AM copy in [facility] Power of Stem Crusher 07/04/2024 6:18 AM POA H EALTH CARE * POLST (Latest Code Status on [...] be achieved in current setting. Care Teams Air Director Relationship Specialty Start Date End Date Jeferson Umanzor DO [address] [place] [id number] PCP - General FAMILY PRACTICE 12/04/21 Ana Echavarria, RN [address] [place] [address] Pricing Intern (Ambulatory) REGISTERED NURSE 02/04/24
--- OUTSIDE RECORDS SUMMARY | 2025-05-08 13:00 | XMS_ITS ---
Author Organization [facility] Address [facility] [place] [address] Care Team Providers Care Peer Tutor Name Role Phone Jobyshabnamhector Jeferson Thompson DO Primary Care Provider + Ana Echavarria RN Unavailable Active Problems Problem Noted Date Diagnosed Date Acute embolism and thrombosi s of unspecified deep veins of left lower extremity ([facility]) 10/29/2024 Atherosclerosis of other arteries 10/29/2024 Deficiency of other specified B group vitamins 1 12/30/2023 retirement (current) use of anticoagulants 2023 retirement (current) use of opiate analgesic 05/2024 Spinal stenosis, site unspecified 10/29/2024 Spondylosis without myelopat hy or radiculopathy, lumbar region 10/29/2024 Acute pulmonary embolism ([facility]) 10/24 Acquired absence of kidney 09/09/2024 Anemia in chronic kidney disease (CODE) 09/09/20 24 Calculus of kidney 09/09/2024 Depression, unspecified 09/09/2024 Diaphragmatic hernia without obstruction or gang ayala 09/09/2024 Dysphagia, unspecified 09/09/2024 Encounter for adjustment and management of vascular access device 09/09/2024 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 History of falling 09/09/2024 Lobulated, fused and horseshoe kidney 09/09/2024 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 Other skilled nursing (current) drug therapy Patient's noncompliance with other medical treatment and regimen due to unspecified reason 09/09/2024 Personal history of nicotine dependence 09/09/20 24 Personal history of urinary (tract) infections 1 Presence of artificial hip joint, bilateral 08/23 Unspecified glaucoma 09/09/2024 Hypertensive chronic kidney disease with stage 1 through stage 4 chronic kidney disease, or unspecified chronic kidney disease 09/09/2024 Chronic kidney disease, unspecified 09/09/2024 Chronic obstructive pulmonar y disease, unspecified ([facility]) 09/09/2024 Gastro-esophageal reflux disease without esophag itis 09/09/2024 Hyperlipidemia, unspecified 09/09/2024 Hypothyroidism, unspecified 09/09/2024 Unspecified severe protein-calorie malnutrition ([facility]) 09/09/2024 Other intestinal obstruction unspecified as to partial versus complete obstruction ([facility]) 09/09/2024 Other specified diseases of intestine 09/09/2024 Adult hypertrophic pyloric stenosis ([facility]) Mild protein-calorie malnutrition ([facility]) 07/11/2023 CARINA (acute kidney injury) 04/14/2024 Colitis 04/14/2024 Care Management 03/25/2024 SBO (small bowel obstruction) ([facility]) 02/03/2024 Dupuytrens contracture 10/22/2023 Calcification [...] 1960's COPD (chronic obstructive pu lmonary disease) ([facility]) 06/29/2017 Hyperlipidemia 04/08/2014 Overview (07/22/2021): Hyperlipemia Essential hypertension SOB (shortness of breath) Fatigue Current Treatment and Therapy Plans No current plan information found. Other Current Plans denosumab (PROLIA) every 6 months* Plan Start Date:12/13/2024 Plan Provider:Jeferson Umanzor DO Linked Problems Age-related osteoporosis wit hout current pathological fracture Treatment Medications Current Day (Day 1, Cycle 2 - Planned for 06/11/2025) No medications scheduled. No medications schedul ed. Past Treatment and Therapy Plans Resolved Problems Problem Noted Date Diagnosed Date Resolved Date Malignant neoplasm of cervix uteri, unspecified ([facility]) 09/09/2024 04/25/2025 Small bowel obstruction ([facility]) 10/22/2023 10/22/2023 Terminal ileitis ([facility]) 10/22/2023 10/22/2023 Benign hypertension with sta ge 3a chronic kidney disease 09/03/2022 01/25/2025 Stage 3a chronic kidney disease (CKD) 12/04/2021 01/25/2025 Benign hypertension with chr onic kidney disease, stage III 07/01/2017 01/25/2025 Malignant neoplasm of cervix ([facility]) 04/08/2014 09/16/2024 Overview (09/16/2024): Cervical cancer
--- OUTSIDE RECORDS SUMMARY | 2025-05-08 13:00 | XMS_ITS | Encounter Summary ---
Author Organization [facility] Address [facility] [place] [address] Care Team Providers Care Property Insurance Claims Examiner Name Role Phone Jeferson Umanzor DO Primary Care Provider + Ana Echavarria RN Unavailable Encounter Details Date Type Department Care Team (Late Contact Info) Description 08/12/2022 MyChart Message Enc [facility] Family & Internal Medicine [facility] [address] [place] [address] Jeferson Umanzor DO [address] [place] [address] Referral request Social History Tobacco Use Types Packs/Day Years Used Date Smoking Tobacco: Former Cigarettes 0.5 20 1 977 - 1996 Smokeless Tobacco: Never Alcohol Use [...] PM CDT Sexual Orientation Not on file documented as of this encounter Plan of Treatment Upcoming Encounters Date Type Department Care Team (Late st Contact Info) Description 05/08/2025 2:00 PM CDT Appointment [facility] [place] [address] Dean De La Fuente MD [address] [facility] [address] [place] [phone] 06/21/2025 2:00 PM CDT Treatment [facility] [place] [address] Jeferson Umanzor DO [address] [place] [address] 08/02/2025 1:00 PM CDT Office Visit [facility] Family & Internal Medicine - [place] [address] [place] [address] Jeferson Umanzor DO [address] [place] [address] documented as of this encounter Visit Diagnoses Not on filedocumented in this encounter Additional Health Concerns Assessment Noted Time PHQ-9 Depression Total Score: 0 12/04/19 22 1:16 PM INSTRUMENTATION AND CONTROL TECHNICIAN documented as of this encounter Care Teams Property Insurance Claims Examiner Relationship Specialty Start [place] [address] [place] [id number] PCP - General FAMILY PRACTICE 12/04/21 Ana Echavarria, RN [address] [place] [address] Rubber Thread Spooler (Ambulatory) REGISTERED NURSE 02/04/24 documented as of this encounter
--- OUTSIDE RECORDS SUMMARY | 2025-05-08 13:00 | XMS_ITS ---
Author Name Auto Generated, Auto Generated Organization [employer] [facility] ices Address [address] [place] [address] Phone [phone] Care Team Providers Care Cloth Hauler Name Role Phone Anderson Balderas Unavailable [phone] Functional Status No Results Mental Status No Results Allergies and Intolerances Name Onset Date Reaction Severity lisinopril (Allergy) ThuJul 01 14:44:00 EDT 201 7 Vicodin (Allergy) ThuJul 01 14:44:00 EDT 2016 Medications Medication Directions Start Date End Date atorvastatin 20 mg tablet 20 mg Oral 1 T taurus Daily Hyperlipidemia ThuJul 03 09:00:00 EDT 2016Jul 08 01:00:00 EDT 2016 Anoro Ellipta 62.5 mcg-25 mcg/actuation powder for inhalation 1 puff BLISTER, WITH INHALATION DEVICE Inhalation 1 Time Daily COPD ThuJul 02 14:25:00 EDT 2016Jul 08 01:00:00 EDT 2017 TUBErsol 5 tub. unit/0.1 mL intradermal injection solution 0.1 ml VIAL (ML) Intradermal 1 Time Weekly for 2 Weeks (PPD) 1st injection upon admission. Read between 48 and 72 hours and give 2nd injection 1 week after the 1st if result is negative. If positive result, proceed with chest x-ray to rule out active disease. ThuJul 02 15:30:00 EDT 2016Jul 08 01:00:00 EDT 2017 TUBErsol 5 tub. unit/0.1 mL intradermal injection solution Read Results VIAL (ML) Other 1 Time Weekly for 2 Weeks Read results between 48-72 hours after 1st and 2nd 1 week apart. If positive do chest x-ray to rule out active disease. ThuJul 02 15:30:00 EDT 2016Jul 08 01:00:00 EDT 2016 multivitamin tablet 1 tab TABLET Oral 1 Time Daily ThuJul 02 15:40:00 EDT 2016Jul 08 01:00:00 EDT 2016 Zocor 40 mg tablet 40mg TABLET Oral 1 T taurus Daily Hyperlipidemia ThuJul 01 15:00:00 EDT 2016 10 11:15:00 EDT 2016 albuterol sulfate HFA 90 mcg/actuation aerosol inhaler 2 puffs HFA AEROSOL WITH ADAPTER (GRAM) Inhalation PRN Every 4 Hours SOB/Wheezing ThuJul 01 15:00:00 EDT 2016Jul 08 01:00:00 EDT 2016 Anoro Ellipta 62.5 mcg-25 mcg/actuation powder for inhalation 1 puff BLISTER, WITH INHALATION DEVICE Inhalation 1 Time Daily COPD ThuJul 01 16:00:00 EDT 2016Jul 02 14:26:00 EDT 2016 amLODIPine 2.5 mg tablet 2.5mg TABLET Or al 1 Time Daily HTN ThuJul 01 15:00:00 EDT 2016Jul 08 01:00:00 EDT 2016 fenofibrate 160 mg tablet 160mg TABLET O ral 1 Time Daily ThuJul 01 15:00:00 EDT 2016Jul 08 01:00:00 EDT 2016 timolol maleate 0.25 % eye drops 2 drops DROPS Oral 1 Time Daily ThuJul 01 15:00:00 EDT 2016Jul 01 19:14:00 EDT 2016 Pred Forte 1 % eye drops,suspension 1 drop SUSPENSION, DROPS(FINAL DOSAGE FORM)(ML) Both Eyes 1 Time Daily ThuJul 01 15:00:00 EDT 2016Jul 01 19:16:00 EDT 2016 omeprazole 20 mg capsule,delayed release 20mg CAPSULE,DELAYED RELEASE (ENTERIC COATED) Oral 1 Time Daily GERD ThuJul 01 15:00:00 EDT 2016Jul 08 01:00:00 EDT 2016 Vitamin B-12 1,000 mcg tablet 1000mg TABLET Oral 1 Time Daily Supplement ThuJul 01 15:00:00 EDT 2016Jul 08 01:00:00 EDT 2016 Vitamin D3 1,000 unit capsule 1000mg CAPSULE Oral 1 Time Daily Supplement ThuJul 01 15:00:00 EDT 2016Jul 08 01:00:00 EDT 2016 oxyCODONE-acetaminophen 10 mg-325 mg tablet 10-325 mg 1 tab TABLET Oral PRN Every 4 Hours Pain ThuJul 01 15:00:00 EDT 2016Jul 08 01:00:00 EDT 2016 oxyCODONE-acetaminophen 5 mg-325 mg tablet 5-325 mg 1 tab TABLET Oral PRN Every 4 Hours Pain ThuJul 01 15:00:00 EDT 2016Jul 08 01:00:00 EDT 2016 Xarelto 10 mg tablet 10mg TABLET Oral 1 Time Daily for 30 Days DVT prophylaxis ThuJul 01 15:00:00 EDT 2016Jul 08 01:00:00 EDT 2016 timolol maleate 0.25 % eye drops 1 drop DROPS Both Eyes 2 Times Daily ThuJul 01 19:00:00 EDT 2016Jul 08 01:00:00 EDT 2016 Pred Forte 1 % eye drops,suspension 1 drop SUSPENSION, DROPS(FINAL DOSAGE FORM)(ML) Right Eye 3 Times Daily ThuJul 01 19:00:00 EDT 2016Jul 08 01:00:00 EDT 2016 Problems Active Concerns * Aftercare following joint replacement surgery* Code: * Start Date: ThuJul 01 00:00:00 EDT 2016 * End Date: * Text: * Presence of left artificial hip joint* Code: * Start Date: ThuJul 01 00:00:00 EDT 2016 * End Date: * Text: * Chronic obstructive pulmonary disease, unspecified* Code: * Start Date: ThuJul 01 00:00:00 EDT 2016 * End Date: * Text: * Essential (primary) hypertension* Code: * Start Date: ThuJul 01 00:00:00 EDT 2016 * End Date: * Text: * Unspecified glaucoma* Code: * Start Date: ThuJul 01 00:00:00 EDT 2016 * End Date: * Text: * Gastro-esophageal reflux disease without esophagitis* Code: * Start Date: ThuJul 01 00:00:00 EDT 2016 * End Date: * Text: * Mixed hyperlipidemia* Code: * Start Date: ThuJul 01 00:00:00 EDT 2016 * End Date: * Text: * Chronic kidney disease, stage 2 (mild)* Code: * Start Date: ThuJul 01 00:00:00 EDT 2016 * End Date: * Text: * Hypertensive chronic kidney disease with stage 1 through stage 4 chronic kidney disease, or unspecified chronic kidney disease* Code: * Start Date: ThuJul 01 00:00:00 EDT 2016 * End Date: * Text: * Acquired absence of kidney* Code: * Start Date: ThuJul 01 00:00:00 EDT 2016 * End Date: * Text: * Vitamin D deficiency, unspecified* Code: * Start Date: ThuJul 01 00:00:00 EDT 2016 * End Date: * Text: * Other specified disorders of bone density and structure, unspecified site* Code: * Start Date: ThuJul 01 00:00:00 EDT 2016 * End Date: * Text: * Deficiency of other specified B group vitamins* Code: * Start Date: ThuJul 01 00:00:00 EDT 2016 * End Date: * Text: Reason for Referral Past Medical History
--- OUTSIDE RECORDS SUMMARY | 2025-05-08 13:00 | XMS_ITS | Encounter Summary ---
Author Organization [facility] Address [facility] [place] [address] Care Team Providers Care Senior Talent Acquisition Specialist Name Role Phone Jeferson Umanzor Primary Care Provider + Ana Echavarria RN Unavailable Encounter Details Date Type Department Care Team (Late st Contact Info) Description 04/16/2023 Therapy Plan [facility] [place] [address] Sakina Moser RN Social History [...] PM CDT Sexual Orientation Not on file COVID-19 Exposure Response Date Recorded In the last 10 days, have yo u been in contact with someone who was confirmed or suspected to have Coronavirus/COVID-19? No / Unsure 03/17/2023 12:55 PM CDT documented as of this encounter Plan of Treatment Upcoming Encounters Date Type Department Care Team (Late st Contact Info) Description 05/08/2025 2:00 PM CDT Appointment [facility] [place] [address] Dean De La Fuente MD [address] [facility] [address] [place] [phone] 06/21/2025 2:00 PM CDT Treatment [facility] [place] [address] Jeferson Umanzor DO [address] [place] [address] 08/02/2025 1:00 PM CDT Office Visit [facility] Family & Internal Medicine [facility] [address] [place] [address] Jeferson Umanzor DO [address] [place] [address] documented as of this encounter Visit Diagnoses Diagnosis Age-related osteoporosis without current pathological fracture- Primary Senile osteoporosis documented in this encounter Additional Health Concerns Assessment Noted Time PHQ-9 Depression Total Score: 0 09/03/20 22 1:40 PM CDT documented as of this encounter Care Teams Senior Talent Acquisition Specialist Relationship Specialty Start Date End Date Jeferson Umanzor DO [address] [place] [address] PCP - General FAMILY PRACTICE 12/04/21 Ana Echavarria, CHEY [address] [place] [address] Windows Server Architect (Ambulatory) REGISTERED NURSE 02/04/24 documented as of this encounter
--- OUTSIDE RECORDS SUMMARY | 2025-05-08 13:00 | XMS_ITS | Continuity of Care Document ---
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, [address] [place], [place] [address], [place], [place], [address], [place] tel:[phone] [facility] No Information Oct-1 8-201 0 Jenna Smith. [address] [place], [address], [place]. tel:[phone] Referring Provider: Luis Jacome, [address] [place], [address]. tel:[phone] [facility], [address], [place], [place], [address], [place] tel:[phone] [facility] No Information Sep-2 0-201 0 Jenna Smith. [address] [place], [address], [place]. tel:[phone] Referring Provider: Luis Jacome, [address] [place], [address]. tel:[phone] [facility], [address], [place], [place], [address], [place] tel:[phone] [facility] No Information Aug-2 3-201 0 Jenna Smith. [address] [place], [address], [place]. tel:[phone] [facility], [address], [place], [place], [address], [place] tel:[phone] [facility] No Information David-2 6-201 0 Jenna Smith. [address] [place], [address], [place]. tel:[phone] Referring Provider: Luis Jacome, [address] [place], [address]. tel:[phone] [facility], [address], [place], [place], [address], [place] tel:[phone] [facility] No Information David-1 2-201 0 West Luis. [address] [place], [address], [place]. tel:[phone] Referring Provider: Luis Jacome, [address] [place], [address]. tel:[phone] [facility], [address], [place], [place], [address], [place] tel:[phone] [facility] No Information Ta-2 1-201 0 Jenna Smith. [address] [place], [address], [place]. tel:[phone] Referring Provider: Luis Jacome, [address] [place], [address]. tel:[phone] [facility], [address], [place], [place], [address], [place] tel:[phone] [facility] No Information 4-201 0 Jenna Smith. [address] [place], [address], [place]. tel:[phone] Referring Provider: Luis Jacome, [address] [place], [address]. tel:[phone] [facility], [address], [place], [place], [address], [place] tel:[phone] [facility] No Information 6-201 0 Jenna Smith. [address] [place], [address], [place]. tel:[phone] Referring Provider: Luis Jacome, [address] [place], [address]. tel:[phone] [facility], [address], [place], [place], [address], [place] tel:[phone] [facility] No Information 2-201 0 Jenna Smith. [address] [place], [address], [place]. tel:[phone] Referring Provider: Luis Jacome, [address] [place], [address]. tel:[phone] [facility], [address], [place], [place], [address], [place] tel:[phone] [facility] No Information 5-201 0 Jenna Smith. [address] [place], [address], [place]. tel:[phone] Referring Provider: Luis Jacome, [address] [place], [address]. tel:[phone] [facility], [address], [place], [place], [address], [place] tel:[phone] [facility] No Information 0 Jenna Smith. [address] [place], [address], [place]. tel:[phone] Referring Provider: Luis Jacome, [address] [place], [address]. tel:[phone] [facility], [address] [place] [address] [address], [place], [place], [address], [place] tel:[phone] [facility] No Information 0 Jenna Smith. [address] [place], [address], [place]. tel:[phone] Referring Provider: Luis Jacome, [address] [place], [address]. tel:[phone] [facility], [address] [place] [address] [address], [place], [place], [address], [place] tel:[phone] [facility] No Information 0 Jenna Smith. [address] [place], [address], [place]. tel:[phone] Referring Provider: Luis Jacome, [address] [place], [address]. tel:[phone] [facility], [address], [place], [place], [address], [place] tel:[phone] [facility] No Information Oct-0 7-200 9 Jenna Smith. [address] [place], [address], [place]. tel:[phone] Referring Provider: Luis Jacome, [address] [place], [address]. tel:[phone] [facility], [address] [place] [address] [address], [place], [place], [address], [place] tel:[phone] [facility] No Information 3200 9 Jenna Smith. [address] [place], [address], [place]. tel:[phone] Referring Provider: Luis Jacome, [address] [place], [address]. tel:[phone] [facility], [address], [place], [place], [address], [place] tel:[phone] [facility] No Information Aug- 6-200 9 Jenna Smith. [address] [place], [address], [place]. tel:[phone] Referring Provider: Luis Jacome, [address] [place], [address]. tel:[phone] [facility], [address], [place], [place], [address], [place] tel:[phone] [facility] No Information Jul-2 1200 9 Jenna Smith. [address] [place], [address], [place]. tel:[phone] Referring Provider: Luis Jacome, [address] [place], [address]. tel:[phone] [facility], [address], [place], [place], [address], [place] tel:[phone] [facility] No Information 7200 9 Jenna Smith. [address] [place], [address], [place]. tel:[phone] Referring Provider: Luis Jacome, [address] [place], [address]. tel:[phone] [facility], [address], [place], [place], [address], [place] tel:[phone] [facility] No Information 2 7-200 9 Jenna Smith. [address] [place], [address], [place]. tel:[phone] Referring Provider: Luis Jacome, [address] [place], [address]. tel:[phone] [facility], [address], [place], [place], [address], [place] tel:[phone] [facility] No Information May-1 3-200 9 Jenna Smith. [address] [place], [address], [place]. tel:[phone] Referring Provider: Luis Jacome, [address] [place], [address]. tel:[phone] [facility], [address], [place], [place], [address], [place] tel:[phone] [facility] No Information 1-200 9 Jenna Smith. [address] [place], [address], [place]. tel:[phone] Referring Provider: Luis Jacome, [address] [place], [address]. tel:[phone] [facility], [address], [place], [place], [address], [place] tel:[phone] [facility] No Information 7200 9 Jenna Smith. [address] [place], [address], [place]. tel:[phone] [facility], [address], [place], [place], [address], [place] tel:[phone] [facility] No Information Jan-3 0-200 9 Jenna Smith. [address] [place], [address], [place]. tel:[phone] [facility], [address], [place], [place], [address], [place] tel:[phone] [facility] No Information 3200 9 Jenna Smith. [address] [place], [address], [place]. tel:[phone] Referring Provider: Luis Jacome, [address] [place], [address]. tel:[phone] [facility], [address] [place] [address] [address], [place], [place], [address], [place] tel:[phone] [facility] No Information 0 9-200 9 Jenna Smith. [address] [place], [address], [place]. tel:[phone] Referring Provider: Luis Jacome, [address] [place], [address]. tel:[phone] [facility], [address] [place] [address] [address], [place], [address], [place] tel:[phone] [facility] No Information 9 Jenna Smith. [address] [place], [address], [place]. tel:[phone] Referring Provider: Luis Jacome, [address] [place], [address]. tel:[phone] [facility], [address] [place] [address] [address], [place], [place], [address], [place] tel:[phone] [facility] No Information 2200 8 Jenna Smith. [address] [place], [address], [place]. tel:[phone] Referring Provider: Luis Jacome, [address] [place], [address]. tel:[phone] [facility], [address], [place], [place], [address], [place] tel:[phone] [facility] No Information Dec-1 1-200 8 Jenna Smith. 12 [facility], [place], [facility], [place]. tel:[phone] Referring Provider: Javi Lucio, [facility] [address], [place], [facility]. tel:[phone] [facility], [address] [place] [address] [address], [place], [place], [address], [place] tel:[phone] [facility] No Information Dec-0 8-200 8 Guillermina Caldwell. [facility] , [address], [place], [facility], [place]. tel:[phone] [facility], [address], [place], [place], [address], [place] tel:[phone] [facility] No Information Oct-2 7-200 8 Guillermina Caldwell. [facility] , [address], [place], [facility], [place]. tel:[phone] [facility], [address] [place] [address] [address], [place], [place], [address], [place] tel:[phone] [facility] No Information Oct-1 3-200 8 Guillermina Caldwell. [address] [place], [place] [address] , [address], [place], [facility], [place]. tel:[phone] [facility], [address], [place], [place], [address], [place] tel:[phone] [facility] No Information Sep-2 4-200 8 Kervin Al. [address], [address], [place], [place], [address], [place]. tel:[phone] Referring Provider: Javi Lucio, [facility] [address], [place], [facility]. tel:[phone] [facility], [address], [place], [place], [address], [place] tel:[phone] [facility] No Information Sep-1 7-200 8 Kervin Servando. [address], [address], [place], [place], [address], [place]. tel:[phone] Referring Provider: Amina Dasil[address], [place], [address]. tel:[phone] [facility], [address], [place], [place], [address], [place] tel:[phone] [facility] No Information Sep-1 6-200 8 Kerivn Servando. [address], [address], [place], [place], [address], [place]. tel:[phone] Referring Provider: Amina [address], [place], [address]. tel:[phone] Office/outpat ient Visit, Est [facility], [address], [place], [place], [address], [place] tel:[phone] SEC [facility] No Information Sep-0 9-200 8 [place] Servando. [address] [facility], [address], [place], [place], [address], [place]. tel:[phone] Referring Provider: Amina Das[address], [place], [address]. tel:[phone] [facility], [address], [place], [place], [address], [place] tel:[phone] [facility] No Information Sep-0 5-200 8 Guillermina Caldwell. [address] , [address], [place], [address], [place]. tel:[phone] Referring Provider: Javi Lucio, [address], [place], [address]. tel:[phone] [facility], [address], [place], [place], [address], [place] tel:[phone] [facility] No Information Sep-0 4-200 8 Jenna Smith. [address] [place], [address], [place]. tel:[phone] [facility], [address], [place], [place], [address], [place] tel:[phone] [facility] No Information May-2 4-200 8 Jenna Smith. [address] [place], [facility], [place]. tel:[phone] Referring Provider: Luis Jacome, [address] [place], [facility]. tel:[phone] Office/outpat ient Visit, Est [facility], [address], [place], [place], [address], [place] tel:[phone] [facility] No Information May-2 3-200 8 Guillermina Caldwell. [address] , [address], [place], [address], [place]. tel:[phone] [facility], [address], [place], [place], [address], [place] tel:[phone] [facility] No Information May-1 0-200 8 Jenna Smith. [address] [place], [address], [place]. tel:[phone] Referring Provider: Javi Lucio, [address], [place], [address]. tel:[phone] [facility], [address], [place], [place], [address], [place] tel:[phone] [facility] No Information David-0 7-200 8 Westjeffrey Smith. [address] [place], [address], [place]. tel:[phone] [facility], [address], [place], [place], [address], [place] tel:[phone] [facility] No Information David-0 2-200 8 Doisy Edward. [address] , [address], [place], [facility], [place]. tel:[phone] [facility], [address] [place] [address] [address], [place], [place], [address], [place] tel:[phone] [facility] No Information Ta-2 3-200 8 Jenna Smith. [address] [place], [address], [place]. tel:[phone] [facility], [address] [place] [address] [address], [place], [place], [address], [place] tel:[phone] [facility] No Information Ta-1 8-200 8 Doisy Edward. [address] , [address], [place], [address], [place]. tel:[phone] [facility], [address] [place] [address] [address], [place], [place], [address], [place] tel:[phone] [facility] No Information Ta-1 0-200 8 Doisy Edward. [address] , [address], [place], [address], [place]. tel:[phone] Office/outpat ient Visit, Est [facility], [address], [place], [place], [address], [place] tel:[phone] [facility] No Information March-2 8-200 8 Doisy Edward. [address] , [address], [place], [address], [place]. tel:[phone] Referring Provider: Javi Lucio, [address], [place], [facility]. tel:[phone] [facility], [address], [place], [place], [address], [place] tel:[phone] [facility] No Information May-1 2-200 8 West Luis. [address] [place], [address], [place]. tel:[phone] [facility], [address], [place], [place], [address], [place] tel:[phone] [facility] No Information Apr-1 4-200 8 West Luis. [address] [place], [facility], [place]. tel:[phone] [facility], [address], [place], [place], [address], [place] tel:[phone] [facility] No Information Apr-0 7-200 8 West Luis. [address] [place], [address], [place]. tel:[phone] [facility], [address], [place], [place], [address], [place] tel:[phone] [facility] No Information Apr-0 3-200 8 West Luis. [address] [place], [facility], [place]. tel:[phone] Referring Provider: Cornelio rick, [address] [facility] [address] [address], [place], [address]. tel:[phone] Office/outpat ient Visit, [facility], [address], [place], [place], [address], [place] tel:[phone] [facility] No Information Apr-0 1-200 8 Krishnasamy Cornelio. [address] [facility] [address] [address], [place], [address], [place]. tel:[phone] [facility], [address], [place], [place], [address], [place] tel:[phone] [facility] No Information Mar-2 5-200 8 Krishnasamy Cornelio. [address] [facility] [address], [place], [address], [place]. tel:[phone] Referring Provider: Javi Lucio, [address] [place], [place] [address] [place] [address], [place], [facility]. tel:[phone] [facility], [address], [place], [place], [address], [place] tel:[phone] [facility] No Information Mar-2 0-200 8 Guillermina Caldwell. [address] [place] [address] , [address], [place], [facility], [place]. tel:[phone] Referring Provider: Javi Lucio, [address] [place], [place] [address] [place] [address], [place], [facility]. tel:[phone] Office/outpat ient Visit, [facility], [address], [place], [place], [address], [place] tel:[phone] [facility] No Information Dec-2 1-200 7 Guillermina Caldwell. [address] [place], [place] [address] , [address], [place], [facility], [place]. tel:[phone] [facility], [address], [place], [place], [address], [place] tel:[phone] [facility] No Information Nov-2 9-200 7 Jenna Smith. [address] [place], [facility], [place]. tel:[phone] Office/outpat ient Visit, [facility], [address], [place], [place], [address], [place] tel:[phone] [facility] No Information Nov-1 6-200 7 Guillermina Caldwell. [address] , [address], [place], [facility], [place]. tel:[phone] [facility], [address] [place] [address] [address], [place], [place], [address], [place] tel:[phone] [facility] No Information Nov-0 1-200 7 Jenna Smith. [address] [place], [facility], [place]. tel:[phone] [facility], [address] [place] [address] [address], [place], [place], [address], [place] tel:[phone] [facility] No Information Oct-1 5-200 7 Jenna Smith. [address] [place], [facility], [place]. tel:[phone] Office/outpat ient Visit, [facility], [address] [place] [address] [address], [place], [place], [address], [place] tel:[phone] [facility] No Information Oct-1 2-200 7 Guillermina Caldwell. [address] [facility] , [address], [place], [facility], [place]. tel:[phone] Referring Provider: Javi Lucio, [address], [place], [facility]. tel:[phone] [facility], [address] [place] [address] [address], [place], [place], [address], [place] tel:[phone] [facility] No Information Sep-1 0-200 7 Jenna Smith. [address] [place], [address], [place]. tel:[phone] Office/outpat ient Visit, [facility], [address], [place], [place], [address], [place] tel:[phone] [facility] No Information Jun-2 0-200 7 Doisy Edward. [address] , [address], [place], [address], [place]. tel:[phone] [facility], [address], [place], [place], [address], [place] tel:[phone] [facility] No Information Jun-1 3-200 7 West Luis. [address] [place], [facility], [place]. tel:[phone] [facility], [address], [place], [place], [address], [place] tel:[phone] [facility] No Information May-2 6-200 7 West Luis. [address] [place], [address], [place]. tel:[phone] [facility], [address], [place], [place], [address], [place] tel:[phone] [facility] No Information Ta-2 8-200 7 Jenna Smith. [address] [place], [address], [place]. tel:[phone] Office[facility]outpat ient Visit, [facility], [address] [place] [address] [address], [place], [place], [address], [place] tel:[phone] [facility] [place] No Information Ta-2 2-200 7 Walls OD Froy. [address] , [address], [place], [address], [place]. tel:[phone] Office/outpat ient Visit, Est [facility], [address], [place], [place], [address], [place] tel:[phone] [facility] No Information March-3 1-200 7 Jenna Smith. [address] [place], [address], [place]. tel:[phone] [facility], [address], [place], [place], [address], [place] tel:[phone] [facility] No Information May-1 4-200 7 West Luis. [address] [place], [address], [place]. tel:[phone] Referring Provider: Luis Jacome, [address] [place], [facility]. tel:[phone] Office/outpat ient Visit, [facility], [address], [place], [place], [address], [place] tel:[phone] [facility] No Information Mar-1 9-200 7 Jenna Smith. [address] [place], [address], [place]. tel:[phone] [facility], [address], [place], [place], [address], [place] tel:[phone] [facility] No Information Mar-0 5-200 7 Jenna Smith. [address] [place], [address], [place]. tel:[phone] [facility], [address], [place], [place], [id number], [place] tel:[phone] [facility] No Information Feb-2 6-200 7 Jenna Smith. 12 [place], [address], [place]. tel:[phone] Referring Provider: Luis Jacmoe, 12 [place], [address]. tel:[phone] [facility], [address], [place], [place], [id number], [place] tel:[phone] [facility] No Information 200 7 Jenna Smith. 12 [place], [facility], [place]. tel:[phone] Referring Provider: Luis Jacome, 12 [place], [facility]. tel:[phone] [facility], [address], [place], [place], [id number], [place] tel:[phone] [facility] No Information 7 Jnena Smith. 12 [place], [facility], [place]. tel:[phone] [facility], [address], [place], [place], [id number], [place] tel:[phone] [facility] No Information 7 Jenna Smith. 12 [place], [facility], [place]. tel:[phone] Referring Provider: Luis Jacome, 12 [place], [address]. tel:[phone] Family History Family Member Type Diagnosis Age At Onset No Information Payers Payer name Insurance type Covered libertarian ID Authoriza tion(s) Medicare [facility] [id number] [facility] Commercial [id number] Social History Type Description Quantity Date Captured [...]
--- OUTSIDE RECORDS SUMMARY | 2025-05-08 13:01 | XMS_ITS ---
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
--- OUTSIDE RECORDS SUMMARY | 2025-05-08 13:01 | XMS_ITS | Encounter Summary ---
Author Organization [facility] Address Formerly [facility], [id number] [place] [address] Care Team Providers Care Chief Deputy Coroner Name Role Phone Jeferson Umanzor DO Primary Care Provider + Ana Echavarria RN Unavailable Encounter Details Date Type Department Care Team (Late st Contact Info) Description 05/16/2024 MyChart Message Enc [facility] Family & Internal Medicine [facility] [address] [place] [address] Jeferson Umanzor DO [address] [place] [address] referral to see urologist Social [...] from your doctor or pharmacy? Never 04/15/2024 [facility] Utilities Answer Date Recorded In the past 12 months has th e [employer], gas, oil, or water company threatened to [...] week 04/15/2024 How often do you attend [facility] or yarsani services? Never 04/15/2024 Do you belong to [...] Recorded Patient Health Questionnaire-2 Score 0 03/14/2024 [facility] - Occupational Stress Questionnaire Answer Date [...] place to sleep or slept in a custodial (including now)? No 02/09/2024 Housing Stability Vital Sign Answer Jackson e Recorded In the last 12 months, was t here a time when you were not able to pay the mortgage or rent on time? No 04/15/2024 In the past 12 months, how m any times have you moved where you were living? 1 04/15/2024 At any time in the past 12 m [facility], were you homeless or living in a custodial (including now)? No 04/15/2024 Comments No Sex [...] Info) Description 05/08/2025 2:00 PM CDT Appointment [facility] [place] [address] [place] [address] Dean De La Fuente MD [address] [facility] [address] [place] [address] 06/21/2025 2:00 PM CDT Treatment [facility] [address] [place] [address] Jeferson Umanzor, DO [address] [place] [address] 08/02/2025 1:00 PM CDT Office Visit [facility] Family & Internal Medicine - [place] [address] [place] [address] Jeferson Umanzor, DO [address] [place] [address] documented as of this encounter Goals Goal Patient Goal Type Associated Problems Recent Progress Patient-Stated? Author Establish Plan for Symptom Monitoring HTN Lifestyle On track(2024 11:09 AM CDT) No Ana Echavarria, RN Note: Hypertension: Patient [...] COPD Lifestyle On track(2024 11:09 AM CDT) No Ana Echavarria, RN Note: COPD: Patient [...] documented as of this encounter Care Teams Chief Deputy Coroner Relationship Specialty Start Date End Date Jeferson Umanzor DO [address] [place] [address] PCP - General FAMILY PRACTICE 12/04/21 Ana Echavarria, RN [address] [place] [address] Brake Repair Supervisor (Ambulatory) REGISTERED NURSE 02/04/24 documented as of this encounter
--- OUTSIDE RECORDS SUMMARY | 2025-05-08 13:01 | XMS_ITS | Encounter Summary ---
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 Procedures OFFICE/OUTPATIENT NEW LOW MDM 30-44 MINUTES OFFICE/OUTPT VISIT,NEW,LEVL IV OFFICE/OUTPT VISIT,NEW,LEVL V OFFICE/OUTPT VISIT,EST,LEVL III OFFICE/OUTPT VISIT,EST,LEVL IV OFFICE/OUTPT VISIT,EST,LEVL V Jeferson Laureano DO [address] [place] [address] Phone: tel: fax: Referral ID Status Reason Start Date Expiration Date Visits Requested Visits Authorized [id number] New Request Home Health Services 05/08/2025 05/08/2026 1 1 Scheduling Instructions 's name: [facility] JU[facility] [id number] Specialty: Home Health Reason for referral (diagnosis): [id number] Appointment: 05/08/25 Reason for Visit * Reason Onset Date Comments Referral 05/04/2025 Encounter Details Date Type Department Care Team (Late st Contact Info) Description 05/04/2025 Telephone [facility] Medical Group Family & Internal Medicine [facility] [address] [place] [address] Jeferson Laureano DO [address] [place] [address] Referral Social History Tobacco Use Types Packs/Day Years [...] from your doctor or pharmacy? Never 04/15/2024 [facility] Utilities Answer Date Recorded In the past 12 months has [facility] [employer], gas, oil, or water [employer] threatened to shut off services in your [...] How often do you attend chur or cheondoism services? Never 04/15/2024 Do you belong to any clubs o r organizations such as restoration groups, unions, fraternal or athletic groups, or [...] Recorded Patient Health Questionnaire-2 Score 0 04/13/2025 [facility] - Occupational Stress Questionnaire Answer Date [...] place to sleep or slept in a usp (including now)? No 02/09/2024 Housing Stability Vital Sign Answer Jackson e Recorded In the last 12 months, was t here a time when you were not able to pay the mortgage or rent on time? No 10/24/2024 In the past 12 months, how m any times have you moved where you were living? 1 10/24/2024 At any time in the past 12 m [facility], were you homeless or living in a usp (including now)? No 10/24/2024 Comments No Sex [...] documented in this encounter Progress Notes * Trish Gonzalez MA - 05/08/2025 10:24 AM CDT New referral placed. * IRVIN Brothers - 05/05/2025 7:56 AM CDT yes * Joleen Inman - 05/04/2025 1:53 PM CDT The specialist office called for a referral to the following physician: Is this a new consult: no - continuation of care 's name: [facility] Health Specialty: Home Health Reason for referral (diagnosis): [id number] Appointment: 05/08/25 Last office visit at this office: Last visit with JEFERSON LAUREANO in FAMILY PRACTICE was on: 04/25/2025 in [facility] Future appointment scheduled: Future Appointments Date Time Provider Department Center 05/08/2025 2:00 PM [facility] 1 [facility] 06/21/2025 2:00 PM [facility] RM 2 SJSINSEO [facility] 08/02/2025 1:00 PM Jeferson Laureano DO [id number] Insurance Referral 10 Home Health Long-Term Visits to be added to [id number] documented in this encounter Plan of Treatment Upcoming Encounters Date Type Department Care Team (Late st Contact Info) Description 05/08/2025 2:00 PM CDT Appointment [facility] [place] [address] Dean De La Fuente MD [address] [facility] [address] [place] [address] 06/21/2025 2:00 PM CDT Treatment [facility] [place] [address] Jeferson Laureano DO [address] [place] [address] 08/02/2025 1:00 PM CDT Office Visit [facility] Medical Group Family & Internal Medicine - [place] [address] [place] [address] Jeferson Laureano DO [address] [place] [address] Scheduled Referrals Name Type Priority Associated Diagnoses Orde r Schedule Abbreviated Ambulatory Referral to Home Health Referral Routine 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 Ordered: 05/08/2025 documented as of this encounter Goals Goal [...] as of this encounter Visit Diagnoses Diagnosis 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
--- OUTSIDE RECORDS SUMMARY | 2025-05-08 13:01 | XMS_ITS | CONTINUITY OF CARE DOCUMENT ---
Author Name shakeel beckford Address Unknown Organization [facility] Address [address] [facility] [address] [place] [address] Phone [phone] Care Team Providers Care Appian Bpm Developer Name Role Phone Pj SIFUENTES, Mag Unavailable SHALA OCHOA MD Unavailable DON SIFUENTES, SHALA Unavailable ENCOUNTERS Date Type Provider Location Encounter Diagnosis - In-person encounter Office Visit [facility] - In-person encounter Office Visit [facility] INSURANCE PROVIDERS Payer name Policy type / Coverage type Clarissa red libertarian ID [facility] [id number] [place] Medicare [id number]
--- OUTSIDE RECORDS SUMMARY | 2025-05-08 13:01 | XMS_ITS | Referral Summary ---
Author Organization [facility] Address [address] [place] [address] Care Team Providers Care Microsoft Net Developer Name Role Phone Jeferson Umanzor Primary Care Provide r Encounters Date Type Department Care Team Description 04/10/2025 Orders Only [facility] Scanning, Provider 04/05/2025 Telephone [facility] [address] [place] [address] [place] [phone] Lydia Arana LPN Lab Results 04/03/2025 Orders Only [facility] Scanning, Provider 03/28/2025 Telephone [facility] [address] [place] [address] Medical Office Building [address] [place] [address] Sheafli Cotton, CORE MAKER Med Management; labs 03/27/2025 Orders Only [facility] Scanning, Provider 03/22/2025 Orders Only [facility] Scanning, Provider 03/16/2025 Telephone [facility] [address] [place] [address] Medical Office Building [address] [place] [address] Shefali Cotton, CORE MAKER Labs 03/1403/16/2025 Documentation [facility] [address] [place] [address] Medical Office Building [address] [place] [address] Reavy, Shefali, CORE MAKER Labs Only 03/14/2025 Orders Only [facility] Scanning, Provider 03/08/2025 Telephone [facility] [address] [place] [address] Medical Office Building [address] [place] [address] Reavy, Shefali, CORE MAKER Labs for this week 03/06/2025 Orders Only [facility] Scanning, Provider 02/27/2025 Orders Only [facility] Scanning, Provider 02/24/2025 Orders Only [facility] [address] [place] [address] Medical Office Building [address] [place] [address] Reavy, Shefali, CORE MAKER Abnormal weight loss (Primary Dx); Moderate protein malnutrition; Nutritional counseling 02/22/2025 Telephone [facility] [address] [place] [address] Medical Office Building [address] [place] [address] Reavy, Shefali, CORE MAKER TPN - Protein Labs 02/21/2025 Orders Only [facility] Scanning, Provider 02/14/2025 Telephone [facility] [address] [place] [address] Medical Office Building [address] [place] [address] Reavy, Shefali, CORE MAKER medication management 02/14/2025 Orders Only [facility] [address] [place] [address] Medical Office Building [address] [place] [address] Reavy, Shefali, CORE MAKER 02/14/2025 1:40 PM CDT Office Visit [facility] [address] [place] [address] Medical Office Building [address] [place] [address] Lindsey Hope PA Moderate protein malnutrition (Primary Dx); Abnormal weight loss; Iron deficiency anemia due to chronic blood loss 02/13/2025 Orders Only [facility] Scanning, Provider 02/13/2025 Telephone [facility] [address] [place] [address] Medical Office Building [address] [place] [address] Reavy, Shefali, CORE MAKER Medication Management 02/06/2025 Orders Only [facility] Scanning, Provider from Last 3 Months Allergies Active Allergy Reactions Criticality Noted Date Comments Hydrocodone-Acetaminophen Itching Medium 05/05/2012 Lisinopril Cough Low 07/13/2013 Nsaids (Non-Steroidal Anti-I nflammatory Drug) Hives High 01/15/2018 Medications umeclidinium-v ilanterol (ANORO ELLIPTA) 62.5-25 mcg/actuation blister with device inhale 1 puff by inhalation route every day at the same time each day 0 Blister 0 7 Active albuterol sulfate (PROAIR RESPICLICK) 90 mcg/actuation aerosol powdr breath activated inhale 2 puff by inhalation route every 4 - 6 hours as needed 0 Inhaler 0 7 Active dorzolamide-ti molol (COSOPT) 22.3-6.8 mg/mL ophthalmic solution instill 1 drop by ophthalmic route 2 times every day into affected eye(s) 0 2 Active sertraline (ZOLOFT) 25 mg tabletIndicati ons:Anxiety with Depression Take 1 tablet (25 mg [...] 3 Active opium 10 mg/mL (morphine equiv) tinctureIndica tions:diarrhea ,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 Never 08/26/2024 Do you belong to any clubs o r organizations such as jew groups, unions, fraternal or athletic groups, or school groups? No 08/26/2024 How often do you attend meet ings of the clubs or organizations you belong to? Never 08/26/2024 Are you , , di vorced, , never , or living with a partner? 08/26/2024 AUDIT-C Answer Date Recorded Q1: How often do you have a drink containing alcohol? Never 02/14/2025 Q2: How many drinks containi ng alcohol do you have on a typical day when you are drinking? Patient does not drink Q3: How often do you have si x or more drinks on one occasion? Never 02/14/2025 Overall Financial Resource Strain (CARDIA) Answe r [...] any time in the past 12 m [facility], were you homeless or living in a alf (including now)? No 08/26/2024 Personal Safety Answer Date Recorded Have you ever been in or are you currently in a harmful physical or emotional relationship or is someone making you feel afraid or unsafe? Denies 08/24/2024 Comments No Sex and Gender Information Value Date Recorded Sex Assigned at Not on file Legal Sex Female 10:24 AM PROGRAM/MUSIC DIRECTOR Gender Identity Not on file Sexual Orientation Not on file Last Filed Vital Signs Vital Sign Reading Time Taken Comments Blood Pressure 180/77 02/14/2025 1:41 PM CDT Pulse 67 02/14/2025 1:41 PM CDT Temperature 37.2 C (99 F) 11/01/2024 10:35 AM PROGRAM/MUSIC DIRECTOR Respiratory Rate 17 09/09/2024 6:05 AM CDT Oxygen Saturation 97% 02/14/2025 1:41 PM CDT Inhaled Oxygen Concentration - - Weight 44.9 kg (99 lb) 02/14/2025 1:41 PM CDT Height 144.8 cm (4' 9) 02/14/2025 1:41 PM CDT Body Mass Index 21.42 02/14/2025 1:41 PM CDT Plan of Treatment Not on file Medical Devices Implanted Type Area Retail Support Associate Device Identifier Shelf Expiration Date Model / Serial / Lot Hardware N/A: Back Ahmed Shunt-08/08/2008 Implanted:08/08 (Quantity not on file) Right: 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 Implanted:07/01 (Quantity not on file) Left: Hip Rt Hip Replacement- Implanted:09/21 (Quantity not on file) Right: Hip Procedures Procedure Name Priority Date/Time Associated Diagnosis Comments SCAN - LABS 04/10/2025 SCAN - LABS 04/03/2025 SCAN - LABS 03/27/2025 SCAN - LABS 03/22/2025 SCAN - LABS 03/14/2025 SCAN - LABS 03/06/2025 SCAN - LABS 02/27/2025 SCAN - LABS 02/21/2025 SCAN - LABS 02/13/2025 SCAN - LABS 02/06/2025 from Last 3 Months Results * SCAN - LABS (04/10/2025) us Provider Scanning Final Result * SCAN - LABS (04/03/2025) us Provider Scanning Edited Result - Final * SCAN - LABS (03/27/2025) us Provider Scanning Final Result * SCAN - LABS (03/22/2025) us Provider Scanning Edited Result - Final * SCAN - LABS (03/14/2025) us Provider Scanning Edited Result - Final * SCAN - LABS (03/06/2025) us Provider Scanning Final Result * SCAN - LABS (02/27/2025) us Provider Scanning Edited Result - Final * SCAN - LABS (02/21/2025) us Provider Scanning Edited Result - Final * SCAN - LABS (02/13/2025) us Provider Scanning Edited Result - Final * SCAN - LABS (02/06/2025) us Provider Scanning Final Result from Last 3 Months Insurance [facility] Member Subscriber Plan / Payer (Ef fective 2021-Present) Name:Kylee Melendez Relation to Subscriber:Self Name:Kylee Melendez Payer ID:[id number] (NAIC) Type:MEDICARE RISK OTHER Address: [address] [place] [id number] [facility] Advance Directives For more information, please contact: [phone] * Full Code (Latest Code Status on File) Date Activated Date Inactivated Comments 08/25/2024 7:27 PM 09/09/2024 4:32 PM * Full Code Date Activated Date Inactivated Comments 01/01/2023 10:41 AM 01/01/2023 5:13 PM Care Teams Microsoft Net Developer Relationship Specialty Start Date End Date Jeferson Umanzor DO [address] [place] [address] PCP - General Family Medicine 07/30/22
--- OUTSIDE RECORDS SUMMARY | 2025-05-08 13:01 | XMS_ITS | Encounter Summary ---
Author Organization [facility] Address [facility] access [facility] [place] [address] Care Team Providers Care Cage Cashier Name Role Phone Jeferson Umanzor DO Primary Care Provider + Ana Echavarria RN Unavailable Encounter Details Date Type Department Care Team (Late Contact Info) Description 08/12/2022 MyChart Message Enc [facility] Medical Group Family & Internal Medicine [facility] [address] [place] [address] Jeferson Umanzor DO [address] [place] [address] Referral Request Social History Tobacco [...] Info) Description 05/08/2025 2:00 PM CDT Appointment [facility] [place] [address] Dean De La Fuente MD [address] [facility] [address] [place] [phone] 06/21/2025 2:00 PM CDT Treatment [facility] [place] [address] Jeferson Umanzor DO [address] [place] [address] 08/02/2025 1:00 PM CDT Office Visit [facility] Medical Group Family & Internal Medicine - [place] [address] [place] [address] Jeferson Umanzor DO [address] [place] [address] documented as of this encounter Visit Diagnoses Not on filedocumented in this encounter Additional Health Concerns Assessment Noted Time PHQ-9 Depression Total Score: 0 12/04/19 22 1:16 PM GASTROENTEROLOGY PHYSICIAN documented as of this encounter Care Teams Cage Cashier Relationship Specialty Start [place] [address] [place] [address] PCP - General FAMILY PRACTICE 12/04/21 Ana Echavarria, RN [address] [place] [address] Middle School History Teacher (Ambulatory) REGISTERED NURSE 02/04/24 documented as of this encounter
--- OUTSIDE RECORDS SUMMARY | 2025-05-08 13:01 | XMS_ITS | Encounter Summary ---
Author Organization [facility] Address [facility] [place] [address] Care Team Providers Care Quantitative Analyst Name Role Phone Jeferson Umanzor Primary Care Provider + Ana Echavarria RN Unavailable Encounter Details Date Type Department Care Team (Late st Contact Info) Description 04/18/2025 Results Follow-Up [facility] Family & Internal Medicine - [place] [address] [place] [address] [place] [address] [place] [address] CULTURE, WOUND, W/GRAM STAIN Social History Tobacco Use Types Packs/Day Years [...] from your doctor or pharmacy? Never 04/15/2024 [facility] Utilities Answer Date Recorded In the past 12 months has e [employer], gas, oil, or water company threatened to [...] week 04/15/2024 How often do you attend [facility] or judaism services? Never 04/15/2024 Do you belong to any clubs o r organizations such as mosque groups, unions, fraternal or athletic groups, or [...] Recorded Patient Health Questionnaire-2 Score 0 04/13/2025 [facility] of Occupat ional Nationwide [...] place to sleep or slept in a skilled nursing (including now)? No 02/09/2024 Housing Stability Vital Sign Answer Jackson e Recorded In the last 12 months, was t here a time when you were not able to pay the mortgage or rent on time? No 10/24/2024 In the past 12 months, how m any times have you moved where you were living? 1 10/24/2024 At any time in the past [address] [facility], were you homeless or living in a skilled nursing (including now)? No 10/24/2024 Comments No Sex [...] Richards RN Active documented in this encounter Plan of Treatment Upcoming Encounters Date Type Department Care Team (Late st Contact Info) Description 05/08/2025 2:00 PM CDT Appointment [facility] [place] [address] Dean De La Fuente MD [address] [facility] [address] [place] [address] 06/21/2025 2:00 PM CDT Treatment [facility] [address] [facility] [place] [address] Jeferson Umanzor, DO [address] [place] [address] 08/02/2025 1:00 PM CDT Office Visit [facility] Family [facility] Internal Medicine - [place] [address] [place] [address] Jeferson Umanzor, DO [address] [place] [address] documented as of this encounter Goals Goal [...] documented as of this encounter Care Teams Quantitative Analyst Relationship Specialty Start Date End Date Jeferson Umanzor DO [address] [place] [address] [id number] PCP - General FAMILY PRACTICE 12/04/21 Ana Echavarria, RN [address] [place] [address] Welder Production Line Combination (Ambulatory) REGISTERED NURSE 02/04/24 documented as of this encounter
--- OUTSIDE RECORDS SUMMARY | 2025-05-08 13:01 | XMS_ITS | Continuity of Care Document ---
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, [place], [place], [id number], [place]. 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 [address], [place], [place], [id number], [place]. 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, [place], [place], [id number], [place]. tel:[phone] [facility], [address] [place] [address], [place], [address], [place] tel:[phone] [facility] [address] [facility] arthritisTri gger ring finger of left handEncounte r for preprocedura l cardiovascul ar examinationP rimary osteoarthrit is of first carpometacar pal joint of left hand Apr- 9 Jef Pierson. [address], [place], [place], [id number], [place]. tel:[phone] [facility], [address] [place] [address], [address], [place] tel:[phone] [facility] No Information 9 Winter Wren. [address] [place], [place], [id number]. tel:[phone] OFFICE/OUTPA TIENT VISIT [facility], [address] [place] [address], [address], [place] tel:[phone] [facility] Trigger ring finger of left hand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 [address], [place], [place], [id number], [place]. tel:[phone] OFFICE/OUTPA TIENT VISIT [facility], [address] [place] [address], [address], [place] tel:[phone] [facility] History of total right hip arthroplasty Aftercare following bilateral ankle joint replacement surgery 8 Winter Wren. [address] [place], [place], [id number]. tel:[phone] Referring Provider: Edna Beltran, [address] [facility] [address], [place], [address]. tel:[phone] [facility], [address] [place] [address], [address], [place] tel:[phone] [facility] Follow Up of REMOVAL HARDWARE LEFT HIP 3\19\18 (chief complaint) Pain due to internal orthopedic prosthetic devices, implants and grafts, subsequent encounter Feb- 8 Winter Wren. [address] [place], [place], [id number]. tel:[phone] Referring Provider: Edna Beltran, [address], [place], [address]. tel:[phone] [facility], [address] [place] [address], [address], [place] tel:[phone] [facility] [place] Follow Up of PO REMOVAL LEFT TROCH CLIP AND BURSECTOMY (chief complaint) Pain due to internal orthopedic prosthetic devices, implants and grafts, subsequent encounter 8 Winter Wren. [address] [place], [place], [id number]. tel:[phone] [facility], [address] [place] [address], [address], [place] tel:[phone] [facility] Painful orthopaedic hardware Dec- 8 Winter Wren. [address] [place] [address], [id number]. tel:[phone] OFFICE/OUTPA TIENT VISIT EST [facility], [address] [place] [address], [address], [place] tel:[phone] [facility] [place] Painful orthopaedic hardwareLumb ago with sciatica, left side Dec- 8 Winter Wren. [address] [place] [address], [id number]. tel:[phone] Referring Provider: Edna Beltran, [address], [place], [address]. tel:[phone] [facility], [address] [place] [address], [address], [place] tel:[phone] [facility] Follow Up of S/P RT TAZ 10/22/17 (chief complaint) History of total right hip arthroplasty Lumbago with sciatica, left sidePainful orthopaedic hardware 8 Winter Wren. [address] [place], [place], [id number]. tel:[phone] [facility], [address], [address], [place] tel:[phone] [facility] Follow Up of R TAZ 10/22/17 (chief complaint) History of total right hip arthroplasty 7 Tianna Del Rosario. [address] [facility] [address], [place], [place], [id number]. 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 [address] [place], [place], [id number]. tel:[phone] OFFICE/OUTPA TIENT VISIT EST [facility], [address], [address], [place] tel:[phone] [facility] Primary osteoarthrit is of right hipPresence of left artificial hip joint 7 Winter Wren. [address] [place], [place], [address]. tel:[phone] OFFICE/OUTPA TIENT VISIT [facility], [address] [place] [address], [address], [place] tel:[phone] [facility] Follow Up of LEFT TAZ (chief complaint)R T HIP PAIN (chief complaint) Primary osteoarthrit is of right hipPresence of left artificial hip joint 7 Winter Wren. [address] [place] [address], [id number]. tel:[phone] [facility], [address] [place] [address], [address], [place] tel:[phone] [facility] Follow Up of Left hip (chief complaint) Presence of left artificial hip joint Sep-0 7 Shoe Carin. [address] [facility] [address], [place], [place], [id number]. tel:[phone] [facility], [address] [address], [place], [address], [place] tel:[phone] [facility] Follow Up of Lt hip (chief complaint) Presence of left artificial hip joint 7 Winter Wren. [address] [place], [place], [id number]. tel:[phone] OFFICE/OUTPA TIENT VISIT [facility], [address] [place] [address], [place], [address], [place] tel:[phone] [facility] Follow Up of oa left hip (chief complaint) Primary osteoarthrit is of left hip Apr- 7 Shoe Carin. [address] [facility] [address], [place], [place], [id number]. tel:[phone] OFFICE/OUTPA TIENT VISIT [facility], [address] [place] [address], [place], [address], [place] tel:[phone] [facility] LEFT HIP PAIN (chief complaint) Primary osteoarthrit is of left hip 7 Winter Wren. [address] [place], [place], [id number]. tel:[phone] Referring Provider: Pavel Apple, [address] [place], [address]. tel:[phone] OFFICE/OUTPA TIENT VISIT [facility], [address] [place] [address], [address], [place] tel:[phone] [facility] Lumbago with sciatica, left side 2 7 Gregg Zhao. [address] [place] [address], [id number]. tel:[phone] Referring Provider: Pavel Apple, [address] [facility] [place], [address]. tel:[phone] OFFICE/OUTPA TIENT VISIT [facility], [address] [place] [address], [place], [address], [place] tel:[phone] [facility] Lumbar post-laminec efren syndromeLumb ago with sciatica, left side May-0 2201 7 Gregg Zhao. [address] [place] [address], [place], [id number]. tel:[phone] Referring Provider: Mary Lucio, [address], [place], [address]. tel:[phone] [facility], [address] [place] [address], [place], [address], [place] tel:[phone] [facility] Hallux rigidus Apr-2 4-201 4 Juno Chambers. [address] [facility] [address], [place], [id number]. tel:[phone] [facility], [address] [place] [address], [place], [address], [place] tel:[phone] [facility] Hallux rigidus Mar-2 1-201 4 Lefty Peter. [address] [place] [address], [employer] [place], [id number]. tel:[phone] [facility], [address] [place] [address] 200, [place], [address], [place] tel:[phone] [facility] Hallux rigidus Feb-2 8-201 4 Juno Chambers. [address] [facility] [address], [place], [address]. tel:[phone] [facility], [address] [place] [address] 200, [place], [address], [place] tel:[phone] [facility] Hallux rigidus Feb-0 6-201 4 Lefty Peter. [address] [place] [address], [id number]. tel:[phone] Referring Provider: Pavel Davis, [address] [place] [address], [address]. tel:[phone] [facility], [address] [place] [address], [address], [place] tel:[phone] [facility] Spinal stenosis of lumbar region Dec-1 0-201 3 Curylo Pavel. [address] [place], [place], [id number]. tel:[phone] [facility], [address] [place] [address], [address], [place] tel:[phone] [facility] Kyphosis, postlaminect omySciaticaS nasrin stenosis of lumbar region Oct-0 8-201 3 Curylo Pavel. [address] [place], [place], [id number]. tel:[phone] [facility], [address] [place] [address], [address], [place] tel:[phone] [facility] Acquired spondylolist hesisSpinal stenosis of lumbar regionPain, Low BackSciatica Kyphosis, postlaminect zuleyma Sep-1 0-201 3 Curylo Pavel. [address] [place], [place], [id number]. tel:[phone] [facility], [address] [place] [address], [address], [place] tel:[phone] [facility] No Information Sep-0 6-201 3 Curylo Pavel. [address] [place], [place], [id number]. tel:[phone] [facility], [address] [place] [address], [address], [place] tel:[phone] [facility] Acquired spondylolist hesis 9-201 3 Gregg Zhao. [address] [facility], [employer] [place], [address]. tel:[phone] Family History Family Member Type Diagnosis Age [...] Provider Payers Payer name Insurance type Covered republican ID Authorzariaa timelba(s) Medicare E2 OT [id number] Blue Access PPO E2 OT [id number] Social History Type Description Quantity Date Captured [...] Related to Primary osteoarthritis of left hip Avoid prolonged bed rest. Relate d to Lumbago with sciatica, left side Activity as tolerated. Related t o Lumbago with sciatica, left side Fall risk home exerc ise program handout provided Avoid prolonged bed rest. Relate d to Lumbar post-laminectomy syndrome Activity as tolerated. Related t o Lumbar post-laminectomy syndrome Activity as tolerated. Related t o Lumbago with sciatica, left side Avoid prolonged bed rest. Relate d to Lumbago with sciatica, left side Take medication as prescribed. R elated to Lumbago with sciatica, left side Take medication as prescribed. R elated to Lumbar post-laminectomy syndrome Weight bearing statu s: full weight bearing Activity as tolerated Protective activity Weight bearing statu s: weight bear as tolerated Elevate limb above level of hear t Activity as tolerated Activity as tolerated Protective activity Assessments Type Assessment Date assessment Primary osteoarthritis of left h and Patient Care Teams Name Effective Dates (start - stop) Status Members No Information
--- OUTSIDE RECORDS SUMMARY | 2025-05-08 13:01 | XMS_ITS | Encounter Summary ---
Author Organization [facility] Address [facility] [place] [address] Care Team Providers Care Car Cleaning Supervisor Name Role Phone Jeferson Umanzor Jay COLVIN Primary Care Provider + Ana Echavarria RN Unavailable Reason for Visit * Reason Comments Lab (SCAN) Encounter Details Date Type Department Care Team (Latest Contact Info) Description 04/24/2025 Scan HEALTH INFO [facility] Scanned, [facility] Lab (SCAN) Social History Tobacco Use Types Packs/Day Years [...] from your doctor or pharmacy? Never 04/15/2024 [facility] Utilities Answer Date Recorded In the past 12 months has th e electric, gas, oil, or water company threatened to [...] 04/15/2024 How often do you attend chur ch or church services? Never 04/15/2024 Do you belong to any clubs o r organizations such as shinto groups, unions, fraternal or athletic groups, or [...] Recorded Patient Health Questionnaire-2 Score 0 04/13/2025 [facility] [place] of Occupat ional [facility] - Occupational Stress Questionnaire Answer Date [...] any time in the past 12 m [facility], were you homeless or living [...] Info) Description 05/08/2025 2:00 PM CDT Appointment [facility] [place] [address] Dean De La Fuente MD [address] [address] 06/21/2025 2:00 PM CDT Treatment [facility] [place] [address] Jeferson Umanzor, DO [address] [place] [address] 08/02/2025 1:00 PM CDT Office Visit [facility] Family & Internal Medicine - [place] [address] [place] [address] Jeferson Umanzor, DO [address] [place] [address] documented as of this encounter Goals Goal [...] notifying provider documented as of this encounter Procedures Procedure Name Priority Date/Time Associated Diagnosis Comments OUTSIDE LAB (SCAN ORDER) 04/24/2025 OUTSIDE LAB (SCAN ORDER) 04/24/2025 documented in this encounter Results * OUTSIDE LAB (SCAN ORDER) (04/24/2025) 04/24/2025 [facility] Scanned SCANNING Final Resu lt * OUTSIDE LAB (SCAN ORDER) (04/24/2025) 04/24/2025 [facility] Scanned SCANNING Final Resu lt documented in this encounter Visit Diagnoses Not on filedocumented in this encounter Additional Health Concerns Assessment Noted Time PHQ-9 Depression Total Score: 1 03/14/20 24 1:35 PM CDT documented as of this encounter Care Teams Car Cleaning Supervisor Relationship Specialty Start Date End Date Jeferson Umanzor DO [address] [place] [address] PCP - General FAMILY PRACTICE 12/04/21 Ana Echavarria, RN [address] [place] [address] Blogs Manager (Ambulatory) REGISTERED NURSE 02/04/24 documented as of this encounter
--- OUTSIDE RECORDS SUMMARY | 2025-05-08 13:01 | XMS_ITS | Encounter Summary ---
Author Organization [facility] Address [facility] [place] [address] Care Team Providers Care Chartered Financial Analyst Name Role Phone Jeferson Umanzor DO Primary Care Provider + Ana Echavarria RN Unavailable Encounter Details Date Type Department Care Team (Late Contact Info) Description 08/12/2022 MyChart Message Enc [facility] Family & Internal Medicine [facility] [address] [place] [address] Jeferson Umanzor DO [address] [place] [address] Referral request Social History Tobacco [...] Info) Description 05/08/2025 2:00 PM CDT Appointment [facility] [place] [address] Dean De La Fuente MD [address] [facility] [address] [place] [id number] 06/21/2025 2:00 PM CDT Treatment [facility] [place] [address] Jeferson Umanzor DO [address] [place] [address] 08/02/2025 1:00 PM CDT Office Visit [facility] Family & Internal Medicine - [place] [address] [place] [address] Jeferson Umanzor DO [address] [place] [address] documented as of this encounter Visit Diagnoses Not on filedocumented in this encounter Additional Health Concerns Assessment Noted Time PHQ-9 Depression Total Score: 0 12/04/19 22 1:16 PM RECREATION FACILITIES SUPERVISOR documented as of this encounter Care Teams Chartered Financial Analyst Relationship Specialty Start [place] [address] [place] [address] PCP - General FAMILY PRACTICE 12/04/21 Ana Echavarria, RN [address] [place] [address] Correctional Manager (Ambulatory) REGISTERED NURSE 02/04/24 documented as of this encounter
--- OUTSIDE RECORDS SUMMARY | 2025-05-08 13:01 | XMS_ITS | Encounter Summary ---
Author Organization 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 Never 08/08/2022 1:34 PM Tracey Middleton RN Q2: How many drinks containing alcohol do you have on a typical day when you are drinking? Patient does not drink 08/08/2022 1:34 PM Tracey Middleton RN Q3: How often do you have [...] 08/25/202408/25 10:48 PM CDT VRE 08/25/2024 08/25/2024 02/21/2025 3:05 AM CDT documented as of this encounter Care Teams Plant Director Relationship Specialty Start Date End Date Jeferson Umanzor DO [address] [place] [address] PCP - General Family Medicine 07/30/22 documented as of this encounter
--- OUTSIDE RECORDS SUMMARY | 2025-05-08 13:01 | XMS_ITS | Clinical Summary ---
[facility] Organization [facility] Address [address] [place] [address] Care Team Providers Care Programs Director Name Role Phone Jeferson Umanzor DO Primary Care Provide r Allergies Active Allergy [...] (12/10/2022): Added automatically from request for surgery [id number] Back pain 04/02/2020 COPD (chronic obstructive pulmonary [...] [facility] Scanning, Provider 04/05/2025 Telephone [facility] Gastroenterology [address] [place] [address] [place] [address] Lydia Arana LPN Lab Results 04/03/2025 Orders Only [facility] Scanning, Provider 03/28/2025 Telephone [facility] Gastroenterology [address] [place] [address] Medical Office Building [address] [place] [address] Reavy, Shefali, CONVEYOR SYSTEM DISPATCHER Med Management; labs 03/27/2025 Orders Only [facility] Scanning, Provider 03/22/2025 Orders Only [facility] Scanning, Provider 03/16/2025 Telephone [facility] Gastroenterology [address] [place] [address] Medical Office Building [address] [place] [address] Reedwar Shefali, CONVEYOR SYSTEM DISPATCHER Labs 03/1403/16/2025 Documentation [facility] Gastroenterology [address] [place] [address] Medical Office Building [address] [place] [address] Reavy, Shefali, CONVEYOR SYSTEM DISPATCHER Labs Only 03/14/2025 Orders Only [facility] Scanning, Provider 03/08/2025 Telephone [facility] Gastroenterology [address] [place] [address] Medical Office Building [address] [place] [address] Reavy, Shefali, CONVEYOR SYSTEM DISPATCHER Labs for this week 03/06/2025 Orders Only [facility] Scanning, Provider 02/27/2025 Orders Only [facility] Scanning, Provider 02/24/2025 Orders Only [facility] Gastroenterology [address] [place] [address] Medical Office Building [address] [place] [address] Reavy, Shefali, CONVEYOR SYSTEM DISPATCHER Abnormal weight loss (Primary Dx); Moderate protein malnutrition; Nutritional counseling 02/22/2025 Telephone [facility] Gastroenterology [address] [place] [address] Medical Office Building [address] [place] [address] Reavy, Shefali, CONVEYOR SYSTEM DISPATCHER TPN - Protein Labs 02/21/2025 Orders Only [facility] Scanning, Provider 02/14/2025 1:40 PM CDT Office Visit [facility] Gastroenterology [facility] Medical Office Building [address] [place] [address] Lindsey Hope PA Moderate protein malnutrition (Primary Dx); Abnormal weight loss; Iron deficiency anemia due to chronic blood loss 02/14/2025 Telephone [facility] Gastroenterology [facility] Medical Office Building [address] [place] [address] Reavy, Shefali, CONVEYOR SYSTEM DISPATCHER medication management 02/14/2025 Orders Only [facility] Gastroenterology [address] [place] [address] Medical Office Building [address] [place] [phone] Reavy, Shefali, CONVEYOR SYSTEM DISPATCHER 02/13/2025 Orders Only [facility] Scanning, Provider 02/13/2025 Telephone [facility] Gastroenterology [address] [place] [address] Medical Office Building [address] [place] [address] Reavy, Shefali, CONVEYOR SYSTEM DISPATCHER Medication Management 02/06/2025 Orders Only [facility] Scanning, Provider from Last 3 Months Immunizations Immunization Administration [...] Years Used Date Smoking Tobacco: Former Cigarettes 972 - 1996 Smokeless Tobacco: Never Tobacco [...] often do you attend chur ch or evangelical services? Never 08/26/2024 Do you belong to any clubs o r organizations such as caodaism groups, unions, fraternal or athletic groups, or [...] were you homeless or living in a fdc (including now)? No 08/26/2024 Personal Safety Answer Date Recorded Have you ever been in or are you currently in a harmful physical or emotional relationship or is someone making you feel afraid or unsafe? Denies 08/24/2024 Comments No Sex and Gender Information Value Date Recorded Sex Assigned at Not on file Legal Sex Female 10:24 AM MRI TECH Gender Identity Not on file Sexual Orientation Not on file Obstetrics History Last Filed Vital Signs Vital Sign Reading Time Taken Comments Blood Pressure 180/77 02/14/2025 1:41 PM CDT Pulse 67 02/14/2025 1:41 PM CDT Temperature 37.2 C (99 F) 11/01/2024 10:35 AM MRI TECH Respiratory Rate 17 09/09/2024 6:05 AM CDT Oxygen Saturation 97% 02/14/2025 1:41 PM CDT Inhaled Oxygen Concentration - - Weight 44.9 kg (99 lb) 02/14/2025 1:41 PM CDT Height 144.8 cm (4' 9) 02/14/2025 1:41 PM CDT Body Mass Index 21.42 02/14/2025 1:41 PM CDT Plan of Treatment Health Maintenance Due Date Last Done Comments Meningococcal B Vaccine (1 o f 5 - Increased Risk) 1948 Hepatitis B Screening 1958 Well Visit 65+ 2003 Covid-19 Vaccine (2023-2 5 season) 2024 08/21/2021, 01/27/2021, 01/06/2021 Depression Screening 08/24/2025 08/24/2024 Fall Risk Assessment 09/09/2025 09/09/2024 DTaP/Tdap/Td Vaccine (4 - Td or Tdap) 10/22/2033 10/22/2023, 07/12/2018, 06/23/2018 Zoster Vaccine Completed 02/03/2019, 12/09/2018 Pneumococcal vaccine 65+ Completed 019, 06/30/2017, 10/05/2015, Additional history exists Influenza Vaccine Completed 08/30/2024, , 08/07/2021, Additional history exists Osteoporosis Screening-Bone Density Scan Discontinued 12/21/2024, 09/25/2022 Medical Devices Implanted Type Area Mason Liner Device Identifier Shelf Expiration Date Model / [...] Final Result from Last 3 Months Insurance [facility] Advance Directives For more information, please contact: [phone] * Full Code (Latest Code Status on File) Date Activated Date Inactivated Comments 08/25/2024 7:27 PM 09/09/2024 4:32 PM * Full Code Date Activated Date Inactivated Comments 01/01/2023 10:41 AM 01/01/2023 5:13 PM Care Teams Programs Director Relationship Specialty Start Date End Date Jeferson Umanzor DO [address] [place] [id number] PCP - General Family Medicine 07/30/22
[2025-05-08 14:39] LABS: Iron 52 ug/dL (37-170)
[2025-05-08 14:52] LABS: Percent Iron Saturation 13 % (20-50)
[2025-05-08 16:11] LABS: Folic Acid > 20.0 ng/mL (2.76->20)
== END 2025-05-08 11:50 | disposition home or self-care (01) ==
LOC: ANHLAB 11:50
PROVIDERS: PCP Student in an Organized Health Care Education/Training Program; Visit Provider Internal Medicine Hematology & Oncology
DX: D64.9 Anemia, unspecified (principal)
CPT/HCPCS: 36415; 82607; 82728; 82746; 83540; 83550; 85027

== ENCOUNTER 2025-08-17 14:28 | Outpatient (CLI) | payer OTHER, SELFPAY ==
[2025-08-17 14:55] LABS: Hematocrit 41.9 % (37.0-47.0); Hemoglobin 12.9 g/dL (12.0-15.0); Mean Corpuscular HGB Conc 30.8 g/dl (32-36); Mean Corpuscular Hemoglobin 24.5 pg (26-34); Mean Corpuscular Volume 79.7 fl (80-100); Platelet Count Result 171 k/mm3 (150-375); Red Blood Count 5.26 M/mm3 (4.2-5.4); White Blood Count 4.9 K/mm3 (4.5-10.0)
[2025-08-17 16:29] LABS: Anion Gap 6 mmol/L (4-12); Blood Urea Nitrogen 28 mg/dL (7-17); Calcium 9.6 mg/dL (8.4-10.2); Carbon Dioxide 29 mmol/L (22-30); Chloride 102 mmol/L (98-107); Estimated Glomerular Filt Rate 59; Glucose 87 mg/dL (65-110); Potassium 4.0 mmol/L (3.4-5.0); Sodium 137 mmol/L (137-145)
[2025-08-17 16:30] LABS: Iron 46 ug/dL (37-170)
[2025-08-17 16:40] LABS: Percent Iron Saturation 10 % (20-50)
[2025-08-17 17:05] LABS: Ferritin 20.10 ng/mL (11.1-264)
--- OUTSIDE RECORDS SUMMARY | 2025-08-17 17:09 | XMS_ITS | Encounter Summary ---
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
--- OUTSIDE RECORDS SUMMARY | 2025-08-17 17:09 | XMS_ITS ---
Author Organization [facility] Address [address] [place] [address] Care Team Providers Care Tobacco Sizer Name Role Phone Jeferson Umanzor DO Primary [...] (12/10/2022): Added automatically from request for surgery [id number] Back pain 04/02/2020 COPD (chronic obstructive pulmonary [...] 0.1 minutes 0.1 minutes 0 minutes DLP 1,423 mGycm 1,423 mGycm 0 mGycm Resolved Problems Problem Noted [...]
--- OUTSIDE RECORDS SUMMARY | 2025-08-17 17:09 | XMS_ITS | Encounter Summary ---
Author Organization [facility] Address 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 Gender Identity Not on file Sexual Orientation Not on file Occupation Industry Job Start Date Job End Date Not on file Not on file Not on file Not on file documented as of this encounter Plan of Treatment Upcoming Encounters Date Type Department Care Team (Late st Contact Info) Description 08/22/2025 2:00 PM CDT Office Visit [facility] Oncology and Hematology - [address] [facility] [address] [place] [address] Dean De La Fuente MD [address] [facility] [address] [place] [address] 03/19/2026 1:00 PM CDT Office Visit [facility] Pulmonology [facility] [address] [place] [address] Bhanu Haque MD [address] [place] [address] documented as of this encounter Procedures Procedure [...] - 1.70 ng/dL 07/07/2017 7:19 PM CDT [facility] [employer] [facility] Blood Venipuncture / Unknown 07/07/2017 6:00 AM CDT 07/07/2017 11:48 AM CDT us Anderson Balderas MD CHEMISTRY ORDERABLES Final R esult [facility] [employer] [facility]# [id number] [address] [facility] [place] [address] * TSH (07/07/2017 6:00 AM CDT) TSH 3.27 0.27 - 4.20 uIU/mL 07/07/2017 7:19 PM CDT [facility] LABORATORY [facility] Blood Venipuncture / Unknown 07/07/2017 6:00 AM CDT 07/07/2017 11:48 AM CDT Anderson Balderas MD CHEMISTRY ORDERABLES Final R esult [facility] CLIA# [id number] [address] [facility] [place] [address] * (ABNORMAL) LIPID PANEL (07/07/2017 6:00 AM CDT) Pathologist [facility] CHOLESTEROL 104 <200 mg/dL 07/07/2017 7:04 PM CDT [facility] LABORATORY [facility] TRIGLYCERIDE 120 <150 mg/dL 07/07/2017 7:04 PM CDT [facility] HDL 39(L) 40 - 59 mg/dL 07/07/2017 7:04 PM T [facility] LDL CALCULATED 41 <100 mg/dL 07/07/2017 7:04 PM T [facility] NON-HDL CHOLESTEROL 65 <130 mg/dL 07/07/2017 7:04 PM T [facility] Blood Venipuncture / Unknown 07/07/2017 6:00 AM CDT 07/07/2017 11:48 AM CDT Narrative [facility] LABORATORY [facility] - 07/07/2017 7:04 PM CDT TOTAL [...] Balderas MD CHEMISTRY ORDERABLES Final R esult [facility] LABORATORY SERVICES - [facility]# [id number] [address] [place] [address] * (ABNORMAL) COMPREHENSIVE METABOLIC PANEL (07/07/2017 6:00 AM CDT) Pathologist [facility] SODIUM 145 136 - 145 mmol/L 07/07/2017 7:04 PM CDT [employer] LABORATORY SERVICES - [facility] POTASSIUM 3.6 3.5 - 5.0 mmol/L 07/07/2017 7:04 PM CDT [employer] LABORATORY SERVICES - . [facility] CHLORIDE 106 98 - 107 mmol/L 07/07/2017 7:04 PM CDT [employer] LABORATORY SERVICES - . [facility] CO2 24 22 - 29 mmol/L 07/07/2017 7:04 PM T [employer] LABORATORY SERVICES - . [facility] CALCIUM 9.1 8.6 - 10.2 mg/dL 07/07/2017 7:04 PM CDT [employer] LABORATORY SERVICES - . [facility] BUN 15 8 - 23 mg/dL 07/07/2017 7:04 PM T [employer] LABORATORY SERVICES - . [facility] CREATININE 0.87 0.51 - 0.95 mg/dL 07/07/2017 7:04 PM T [employer] LABORATORY SERVICES - [facility] Comment: The GFR result is not clinically significant on patients <18 or >70 years of age. GLUCOSE 88 74 - 99 mg/dL 07/07/2017 7:04 PM T [employer] LABORATORY SERVICES - . [facility] TOTAL PROTEIN 5.3(L) 6.7 - 8.6 g/dL 07/07/2017 7:04 PM CDT [employer] LABORATORY SERVICES - . [facility] ALBUMIN 3.0(L) 3.5 - 5.2 g/dL 07/07/2017 7:04 PM T [employer] LABORATORY SERVICES - [facility] BILIRUBIN TOTAL 0.4 0.2 - 1.1 mg/dL 07/07/2017 7:04 PM CDT [employer] LABORATORY SERVICES - [facility] ALKALINE PHOSPHATASE 44 35 - 104 U/L 07/07/2017 7:04 PM [facility] AST 41(H) <33 U/L 07/07/2017 7:04 PM [facility] ALT 41(H) <34 U/L 07/07/2017 7:04 PM [facility] GFR >60 mL/min/1.7 3 sq meter 07/07/2017 7:04 PM [facility] Comment: eGFR has not been validated for [...] mL/min/1.7 3 sq meter 07/07/2017 7:04 PM [facility] ANION GAP 15 8 - 16 mmol/L 07/07/2017 7:04 PM [facility] Blood Venipuncture / Unknown 07/07/2017 6:00 AM CDT 07/07/2017 11:48 AM T Narrative [facility] - 07/07/2017 7:04 PM CDT Samples containing indocyanine green cause interferences on Total and/or Direct Bilirubin and must not be measured. us Anderson Balderas MD CHEMISTRY ORDERABLES Final R esult [facility]# [id number] [address] [place] [address] * (ABNORMAL) CBC WITH DIFFERENTIAL (07/07/2017 6:00 AM CDT) WBC 4.8 4.0 - 9.8 K/uL 07/07/2017 10:33 AM [facility] RBC 3.64(L) 3.90 - 4.90 M/uL 07/07/2017 10:33 AM [employer] LABORATORY SERVICES - [facility] HEMOGLOBIN 8.8(L) 11.8 - 14.8 g/dL 07/07/2017 10:33 AM [employer] LABORATORY SERVICES - . [facility] HEMATOCRIT 28.9(L) 35.5 - 44.0 % 07/07/2017 10:33 AM [employer] LABORATORY SERVICES - . [facility] MCV 79.4(L) 82.0 - 99.0 fL 07/07/2017 10:33 AM [employer] LABORATORY SERVICES - [facility] MCH 24.2(L) 27.2 - 32.6 pg 07/07/2017 10:33 AM [employer] LABORATORY SERVICES - . [facility] MCHC 30.4(L) 31.5 - 35.5 g/dL 07/07/2017 10:33 AM [employer] LABORATORY SERVICES - [facility] RDW 15.8(H) 11.5 - 14.5 % 07/07/2017 10:33 AM [employer] LABORATORY SERVICES - [facility] RDW-STDEV 45.2 37.1 - 48.7 fL 07/07/2017 10:33 AM [employer] LABORATORY SERVICES - [facility] PLATELETS 339 140 - 350 K/uL 07/07/2017 10:33 AM [employer] SERVICES - . [facility] MPV 10.0 9.3 - 12.4 fL 07/07/2017 10:33 AM [employer] LABORATORY SERVICES - . [facility] NEUTROPHILS 62 % 07/07/2017 10:33 AM [employer] LABORATORY SERVICES - . [facility] LYMPHOCYTES 24 % 07/07/2017 10:33 AM [employer] LABORATORY SERVICES - [facility] MONOCYTES 10 % 07/07/2017 10:33 AM [employer] LABORATORY SERVICES - [facility] EOSINOPHILS 2 % 07/07/2017 10:33 AM [employer] LABORATORY SERVICES - [facility] BASOPHILS 1 % 07/07/2017 10:33 AM [employer] LABORATORY SERVICES - . [facility] IMMATURE GRANULOCYTES 2 % 07/07/2017 10:33 AM [employer] LABORATORY SERVICES - . [facility] Comment:IG (Immature Granulo cyte) count includes Metamyelocytes, Myelocytes, and Promyelocytes NEUTROPHIL ABSOLUTE 2.95 1.90 - 7.00 K/uL 07/07/2017 10:33 AM CDT [employer] LABORATORY SERVICES - . [facility] LYMPHOCYTE ABSOLUTE 1.13 0.70 - 4.50 K/uL 07/07/2017 10:33 AM CDT [facility] LABORATORY SERVICES - [facility] MONOCYTE ABSOLUTE 0.49 0.10 - 1.30 K/uL 07/07/2017 10:33 AM CDT [employer] LABORATORY SERVICES - [facility] EOSINOPHIL ABSOLUTE 0.10 0.00 - 0.70 K/uL 07/07/2017 10:33 AM CDT [facility] LABORATORY SERVICES - [facility] BASOPHILS ABSOLUTE 0.03 0.00 - 0.20 K/uL 07/07/2017 10:33 AM CDT [employer] LABORATORY SERVICES - . [facility] IMMATURE GRANULOCYTES ABSOLUTE 0.07(H) 0.00 - 0.03 K/uL 07/07/2017 10:33 AM [facility] [employer] [facility] Blood Venipuncture / Unknown 07/07/2017 6:00 AM CDT 07/07/2017 9:15 AM CDT us Anderson Balderas MD HEMATOLOGY ORDERABLES Final Result [facility] [employer] [facility]# [id number] [address] [facility] [place] [place] [address] * BRAIN NATRIURETIC PEPTIDE, BNP OR PROBNP (07/07/2017 6:00 AM CDT) PROBNP, N TERMINAL 320 <449 pg/mL 2016 5:47 PM CDT [employer] [facility] Comment: Reference values for screening purposes based on hydrator's recommendation: Patients less than 75 years: <125 [...] Balderas MD CHEMISTRY ORDERABLES Final R esult [facility] LABORATORY SERVICES [facility]# [id number] [address] [facility] [place] [address] documented in this encounter Visit Diagnoses Diagnosis [...] disease documented in this encounter Care Teams Investment Strategist Relationship Specialty Start Date End Date Jeferson Umanzor DO [address] [place] [address] PCP - General Family Practice 05/15/22 documented as of this encounter
--- OUTSIDE RECORDS SUMMARY | 2025-08-17 17:09 | XMS_ITS | Clinical Summary ---
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 Gender Identity Not on file Sexual Orientation Not on file Plan of Treatment Health Maintenance Due Date Last Done Comments Hepatitis C Virus (HCV) Screening 1940 Respiratory Syncytial Virus (RSV) Immunization (Adult) (1 - 1-dose 75+ series) 2013 Zoster Immunization (2 of 2) 02/03/2019 12/09/2018 SARS-COV-2 Immunization ( season) 2024 08/21/2021, 01/27/2021, 01/06/2021 Influenza Immunization (#1) 07/24/202507/24, 08/09/2020, 08/12/2019, Additional history exists DTaP/Tdap/Td Immunization Discontinued 07/12/2018, 11/2017 TdaP Immunization Completed 07/12/2018, 06/23/2018 Pneumococcal Immunization (50+ years) Completed 08/12/2019, 07/02/2017, 10/05/2015 Pneumococcal Immunization Combined Discontinued 08/12/2019, 07/02/2017, 10/05/2015 Hepatitis B Immunization Aged Out No longer eligible based on patient's age to complete this topic Human Papillomavirus (HPV) Immunization Aged Out No longer eligible based on patient's age to complete this topic Meningococcal Immunization (ACWY) Aged Out No longer eligible based on patient's age to complete this topic Rotavirus Immunization Aged Out No lo nger eligible based on patient's age to complete this topic
--- OUTSIDE RECORDS SUMMARY | 2025-08-17 17:09 | XMS_ITS | Clinical Summary ---
Author Organization [facility] Address [address] [place] [address] Care Team Providers Care Bounty Trapper Name Role Phone Jeferson Umanzor DO Primary [...] by mouth 4 (four) times a day as needed for diarrhea Take one additional dose if needed on days with more severe diarrhea. 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 473 mL 5 025 Discontin ued(Reord er) [...] (12/10/2022): Added automatically from request for surgery [id number] Back pain 04/02/2020 COPD (chronic obstructive pulmonary [...] Encounters Date Type Department Care Team Description 08/14/2025 Orders Only [facility] Scanning, Provider 08/10/[address] [facility] Medicine Gastroenterology [address] [facility] Office [address] [place] [address] Shefali Cotton LPN Med Management 08/04/2025 11:34 AM CDT - 08/04/2025 2:53 PM CDT Emergency [facility] Emergency Department [address] [place] [address] Chase Aleman MD Other chest pain (Primary Dx); Shortness of breath; Hypomagnesemia Discharge Disposition: Discharge to home or self care 07/17/2025 Orders Only [facility] Scanning, Provider 07/13/2025 Orders Only [facility] G[facility] [address] [facility] 12[address] [place] [address] [place] [address] Gayla Muro MD 07/13/[address] [facility] Medicine Gastroenterology [address] [facility] Office Building [address] [place] [phone] Shefali Cotton LPN Med Management 07/10/2025 Orders Only [facility] Scanning, Provider 06/26/2025 Orders Only [facility] Scanning, Provider 06/19/2025 Orders Only [facility] Scanning, Provider 06/15/[address] [facility] Medicine Gastroenterology [address] [facility] Medical Office Building [address] [place] [phone] Shefali Cotton LPN Medication Managment 06/06/2025 Orders Only [facility] Scanning, Provider 05/29/[address] [facility] Medicine Gastroenterology [address] [facility] [address] [place] [address] [place] [phone] Jaye Handy RN GI follow up 05/22/2025 Orders Only [facility] [...] pain Urinary tract infection COPD (chronic obstructive pulmonary disease) Hypothyroidism Melena Nausea & vomiting Depression Encounter [...] oz pur e alcohol) Social Connection and Isolation Panel Answer Date Recorded In a typical week, how many times do you talk on the phone with family, friends, or neighbors? More than three times a week 08/26/2024 How often do you get togethe r with friends or relatives? More than three times a week 08/26/2024 How often do you attend chur ch or jehovah's witness services? Never 08/26/2024 Do you belong to any clubs o r organizations such as advent groups, unions, fraternal or athletic groups, or [...] any time in the past 12 m [facility], were you homeless or living in a chcf (including now)? No 08/26/2024 Personal Safety Answer Date Recorded Have you ever been in or are you currently in a harmful physical or emotional relationship or is someone making you feel afraid or unsafe? 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 Gender Identity Not on file Sexual Orientation Not on file Obstetrics History Last Filed Vital Signs Vital Sign Reading Time Taken Comments Blood Pressure 154/64 08/04/2025 2:30 PM CDT Pulse 96 08/04/2025 2:30 PM CDT Temperature 36.2 C (97.2 F) 08/04/2025 11:21 AM CDT Respiratory Rate 26 08/04/2025 2:30 PM CDT Oxygen Saturation 96% 08/04/2025 2:30 PM CDT Inhaled Oxygen Concentration - - Weight 41.7 kg (92 lb) 08/04/2025 11:21 AM CDT Height 144.8 cm (4' 9) 08/04/2025 11:21 AM CDT Body Mass Index 19.91 08/04/2025 11:21 AM CDT Plan of Treatment Health Maintenance Due Date Last Done Comments Meningococcal B Vaccine (1 o f 4 - Increased Risk) 1950 Hepatitis B Screening 1958 Well Visit 65+ 2003 Covid-19 Vaccine (4 - 2024-2 6 season) 2025 08/21/2021, 01/27/2021, 01/06/2021 Influenza Vaccine (#1) 2025 , 08/26/2022, 08/07/2021, Additional history exists Depression Screening 08/24/2025 08/24/2024 Fall Risk Assessment 09/09/2025 09/09/2024 Osteoporosis Screening-Bone Density Scan 12/21/2026 12/21/2024 DTaP/Tdap/Td Vaccine (4 - Td or Tdap) 10/22/2033 10/22/2023, 07/12/2018, 06/23/2018 Zoster Vaccine Completed 02/03/2019, 12/09/2018 Pneumococcal vaccine 65+ Completed 019, 06/30/2017, 10/05/2015, Additional history exists Medical Devices Implanted Type Area Yard Assistant Device Identifier Shelf Expiration Date Model / Serial / Lot Hardware N/A: Back Ahmed Shunt-08/08/2008 Implanted:08/08 (Quantity not on file) Right: 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 Implanted:07/01 (Quantity not on file) Left: Hip Rt Hip Replacement- Implanted:09/21 (Quantity not on file) Right: Hip Procedures Procedure Name Priority Date/Time Associated Diagnosis Comments SCAN - LABS 08/14/2025 TROPONIN T HIGH-SENSITIVITY 2-HOUR Timed 08/04/2025 1:32 PM CDT D-DIMER, QUANTITATIVE STAT 08/04/2025 12:[address] HEAD WO CONTRAST ED 08/04/2025 1 2:27 PM CDT XR CHEST PA LATERAL 2 VIEWS ED 08/04/2025 12:21 PM CDT ECG 12-LEAD STAT 08/04/2025 11:27 AM CDT PRO B-TYPE NATRIURETIC PEPTIDE STAT 08/04/2025 11:23 AM CDT MAGNESIUM STAT 08/04/2025 11:23 AM CDT EGFR STAT 08/04/2025 11:23 AM CDT DIFFERENTIAL AUTO STAT 08/04/2025 11: 23 AM CDT TROPONIN T HIGH-SENSITIVITY SERIES (BASELINE, 2HR, 4HR, 6HR) STAT 08/04/2025 11:23 AM CDT CBC WITH AUTO DIFFERENTIAL STAT 08/04/2025 11:23 AM CDT COMPREHENSIVE METABOLIC PANEL STAT 08/04/2025 11:23 AM CDT SCAN - LABS 07/17/2025 SCAN - LABS 07/10/2025 SCAN - LABS 06/26/2025 SCAN - LABS 06/19/2025 SCAN - LABS 06/06/2025 SCAN - LABS 05/22/2025 from Last 3 Months Results * SCAN - LABS (08/14/2025) us Provider Scanning Edited Result - Final * Troponin T high-sensitivity 2-hour (08/04/2025 1:32 PM CDT) Trop T hs 14 <=14 ng/L Comment: Interpretive Data For further hscTnT resources including the diagnostic algorithm and an aid in interpretation, copy and paste this link: https://nrl.testcatalog.org/show/hsTrop Current Interpretive Data last revised 2020. Trop T hs delta -1 ng/L [facility] Trop T hs interp Insignificant [facility] Blood 08/04/2025 1:32 PM CDT 08/04/2025 1:38 PM CDT Chase Aleman MD LAB BLOOD ORDERABLES F inal Result Performing Organization Address [facility] Co de Phone Number [facility] [address] [employer] [place], [place] [phone] * (ABNORMAL) D-dimer, quantitative (08/04/2025 12:59 PM CDT) D-Dimer 613(H) <=499 ng/mL FEU Comment: Interpretive data FDA approved the D-dimer, in conjunction with a low or moderate pretest probability score, to exclude venous thromboembolic events (VTE) (PE and DVT) in outpatients when the D-dimer result is < 500 ng/ml FEU. Evidence supports using an age-adjusted D-dimer cut-off for outpatients older than 50 (age x 10) to improve specificity without sacrificing sensitivity. Example: age 68, VTE cut-off 680 ng/ml FEU. References; Schouten HT et al. Brit Med J. 2013;346:f2492. Abram et al. Annals Int Med. 2015;163:701-11. Current interpretive data was last revised on 2019. Blood 08/04/2025 12:5 9 PM CDT 08/04/2025 1:01 PM CDT Chase Aleman MD LAB BLOOD ORDERABLES F inal Result Performing Organization Address [facility] Co de Phone Number [facility] [id number] [employer] [address] * CT Head WO Contrast (08/04/2025 12:27 PM CDT) Anatomical Region Laterality Modality Head and Neck N/A Computed Tomogra phy 08/04/2025 12:3 7 PM CDT Impressions 08/04/2025 12:37 PM CDT No acute intracranial hemorrhage, mass effect or midline shift. No large vessel territory early ischemic change. Age-indeterminate right basal ganglia small vessel infarctions in the setting of advanced chronic white matter ischemic microangiopathy. MRI would be a more sensitive modality for the detection of early ischemic change in this setting if clinically warranted. Electronically signed by: Jose Bruno MD Narrative 08/04/2025 12:37 PM CDT EXAMINATION: CT head without contrast HISTORY: Dizziness TECHNIQUE: CT of the head was performed with images acquired from skull base to vertex without intravenous contrast. COMPARISON: None Available. FINDINGS: No acute intracranial hemorrhage, mass effect or midline shift. No large vessel territory early ischemic change. Severe diffuse nonspecific bihemispheric periventricular and subcortical hypoattenuation. Age-indeterminate right basal ganglia lacunar infarctions. Chronic subcortical right frontal infarction. Moderate frontal lobe predominant atrophy with prominent anterior fossa subarachnoid spaces. No ventriculomegaly. Calcified bilateral carotid siphon and intracranial vertebral artery atherosclerosis. Bilateral ocular lens replacements. Severe chronic inflammatory bilateral maxillary, ethmoid, frontal and left sphenoid sinus disease with hyperostosis and volume loss. Bilateral lamina papyracea chronic fracture deformities. Mastoids are normal. No fracture. Extracranial soft tissues are normal. Procedure Note Jose Bruno MD PhD - 08/04/2025 EXAMINATION: CT head without contrast HISTORY: Dizziness TECHNIQUE: CT of the head was performed with images acquired from skull base to vertex without intravenous contrast. COMPARISON: None Available. FINDINGS: No acute intracranial hemorrhage, mass effect or midline shift. No large vessel territory early ischemic change. Severe diffuse nonspecific bihemispheric periventricular and subcortical hypoattenuation. Age-indeterminate right basal ganglia lacunar infarctions. Chronic subcortical right frontal infarction. Moderate frontal lobe predominant atrophy with prominent anterior fossa subarachnoid spaces. No ventriculomegaly. Calcified bilateral carotid siphon and intracranial vertebral artery atherosclerosis. Bilateral ocular lens replacements. Severe chronic inflammatory bilateral maxillary, ethmoid, frontal and left sphenoid sinus disease with hyperostosis and volume loss. Bilateral lamina papyracea chronic fracture deformities. Mastoids are normal. No fracture. Extracranial soft tissues are normal. IMPRESSION: No acute intracranial hemorrhage, mass effect or midline shift. No large vessel territory early ischemic change. Age-indeterminate right basal ganglia small vessel infarctions in the setting of advanced chronic white matter ischemic microangiopathy. MRI would be a more sensitive modality for the detection of early ischemic change in this setting if clinically warranted. Electronically signed by: Jose Bruno MD Chase Aleman MD IMG CT PROCEDURES Estrellita l Result * XR Chest PA Lateral 2 Views (If patient hemodynamically stable and ambulatory) (08/04/2025 12:21 PMCDT) Anatomical Region Laterality Modality Body, Chest N/A Computed Radiogr aphy 08/04/2025 12:4 9 PM CDT Impressions 08/04/2025 12:57 PM CDT Comparison is made to chest radiograph 08/29/2024. Right internal jugular central venous catheter tip terminating at the level of the superior cavoatrial junction. Normal cardiomediastinal silhouette. No pulmonary consolidation, pleural effusion, or pneumothorax. Old granulomatous disease. Cholecystectomy clips in right upper quadrant of the abdomen. Partially imaged lumbar fusion hardware. Dictated by: Anne Melendez MD The radiology attending physician has personally reviewed this study, and had reviewed and/or edited this written report and agrees with it. Electronically signed by: Brandt Pratt M.D. Narrative 08/04/2025 12:57 PM CDT EXAMINATION: 2 view chest radiograph Procedure Note Brandt Pratt MD - 08/04/2025 EXAMINATION: 2 view chest radiograph IMPRESSION: Comparison is made to chest radiograph 08/29/2024. Right internal jugular central venous catheter tip terminating at the level of the superior cavoatrial junction. Normal cardiomediastinal silhouette. No pulmonary consolidation, pleural effusion, or pneumothorax. Old granulomatous disease. Cholecystectomy clips in right upper quadrant of the abdomen. Partially imaged lumbar fusion hardware. Dictated by: Anne Melendez MD The radiology attending physician has personally reviewed this study, and had reviewed and/or edited this written report and agrees with it. Electronically signed by: Brandt Pratt M.D. Chase Aleman MD IMG XR PROCEDURES Estrellita l Result * (ABNORMAL) ECG 12-LEAD (08/04/2025 11:27 AM CDT) Narrative CONS SCIMAGE - 08/04/2025 11:27 AM CDT Chase Aleman MD 08/04/2025 11:27 AM ECG 12 lead Date/Time: 08/04/2025 11:27 AM Performed by: Chase Aleman MD Authorized by: Chase Aleman MD Rate: ECG rate: 98 ECG rate assessment: normal Rhythm: Rhythm: sinus rhythm Ectopy: Ectopy: none QRS: QRS axis: Normal QRS intervals: Normal Conduction: Conduction: normal ST segments: ST segments: Normal T waves: T waves: non-specific Interpretation: Interpretation: abnormal Recommended Follow-up: Recommended follow up: further workup in the ED Chase Aleman MD ECG ORDERABLES Final Result CONS SCIMAGE * (ABNORMAL) Troponin T high-sensitivity series (baseline, 2hr, 4hr, 6hr) (08/04/2025 11:23 AM CDT) Trop T hs 15(H) <=14 ng/L Comment: Interpretive Data For further hscTnT resources including the diagnostic algorithm and an aid in interpretation, copy and paste this link: https://nrl.testcatalog.org/show/hsTrop Current Interpretive Data last revised 2020. Blood 08/04/2025 11:2 3 AM CDT 08/04/2025 11:28 AM CDT Chase Aleman MD LAB BLOOD ORDERABLES F inal Result Performing Organization Address City/[facility]/ZIP Co de Phone Number [facility] [address] [facility] [place] [address] * eGFR (08/04/2025 11:23 AM CDT) eGFR 73 >=60 mL/min/1. 73 m2 Comment: Interpretive Data Reference Interval Normal >/= 90 mL/min/1.73m2 Mildly decreased* 60 - 89 mL/min/1.73m2 Mildly to moderately decreased 45 - 59 mL/min/1.73m2 Moderately to severely decreased 30 - 44 mL/min/1.73m2 Severely decreased 15 - 29 mL/min/1.73m2 Kidney Failure < 15 mL/min/1.73m2 *Relative to young adult level Estimated glomerular filtration rate is determined by the 2020 CKD-EPI equation recommended by the National Kidney Foundation (A Unifying Approach to GFR Estimation: Recommendations of the NKF-ASK Task Force on Reassessing the Inclusion of Race in Diagnosing Kidney Disease, JASN 2020). The CKD-EPI equation should not be used for patients with unstable renal function and has not been validated in children and those over 70. Current interpretive data was last reviewed 2021. Blood 08/04/2025 11:2 3 AM CDT 08/04/2025 11:28 AM CDT Chase Aleman MD LAB BLOOD ORDERABLES F inal Result [facility] [address] [facility]. [place] [address] * Differential, auto (08/04/2025 11:23 AM CDT) Neutrophil abs 3.18 1.50 - 6.50 K/cumm Imm gran abs 0.02 0.00 - 0.10 K/cumm [facility] Lymphocyte abs 1.54 0.80 - 3.30 K/cumm [facility] Monocyte abs 0.35 0.20 - 0.80 K/cumm [facility] Eosinophil abs 0.10 0.00 - 0.50 K/cumm [facility] Basophil abs 0.03 0.00 - 0.10 K/cumm [facility] Neutrophil pct 60.9 % [facility] Comment: Interpretive Data Percent cell count reference ranges are not reported, since discordance with absolute values may lead to misinterpretation of CBC data. Current Interpretive Data was last revised on 2018. Imm gran pct 0.4 % [facility] Comment: Interpretive Data Percent cell count reference ranges are not reported, since discordance with absolute values may lead to misinterpretation of CBC data. Current Interpretive Data was last revised on 2018. Lymphocyte pct 29.5 % [facility] Comment: Interpretive Data Percent cell count reference ranges are not reported, since discordance with absolute values may lead to misinterpretation of CBC data. Current Interpretive Data was last revised on 2018. Monocyte pct 6.7 % [facility] Comment: Interpretive Data Percent cell count reference ranges are not reported, since discordance with absolute values may lead to misinterpretation of CBC data. Current Interpretive Data was last revised on 2018. Eosinophil pct 1.9 % [facility] Comment: Interpretive Data Percent cell count reference ranges are not reported, since discordance with absolute values may lead to misinterpretation of CBC data. Current Interpretive Data was last revised on 2018. Basophil pct 0.6 % [facility] Comment: Interpretive Data Percent cell count reference ranges are not reported, since discordance with absolute values may lead to misinterpretation of CBC data. Current Interpretive Data was last revised on 2018. Blood 08/04/2025 11:2 3 AM CDT 08/04/2025 11:28 AM CDT us Chase Aleman MD LAB BLOOD ORDERABLES F inal Result [facility] [address] [facility]. [place] [place] [address] * Pro B-type natriuretic peptide (08/04/2025 11:23 AM CDT) NT-proBNP 187 <=450 pg/mL Comment: Interpretive Comments: A. Dyspnea in Acute Care Setting All Ages: < 300 pg/ml, acute heart failure unlikely. < 50 yrs: 300 - 450 pg/ml, further investigation warranted. > 450 pg/ml, acute heart failure likely. 50 - 74 yrs: 300 - 900 pg/ml, further investigation warranted. > 900 pg/ml, acute heart failure likely . > or = 75 yrs: 450 - 1800 pg/ml, further investigation warranted. > 1800 pg/ml, acute heart failure likely. B. Non-acute Setting < 75 yrs < 125 pg/ml, rules out heart failure. > or = 125 pg/ml, further investigation warranted. > or = 75 yrs < 450 pg/ml, rules out heart failure. > or = 450 pg/ml, further investigation warranted. - Knowledge of each individual patient's NT-proBNP range may be more useful than using similar cut-points for every patient. Please note that marked elevations in NT-proBNP levels may be observed in state other than Left Ventricular Congestive Failure, including: acute coronary syndromes, right heart strain/failure (including pulmonary embolism and cor pulmonale), critical illness, renal failure, as well as advanced age. - References: 1. Jesusita KESSLER et.al. Eur Heart J. 2006:27:330-337. 2. Lizeth RW, Nevaeh AM. J. AM Richard Cardiol: Cardiovasc Imag. 2009;2: 216- 225. Interpretive Data Last Revised Date: 2018. Blood 08/04/2025 11:2 3 AM CDT 08/04/2025 11:28 AM CDT Chase Aleman MD LAB BLOOD ORDERABLES F inal Result [facility] [address] [facility]. Department of [employer] [place], [place] [id number] * (ABNORMAL) CBC with auto differential (08/04/2025 11:23 AM CDT) Pathologist [facility] WBC 5.22 3.80 - 9.90 K/cumm Hgb 13.3 11.9 - 15.5 g/dL [facility] Hct 43.3 35.6 - 45.5 % [facility] Plt 169 150 - 400 K/cumm [facility] MPV 10.1 9.1 - 12.3 fL [facility] RBC 5.43(H) 3.90 - 5.20 M/cumm [facility] MCV 79.7(L) 81.3 - 96.4 fL [facility] MCH 24.5(L) 27.1 - 33.3 pg [facility] MCHC 30.7(L) 32.3 - 35.7 g/dL [facility] RDW CV 16.7(H) 11.1 - 14.9 % [facility] RDW SD 47.8 35.7 - 48.1 fL [facility] NRBC abs 0.00 0.00 - 0.01 K/cumm [facility] Blood 08/04/2025 11:2 3 AM CDT 08/04/2025 11:28 AM CDT Chase Aleman MD LAB BLOOD ORDERABLES F inal Result Performing Organization Address [facility] Co de Phone Number [facility] [address] [employer] [place] [address] * (ABNORMAL) Magnesium (08/04/2025 11:23 AM CDT) [facility] Magnesium 1.2(L) 1.4 - 2.5 mg/dL Comment: Reference Data. Reference values for Labor and Delivery patients: < or = 0.7 mg/dL to > or = 7.3 mg/dL Current reference data last reviewd on 08/22/2015. Blood 08/04/2025 11:2 3 AM CDT 08/04/2025 11:28 AM CDT Chase Aleman MD LAB BLOOD ORDERABLES F inal Result Performing Organization Address [facility] Co de Phone Number [facility] [address] [facility] [place] [address] * (ABNORMAL) Comprehensive metabolic panel (08/04/2025 11:23 AM CDT) [facility] Sodium 143 135 - 145 mmol/L Potassium, pl 3.7 3.3 - 4.9 mmol/L [facility] Chloride 108 97 - 110 mmol/L [facility] CO2 22 22 - 32 mmol/L [facility] Anion gap 13 2 - 15 mmol/L [facility] BUN 28(H) 6 - 25 mg/dL [facility] Creatinine 0.78 0.60 - 1.10 mg/dL [facility] Glucose 147 70 - 199 mg/dL [facility] Comment: Interpretive Data Fasting glucose >/= 126 mg/dl is diagnostic for diabetes. Fasting is defined as no caloric intake for at least 8 hours. Fasting glucose between 100 mg/dl to 125 mg/dl is diagnostic of prediabetes. In a patient with classic symptoms of hyperglycemia or hyperglycemic crisis, a random glucose >/= 200 mg/dl is diagnostic for diabetes. In the absence of unequivocal hyperglycemia, results should be confirmed by repeat testing. The classification and Diagnosis of Diabetes Diabetes Care 2021; 46: S19-S40. Current interpretive data was last revised 2022. Calcium 8.8 8.5 - 10.3 mg/dL [facility] Bilirubin, total 0.3 0.1 - 1.2 mg/dL [facility] Protein, pl 6.3(L) 6.5 - 8.5 g/dL [facility] Albumin 4.1 3.5 - 5.0 g/dL [facility] Alk phos 93 40 - 130 Units/L [facility] ALT 71(H) 7 - 45 Units/L [facility] AST 38 10 - 45 Units/L [facility] Comment:Hemolyzed; result ma y be falsely elevated. Blood 08/04/2025 11:2 3 AM CDT 08/04/2025 11:28 AM CDT us Chase Aleman MD LAB BLOOD ORDERABLES F inal Result [facility] [address] [facility]. [place] [address] * SCAN - LABS (07/17/2025) us Provider Scanning Edited Result - Final * SCAN - LABS (07/10/2025) us Provider Scanning Final Result * SCAN - LABS (06/26/2025) us Provider Scanning Final Result * SCAN - LABS (06/19/2025) us Provider Scanning Final Result * SCAN - LABS (06/06/2025) us Provider Scanning Edited Result - Final * SCAN - LABS (05/22/2025) us Provider Scanning Final Result from Last [address] [facility] Advance Directives For more information, please contact: [phone] * Full Code (Latest Code Status on File) Date Activated Date Inactivated Comments 08/25/2024 7:27 PM 09/09/2024 4:32 PM * Full Code Date Activated Date Inactivated Comments 01/01/2023 10:41 AM 01/01/2023 5:13 PM Care Teams Bounty Trapper Relationship Specialty Start Date End Date Jeferson Umanzor DO [address] [place] [id number] PCP - General Family Medicine 07/30/22
--- OUTSIDE RECORDS SUMMARY | 2025-08-17 17:09 | XMS_ITS | Encounter Summary ---
Author Organization [facility] Address [address] [place] [address] Phone Care Team Providers Care Engineering Aid Name Role Phone Jeferson Umanzor DO Primary Care Provide r Encounter Details Date Type Department Care Team (Late st Contact Info) Description 04/24/2025 Orders Only [facility] [...] often do you attend chur ch or anabaptism services? 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 Gender Identity Not on file Sexual Orientation Not on file documented as of this encounter Plan of Treatment Not on file documented as of this encounter Procedures Procedure Name Priority Date/Time Associated Diagnosis Comments SCAN - LABS 04/24/2025 documented in this encounter Results * SCAN - LABS (04/24/2025) us Provider Scanning Final Result documented in this encounter Visit Diagnoses Not on filedocumented in this encounter Care Teams Engineering Aid Relationship Specialty Start Date End Date Jeferson Umanzor DO [address] [place] [address] PCP - General Family Medicine 07/30/22 documented as of this encounter
--- OUTSIDE RECORDS SUMMARY | 2025-08-17 17:09 | XMS_ITS | Encounter Summary ---
Author Organization [facility] Address [address] [place] [address] Phone Care Team Providers Care Emergency Department Aide Name Role Phone Jeferson Umanzor DO Primary Care Provide r Encounter Details Date Type Department Care Team (Late st Contact Info) Description 08/14/2025 Orders Only [facility] [...] often do you attend chur ch or voodoo services? Never 08/26/2024 Do you belong to any clubs o r organizations such as yarsanism groups, unions, fraternal or athletic groups, or [...] in the past 12 m [facility], were you homeless or living in a assisted (including now)? No 08/26/2024 Personal Safety Answer Date Recorded Have you ever been in or are you currently in a harmful physical or emotional relationship or is someone making you feel afraid or unsafe? 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 Gender Identity Not on file Sexual Orientation Not on file documented as of this encounter Plan of Treatment Not on file documented as of this encounter Procedures Procedure Name Priority Date/Time Associated Diagnosis Comments SCAN - LABS 08/14/2025 documented in this encounter Results * SCAN - LABS (08/14/2025) us Provider Scanning Edited Result - Final documented in this encounter Visit Diagnoses Not on filedocumented in this encounter Care Teams Emergency Department Aide Relationship Specialty Start Date End Date Jeferson Umanzor DO [address] [place] [address] PCP - General Family Medicine 07/30/22 documented as of this encounter
--- OUTSIDE RECORDS SUMMARY | 2025-08-17 17:09 | XMS_ITS | Clinical Summary ---
Author Organization [facility] Address [address] [place] [address] Phone Care Team Providers Care Size Stamper Name Role Phone Jeferson Umanzor DO Primary [...] Moderate. 30 Tablet 02/09/20 18 Active Vitamin S88-Dfxxt Acid 0.5-1 mg Tablet Vitamin B12 1 tab daily 1000 mcg Active rosuvastatin (CRESTOR) 20 mg tablet TK 1 T PO QD 02/22/20 20 Active omeprazole (PriLOSEC) 20 mg Capsule, Delayed Release(E.C.) omeprazole 20 mg capsule,delayed release Active levothyroxine 50 mcg tablet TK 1 T PO QD 03/16/20 Active timolol maleate (TIMOPTIC) 0.5% solution INSTILL 1 DROP INTO OU BID 03/06/20 Active sertraline (ZOLOFT) 25 mg tablet 04/25/20 Active denosumab (Prolia) 60 mg/mL Syringe Prolia [...] 1 TABLET BY MOUTH EVERY DAY Active folic acid (FOLVITE) 1 mg tabletIndication s:Alpha thalassemia Take 1 Tablet (1 mg) by mouth daily. 90 Tablet 2 11/25/19 Active Ciclopirox 8 % Solution PAINT ON [...] mg by mouth daily. 11/04/20 24 Active Breztri Aerosphere 160 mcg-9mcg-4.8mcg/ actuation HFA aerosol inhalerIndicatio ns:RODRIGUEZ (dyspnea on exertion) Take 2 Puffs by inhalation 2 times daily. 10.7 Gram 11 12/08/19 25 Active furosemide (Lasix) 20 mg tablet Take 1 Tablet (20 mg) by mouth 1 time daily as needed for Other (See Comment) (leg edema). 90 Tablet 1 03/16/20 25 Active apixaban (ELIQUIS) 2.5 mg tablet Take 1 Tablet (2.5 mg) by mouth 2 times daily. 60 Tablet 4 06/06/20 25 Active Active Problems Patient Care Coordination No te Formatting of this note migh t be different from the original. Auxiliary Operator Oren Jose MD. (MIKE) Problem Noted Date Diagnosed Date Gross hematuria 05/30/2025 Alpha thalassemia trait 08/10/2020 Iron deficiency anemia [...] Encounters Date Type Department Care Team Description 07/25/2025 External Device Data [facility] ABSTRACTION Provider, Abstract 06/07/2025 External Device Data ST[facility] ABSTRACTION Provider, Abstract 06/06/2025 [facility] Oncology and Hematology - [place] [address] [place] [phone] Dean De La Fuente MD 06/06/2025 External Device Data [facility] ABSTRACTION Provider, Abstract 06/02/2025 Results Follow-Up [facility] [address] [place] [phone] Lizzy Urban RMA URINE CULTURE 06/01/2025 Orders Only [facility] [address] [place] [phone] Xander Franco MD Recurrent UTI (Primary Dx) 06/01/2025 Refill [facility] [place] [address] [place] [address] [address] [place] [address] Dean De La Fuente MD 05/30/2025 11:30 AM CDT Office Visit [facility] [address] [place] [phone] Xander Franco MD Recurrent UTI (Primary Dx); Hydronephrosis, left; Gross hematuria 05/25/2025 1:23 PM CDT - 05/25/2025 11:59 PM CDT Hospital Encounter [facility] Imaging Services [address] [phone] Xander Franco MD Discharge Disposition: Home or Self Care 05/25/2025 Telephone [facility] [address] [place] [phone] Xander Franco MD Lab Results from Last 3 Months Immunizations Immunization Administration [...] on file 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 Gender Identity Not on file Sexual Orientation Not on file Occupation Industry Job Start Date Job End Date Not on file Not on file Not on file Not on file Last Filed Vital Signs Vital Sign Reading Time Taken Comments Blood Pressure 153/81 05/12/2025 12:40 PM CDT Pulse 70 05/12/2025 12:39 PM CDT Temperature 36.8 C (98.3 F) 05/12/2025 12:39 PM CDT Respiratory Rate 15 05/12/2025 12:39 PM CDT Oxygen Saturation 93% 05/12/2025 12:39 PM CDT Inhaled Oxygen Concentration - - Weight 42.6 kg (94 lb) 05/12/2025 12:39 PM CDT Height 144.8 cm (4' 9) 03/16/2025 2:40 PM CDT Body Mass Index 20.34 03/16/2025 2:40 PM CDT Plan of Treatment Upcoming Encounters Date Type Department Care Team (Late st Contact Info) Description 08/22/2025 2:00 PM CDT Office Visit [facility] - [place] [address] [facility] [address] [place] [address] Dean De La Fuente MD [address] [facility] [address] [place] [address] 03/19/2026 1:00 PM CDT Office Visit [facility] [address] [place] [address] Bhanu Haque MD [address] [facility] [address] [place] [address] Health Maintenance Due Date Last Done Comments RSV VACCINE (60+ or ) (1 - 1-dose 75+ series) 2013 Medicare Advantage ([place]) Preventative Visit/Annual Wellness Visit 11/23/2024 INFLUENZA VACCINE (#1) 2025 4, 09/16/2023, 08/26/2022, Additional history exists COVID-19 Vaccine (2024-2 6 season) 2025 08/26/2022, 08/21/2021, 01/27/2021, Additional history exists OSTEOPOROSIS SCREENING 12/21/2029 5, 12/21/2024, 09/25/2022, Additional history exists DTAP/TDAP/TD VACCINES (4 - T d or Tdap) 10/22/2033 10/22/2023, 07/12/2018, 06/23/2018 ZOSTER VACCINE Completed 02/03/2019, 12/09/2018 PNEUMOCOCCAL VACCINE 50+ YEARS Completed 0 08/12/2019, 06/30/2017, 10/05/2015, Additional history exists Medical Devices Implanted Type Area Linoleum Tile Layer Device Identifier Shelf Expiration Date Model / Serial / Lot Infuse Protein Kit [id number] - [id number] Implanted:Q ty: 1 on 07/13/2013 by Pavel Escobedo MD at [facility] Biological N/A: Spine Lumbar MEDTRONIC- SOFAMOR DANEK 06/23/2015 [id number] / / [id number] Allgrft Spcr Lmnry T-Plif 8mm [id number] - [id number] Implanted:Q ty: 1 on 07/13/2013 by Pavel Escobedo MD at [facility] Bone N/A: Spine Lumbar MUSCULOSKELETAL TRANSPLANT FOU 01/19/2016 [id number] / [id number] / Bone Chips Canc 30ml [id number] - [id number] Implanted:Q ty: 1 on 07/13/2013 by Pavel Escobedo MD at [facility] Bone N/A: Spine Lumbar ALLOSOURCE 12/23/2017 [id number] / [id number] / Slv Cable Troch [id number] 314986 - [id number] Implanted:Q ty: 2 on 06/29/2017 by Holger Max MD at [facility] Cable Left: Hip BIOMET INC 08/22/2024 [id number] / / [id number] Description:REQUISITION # 72 [id number] Liner Arcomxl Rnglc Sz22 Xl-445383 - [id number] Implanted:Q ty: 1 on 06/29/2017 by Holger Max MD at [facility] Hip Left: Hip BIOMET INC [id number] 06/15/2020 XL-777488 / / [id number] Shell Rnglc+ Pc 46mm 16-897138 - [id number] Implanted:Q ty: 1 on 06/29/2017 by Holger Max MD at [facility] Hip Left: Hip BIOMET INC [id number] 05/23/2023 16-390229 / / [id number] Head Fem Mod Cocr 28mm -3mm [id number] - [id number] Implanted:Q ty: 1 on 06/29/2017 by Holger Max MD at [facility] Hip Left: Hip BIOMET INC [id number] 03/14/2027 [id number] / / [id number] Stem Fem Echo Bmtrc Por [place] N[place] 126321 - [id number] Implanted:Q ty: 1 on 06/29/2017 by Holger Max MD at [facility] Hip Left: Hip BIOMET INC [id number] 12/10/2026 810274 / / [id number] Shell Rnglc+ Pc 48mm 16-739734 - [id number] Implanted:Q ty: 1 on 10/22/2017 by Holger Max MD at [facility] Hip Right: Acetabulum BOB BIOMET [id number] 07/30/2026 16-830512 / / [id number] Liner Arcomxl Rnglc Sz22 Xl-392321 - [id number] Implanted:Q ty: 1 on 10/22/2017 by Holger Max MD at [facility] Hip Right: Acetabulum BOB BIOMET [id number] 02/12/2022 XL-945097 / / [id number] Stem Fem Echo Bmtrc [place] N[place] 488554 - [id number] Implanted:Q ty: 1 on 10/22/2017 by Holger Max MD at [facility] Hip Right: Acetabulum BOB BIOMET [id number] 12/04/2026 347995 / / [id number] Head Fem Mod Cocr 28mm -6mm [id number] - [id number] Implanted:Q ty: 1 on 10/22/2017 by Holger Max MD at [facility] Hip Right: Acetabulum BOB BIOMET [id number] 03/21/2027 023592 / / [id number] Expedium Iain Implanted:Q ty: 2 on 07/13/2013 by Pavel Escobedo MD at [facility] Iain N/A: Spine Lumbar J&J- DEPUY SPINE INC 1797-0 40 / / Description:autoclave #9 daylin d # [id number] Screw Set Inner 179-22-000 - [id number] Implanted:Q ty: 4 on 07/13/2013 at [facility] Screw N/A: Spine Lumbar J&J- DEPUY SPINE INC 17906-13- 00 / / Description:Autoclave # 9 lo ad # [id number] Screw Xpdm Fa 7.0x40mm 179-99-740 - [id number] Implanted:Q ty: 2 on 07/13/2013 at [facility] Screw N/A: Spine Lumbar J&J- DEPUY SPINE INC - 40 / / Description:Autoclave # 9 lo ad # 128162 Screw Xpdm Fa 7.0x45mm -745 - [id number] Implanted:Q ty: 2 on 07/13/2013 at [facility] Screw N/A: Spine Lumbar J&J- DEPUY SPINE INC 179-7 45 / / Description:Autoclave # 9 lo ad # [id number] Screw Canc Lp 6.5x30mm 111018 - [id number] Implanted:Q ty: 1 on 10/22/2017 by Holger Max MD at [facility] Screw Right: Acetabulum BOB BIOMET [id number] 04/28/2027 133237 / / [id number] Sealant Floseal W/ Adptr 10ml 4740442 - [id number] Implanted:Q ty: 2 on 07/13/2013 by Pavel Escobedo MD at [facility] Sealant N/A: Spine Lumbar VELAZCO- BIOSCIENCE 09/22/2014 [id number] / / [id number] Sealant Floseal W/ Apdtr 5ml 2038869 - [id number] Implanted:Q ty: 1 on 03/08/2015 by Gui Moreno MD at [facility] Sealant Right: Kidney VELAZCO- AlignAlytics 02/21/2016 8932134 / / [id number] Stent Prcflx Plus 4lb31uq 175-261 - [id number] Implanted:Q ty: 1 on 10/11/2013 by Gui Moreno MD at [facility] Stent Right: Ureter [employer] SCI- UROLOGY/BREWING DIRECTOR 06/22/2016 175-261 / / [id number] Stent Prcflx Plus 4.1xe53px 175-252 - [id number] Implanted:Q ty: 1 on 04/13/2014 by Gui Moreno MD at [facility] Stent Right: Ureter [employer]- UROLOGY/BREWING DIRECTOR 01/14/2016 175-252 / / [id number] Eye Valve Right(Almhe d) Explanted Type Area Linoleum Tile Layer Device Identifier Shelf Expiration Date Model / Serial / Lot Slv [facility] [id number] - [id number] Implanted:Qty: 1 on 06/29/2017 by Holger Max MD at [facility] Explanted:Qty: 1 on 02/08/2018 by Holger Max MD at [facility] Hip Left: Hip BIOMET INC 08/22/2020 079232 / / [id number] Description:REQUISITION # 72 [id number]. Log [id number] - Stents Urological - 1 - Stent Contour [id number] 180-221 Implanted:Qty: 1 on 03/29/2013 at [facility] Explanted:Qty: 1 on 08/29/2014 by Gui Moreno MD at [facility] Stent Right: Ureter [employer]- UROLOGY/BREWING DIRECTOR 01/21/2016 180-221 / / [id number] Stent Contour [id number] 180-221 - [id number] Explanted:Qty: 1 on 08/29/2014 at [facility] Stent Right: Ureter [employer]- UROLOGY/BREWING DIRECTOR 02/17/2017 180-221 / / [id number] Description:curled inside, s tricture noted per MD Stent Cntr Vl 4.8bx93-99ti 180-155 - [id number] Implanted:Qty: 1 on 08/29/2014 by Gui Moreno MD at [facility] Explanted:Qty: 1 on 12/19/2014 by Gui Moreno MD at [facility] Stent Right: Ureter [employer]- UROLOGY/BREWING DIRECTOR 04/21/2017 [id number] / / [id number] Procedures Procedure Name Priority Date/Time Associated Diagnosis Comments URINE CULTURE Routine 05/30/2025 1:02 PM CDT Recurrent UTI US RENAL AND BLADDER Routine 05/25/2025 1:46 PM CDT Hydronephrosis, left from Last 3 Months Results * (ABNORMAL) URINE CULTURE (05/30/2025 1:02 PM CDT) URINE CULTURE SEE NOTE(A) [facility] Comment: CULTURE, URINE, ROUTINE Micro Number: [id number] Test Status: Final Specimen Source: Urine, clean catch Specimen Quality: Adequate Result: Greater than 100,000 CFU/mL of Escherichia coli COMMENT: Additional non-predominating organism(s) isolated. These organisms, commonly found on external and internal genitalia, are considered colonizers. No further testing performed. E.coli INT YVES AMOX/CLAVULANATE S <=2 AMP/SULBACTAM S <=2 CEFAZOLIN NR <=4 2 CEFEPIME S <=0.12 CEFTAZIDIME S <=1 CEFTRIAXONE S <=0.25 CIPROFLOXACIN S <=0.06 GENTAMICIN S <=1 IMIPENEM S <=0.25 LEVOFLOXACIN S <=0.12 MEROPENEM S <=0.25 NITROFURANTOIN S <=16 PIP/TAZOBACTAM S <=4 TRIMETHOPRIM/SULFA S <=20 S = Susceptible I = Intermediate R = Resistant NS = Not susceptible SDD = Susceptible Dose Dependent * = Not Tested NR = Not Reported NN = See Therapy Comments THERAPY COMMENTS Note 1: For infections other than uncomplicated UTI caused by E. coli, K. pneumoniae or P. mirabilis: Cefazolin is resistant if YVES > or = 8 mcg/mL. (Distinguishing susceptible versus intermediate for isolates with YVES < or = 4 mcg/mL requires additional testing.) Note 2: For uncomplicated UTI caused by E. coli, K. pneumoniae or P. mirabilis: Cefazolin is susceptible if YVES <32 mcg/mL and predicts susceptible to the oral agents cefaclor, cefdinir, cefpodoxime, cefprozil, cefuroxime, cephalexin and loracarbef. Test Performed at: [facility] [place] [address] Administration [place] [address] [facility] Urine URINE SPECIMEN OBTAINED BY CLEAN CATCH PROCEDURE / Unknown 05/30/2025 1:02 PM CDT 05/31/2025 12:44 AM CDT us Xander Franco MD MICROBIOLOGY - GENERAL ORDER YASMINE Final Result [facility] [phone] [place] [address] Administration [place] Gross [phone] * US RENAL AND BLADDER (05/25/2025 1:46 PM CDT) Anatomical Region Laterality Modality Abdomen Ultrasound 05/25/2025 1:46 PM CDT Impressions 05/25/2025 1:53 PM CDT IMPRESSION: Mild left hydronephrosis and hydroureter. Status post right nephrectomy. Narrative 05/25/2025 1:53 PM CDT EXAM: US RENAL AND BLADDER STUDY DATE: 05/25/2025 1:46 PM CLINICAL INDICATION: Hydronephrosis, left COMPARISON: None PROCEDURE: Grayscale and color Doppler sonographic images of the bilateral kidneys are obtained. FINDINGS: The right kidney is not visualized, consistent with history of right nephrectomy. The left kidney measures 11.5 cm in length. Normal echogenicity. No renal calculi. There is mild left hydronephrosis and left proximal hydroureter. There is a 1.1 x 0.9 x 1.1 cm cyst in the lower pole of the left kidney. There is a 1.5 x 1.2 x 1.1 hypoechogenic mass in the upper pole of the left kidney which does not demonstrate vascular flow and likely represents a complicated cyst. The bladder is not well-visualized, likely secondary to nondistention. Procedure Note Daisha Hartman MD - 05/25/2025 EXAM: US RENAL AND BLADDER STUDY DATE: 05/25/2025 1:46 PM CLINICAL INDICATION: Hydronephrosis, left COMPARISON: None PROCEDURE: Grayscale and color Doppler sonographic images of the bilateral kidneys are obtained. FINDINGS: The right kidney is not visualized, consistent with history of right nephrectomy. The left kidney measures 11.5 cm in length. Normal echogenicity. No renal calculi. There is mild left hydronephrosis and left proximal hydroureter. There is a 1.1 x 0.9 x 1.1 cm cyst in the lower pole of the left kidney. There is a 1.5 x 1.2 x 1.1 hypoechogenic mass in the upper pole of the left kidney which does not demonstrate vascular flow and likely represents a complicated cyst. The bladder is not well-visualized, likely secondary to nondistention. IMPRESSION: Mild left hydronephrosis and hydroureter. Status post right nephrectomy. Xander Franco MD ORDERABLES Final Result from Last 3 Months Insurance RX [employer] RX Member Subscriber Plan / Payer (Ef fective 2010-Present) Name:Kylee Melendez Relation to Subscriber:Self Name:Kylee Melendez Payer ID:Not on file Group ID:[id number] Type:RX Medicare Part D Address: [address] Advance Directives For more information, please contact: [phone] * Full Code (Latest Code Status on [...] 5:18 AM 10/22/2017 6:48 AM Care Teams Size Stamper Relationship Specialty Start Date End Date Jeferson Umanzor DO [address] [place] [phone] PCP - General Family Practice 05/15/22
--- OUTSIDE RECORDS SUMMARY | 2025-08-17 17:09 | XMS_ITS | Encounter Summary ---
Author Organization [facility] Address [address] [place] [address] Care Team Providers Care Senior Data Scientist Name Role Phone Jeferson Umanzor Jay COLVIN Primary Care Provider + Encounter Details Date Type Department Care Team (Late Contact Info) Description 07/07/2017 Lab Requisition [facility] General Laboratory Services [address] [place] [address] Anderson Balderas MD [address] [place] [address] Essential (primary) hypertension Social History Tobacco Use Types Packs/Day Years Used Date Smoking Tobacco: Former Cigarettes Q uit: 11/23/1992 Smokeless Tobacco: Never Alcohol Use Standard Drinks/Week Comments No 0 (1 standard drink = 0.6 oz pur e alcohol) Comments No Sex and Gender Information Value Date Recorded Sex Assigned at Not on file 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 Oncology and Hematology - [place] [address] [phone] Dean De La Fuente MD [address] [facility] [address] [place] [address] 03/19/2026 1:00 PM CDT Office Visit [facility] Pulmonology [facility] [address] [place] [address] Bhanu Haque MD [address] [place] [address] documented as of this encounter Visit Diagnoses Diagnosis Essential (primary) hypertension Unspecified essential hypertension documented in this encounter Care Teams Senior Data Scientist Relationship Specialty Start Date End Date Jeferson Umanzor DO [address] [place] [phone] PCP - General Family Practice 05/15/22 documented as of this encounter
--- OUTSIDE RECORDS SUMMARY | 2025-08-17 17:09 | XMS_ITS | Encounter Summary ---
Author Organization [facility] Address 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 Gender Identity Not on file Sexual Orientation Not on file Occupation Industry Job Start Date Job End Date Not on file Not on file Not on file Not on file documented as of this encounter Plan of Treatment Upcoming Encounters Date Type Department Care Team (Late st Contact Info) Description 08/22/2025 2:00 PM CDT Office Visit [facility] Oncology and Hematology - [place] [address] [facility] [address] [place] [address] Dean De La Fuente MD [address] [facility] [address] [place] [address] 03/19/2026 1:00 PM CDT Office Visit [facility] Pulmonology [facility] [address] [place] [address] Bhanu Haque MD [address] [facility] [place] [address] documented as of this encounter [...] <0.42 ug/mL FEU 07/06/2017 7:08 PM CDT [facility] LABORATORY SERVICES [facility] Comment: The DIC reference range is not [...] 3:47 PM CDT 07/06/2017 6:33 PM CDT Anderson Balderas MD HEMATOLOGY ORDERABLES Final Result Performing Organization Address City/State/[facility] Co de Phone Number [facility]ORY [facility]# [id number] [address] [facility] [place] [address] documented in this encounter Visit Diagnoses Diagnosis [...] disease documented in this encounter Care Teams Muleser Relationship Specialty Start Date End Date Jeferson Umanzor DO [address] [place] [phone] PCP - General Family Practice 05/15/22 documented as of this encounter
[2025-08-17 17:23] LABS: Vitamin B12 932.0 pg/mL (239-931)
== END 2025-08-17 14:29 | disposition home or self-care (01) ==
LOC: ANHLAB 14:31
PROVIDERS: PCP Student in an Organized Health Care Education/Training Program; Visit Provider Internal Medicine Hematology & Oncology
DX: D64.9 Anemia, unspecified (principal)
CPT/HCPCS: 36415; 80048; 82607; 82728; 82746; 83540; 83550; 85027